=== PATIENT | male | born 1960 | race Caucasian/White ===

== ENCOUNTER 2024-09-05 10:19 | Inpatient (IN) ==
--- NOTE | 2024-09-05 11:24 | Emergency Department Note ---
Impression & Plan Cirrhosis, Fluid overload, Hyponatremia, Abdominal pain, Single subsegmental thrombotic pulmonary embolism without acute cor pulmonale, Deep vein thrombosis (DVT) of tibial vein of right lower extremity ED Provider Note Provider: Keyur Lee MD CHIEF COMPLAINT: Swelling, shortness of breath, pain HISTORY OF PRESENT ILLNESS: Patient is a 64-year-old gentleman reported history of diverticulitis presenting here today reporting over the past month he had increasing swelling of his bilateral lower legs. States noted some swelling of the belly in the last week at least has been having abdominal discomfort. [facility] but was unable to make it there for an appointment. Came here today for evaluation. Reports some nausea. Reports shortness of breath even at rest but also worse with exertion. Little bit of pain in the upper chest. Does drink alcohol sometimes. Did fall yesterday and get stuck between the door and the bathroom was able to get out. Denies significant injury to his right knee but states he was trapped there on the right side. Denies striking his head. Reports some nausea but denies diarrhea. Denies fevers. PAST MEDICAL HISTORY: As noted above MEDICATIONS: None reported SOCIAL HISTORY: Regular alcohol states 4 beers an evening. PHYSICAL EXAM: GENERAL: alert and oriented in no acute distress on stretcher Head: normocephalic and atraumatic EYES: No injection, discharge or icterus. PERRL, EOMI. NECK: Trachea midline. Supple without significant tenderness ENT: Mucous membranes pink and moist. LUNGS: Airway patent. No retractions. Breath sounds diminished in the bases with some fine crackles, mildly tachypneic HEART: Regular rate and rhythm. No chest wall tenderness ABDOMEN: Soft decently distended however with some mild diffuse tenderness. No guarding or peritonitis appreciable. SKIN: Acyanotic, warm, dry, without rashes EXTREMITIES: Without deformity 2+ edema the bilateral lower extremities to the mid thighs. No significant tender with ROM of the right knee. Soft compartments of the arms and legs. NEUROLOGICAL: No focal deficits. No aphasia. No facial droop or slurred speech. Normal strength and tone in the extremities. Sensation to gross touch normal. Ambulatory. EK bpm sinus rhythm. No PVC or PAC. No acute ST segment elevation or depression with QTc of 444. CONTINUOUS CARDIAC MONITORING: was ordered and showed a heart rate of 60s bpm in normal sinus rhythm GCS 15. Patient's laboratory studies and imaging reviewed. Differential includes traumatic injury infection, dehydration, metabolic abnormality, hypo/hyperglycemia, electrolyte disturbance, anemia, hypoxia, cardiac sources, intracerebral event, toxicologic, neurologic, as well as other pathologies. IMPRESSION/MEDICAL DECISION MAKING: Given reported history of alcohol use and the fall concerned that there could be some occult trauma and as such completed trauma scans as well as CT of the chest to exclude PE. Does have findings of swelling of lower extremities was the belly. Reports distant history of DVT. Will obtain ultrasound to exclude this in the bilateral lower legs but am concerned for possible heart failure or CHF. Blood work is sent. Denies alcohol use today. Does not appear loosening or DTs at this time. No fevers reported lower suspicion for infection. No clinical evidence of compartment syndrome on exam of the extremities. Doubt fracture of the right knee or dislocation. Point care blood work concerning for hyponatremia sodium 123. Mild hypokalemia 1.5. Normal potassium. Normal renal function. Troponin elevated. BNP elevated to 78. Albumin low at 3. Alcohol level not elevated. Bilirubin patient 2.6. Ammonia not elevated. Chest x-ray question small pleural effusions. CT report reads no acute intracranial bleeding or cervical spine fracture. CTA of the chest questions subsegmental left lower lobe PE. Cardiomegaly with mild pulm edema and trace effusions noted with cirrhosis and portal hypertension noted's finding and some abdominal pelvic ascites. CT report questions possibility of SBP lower likelihood carcinomatosis as there is some nodularity. Lower extremity ultrasounds completed as well and Discussed with patient the findings. He denies fever and no leukocytosis. Patient not immediately appearing septic. Discussed with him possibly attempting diagnostic paracentesis to exclude SBP at bedside using ultrasound. Radiology not available today for such procedure. Will hold off on full anticoagulation as there is only a very small possible subsegmental PE questionable DVT until paracentesis was performed as below. Abdominal paracentesis fluid sent for further testing will hold off on empiric antibiotics at this time as he is not febrile or with leukocytosis. Some IV magnesium supplementation as well as IV albumin was given. Discussed with the patient strong recommendation for further care here at the hospital of admission. He is agreeable although not particularly thrilled with the prospect and would stay at least 1 night he said. Discussed with the hospitalist team for further care here. DIAGNOSIS: Hyponatremia, cirrhosis, ascites, abdominal pain, subsegmental PE DISPOSITION: Hospitalist will evaluate Patient was agreeable with this plan. ED procedure: Abdominal diagnostic paracentesis Performed by myself with patient's verbal informed consent of risks and benefits including infection and bleeding Patient was positioned laying on his right abdomen. Ultrasound was utilized bedside to visualized a fluid pocket in the mid abdomen clear of any bowel. Area was anesthetized with approximately 5 cc of 1% lidocaine with epinephrine in the subcu tissue after being cleaned with chlorhexidine. The area was draped with sterile towels and cleaned again with chlorhexidine. Using sterile gloves and technique a 22-gauge needle was inserted approximately centimeter just below the umbilicus and the area of the visualized clear fluid pocket and straw- colored clear fluid was aspirated. Approximately 20 cc was aspirated and the paracentesis was ended. Needle withdrawn intact. No significant bleeding from the site. Area again cleaned chlorhexidine and Band-Aid applied. No significant leakage or bleeding noted. Patient without significant pain complaint. No obvious complications. Past Med/Surg History Problem List (Updated 09/05/24 @ 14:30 by Keyur Lee M.D.) Deep vein thrombosis (DVT) of tibial vein of right lower extremity (Acute) Single subsegmental thrombotic pulmonary embolism without acute cor pulmonale (Acute) Abdominal pain (Acute) Hyponatremia (Acute) Fluid overload (Acute) Cirrhosis (Acute) No significant past surgical history No significant past medical history Medical History No significant past medical history Surgical History No significant past surgical history Social History (Updated 03/14/23 @ 19:10 by Merritt Ramey) Smoking Status: Current every day smoker marital status: Single current occupational status: employed Feels Safe at Home: Yes Allergies Allergies Allergy/AdvReac Type Severity Reaction Status Date / Time Sulfa (Sulfonamide Allergy Mild Rash Verified 03/14/23 19:10 Antibiotics) Home Meds Previous Rx's Medication Instructions Recorded oxycodone 5 mg tablet 5 mg PO Q4H PRN pain #15 tabs 03/14/23 Results & Data (ED) Vital Signs Vital Signs - 24 hr 09/05/24 10:27 09/05/24 10:40 09/05/24 11:22 Temperature 36.8 C Temperature Source Temporal Artery Scan Pulse Rate 69 63 Pulse Rate [Right Finger] Respiratory Rate 16 Respiratory Effort / Characteristics Non-Labored Spontaneous Respiratory Depth Normal Respiratory Pattern Blood Pressure 131/85 Blood Pressure [Right Arm] Blood Pressure Mean 100 Blood Pressure Mean [Right Arm] Blood Pressure Position Sitting Pulse Oximetry 100 Oxygen Delivery Method Room Air Room Air Sepsis Recent Fever Within 48 Hours No Sepsis New/Unexplained Change in Mental Status N/A Sepsis Action Taken by Nursing No Action Required 09/05/24 11:26 09/05/24 11:28 09/05/24 12:13 Temperature Temperature Source Pulse Rate Pulse Rate [Right Finger] 62 68 Respiratory Rate 16 16 Respiratory Effort / Characteristics Non-Labored Spontaneous Non-Labored Spontaneous Non-Labored Spontaneous Respiratory Depth Normal Normal Normal Respiratory Pattern Regular Regular Regular Blood Pressure Blood Pressure [Right Arm] 111/72 111/76 Blood Pressure Mean Blood Pressure Mean [Right Arm] 85 87 Blood Pressure Position Pulse Oximetry 100 100 Oxygen Delivery Method Room Air Room Air Sepsis Recent Fever Within 48 Hours Sepsis New/Unexplained Change in Mental Status Sepsis Action Taken by Nursing 09/05/24 13:59 Temperature Temperature Source Pulse Rate Pulse Rate [Right Finger] 62 Respiratory Rate 20 Respiratory Effort / Characteristics Non-Labored Spontaneous Respiratory Depth Normal Respiratory Pattern Regular Blood Pressure Blood Pressure [Right Arm] 102/69 Blood Pressure Mean Blood Pressure Mean [Right Arm] 80 Blood Pressure Position Pulse Oximetry 100 Oxygen Delivery Method Room Air Sepsis Recent Fever Within 48 Hours Sepsis New/Unexplained Change in Mental Status Sepsis Action Taken by Nursing Laboratory Data 09/05/24 10:59 09/05/24 10:59 Lab Results 09/05/24 09/05/24 09/05/24 Range/Units 10:59 11:12 11:33 WBC 8.75 (4.8-10.8) K/ul RBC 3.54 L (4.70-6.10) M/uL Hgb 13.2 L (14.0-18.0) g/dl POC Hgb 12.9 L (14.0-18.0) g/dl Hct 36.1 L (42.0-52.0) % POC Hct 38 L (42-52) % MCV 102.0 H (80.0-100.0) fL MCH 37.3 H (25.0-34.0) pg MCHC 36.6 H (32.0-36.0) g/dL RDW Std Deviation 46.3 (36.4-46.3) fL RDW Coeff of Mimi 12.3 (11.5-14.5) % Plt Count 138 (130-400) K/uL MPV 10.2 (9.4-12.4) fL Immature Gran % (Auto) 0.2 % Neut % (Auto) 69.2 % Lymph % (Auto) 18.3 % [place] % (Auto) 10.7 % Eos % (Auto) 1.3 % Baso % (Auto) 0.3 % Neut # (Auto) 6.05 (1.40-6.50) K/uL Lymph # (Auto) 1.60 (1.20-3.40) K/uL [place] # (Auto) 0.94 H (0.11-0.59) K/uL Eos # (Auto) 0.11 (0.00-0.50) K/uL Baso # (Auto) 0.03 (0.00-0.20) K/uL Immature Gran # (Auto) 0.02 (0.01-0.20) K/uL PT 11.5 (9.0-12.0) Seconds INR 1.1 (0.9-1.1) APTT 26 (21-31) Seconds PTT Ratio 1.0 POC Sodium 124 L (135-144) mmol/L Sodium 123 L (136-145) mmol/L POC Potassium 4.1 (3.3-5.0) mmol/L Potassium 4.1 (3.5-5.1) mmol/L POC Chloride 89 L (101-112) mmol/L Chloride 91 L (98-107) mmol/L Carbon Dioxide 26 (21-32) mmol/L POC Total CO2 23 L (24-31) mmol/L Anion Gap 6 (3-11) POC Anion Gap 17.0 (16-25) mmol/L POC BUN 6 L (7-18) mg/dl BUN 7 (6-23) mg/dl Creatinine 0.69 (0.6-1.4) mg/dl POC Creatinine 0.7 (0.6-1.3) mg/dl Est Cr Clr Drug Dosing 96.6 ml/min eGFR 104.63 BUN/Creatinine Ratio 10.1 (10-20) Glucose 82 (70-99(Fasting)) mg/dl POC Glucose (other) 81 (70-99) mg/dl Osmolality 257 L (280-300) mOsm/kg Calcium 9.0 (8.6-10.3) mg/dl POC Ioniz Calcium [place] 1.14 (1.12-1.32) mmol/l Magnesium 1.5 L (1.7-2.4) mg/dl Total Bilirubin 2.6 H (0.2-1.0) mg/dl AST 60 H (13-39) U/L ALT 27 (7-52) U/L Alkaline Phosphatase 140 H (34-104) U/L Ammonia 17.0 L (18-72) umol/L Troponin I High Sens 19.2 (0-20) pg/ml B-Natriuretic Peptide 278 H (0-100) pg/ml Total Protein 5.7 L (6.0-8.3) gm/dl Albumin 3.0 L (3.4-5.0) gm/dl Globulin 2.7 (2.5-4.0) gm/dl Albumin/Globulin Ratio 1.1 (0.9-2) Lipase 19 (11-82) U/L TSH 13.814 H (0.300-4.500) uIu/ml Free T4 1.31 (0.61-1.60) ng/dl Fluid Comment Ethyl Alcohol mg/dL < 10.0 (<10.0) mg/dl Adenovirus (PCR) Not Detected (NotDetected) B. pertussis DNA (PCR) Not Detected (NotDetected) B.parapertussis DNA PCR Not Detected (NotDetected) C. pneumoniae DNA (PCR) Not Detected (NotDetected) Coronavirus OC43 (PCR) Not Detected (NotDetected) Coronavirus HKU1 (PCR) Not Detected (NotDetected) Coronavirus 229E (PCR) Not Detected (NotDetected) SARS-CoV-2 (PCR) Not Detected (NotDetected) Coronavirus NL63 (PCR) Not Detected (NotDetected) Human Metapneumovir PCR Not Detected (NotDetected) Influenza Type A (PCR) Not Detected (NotDetected) Influenza Type B (PCR) Not Detected (NotDetected) M. pneumoniae (PCR) Not Detected (NotDetected) Parainfluenza 1 (PCR) Not Detected (NotDetected) Parainfluenza 2 (PCR) Not Detected (NotDetected) Parainfluenza 3 (PCR) Not Detected (NotDetected) Parainfluenza 4 (PCR) Not Detected (NotDetected) RSV (PCR) Not Detected (NotDetected) Entero/Rhino (PCR) Not Detected (NotDetected) 09/05/24 Range/Units 14:20 WBC (4.8-10.8) K/ul RBC (4.70-6.10) M/uL Hgb (14.0-18.0) g/dl POC Hgb (14.0-18.0) g/dl Hct (42.0-52.0) % POC Hct (42-52) % MCV (80.0-100.0) fL MCH (25.0-34.0) pg MCHC (32.0-36.0) g/dL RDW Std Deviation (36.4-46.3) fL RDW Coeff of Mimi (11.5-14.5) % Plt Count (130-400) K/uL MPV (9.4-12.4) fL Immature Gran % (Auto) % Neut % (Auto) % Lymph % (Auto) % [place] % (Auto) % Eos % (Auto) % Baso % (Auto) % Neut # (Auto) (1.40-6.50) K/uL Lymph # (Auto) (1.20-3.40) K/uL [place] # (Auto) (0.11-0.59) K/uL Eos # (Auto) (0.00-0.50) K/uL Baso # (Auto) (0.00-0.20) K/uL Immature Gran # (Auto) (0.01-0.20) K/uL PT (9.0-12.0) Seconds INR (0.9-1.1) APTT (21-31) Seconds PTT Ratio POC Sodium (135-144) mmol/L Sodium (136-145) mmol/L POC Potassium (3.3-5.0) mmol/L Potassium (3.5-5.1) mmol/L POC Chloride (101-112) mmol/L Chloride (98-107) mmol/L Carbon Dioxide (21-32) mmol/L POC Total CO2 (24-31) mmol/L Anion Gap (3-11) POC Anion Gap (16-25) mmol/L POC BUN (7-18) mg/dl BUN (6-23) mg/dl Creatinine (0.6-1.4) mg/dl POC Creatinine (0.6-1.3) mg/dl Est Cr Clr Drug Dosing ml/min eGFR BUN/Creatinine Ratio (10-20) Glucose (70-99(Fasting)) mg/dl POC Glucose (other) (70-99) mg/dl Osmolality (280-300) mOsm/kg Calcium (8.6-10.3) mg/dl POC Ioniz Calcium [place] (1.12-1.32) mmol/l Magnesium (1.7-2.4) mg/dl Total Bilirubin (0.2-1.0) mg/dl AST (13-39) U/L ALT (7-52) U/L Alkaline Phosphatase (34-104) U/L Ammonia (18-72) umol/L Troponin I High Sens (0-20) pg/ml B-Natriuretic Peptide (0-100) pg/ml Total Protein (6.0-8.3) gm/dl Albumin (3.4-5.0) gm/dl Globulin (2.5-4.0) gm/dl Albumin/Globulin Ratio (0.9-2) Lipase (11-82) U/L TSH (0.300-4.500) uIu/ml Free T4 (0.61-1.60) ng/dl Fluid Comment Ethyl Alcohol mg/dL (<10.0) mg/dl Adenovirus (PCR) (NotDetected) B. pertussis DNA (PCR) (NotDetected) B.parapertussis DNA PCR (NotDetected) C. pneumoniae DNA (PCR) (NotDetected) Coronavirus OC43 (PCR) (NotDetected) Coronavirus HKU1 (PCR) (NotDetected) Coronavirus 229E (PCR) (NotDetected) SARS-CoV-2 (PCR) (NotDetected) Coronavirus NL63 (PCR) (NotDetected) Human Metapneumovir PCR (NotDetected) Influenza Type A (PCR) (NotDetected) Influenza Type B (PCR) (NotDetected) M. pneumoniae (PCR) (NotDetected) Parainfluenza 1 (PCR) (NotDetected) Parainfluenza 2 (PCR) (NotDetected) Parainfluenza 3 (PCR) (NotDetected) Parainfluenza 4 (PCR) (NotDetected) RSV (PCR) (NotDetected) Entero/Rhino (PCR) (NotDetected) Administered Medications Discontinued Medications Fentanyl Citrate (Fentanyl Citrate Pf 100 Mcg/2 Ml Vial) 25 mcg IV NOW STA Stop: 09/05/24 11:01 Last Admin: 09/05/24 12:14 Dose: 25 mcg Documented By: JULIET Fentanyl Citrate (Fentanyl Citrate Pf 100 Mcg/2 Ml Vial) 25 mcg IV NOW STA Stop: 09/05/24 13:45 Last Admin: 09/05/24 13:57 Dose: 25 mcg Documented By: JULIET Ioversol (Optiray 320 125ml) 112 ml IV ONCE ONE Stop: 09/05/24 11:53 Last Admin: 09/05/24 11:53 Dose: 112 ml Documented By: DAYAN Ondansetron HCl (Ondansetron Inj 2 Mg/Ml 2 Ml Vial) 4 mg IV NOW STA Stop: 09/05/24 11:01 Last Admin: 09/05/24 12:14 Dose: 4 mg Documented By: JULIET Imaging Data Radiologist's Impression: Chest X-Ray 09/05/24 10:41 XR chest 1V portable HISTORY: 64 years-old Male Dyspnea acute shortness of breath COMPARISON: None TECHNIQUE: AP view of the chest FINDINGS: Cardiomediastinal and hilar silhouettes are within normal limits. No overt pulmonary edema. No pneumothorax. Probable small pleural effusions with bibasilar atelectasis. Bones appear grossly intact. IMPRESSION: Findings suggestive of small pleural effusions with mild atelectasis of the lung bases. ACT 112: Negative or not required by law. The above report was generated using voice recognition software. It may contain grammatical, syntax or spelling errors. Electronically signed by: Tyrone Ruiz M.D. 09/05/2024 11:37 AM Abdomen/Pelvis CT 09/05/24 11:00 CT angio chest PE protocol, CT abd pelvis IV con only HISTORY: 64 years-old Male with PE, SOB, falls, CP. Acute chest and abdominal pain and shortness of breath. Alcoholism with chronic liver disease. TECHNIQUE: Multiple CTA images of the chest were obtained after the intravenous administration of 112 ml Optiray. Coronal and sagittal MIPS were obtained from the axial data set and were submitted for review. All measurements were obtained according to NASCET criteria. CT abdomen and pelvis with IV contrast only also obtained. A dose lowering technique was utilized adhering to the principles of ALARA. COMPARISON: None. FINDINGS: CTA: Moderate cardiomegaly. Moderate coronary artery calcifications without pericardial effusion. No thoracic aortic aneurysm. No central pulmonary emboli identified. Respiratory motion artifact limits the study. There is a tiny filling defects noted within a subsegmental pulmonary arterial branches in the left lower lobe on image [address] CHEST: No dominant thyroid nodule or lymphadenopathy. Trace pleural effusions. Mild intralobular septal thickening with mild pulmonary edema and bronchial wall thickening. Subsegmental left lower lobe consolidation. Low suspicion 3 mm solid nodule within the superior segment left lower lobe. Unremarkable soft tissues. Age-indeterminate thoracic compression deformities, most pronounced at T5, T9, T10 and T11 without retropulsion. Chronic appearing nondisplaced bilateral rib fractures. CT ABDOMEN/PELVIS: There is no pneumoperitoneum. Unremarkable spleen, pancreas and adrenal glands. Cholecystectomy. Cirrhotic liver. No hepatic mass identified. Esophageal and abdominal varicosities. Patent portal vein. Small hiatal hernia. Unremarkable kidneys without hydronephrosis. Urinary bladder wall thickening with partial distention. Prostatomegaly. Small fat filled inguinal hernias. Moderate abdominopelvic ascites. Fluid-filled loops of large and small bowel with diffuse large and small bowel wall thickening. Colonic diverticulosis. There is diffuse peritoneal thickening and enhancement. Periportal lymph nodes measure up to 10 mm. Generalized body wall edema. Chronic rib fractures. Age- indeterminate L1, L3 and L4 compression deformities. IMPRESSION: 1. Probable subsegmental left lower lobe pulmonary embolus. 2. Cardiomegaly with mild pulmonary edema, trace pleural effusions and mild left basilar atelectasis. 3. Cirrhosis with stigmata of portal venous hypertension including abdominal varicosities with moderate abdominopelvic ascites. 4. Enhancement and nodularity of the peritoneum raises the possibility of spontaneous bacterial peritonitis with carcinomatosis considered less likely. 5. Wall thickening throughout the large and small bowel may be secondary to portal enteropathy/colopathy versus a nonspecific enterocolitis. 6. Colonic diverticulosis. 7. Age-indeterminate thoracolumbar compression deformities as above which are favored to be subacute or chronic. Correlate with point tenderness. ACT 112: Negative or not required by law. The above report was generated using voice recognition software. It may contain grammatical, syntax or spelling errors. Electronically signed by: Tyrone Ruiz M.D. 09/05/2024 1:[address] 09/05/24 11:00 CT cervical spine wo con CT DOSE: 2603.06 mGy.cm CLINICAL HISTORY: 64 years-old Male with falls. Acute neck pain status post fall COMPARISON: Head CT of same day TECHNIQUE: Multiple axial CT images of the cervical spine were obtained without contrast. A dose lowering technique was utilized adhering to the principles of ALARA. FINDINGS: Mildly demineralized appearance of the bones. Mild to moderate multilevel intervertebral disc space narrowing with moderate facet arthrosis and spondylotic spurring. Subcentimeter sclerotic foci noted involving the C7 and T2 vertebral bodies. The cervical soft tissues appear unremarkable. No pneumothorax. Intralobular septal thickening of the apices with subpleural bleb formation. IMPRESSION: No acute cervical spine fracture or subluxation. ACT 112: Negative or not required by law. The above report was generated using voice recognition software. It may contain grammatical, syntax or spelling errors. Electronically signed by: Tyrone Ruiz M.D. 09/05/2024 12:36 PM Chest CTA 09/05/24 11:00 CT angio chest PE protocol, CT abd pelvis IV con only HISTORY: 64 years-old Male with PE, SOB, falls, CP. Acute chest and abdominal pain and shortness of breath. Alcoholism with chronic liver disease. TECHNIQUE: Multiple CTA images of the chest were obtained after the intravenous administration of 112 ml Optiray. Coronal and sagittal MIPS were obtained from the axial data set and were submitted for review. All measurements were obtained according to NASCET criteria. CT abdomen and pelvis with IV contrast only also obtained. A dose lowering technique was utilized adhering to the principles of ALARA. COMPARISON: None. FINDINGS: CTA: Moderate cardiomegaly. Moderate coronary artery calcifications without pericardial effusion. No thoracic aortic aneurysm. No central pulmonary emboli identified. Respiratory motion artifact limits the study. There is a tiny filling defects noted within a subsegmental pulmonary arterial branches in the left lower lobe on image [address] CHEST: No dominant thyroid nodule or lymphadenopathy. Trace pleural effusions. Mild intralobular septal thickening with mild pulmonary edema and bronchial wall thickening. Subsegmental left lower lobe consolidation. Low suspicion 3 mm solid nodule within the superior segment left lower lobe. Unremarkable soft tissues. Age-indeterminate thoracic compression deformities, most pronounced at T5, T9, T10 and T11 without retropulsion. Chronic appearing nondisplaced bilateral rib fractures. CT ABDOMEN/PELVIS: There is no pneumoperitoneum. Unremarkable spleen, pancreas and adrenal glands. Cholecystectomy. Cirrhotic liver. No hepatic mass identified. Esophageal and abdominal varicosities. Patent portal vein. Small hiatal hernia. Unremarkable kidneys without hydronephrosis. Urinary bladder wall thickening with partial distention. Prostatomegaly. Small fat filled inguinal hernias. Moderate abdominopelvic ascites. Fluid-filled loops of large and small bowel with diffuse large and small bowel wall thickening. Colonic diverticulosis. There is diffuse peritoneal thickening and enhancement. Periportal lymph nodes measure up to 10 mm. Generalized body wall edema. Chronic rib fractures. Age- indeterminate L1, L3 and L4 compression deformities. IMPRESSION: 1. Probable subsegmental left lower lobe pulmonary embolus. 2. Cardiomegaly with mild pulmonary edema, trace pleural effusions and mild left basilar atelectasis. 3. Cirrhosis with stigmata of portal venous hypertension including abdominal varicosities with moderate abdominopelvic ascites. 4. Enhancement and nodularity of the peritoneum raises the possibility of spontaneous bacterial peritonitis with carcinomatosis considered less likely. 5. Wall thickening throughout the large and small bowel may be secondary to portal enteropathy/colopathy versus a nonspecific enterocolitis. 6. Colonic diverticulosis. 7. Age-indeterminate thoracolumbar compression deformities as above which are favored to be subacute or chronic. Correlate with point tenderness. ACT 112: Negative or not required by law. The above report was generated using voice recognition software. It may contain grammatical, syntax or spelling errors. Electronically signed by: Tyrone Ruiz M.D. 09/05/2024 1:[address] 11/17/24 11:00 CT head/brain wo con CLINICAL HISTORY: 64 years-old Male with falls. Acute head trauma status post fall TECHNIQUE: Multiple axial CT images of the head were obtained without contrast. A dose lowering technique was utilized adhering to the principles of ALARA. COMPARISON: CT cervical spine of same day FINDINGS: No acute intracranial hemorrhage, midline shift, intracranial mass, hydrocephalus, territorial ischemia or abnormal extra-axial collection. Mild involutional changes. The calvarium is intact. The paranasal sinuses, mastoid air cells, and middle ear cavities are clear. IMPRESSION: No acute intracranial abnormality or calvarial fracture. ACT 112: Negative or not required by law. The above report was generated using voice recognition software. It may contain grammatical, syntax or spelling errors. Electronically signed by: Tyrone Ruiz M.D. 09/05/2024 12:33 PM Venous Doppler Study 09/05/24 11:01 BILATERAL LOWER EXTREMITY VENOUS DOPPLER HISTORY: swelling COMPARISON STUDY: None. FINDINGS: There is normal compressibility, flow, and augmentation within the left lower extremity deep venous structures. Subcutaneous edema noted. RIGHT-No flow identified within one of the duplicated posterior tibial veins involving the proximal to mid portions of the vessel. Additional incomplete compressibility with wall thickening noted throughout the majority of the right lower extremity deep venous structures, likely chronic changes. IMPRESSION: 1. Age-indeterminate DVT within the right posterior tibial vein. 2. No left-sided DVT. ACT 112: Negative or not required by law. Electronically signed by: Tyrone Ruiz M.D. 09/05/2024 1:42 PM Discharge Plan Visit Data Chief Complaint: Shortness of Breath/Dyspnea Stated Complaint: CHEST PAIN, SOB ED Provider: Keyur Lee Discharge Problem: Cirrhosis, Fluid overload, Hyponatremia, Abdominal pain, Single subsegmental thrombotic pulmonary embolism without acute cor pulmonale, Deep vein thrombosis (DVT) of tibial vein of right lower extremity Patient Disposition: Being Evaluated by Hospitalist Forms Stand Alone Forms: [place] Prescriptions Prescriptions: No Action oxycodone 5 mg tablet 5 mg PO Q4H PRN (Reason: pain) Qty: 15 0RF Referrals Referrals: [facility] [Primary Care Provider] - Discharge Problem: Cirrhosis Qualifiers: Hepatic cirrhosis type: alcoholic cirrhosis Ascites presence: with ascites Q ualified Code(s): K70.31 - Alcoholic cirrhosis of liver with ascites Fluid overload Qualifiers: Hypervolemia type: unspecified Qualified Code(s): E87.70 - Fluid overload, unspecified Abdominal pain Qualifiers: Abdominal location: generalized Qualified Code(s): R10.84 - Generalized abdominal pain
[2024-09-05 11:25] LABS: iSTAT Creatinine 0.7 mg/dl (0.6-1.3); iSTAT Hemoglobin 12.9 g/dl (14.0-18.0); iSTAT Ionized Calcium 1.14 mmol/l (1.12-1.32); iSTAT Potassium 4.1 mmol/L (3.3-5.0)
[2024-09-05 11:31] LABS: Basophils # (auto) 0.03 K/uL (0.00-0.20); Basophils % (auto) 0.3 %; Eosinophils # (auto) 0.11 K/uL (0.00-0.50); Eosinophils % (auto) 1.3 %; Hematocrit (blood only) 36.1 % (42.0-52.0); Hemoglobin 13.2 g/dl (14.0-18.0); Immature Granulocytes # (auto) 0.02 K/uL (0.01-0.20); Immature Granulocytes % (auto) 0.2 %; Lymphocytes % (auto) 18.3 %; Mean Corpuscular Hemoglobin 37.3 pg (25.0-34.0); Mean Corpuscular Hgb Conc 36.6 g/dL (32.0-36.0); Mean Platelet Volume 10.2 fL (9.4-12.4); Monocytes # (auto) 0.94 K/uL (0.11-0.59); Monocytes % (auto) 10.7 %; Neutrophils # (auto) 6.05 K/uL (1.40-6.50); Neutrophils % (auto) 69.2 %; Platelet Count 138 K/uL (130-400); RDW Coefficient of Variation 12.3 % (11.5-14.5); RDW Standard Deviation 46.3 fL (36.4-46.3); Red Blood Count 3.54 M/uL (4.70-6.10); White Blood Count 8.75 K/ul (4.8-10.8)
--- NOTE | 2024-09-05 11:38 | XRay Report ---
XR chest 1V portable HISTORY: 64 years-old Male Dyspnea acute shortness of breath COMPARISON: None TECHNIQUE: AP view of the chest FINDINGS: Cardiomediastinal and hilar silhouettes are within normal limits. No overt pulmonary edema. No pneumo thorax. Probable small pleural effusions with bibasilar atelectasis. Bones appear grossly intact. IMPRESSION: Findings suggestive of small pleural effusions with mild atelectasis of the lung bases. ACT 112: Negative or not required by law. The above report was generated using voice recognition software. It may contain grammatical, syntax o r spelling errors. Electronically signed by: Tyrone Ruiz M.D. 09/05/2024 11:37 AM
[2024-09-05 11:41] LABS: Albumin Globulin Ratio 1.1 (0.9-2); BUN Creatinine Ratio 10.1 (10-20); Bilirubin,Total 2.6 mg/dl (0.2-1.0); Creatinine Clr Calc Pharmacy 96.6 ml/min; Globulin 2.7 gm/dl (2.5-4.0); Magnesium 1.5 mg/dl (1.7-2.4); Potassium 4.1 mmol/L (3.5-5.1); Total Protein 5.7 gm/dl (6.0-8.3)
[2024-09-05 11:47] LABS: Troponin I High Sensitivity 19.2 pg/ml (0-20)
[2024-09-05 11:50] LABS: INR 1.1 (0.9-1.1); Partial Thromboplastin Time 26 Seconds (21-31); Prothrombin Time 11.5 Seconds (9.0-12.0)
[2024-09-05] MEDS: OPTIRAY 320 125ml IV ONE (11:53)
[2024-09-05 12:05] LABS: Thyroid Stimulating Hormone 13.814 uIu/ml (0.300-4.500)
[2024-09-05] MEDS: fentaNYL citrate PF 100 MCG/2 ML VIAL IV STA ×3 (12:14→15:24)
[2024-09-05] MEDS: ONDANSETRON INJ 2 MG/ML 2 ML VIAL IV STA (12:14)
--- NOTE | 2024-09-05 12:35 | CT Scan Report ---
CT head/brain wo con CLINICAL HISTORY: 64 years-old Male with falls. Acute head trauma status post fall TECHNIQUE: Multiple axial CT images of the head were obtained without contrast. A dose lowering tech nique was utilized adhering to the principles of ALARA. COMPARISON: CT cervical spine of same day FINDINGS: No acute intracranial hemorrhage, midline shift, intracranial mass, hydrocephalus, territorial ischem ia or abnormal extra-axial collection. Mild involutional changes. The calvarium is intact. The paranasal sinuses, mastoid air cells, and middle ear cavities are clear . IMPRESSION: No acute intracranial abnormality or calvarial fracture. ACT 112: Negative or not required by law. The above report was generated using voice recognition software. It may contain grammatical, syntax o r spelling errors. Electronically signed by: Tyrone Ruiz M.D. 09/05/2024 12:33 PM
--- NOTE | 2024-09-05 12:39 | CT Scan Report ---
CT cervical spine wo con CT DOSE: 2603.06 mGy.cm CLINICAL HISTORY: 64 years-old Male with falls. Acute neck pain status post fall COMPARISON: Head CT of same day TECHNIQUE: Multiple axial CT images of the cervical spine were obtained without contrast. A dose low ering technique was utilized adhering to the principles of ALARA. FINDINGS: Mildly demineralized appearance of the bones. Mild to moderate multilevel intervertebral di sc space narrowing with moderate facet arthrosis and spondylotic spurring. Subcentimeter sclerotic fo ci noted involving the C7 and T2 vertebral bodies. The cervical soft tissues appear unremarkable. No pneumothorax. Intralobular septal thickening of th e apices with subpleural bleb formation. IMPRESSION: No acute cervical spine fracture or subluxation. ACT 112: Negative or not required by law. The above report was generated using voice recognition software. It may contain grammatical, syntax o r spelling errors. Electronically signed by: Tyrone Ruiz M.D. 09/05/2024 12:36 PM
[2024-09-05 12:40] LABS: T4 Free Thyroxine 1.31 ng/dl (0.61-1.60)
--- NOTE | 2024-09-05 13:04 | CT Scan Report ---
CT angio chest PE protocol, CT abd pelvis IV con only HISTORY: 64 years-old Male with PE, SOB, falls, CP. Acute chest and abdominal pain and shortness of breath. Alcoholism with chronic liver disease. TECHNIQUE: Multiple CTA images of the chest were obtained after the intravenous administration of 112 ml Optiray. Coronal and sagittal MIPS were obtained from the axial data set and were submitted for review. All measurements were obtained according to NASCET criteria. CT abdomen and pelvis with IV c ontrast only also obtained. A dose lowering technique was utilized adhering to the principles of MERA Craven. COMPARISON: None. FINDINGS: CTA: Moderate cardiomegaly. Moderate coronary artery calcifications without pericardial effusion. No thora cic aortic aneurysm. No central pulmonary emboli identified. Respiratory motion artifact limits the s tudy. There is a tiny filling defects noted within a subsegmental pulmonary arterial branches in the left lower lobe on image [address] CHEST: No dominant thyroid nodule or lymphadenopathy. Trace pleural effusions. Mild intralobular septal thic kening with mild pulmonary edema and bronchial wall thickening. Subsegmental left lower lobe consolid ation. Low suspicion 3 mm solid nodule within the superior segment left lower lobe. Unremarkable soft tissues. Age-indeterminate thoracic compression deformities, most pronounced at T5, T9, T10 and T11 without retropulsion. Chronic appearing nondisplaced bilateral rib fractures. CT ABDOMEN/PELVIS: There is no pneumoperitoneum. Unremarkable spleen, pancreas and adrenal glands. Cholecystectomy. Cirr hotic liver. No hepatic mass identified. Esophageal and abdominal varicosities. Patent portal vein. S mall hiatal hernia. Unremarkable kidneys without hydronephrosis. Urinary bladder wall thickening with partial distention. Prostatomegaly. Small fat filled inguinal hernias. Moderate abdominopelvic ascites. Fluid-filled loops of large and small bowel with diffuse large and s mall bowel wall thickening. Colonic diverticulosis. There is diffuse peritoneal thickening and enhanc ement. Periportal lymph nodes measure up to 10 mm. Generalized body wall edema. Chronic rib fractures . Age-indeterminate L1, L3 and L4 compression deformities. IMPRESSION: 1. Probable subsegmental left lower lobe pulmonary embolus. 2. Cardiomegaly with mild pulmonary edema, trace pleural effusions and mild left basilar atelectasis. 3. Cirrhosis with stigmata of portal venous hypertension including abdominal varicosities with modera te abdominopelvic ascites. 4. Enhancement and nodularity of the peritoneum raises the possibility of spontaneous bacterial perit onitis with carcinomatosis considered less likely. 5. Wall thickening throughout the large and small bowel may be secondary to portal enteropathy/colopa thy versus a nonspecific enterocolitis. 6. Colonic diverticulosis. 7. Age-indeterminate thoracolumbar compression deformities as above which are favored to be subacute or chronic. Correlate with point tenderness. ACT 112: Negative or not required by law. The above report was generated using voice recognition software. It may contain grammatical, syntax o r spelling errors. Electronically signed by: Tyrone Ruiz M.D. 09/05/2024 1:02 PM
[2024-09-05 13:29] LABS: Adenovirus PCR Not Detected (NotDetected); Bordetella parapertussis PCR Not Detected (NotDetected); Bordetella pertussis PCR Not Detected (NotDetected); Chlamydia pneumoniae PCR Not Detected (NotDetected); Coronavirus 229E PCR Not Detected (NotDetected); Coronavirus CoV-2 (COVID19)PCR Not Detected (NotDetected); Coronavirus HKU1 PCR Not Detected (NotDetected); Coronavirus NL63 PCR Not Detected (NotDetected); Coronavirus OC43PCR Not Detected (NotDetected); Human Metapneumovirus PCR Not Detected (NotDetected); Influenza A PCR Not Detected (NotDetected); Influenza B PCR Not Detected (NotDetected); Mycoplasma pneumoniae PCR Not Detected (NotDetected); Parainfluenza Virus 1 PCR Not Detected (NotDetected); Parainfluenza Virus 2 PCR Not Detected (NotDetected); Parainfluenza Virus 3 PCR Not Detected (NotDetected); Parainfluenza Virus 4 PCR Not Detected (NotDetected); Respiratory Syncytial VirusPCR Not Detected (NotDetected); Rhinovirus/Enterovirus PCR Not Detected (NotDetected)
--- NOTE | 2024-09-05 13:43 | Ultrasound Report ---
BILATERAL LOWER EXTREMITY VENOUS DOPPLER HISTORY: swelling COMPARISON STUDY: None. FINDINGS: There is normal compressibility, flow, and augmentation within the left lower extremity hector p venous structures. Subcutaneous edema noted. RIGHT-No flow identified within one of the duplicated posterior tibial veins involving the proximal t o mid portions of the vessel. Additional incomplete compressibility with wall thickening noted throug hout the majority of the right lower extremity deep venous structures, likely chronic changes. IMPRESSION: 1. Age-indeterminate DVT within the right posterior tibial vein. 2. No left-sided DVT. ACT 112: Negative or not required by law. Electronically signed by: Tyrone Ruiz M.D. 09/05/2024 1:42 PM
--- NOTE | 2024-09-05 14:03 | History & Physical Report ---
Date of Service September 05, 2024 Assessment & Plan (1) Single subsegmental thrombotic pulmonary embolism without acute cor pulmonale: Plan: Discussed treatment options with the patient. Will start apixaban but not the high loading dose because of potential varices and risk for bleeding Will discuss with GI the risk and benefits. He may need endoscopy (2) Deep vein thrombosis (DVT) of tibial vein of right lower extremity: Plan: Apixaban 5 mg p.o. twice daily for now. (3) Abdominal pain: Plan: Point of service ultrasound paracentesis done in the ER. Await studies. (4) Hyponatremia: Plan: Patient with severe hyponatremia. We do not know his baseline. Lasix and spironolactone started Consult nephrology for help with management Trend labs (5) Fluid overload: Plan: Will start Lasix as above. Will coordinate with nephrology and GI (6) Cirrhosis: (7) Esophageal varices: Plan: Not clear if he has varices and or how severe (8) Ascites: Plan: Paracentesis attempted in the ED. Plan Patient has possible infiltrate on CT scan and also concern for bacterial peritonitis. Will empirically start ceftriaxone and add doxycycline for atypicals if he has a community-acquired pneumonia. Patient has multiple comorbid conditions and his condition is guarded. VTE prophylaxis: Apixaban started Patient is a full code Total of 80 minutes spent in care coordination, review of data and care of this patient. History of Present Illness Chief Complaint: SOB, swelling Primary Care Provider: [facility] Adrian Rey is a 64-year-old male with a PMHX significant for ETOH abuse, diverticulitis who presents to the ED today reporting over the past month he had increasing swelling of his bilateral lower legs. States noted some swelling of the belly in the last week at least has been having abdominal discomfort. Talked with the [place] who he follows with but was unable to make it there for an appointment. Came here today for evaluation. Reports some nausea. Reports shortness of breath even at rest but also worse with exertion. Little bit of pain in the upper chest. Does drink alcohol sometimes. Did fall yesterday and get stuck between the door and the bathroom was able to get out. Denies significant injury to his right knee but states he was trapped there on the right side. Denies striking his head. Reports some nausea but denies diarrhea. Denies fevers. In the ED. The ED provider did a paracentesis, point of service ultrasound. CT PE study shows a small probable left subsegmental PE and Subsegmental left lower lobe consolidation. CT of the abdomen raised possibility of SBP. He has a chronic DVT. He tells me [facility] a [facility] but he did see [facility] in the past. It is unclear whether he had an EGD but was being set up for one. There is a history of cirrhosis and possible varices. Allergies Allergy/AdvReac Type Severity Reaction Status Date / Time Sulfa (Sulfonamide Allergy Mild Rash Verified 09/05/24 15:13 Antibiotics) aspirin Allergy Unknown Unverified 09/05/24 16:30 Home Medications Medication Instructions Recorded Confirmed Type albuterol sulfate 90 mcg/actuation 2 puff inhalation QID PRN 09/05/24 09/05/24 History aerosol inhaler (Ventolin HFA) Shortness Of Breath benzonatate 100 mg capsule 100 mg PO TID PRN Cough 09/05/24 09/05/24 History cholecalciferol (vitamin D3) 25 25 mcg PO DAILY 09/05/24 09/05/24 History mcg (1,000 unit) tablet folic acid 1 mg tablet 1 mg PO WK 09/05/24 09/05/24 History gabapentin 300 mg capsule 300 mg PO BID 09/05/24 09/05/24 History levothyroxine 88 mcg tablet 88 mcg PO QAM 09/05/24 09/05/24 History mometasone-formoterol HFA 100 2 puff inhalation BID 09/05/24 09/05/24 History mcg-5 mcg/actuation aerosol inhaler primidone 50 mg tablet 75 mg PO HS 09/05/24 09/05/24 History propranolol 120 mg capsule,24 120 mg PO BID 09/05/24 09/05/24 History hr,extended release tiotropium bromide 2.5 2 puff inhalation DAILY 09/05/24 09/05/24 History mcg/actuation mist for inhalation (Spiriva Respimat) Past Med/Surg History Problem List (Updated 09/05/24 @ 19:35 by Camilo Del Valle DO) Ascites Esophageal varices Deep vein thrombosis (DVT) of tibial vein of right lower extremity (Acute) Single subsegmental thrombotic pulmonary embolism without acute cor pulmonale (Acute) Abdominal pain (Acute) Hyponatremia (Acute) Fluid overload (Acute) Cirrhosis (Acute) No significant past surgical history No significant past medical history Medical History No significant past medical history Surgical History No significant past surgical history Social History (Updated 03/14/23 @ 19:10 by Merritt Ramey) Smoking Status: Current every day smoker Hx Alcohol Use: Yes Alcohol type: beer Hx Substance Use: No Preferred Language: Persian Communication Ability: Effective Photo Optics Technician Required: No Beliefs That Will Affect Care: None marital status: Single Current Living Situation: Alone current occupational status: employed Feels Safe at Home: Yes Safety Concerns: Feels Safe At This Time Review of Systems Review of Systems: Per the HPI. Remaining review of systems are negative or noncontributory. Physical Exam Physical Exam: General- adult male seen at bedside in the ED. Chronic ill appearance. Head- atraumatic Eyes- PERRL, EOMI, anicteric ENT- oropharynx clear Neck- supple, no JVD, no adenopathy, no thyromegaly; carotids +2/2, no bruits appreciated Lungs- clear to auscultation and percussion Heart- regular rhythm; no murmur, no gallop, no rub appreciated Abdomen- normal bowel sounds, soft, distended, ascites present no masses. He has hepatosplenomegaly Extremities-2+ pretibial edema, Neuro- alert, oriented x 3; PERRL, EOMI; no facial palsy; no dysarthria; motor 5/5 bilaterally; no cogwheel rigidity; patellar DTRs +2/2; toes downgoing bilaterally; no asterixis Skin- warm & dry Results & Data Results & Data Vital Signs (Past 12 Hours) Vital Signs Temp Pulse Pulse Resp BP BP Pulse Ox 09/05/24 13:59 62 20 102/69 100 09/05/24 12:13 68 16 111/76 100 09/05/24 11:26 62 16 111/72 100 09/05/24 11:22 09/05/24 10:40 63 09/05/24 10:27 36.8 C 69 16 131/85 100 O2 Del Method 09/05/24 13:59 Room Air 09/05/24 12:13 Room Air 09/05/24 11:26 Room Air 09/05/24 11:22 Room Air 09/05/24 10:40 09/05/24 10:27 Room Air Diagnostic Findings Laboratory Results WBC 8.75 K/ul (4.8-10.8) 09/05/24 10:59 RBC 3.54 M/uL (4.70-6.10) L 09/05/24 10:59 Hgb 13.2 g/dl (14.0-18.0) L 09/05/24 10:59 POC Hgb 12.9 g/dl (14.0-18.0) L 09/05/24 11:12 Hct 36.1 % (42.0-52.0) L 09/05/24 10:59 POC Hct 38 % (42-52) L 09/05/24 11:12 MCV 102.0 fL (80.0-100.0) H 09/05/24 10:59 MCH 37.3 pg (25.0-34.0) H 09/05/24 10:59 MCHC 36.6 g/dL (32.0-36.0) H 09/05/24 10:59 RDW Std Deviation 46.3 fL (36.4-46.3) 09/05/24 10:59 RDW Coeff of Mimi 12.3 % (11.5-14.5) 09/05/24 10:59 Plt Count 138 K/uL (130-400) 09/05/24 10:59 MPV 10.2 fL (9.4-12.4) 09/05/24 10:59 Immature Gran % (Auto) 0.2 % 09/05/24 10:59 Neut % (Auto) 69.2 % 09/05/24 10:59 Lymph % (Auto) 18.3 % 09/05/24 10:59 [place] % (Auto) 10.7 % 09/05/24 10:59 Eos % (Auto) 1.3 % 09/05/24 10:59 Baso % (Auto) 0.3 % 09/05/24 10:59 Neut # (Auto) 6.05 K/uL (1.40-6.50) 09/05/24 10:59 Lymph # (Auto) 1.60 K/uL (1.20-3.40) 09/05/24 10:59 [place] # (Auto) 0.94 K/uL (0.11-0.59) H 09/05/24 10:59 Eos # (Auto) 0.11 K/uL (0.00-0.50) 09/05/24 10:59 Baso # (Auto) 0.03 K/uL (0.00-0.20) 09/05/24 10:59 Immature Gran # (Auto) 0.02 K/uL (0.01-0.20) 09/05/24 10:59 PT 11.5 Seconds (9.0-12.0) 09/05/24 10:59 INR 1.1 (0.9-1.1) 09/05/24 10:59 APTT 26 Seconds (21-31) 09/05/24 10:59 PTT Ratio 1.0 09/05/24 10:59 POC Sodium 124 mmol/L (135-144) L 09/05/24 11:12 Sodium 123 mmol/L (136-145) L 09/05/24 10:59 POC Potassium 4.1 mmol/L (3.3-5.0) 09/05/24 11:12 Potassium 4.1 mmol/L (3.5-5.1) 09/05/24 10:59 POC Chloride 89 mmol/L (101-112) L 09/05/24 11:12 Chloride 91 mmol/L (98-107) L 09/05/24 10:59 Carbon Dioxide 26 mmol/L (21-32) 09/05/24 10:59 POC Total CO2 23 mmol/L (24-31) L 09/05/24 11:12 Anion Gap 6 (3-11) 09/05/24 10:59 POC Anion Gap 17.0 mmol/L (16-25) 09/05/24 11:12 POC BUN 6 mg/dl (7-18) L 09/05/24 11:12 BUN 7 mg/dl (6-23) 09/05/24 10:59 Creatinine 0.69 mg/dl (0.6-1.4) 09/05/24 10:59 POC Creatinine 0.7 mg/dl (0.6-1.3) 09/05/24 11:12 Est Cr Clr Drug Dosing 96.6 ml/min 09/05/24 10:59 eGFR 104.63 09/05/24 10:59 BUN/Creatinine Ratio 10.1 (10-20) 09/05/24 10:59 Glucose 82 mg/dl (70-99(Fasting)) 09/05/24 10:59 POC Glucose (other) 81 mg/dl (70-99) 09/05/24 11:12 Osmolality 257 mOsm/kg (280-300) L 09/05/24 10:59 Calcium 9.0 mg/dl (8.6-10.3) 09/05/24 10:59 POC Ioniz Calcium [place] 1.14 mmol/l (1.12-1.32) 09/05/24 11:12 Magnesium 1.5 mg/dl (1.7-2.4) L 09/05/24 10:59 Total Bilirubin 2.6 mg/dl (0.2-1.0) H 09/05/24 10:59 AST 60 U/L (13-39) H 09/05/24 10:59 ALT 27 U/L (7-52) 09/05/24 10:59 Alkaline Phosphatase 140 U/L (34-104) H 09/05/24 10:59 Ammonia 17.0 umol/L (18-72) L 09/05/24 10:59 Troponin I High Sens 19.2 pg/ml (0-20) 09/05/24 10:59 B-Natriuretic Peptide 278 pg/ml (0-100) H 09/05/24 10:59 Total Protein 5.7 gm/dl (6.0-8.3) L 09/05/24 10:59 Albumin 3.0 gm/dl (3.4-5.0) L 09/05/24 10:59 Globulin 2.7 gm/dl (2.5-4.0) 09/05/24 10:59 Albumin/Globulin Ratio 1.1 (0.9-2) 09/05/24 10:59 Lipase 19 U/L (11-82) 09/05/24 10:59 TSH 13.814 uIu/ml (0.300-4.500) H 09/05/24 10:59 Free T4 1.31 ng/dl (0.61-1.60) 09/05/24 10:59 Ethyl Alcohol mg/dL < 10.0 mg/dl (<10.0) 09/05/24 10:59 Adenovirus (PCR) Not Detected (NotDetected) 09/05/24 11:33 B. pertussis DNA (PCR) Not Detected (NotDetected) 09/05/24 11:33 B.parapertussis DNA PCR Not Detected (NotDetected) 09/05/24 11:33 C. pneumoniae DNA (PCR) Not Detected (NotDetected) 09/05/24 11:33 Coronavirus OC43 (PCR) Not Detected (NotDetected) 09/05/24 11:33 Coronavirus HKU1 (PCR) Not Detected (NotDetected) 09/05/24 11:33 Coronavirus 229E (PCR) Not Detected (NotDetected) 09/05/24 11:33 SARS-CoV-2 (PCR) Not Detected (NotDetected) 09/05/24 11:33 Coronavirus NL63 (PCR) Not Detected (NotDetected) 09/05/24 11:33 Human Metapneumovir PCR Not Detected (NotDetected) 09/05/24 11:33 Influenza Type A (PCR) Not Detected (NotDetected) 09/05/24 11:33 Influenza Type B (PCR) Not Detected (NotDetected) 09/05/24 11:33 M. pneumoniae (PCR) Not Detected (NotDetected) 09/05/24 11:33 Parainfluenza 1 (PCR) Not Detected (NotDetected) 09/05/24 11:33 Parainfluenza 2 (PCR) Not Detected (NotDetected) 09/05/24 11:33 Parainfluenza 3 (PCR) Not Detected (NotDetected) 09/05/24 11:33 Parainfluenza 4 (PCR) Not Detected (NotDetected) 09/05/24 11:33 RSV (PCR) Not Detected (NotDetected) 09/05/24 11:33 Entero/Rhino (PCR) Not Detected (NotDetected) 09/05/24 11:33 Impressions Chest X-Ray 09/05/24 10:41 XR chest 1V portable HISTORY: 64 years-old Male Dyspnea acute shortness of breath COMPARISON: None TECHNIQUE: AP view of the chest FINDINGS: Cardiomediastinal and hilar silhouettes are within normal limits. No overt pulmonary edema. No pneumothorax. Probable small pleural effusions with bibasilar atelectasis. Bones appear grossly intact. IMPRESSION: Findings suggestive of small pleural effusions with mild atelectasis of the lung bases. ACT 112: Negative or not required by law. The above report was generated using voice recognition software. It may contain grammatical, syntax or spelling errors. Electronically signed by: Tyrone Ruiz M.D. 09/05/2024 11:37 AM Abdomen/Pelvis CT 09/05/24 11:00 CT angio chest PE protocol, CT abd pelvis IV con only HISTORY: 64 years-old Male with PE, SOB, falls, CP. Acute chest and abdominal pain and shortness of breath. Alcoholism with chronic liver disease. TECHNIQUE: Multiple CTA images of the chest were obtained after the intravenous administration of 112 ml Optiray. Coronal and sagittal MIPS were obtained from the axial data set and were submitted for review. All measurements were obtained according to NASCET criteria. CT abdomen and pelvis with IV contrast only also obtained. A dose lowering technique was utilized adhering to the principles of ALARA. COMPARISON: None. FINDINGS: CTA: Moderate cardiomegaly. Moderate coronary artery calcifications without pericardial effusion. No thoracic aortic aneurysm. No central pulmonary emboli identified. Respiratory motion artifact limits the study. There is a tiny filling defects noted within a subsegmental pulmonary arterial branches in the left lower lobe on image [address] CHEST: No dominant thyroid nodule or lymphadenopathy. Trace pleural effusions. Mild intralobular septal thickening with mild pulmonary edema and bronchial wall thickening. Subsegmental left lower lobe consolidation. Low suspicion 3 mm solid nodule within the superior segment left lower lobe. Unremarkable soft tissues. Age-indeterminate thoracic compression deformities, most pronounced at T5, T9, T10 and T11 without retropulsion. Chronic appearing nondisplaced bilateral rib fractures. CT ABDOMEN/PELVIS: There is no pneumoperitoneum. Unremarkable spleen, pancreas and adrenal glands. Cholecystectomy. Cirrhotic liver. No hepatic mass identified. Esophageal and abdominal varicosities. Patent portal vein. Small hiatal hernia. Unremarkable kidneys without hydronephrosis. Urinary bladder wall thickening with partial distention. Prostatomegaly. Small fat filled inguinal hernias. Moderate abdominopelvic ascites. Fluid-filled loops of large and small bowel with diffuse large and small bowel wall thickening. Colonic diverticulosis. There is diffuse peritoneal thickening and enhancement. Periportal lymph nodes measure up to 10 mm. Generalized body wall edema. Chronic rib fractures. Age- indeterminate L1, L3 and L4 compression deformities. IMPRESSION: 1. Probable subsegmental left lower lobe pulmonary embolus. 2. Cardiomegaly with mild pulmonary edema, trace pleural effusions and mild left basilar atelectasis. 3. Cirrhosis with stigmata of portal venous hypertension including abdominal varicosities with moderate abdominopelvic ascites. 4. Enhancement and nodularity of the peritoneum raises the possibility of spontaneous bacterial peritonitis with carcinomatosis considered less likely. 5. Wall thickening throughout the large and small bowel may be secondary to portal enteropathy/colopathy versus a nonspecific enterocolitis. 6. Colonic diverticulosis. 7. Age-indeterminate thoracolumbar compression deformities as above which are favored to be subacute or chronic. Correlate with point tenderness. ACT 112: Negative or not required by law. The above report was generated using voice recognition software. It may contain grammatical, syntax or spelling errors. Electronically signed by: Tyrone Ruiz M.D. 09/05/2024 1:[address] 09/05/24 11:00 CT cervical spine wo con CT DOSE: 2603.06 mGy.cm CLINICAL HISTORY: 64 years-old Male with falls. Acute neck pain status post fall COMPARISON: Head CT of same day TECHNIQUE: Multiple axial CT images of the cervical spine were obtained without contrast. A dose lowering technique was utilized adhering to the principles of ALARA. FINDINGS: Mildly demineralized appearance of the bones. Mild to moderate multilevel intervertebral disc space narrowing with moderate facet arthrosis and spondylotic spurring. Subcentimeter sclerotic foci noted involving the C7 and T2 vertebral bodies. The cervical soft tissues appear unremarkable. No pneumothorax. Intralobular septal thickening of the apices with subpleural bleb formation. IMPRESSION: No acute cervical spine fracture or subluxation. ACT 112: Negative or not required by law. The above report was generated using voice recognition software. It may contain grammatical, syntax or spelling errors. Electronically signed by: Tyrone Ruiz M.D. 09/05/2024 12:36 PM Chest CTA 09/05/24 11:00 CT angio chest PE protocol, CT abd pelvis IV con only HISTORY: 64 years-old Male with PE, SOB, falls, CP. Acute chest and abdominal pain and shortness of breath. Alcoholism with chronic liver disease. TECHNIQUE: Multiple CTA images of the chest were obtained after the intravenous administration of 112 ml Optiray. Coronal and sagittal MIPS were obtained from the axial data set and were submitted for review. All measurements were obtained according to NASCET criteria. CT abdomen and pelvis with IV contrast only also obtained. A dose lowering technique was utilized adhering to the principles of ALARA. COMPARISON: None. FINDINGS: CTA: Moderate cardiomegaly. Moderate coronary artery calcifications without pericardial effusion. No thoracic aortic aneurysm. No central pulmonary emboli identified. Respiratory motion artifact limits the study. There is a tiny filling defects noted within a subsegmental pulmonary arterial branches in the left lower lobe on image [address] CHEST: No dominant thyroid nodule or lymphadenopathy. Trace pleural effusions. Mild intralobular septal thickening with mild pulmonary edema and bronchial wall thickening. Subsegmental left lower lobe consolidation. Low suspicion 3 mm solid nodule within the superior segment left lower lobe. Unremarkable soft tissues. Age-indeterminate thoracic compression deformities, most pronounced at T5, T9, T10 and T11 without retropulsion. Chronic appearing nondisplaced bilateral rib fractures. CT ABDOMEN/PELVIS: There is no pneumoperitoneum. Unremarkable spleen, pancreas and adrenal glands. Cholecystectomy. Cirrhotic liver. No hepatic mass identified. Esophageal and abdominal varicosities. Patent portal vein. Small hiatal hernia. Unremarkable kidneys without hydronephrosis. Urinary bladder wall thickening with partial distention. Prostatomegaly. Small fat filled inguinal hernias. Moderate abdominopelvic ascites. Fluid-filled loops of large and small bowel with diffuse large and small bowel wall thickening. Colonic diverticulosis. There is diffuse peritoneal thickening and enhancement. Periportal lymph nodes measure up to 10 mm. Generalized body wall edema. Chronic rib fractures. Age- indeterminate L1, L3 and L4 compression deformities. IMPRESSION: 1. Probable subsegmental left lower lobe pulmonary embolus. 2. Cardiomegaly with mild pulmonary edema, trace pleural effusions and mild left basilar atelectasis. 3. Cirrhosis with stigmata of portal venous hypertension including abdominal varicosities with moderate abdominopelvic ascites. 4. Enhancement and nodularity of the peritoneum raises the possibility of spontaneous bacterial peritonitis with carcinomatosis considered less likely. 5. Wall thickening throughout the large and small bowel may be secondary to portal enteropathy/colopathy versus a nonspecific enterocolitis. 6. Colonic diverticulosis. 7. Age-indeterminate thoracolumbar compression deformities as above which are favored to be subacute or chronic. Correlate with point tenderness. ACT 112: Negative or not required by law. The above report was generated using voice recognition software. It may contain grammatical, syntax or spelling errors. Electronically signed by: Tyrone Ruiz M.D. 09/05/2024 1:[address] 09/05/24 11:00 CT head/brain wo con CLINICAL HISTORY: 64 years-old Male with falls. Acute head trauma status post fall TECHNIQUE: Multiple axial CT images of the head were obtained without contrast. A dose lowering technique was utilized adhering to the principles of ALARA. COMPARISON: CT cervical spine of same day FINDINGS: No acute intracranial hemorrhage, midline shift, intracranial mass, hydrocephalus, territorial ischemia or abnormal extra-axial collection. Mild involutional changes. The calvarium is intact. The paranasal sinuses, mastoid air cells, and middle ear cavities are clear. IMPRESSION: No acute intracranial abnormality or calvarial fracture. ACT 112: Negative or not required by law. The above report was generated using voice recognition software. It may contain grammatical, syntax or spelling errors. Electronically signed by: Tyrone Ruiz M.D. 09/05/2024 12:33 PM Venous Doppler Study 09/05/24 11:01 BILATERAL LOWER EXTREMITY VENOUS DOPPLER HISTORY: swelling COMPARISON STUDY: None. FINDINGS: There is normal compressibility, flow, and augmentation within the left lower extremity deep venous structures. Subcutaneous edema noted. RIGHT-No flow identified within one of the duplicated posterior tibial veins involving the proximal to mid portions of the vessel. Additional incomplete compressibility with wall thickening noted throughout the majority of the right lower extremity deep venous structures, likely chronic changes. IMPRESSION: 1. Age-indeterminate DVT within the right posterior tibial vein. 2. No left-sided DVT. ACT 112: Negative or not required by law. Electronically signed by: Tyrone Ruiz M.D. 09/05/2024 1:42 PM (3) Abdominal pain Abdominal location: generalized Qualified Code(s): R10.84 - Generalized abdominal pain (5) Fluid overload Hypervolemia type: unspecified Qualified Code(s): E87.70 - Fluid overload, unspecified (6) Cirrhosis Ascites presence: with ascites Hepatic cirrhosis type: alcoholic cirrhosis Qualified Code(s): K70.31 - Alcoholic cirrhosis of liver with ascites
[2024-09-05] MEDS: ALBUMIN 25% 25 GM/100 ML VIAL IV ONE (15:04)
[2024-09-05 15:19] LABS: Albumin Peritoneal Fluid < 1.5 gm/dl; Total Protein Peritoneal Fluid < 3.0 gm/dl
[2024-09-05 15:23] LABS: Appearance Peritoneal Fluid Slightly Hazy; Color Peritoneal Fluid Yellow; Lymphocytes, Fluid 10 %; Mono,Macrophage,Mesothelial 45 %; Neutrophils, Fluid 45 %; RBC Peritoneal Fluid Auto < 2000 /uL; WBC Peritoneal Fluid Auto 288 /ul (0-300)
[2024-09-05] MEDS: MAGNESIUM SULFATE / D5W 1 GM/100 ML BAG IV STA (15:32)
[2024-09-05] MEDS ORDERED: ALBUTEROL HFA 8 GM INHALER INH PRN (16:07)
[2024-09-05 17:12] LABS: Appearance Urine Clear (Clear); Bilirubin Urine Negative (Negative); Blood Urine Negative (Negative); Color Urine Orange; Glucose Urine UA Negative (Negative); Ketones Urine 1+ (Negative); Leukocyte Esterase Urine Negative (Negative); Nitrite Urine Negative (Negative); Protein Urine Negative (Negative); Specific Gravity Urine > 1.045 (1.000-1.030); Urobilinogen Urine Negative (Negative)
[2024-09-05] MEDS ORDERED: POLYETHYLENE (MIRALAX) 17 GM PACK PO PRN (17:24)
[2024-09-05 19:35] LABS: Hematocrit (blood only) 30.5 % (42.0-52.0); Hemoglobin 11.3 g/dl (14.0-18.0); Mean Corpuscular Hemoglobin 37.3 pg (25.0-34.0); Mean Corpuscular Volume 100.7 fL (80.0-100.0); Mean Platelet Volume 10.1 fL (9.4-12.4); Platelet Count 126 K/uL (130-400); RDW Coefficient of Variation 12.4 % (11.5-14.5); RDW Standard Deviation 46.7 fL (36.4-46.3); Red Blood Count 3.03 M/uL (4.70-6.10); White Blood Count 7.13 K/ul (4.8-10.8)
[2024-09-05 19:46] LABS: BUN Creatinine Ratio 14.5 (10-20); Calcium 8.4 mg/dl (8.6-10.3); Creatinine Clr Calc Pharmacy 125.5 ml/min; Potassium 4.1 mmol/L (3.5-5.1)
[2024-09-05] MEDS: GABAPENTIN 300 MG CAP PO SCH (20:38)
[2024-09-05] MEDS: APIXABAN 5 MG TABLET PO SCH (20:39)
[2024-09-05] MEDS: cefTRIAXone SODIUM 1,000 MG/50 ML BAG IV SCH (20:41)
[2024-09-05] MEDS: DOXYCYCLINE HYCLATE 100 MG CAP PO SCH (20:43)
[2024-09-05] MEDS: ACETAMINOPHEN 325 MG TAB PO PRN (22:00)
[2024-09-05] MEDS: FAMOTIDINE 20MG IV PUSH 20 MG/5 ML SYR IV ONE (22:00)
[2024-09-06] MEDS: LEVOTHYROXINE SODIUM 88 MCG TABLET PO SCH (05:50)
[2024-09-06 08:23] LABS: Hematocrit (blood only) 32.6 % (42.0-52.0); Hemoglobin 11.7 g/dl (14.0-18.0); Mean Corpuscular Hemoglobin 36.4 pg (25.0-34.0); Mean Corpuscular Hgb Conc 35.9 g/dL (32.0-36.0); Mean Corpuscular Volume 101.6 fL (80.0-100.0); Mean Platelet Volume 9.9 fL (9.4-12.4); Platelet Count 137 K/uL (130-400); RDW Coefficient of Variation 12.4 % (11.5-14.5); RDW Standard Deviation 46.5 fL (36.4-46.3); Red Blood Count 3.21 M/uL (4.70-6.10); White Blood Count 6.59 K/ul (4.8-10.8)
[2024-09-06 08:36] LABS: BUN Creatinine Ratio 13.8 (10-20); Calcium 8.7 mg/dl (8.6-10.3); Creatinine Clr Calc Pharmacy 106.2 ml/min; Potassium 4.2 mmol/L (3.5-5.1)
[2024-09-06 08:52] LABS: Magnesium 1.7 mg/dl (1.7-2.4)
[2024-09-06] MEDS: FOLIC ACID 1 MG TAB PO SCH (09:04)
[2024-09-06] MEDS: FUROSEMIDE 40 MG TAB PO SCH (09:04)
[2024-09-06] MEDS: FAMOTIDINE 20 MG TAB PO PRN (09:04)
[2024-09-06] MEDS: CHOLECALCIFEROL 25 MCG (1000 UNITS) TAB PO SCH (09:04)
[2024-09-06] MEDS: SPIRONOLACTONE 25 MG TAB PO SCH (09:04)
[2024-09-06] MEDS: MoRPHine SULFATE 2 MG/ML CARP IV PRN ×2 (09:10→15:37)
[2024-09-06] MEDS: ONDANSETRON INJ 2 MG/ML 2 ML VIAL IV PRN (09:16)
[2024-09-06 10:43] LABS: Basophils # (auto) 0.06 K/uL (0.00-0.20); Basophils % (auto) 0.9 %; Eosinophils # (auto) 0.09 K/uL (0.00-0.50); Eosinophils % (auto) 1.4 %; Immature Granulocytes # (auto) 0.02 K/uL (0.01-0.20); Immature Granulocytes % (auto) 0.3 %; Lymphocytes # (auto) 1.34 K/uL (1.20-3.40); Lymphocytes % (auto) 20.6 %; Monocytes # (auto) 0.66 K/uL (0.11-0.59); Monocytes % (auto) 10.2 %; Neutrophils # (auto) 4.33 K/uL (1.40-6.50); Neutrophils % (auto) 66.6 %
--- NOTE | 2024-09-06 10:58 | Nephrology Consultation ---
Date of Consultation September 06, 2024 Assessment & Plan (1) Hyponatremia: hypervolemic hypotonic hyponatremia in the setting of liver disease with presenting sodium 09/05 123, up to 126 this am. correcting at appropriate rate; target sodium for tomorrow AM is NO MORE than 131. -changed po lasix to qid 10 mg IV w/ hold parameters for sbp <80 -will start midodrine 2.5 mg tid to have enough bp so we can give lasix -hold aldactone > orders in -daily STANDING weight ordered/reiterated w/ floor team -ordered 1.5L fluid limit; cont low na diet -serial bmp to continue as already ordered -maintain K of at least 4 >agree w/ plan for large volume paracentesis Recommendations for moving sodium in terms of diet, weights, lab and lasix/midodrine were reviewed by Dr Braun on TText. We are in agreement. History of Present Illness Reason for Consultation: hyponatremia Requesting Physician: Dr Del Valle Attending Physician: Jesus Braun MD History of Present Illness 64 y/o M whom I'm asked to see for hyponatremia was admitted yesterday for PE after presenting w/ increasing BLE edema. PMH includes ETOH use, liver cirrhosis, diverticulitis, chronic DV on OP lovenox, active tobacco use, hypothyroid. He endorsed a fall on the day prior to presentation and took some time to extricate himself; did not per his report hit his head. he underwent diagnostic paracentesis this am Presenting sodium 123 at 11AM on Sep 05, up to 126 on 09/06 at 0800. serum osms 256; urine osm 423; no urine electrolytes. on presentation had N, abd discomfort; also w/ increasing abdominal girth and exertional dyspnea. he tells me the abd girth came on in the past few weeks along w/ leg swelling and that the abdominal pain has been quite severe, not responding to dilaudid, fentanyl. Allergies Allergy/AdvReac Type Severity Reaction Status Date / Time Sulfa (Sulfonamide Allergy Mild Rash Verified 09/05/24 15:13 Antibiotics) aspirin Allergy Unknown Unverified 09/05/24 16:30 Home Medications Medication Instructions Recorded Confirmed Type albuterol sulfate 90 mcg/actuation 2 puff inhalation QID PRN 09/05/24 09/05/24 History aerosol inhaler (Ventolin HFA) Shortness Of Breath benzonatate 100 mg capsule 100 mg PO TID PRN Cough 09/05/24 09/05/24 History cholecalciferol (vitamin D3) 25 25 mcg PO DAILY 09/05/24 09/05/24 History mcg (1,000 unit) tablet folic acid 1 mg tablet 1 mg PO WK 09/05/24 09/05/24 History gabapentin 300 mg capsule 300 mg PO BID 09/05/24 09/05/24 History levothyroxine 88 mcg tablet 88 mcg PO QAM 09/05/24 09/05/24 History mometasone-formoterol HFA 100 2 puff inhalation BID 09/05/24 09/05/24 History mcg-5 mcg/actuation aerosol inhaler primidone 50 mg tablet 75 mg PO HS 09/05/24 09/05/24 History propranolol 120 mg capsule,24 120 mg PO BID 09/05/24 09/05/24 History hr,extended release tiotropium bromide 2.5 2 puff inhalation DAILY 09/05/24 09/05/24 History mcg/actuation mist for inhalation (Spiriva Respimat) Patient History Medical History (Updated 09/06/24 @ 17:01 by Jaycee Mei MD, PhD) Hypothyroid Deep vein thrombosis (DVT) of tibial vein of right lower extremity Cirrhosis Social History (Updated 03/14/23 @ 19:10 by Merritt Ramey) Smoking Status: Current every day smoker Hx Alcohol Use: Yes Alcohol type: beer Hx Substance Use: No Preferred Language: Croatian Communication Ability: Effective Coding Clerks Supervisor Required: No Beliefs That Will Affect Care: None marital status: Single Current Living Situation: Alone current occupational status: employed Feels Safe at Home: Yes Safety Concerns: Feels Safe At This Time Assistive Devices: None Review of Systems 2 Review of Systems: All systems reviewed & are unremarkable except as noted in HPI & below Physical Exam 2 Constitutional: well developed, + ill appearing, + cachectic and cooperative; no acute distress Eyes: EOM intact bilaterally ENMT: Mouth: + dry oral mucous membranes Neck: no nuchal rigidity Respiratory: normal respiratory effort and + cough (thick, occasional) A uscultation: + diminished lung sounds and + crackles (caudal to diminished BS) Cardiovascular: Rate/Rhythm: regular rate and regular rhythm Gastrointestinal (Abdomen): Inspection/Auscultation: + abdomen distended, normal bowel sounds and + abdominal edema Percussion/Palpation: + abdomen tender, + ascites, + fluid wave and + abdomen firm; no guarding caput medusae Musculoskeletal: Extremities: strength 5/5 throughout Skin: no rashes, warm and dry Neurologic: christian, fluent speech, no tremor Psychiatric: Orientation: alert and oriented x 3 Results & Data Vital Signs (Past 12 Hours) Vital Signs Temp Pulse Resp BP Pulse Ox O2 Del Method 09/06/24 07:58 36.6 C 63 18 100/72 96 Room Air 09/06/24 03:27 36.6 C 64 17 96/60 L 94 Room Air Laboratory Results 09/06/24 08:02 09/06/24 08:02 peritoneal fluid 288 WBC; 45% PMN Diagnostic Findings CTA chest; CT a/p IV con (images personally reviewed) 1. Probable subsegmental left lower lobe pulmonary embolus. 2. Cardiomegaly with mild pulmonary edema, trace pleural effusions and mild left basilar atelectasis. 3. Cirrhosis with stigmata of portal venous hypertension including abdominal varicosities with moderate abdominopelvic ascites. 4. Enhancement and nodularity of the peritoneum raises the possibility of spontaneous bacterial peritonitis with carcinomatosis considered less likely. 5. Wall thickening throughout the large and small bowel may be secondary to portal enteropathy/colopathy versus a nonspecific enterocolitis. 6. Colonic diverticulosis. 7. Age-indeterminate thoracolumbar compression deformities as above which are favored to be subacute or chronic. Correlate with point tenderness.
[2024-09-06] MEDS: HEPARIN SODIUM/DEXTROSE 25,000 UNITS/500 ML BAG IV SCH (11:11)
[2024-09-06] MEDS: THIAMINE HCL 100 MG TAB PO SCH (11:14)
[2024-09-06] MEDS: Heparin IV Adult Wt-Based Low-Dose *NO* INITIAL Bolus Protocol IV STA (11:14)
[2024-09-06 11:17] LABS: INR 1.1 (0.9-1.1); Partial Thromboplastin Ratio 1.1; Partial Thromboplastin Time 29 Seconds (21-31); Prothrombin Time 11.9 Seconds (9.0-12.0)
--- NOTE | 2024-09-06 13:18 | Gastrointestinal Consultation ---
Date of Consultation September 06, 2024 Assessment & Plan (1) Alcoholic cirrhosis of liver: Continue correction of hyponatremia & diuretic management per nephrology. He is currently managed on Aldactone 25 mg daily & Furosemide 40 mg daily. Patient is s/p paracentesis without evidence of SBP but does continue Ceftriaxone.US for 09/07. Limit sodium to <2000 mg daily. Alcohol abstinence recommended. Avoid NSAIDs. Limit Tylenol to <2000 mg daily in divided doses. Patient had EGD for variceal surveillance in 2021 with [facility] and this was unremarkable. Continue to monitor LFTs & MELD score. Supervising Physician Co-Signing Physician Notes I examined the patient and reviewed patient's chart , laboratory data and imaging studies. I agree with with assessment and plan of care as suggested by advanced practice provider. Patient very uncomfortable because of ascites. I would recommend large-volume paracentesis by IR. Continue Lasix 40 mg a day and spironolactone 25 mg a day. Increase spironolactone to 50 or 100 mg p.o. as needed. Monitor weight. History of Present Illness Reason for Consultation: Hepatic cirrhosis, ascites Attending Physician: Jesus Braun MD History of Present Illness Mr. Rey is a 64 yo male with PMH of alcohol abuse and diverticulitis. He presented to the ED due to lower extremity swelling bilaterally. His symptoms also including abdominal discomfort. He has a history of cirrhosis and [facility] in the past, though he thinks he only saw GI once. He does note that he had He was admitted to the hospital and underwent a paracentesis with fluid studies negative for SBP, though prior CT abdomen/pelvis questioned SBP. He has a DVT and PE and has been on Lovenox for 6 months [facility] the [facility]. He was noted to be hyponatremic and nephrology is involved. US ordered and pending for tomorrow. He notes ongoing alcohol consumption. He tells me he had an EGD in the past 2 years, but I do not have any records through [facility] about this. Per [facility] hospitalist there was an EGD in 2021 with [facility] that was normal. Last colon in 2019 with a polyp. He is a poor historian. He is on Eliquis. Current MELD 11. Allergies Allergy/AdvReac Type Severity Reaction Status Date / Time Sulfa (Sulfonamide Allergy Mild Rash Verified 09/05/24 15:13 Antibiotics) aspirin Allergy Unknown Unverified 09/05/24 16:30 Home Medications Medication Instructions Recorded Confirmed Type albuterol sulfate 90 mcg/actuation 2 puff inhalation QID PRN 09/05/24 09/05/24 History aerosol inhaler (Ventolin HFA) Shortness Of Breath benzonatate 100 mg capsule 100 mg PO TID PRN Cough 09/05/24 09/05/24 History cholecalciferol (vitamin D3) 25 25 mcg PO DAILY 09/05/24 09/05/24 History mcg (1,000 unit) tablet folic acid 1 mg tablet 1 mg PO WK 09/05/24 09/05/24 History gabapentin 300 mg capsule 300 mg PO BID 09/05/24 09/05/24 History levothyroxine 88 mcg tablet 88 mcg PO QAM 09/05/24 09/05/24 History mometasone-formoterol HFA 100 2 puff inhalation BID 09/05/24 09/05/24 History mcg-5 mcg/actuation aerosol inhaler primidone 50 mg tablet 75 mg PO HS 09/05/24 09/05/24 History propranolol 120 mg capsule,24 120 mg PO BID 09/05/24 09/05/24 History hr,extended release tiotropium bromide 2.5 2 puff inhalation DAILY 09/05/24 09/05/24 History mcg/actuation mist for inhalation (Spiriva Respimat) Patient History Medical History (Updated 09/06/24 @ 17:01 by Jaycee Mei MD, PhD) Hypothyroid Deep vein thrombosis (DVT) of tibial vein of right lower extremity Cirrhosis Social History (Updated 03/14/23 @ 19:10 by Merritt Ramey) Smoking Status: Current every day smoker Hx Alcohol Use: Yes Alcohol type: beer Hx Substance Use: No Preferred Language: Ivorian Communication Ability: Effective Compliance Manager Required: No Beliefs That Will Affect Care: None marital status: Single Current Living Situation: Alone current occupational status: employed Feels Safe at Home: Yes Safety Concerns: Feels Safe At This Time Assistive Devices: None Review of Systems Constitutional: no fever and no chills Respiratory: no cough and no dyspnea Cardiovascular: no chest pain Gastrointestinal: + nausea; no abdominal pain, no blood in stools and no melena Psychiatric: no problem reported Physical Exam 2 Constitutional: well developed Respiratory: normal respiratory effort Gastrointestinal (Abdomen): Inspection/Auscultation: + abdomen distended Psychiatric: Orientation: alert and oriented x 3 Results & Data Vital Signs (Past 12 Hours) Vital Signs Temp Pulse Pulse Resp BP Pulse Ox O2 Del Method 09/06/24 12:04 59 L 09/06/24 10:51 36.7 C 60 15 92/62 L 95 Room Air 09/06/24 07:58 36.6 C 63 18 100/72 96 Room Air 09/06/24 03:27 36.6 C 64 17 96/60 L 94 Room Air PG Care Time/CCT Total # of Minutes Spent Total Time Spent with Patient: Total time spent is greater than 50% in coordination of care (as documented) at patient's floor/unit and/or counseling patient: Coding Level of Care Code 47829 IN/OBS CONSULT LVL 4,60M Diagnoses Alcoholic cirrhosis of liver K70.30
[2024-09-06 13:21] LABS: BUN Creatinine Ratio 15.2 (10-20); Calcium 8.5 mg/dl (8.6-10.3); Creatinine Clr Calc Pharmacy 104.6 ml/min; Potassium 3.7 mmol/L (3.5-5.1)
--- NOTE | 2024-09-06 13:45 | Hospitalist Progress Note ---
Date of Service September 06, 2024 Assessment & Plan (1) Single subsegmental thrombotic pulmonary embolism without acute cor pulmonale: Plan: Acute PE Acute right lower extremity DVT H/O DVT on Coumadin previously --Chest CTA: Suggestive of subsegmental left lower lobe pulmonary embolus. --Venous Doppler:Age-indeterminate DVT within the right posterior tibial vein. No left-sided DVT. Started on IV heparin for now Monitor for any bleeding issues [facility] Satur[facility] well on room air Monitor CBC (2) Deep vein thrombosis (DVT) of tibial vein of right lower extremity: Plan: Management as above (3) Abdominal pain: Plan: Alcoholic cirrhosis Significant ascites Suspected SBP Follow-up peritoneal fluid cultures Continue Rocephin for now GI on board Continue diuretics to help with volume overload (4) Hyponatremia: Plan: Hypotonic hyponatremia In setting of hypervolemia, alcohol use disorder Presented with sodium 123 Continue fluid restriction Continue diuretics Appreciate nephrology input Monitor sodium levels closely Alcohol use disorder Currently no signs of alcohol withdrawal Continue home gabapentin Continue thiamine, folic acid Monitor for alcohol withdrawal Counseled to quit alcohol use. (5) Fluid overload: Plan: Management as above (6) Cirrhosis: (7) Esophageal varices: Plan: Monitor for any bleeding issues GI on board (8) Ascites: Plan: Paracentesis attempted in the ED. Will need paracentesis by IR as able GI on board Plan Abnormal thyroid function index H/O hypothyroidism ? Medication compliance Continue levothyroxine Needs repeat thyroid function test as outpatient Hypomagnesemia Replete electrolytes as needed Monitor Suspected pneumonia Empirically on Doxy, Rocephin Check procalcitonin Saturating well on room air DVT Px: IV heparin for now CODE STATUS DNI DNR Admission and Anticipated Discharge Date Admission Date: September 05, 2024 Subjective Patient is seen and examined at bedside States having abdominal pain, distention associated with leg edema Also reports dyspnea Denies any chest pain, nausea, vomiting, dizziness Saturating well on room air No other complaints Review of Systems Review of Systems: All systems reviewed & are unremarkable except as noted in Subjective Physical Exam Physical Exam: Physical Exam: Vitals signs as noted above General Appearance: Thin, frail, chronic ill appearing, no apparent distress Head: normocephalic, Atraumatic Eyes: normal inspection, EOMI Neck: supple, Trachea midline Respiratory/Chest: Decrease breath sounds, No accessory muscle use Cardiovascular: S1, S2, No murmur Abdomen/GI:Soft, distended, mild tender, Bowel sounds present Extremities/Musculoskeletal:normal inspection, 1-2+ edema Neurologic/Psych:AAOX3, grossly no focal neurological deficits Skin: normal color, warm Results & Data Results & Data Vital Signs (Past 12 Hours) Vital Signs Temp Pulse Pulse Resp BP Pulse Ox O2 Del Method 09/06/24 12:04 59 L 09/06/24 10:51 36.7 C 60 15 92/62 L 95 Room Air 09/06/24 07:58 36.6 C 63 18 100/72 96 Room Air 09/06/24 03:27 36.6 C 64 17 96/60 L 94 Room Air Laboratory Results Short CBC 09/05/24 09/06/24 Range/Units 19:09 08:02 WBC 7.13 6.59 (4.8-10.8) K/ul Hgb 11.3 L 11.7 L (14.0-18.0) g/dl Hct 30.5 L 32.6 L (42.0-52.0) % Plt Count 126 L 137 (130-400) K/uL BMP 09/05/24 09/06/24 09/06/24 19:09 08:02 12:50 Sodium 123 L 126 L 125 L Potassium 4.1 4.2 3.7 Chloride 94 L 96 L 96 L Carbon Dioxide 23 25 24 BUN 8 9 10 Creatinine 0.55 L 0.65 0.66 Glucose 77 95 127 H Calcium 8.4 L 8.7 8.5 L Urine 09/05/24 Range/Units Unknown Urine Color [place] Urine Appearance Clear (Clear) Urine pH 6.0 (4.5-7.5) Ur Specific [place] > 1.045 H (1.000-1.030) Urine Protein Negative (Negative) Urine Glucose (UA) Negative (Negative) (3) Abdominal pain Abdominal location: generalized Qualified Code(s): R10.84 - Generalized abdominal pain (5) Fluid overload Hypervolemia type: unspecified Qualified Code(s): E87.70 - Fluid overload, unspecified (6) Cirrhosis Ascites presence: with ascites Hepatic cirrhosis type: alcoholic cirrhosis Qualified Code(s): K70.31 - Alcoholic cirrhosis of liver with ascites
--- NOTE | 2024-09-06 17:10 | Electrocardiogram Report ---
Test Reason : Blood Pressure : */* mmHG Vent. Rate : 61 BPM Atrial Rate : 61 BPM P-R Int : 144 ms QRS Dur : 78 ms QT Int : 442 ms P-R-T Axes : 40 -24 30 degrees QTcB Int : 444 ms Normal sinus rhythm Low voltage QRS Septal infarct , age undetermined Abnormal ECG No previous ECGs available Confirmed by Barrie Pearce ([id number]) on 09/06/2024 5:10:22 PM Referred By: REFERRED SELF Confirmed By: Barrie Pearce
[2024-09-06 18:07] LABS: Partial Thromboplastin Ratio 1.9; Partial Thromboplastin Time 50 Seconds (21-31)
[2024-09-06] MEDS: MIDODRINE HCL 2.5 MG TAB PO SCH (18:09)
[2024-09-06] MEDS: FUROSEMIDE INJ 20 MG/2 ML VIAL IV SCH (18:09)
[2024-09-06 18:40] LABS: ANTI-Xa, UFH(UnfractionatedHep 0.67 IU/ml (0.3-0.7)
[2024-09-06] MEDS: MAGNESIUM HYDROXIDE SUSP 30 ML UDC PO PRN (20:54)
[2024-09-06] MEDS: MIDODRINE HCL 2.5 MG TAB PO ONE (21:00)
[2024-09-06 21:31] LABS: BUN Creatinine Ratio 11.5 (10-20); Calcium 8.6 mg/dl (8.6-10.3); Creatinine Clr Calc Pharmacy 88.5 ml/min; Potassium 3.4 mmol/L (3.5-5.1)
[2024-09-07] MEDS: POTASSIUM CHLORIDE CRTAB 20 MEQ TABCR PO STA (00:20)
[2024-09-07 06:59] LABS: Basophils # (auto) 0.05 K/uL (0.00-0.20); Basophils % (auto) 0.8 %; Eosinophils # (auto) 0.12 K/uL (0.00-0.50); Hemoglobin 11.8 g/dl (14.0-18.0); Immature Granulocytes # (auto) 0.02 K/uL (0.01-0.20); Immature Granulocytes % (auto) 0.3 %; Lymphocytes # (auto) 1.57 K/uL (1.20-3.40); Lymphocytes % (auto) 26.5 %; Mean Corpuscular Hemoglobin 37.5 pg (25.0-34.0); Mean Corpuscular Hgb Conc 36.9 g/dL (32.0-36.0); Mean Corpuscular Volume 101.6 fL (80.0-100.0); Mean Platelet Volume 9.9 fL (9.4-12.4); Monocytes % (auto) 10.1 %; Neutrophils # (auto) 3.56 K/uL (1.40-6.50); Neutrophils % (auto) 60.3 %; Platelet Count 135 K/uL (130-400); RDW Coefficient of Variation 12.4 % (11.5-14.5); RDW Standard Deviation 46.4 fL (36.4-46.3); Red Blood Count 3.15 M/uL (4.70-6.10); White Blood Count 5.92 K/ul (4.8-10.8)
[2024-09-07 07:16] LABS: Albumin Level 2.7 gm/dl (3.4-5.0); BUN Creatinine Ratio 13.3 (10-20); Bilirubin Direct 0.3 mg/dl (0-0.2); Bilirubin,Total 1.1 mg/dl (0.2-1.0); Calcium 8.6 mg/dl (8.6-10.3); Magnesium 1.6 mg/dl (1.7-2.4); Potassium 3.5 mmol/L (3.5-5.1); Total Protein 5.1 gm/dl (6.0-8.3)
[2024-09-07 07:21] LABS: ANTI-Xa, UFH(UnfractionatedHep 0.24 IU/ml (0.3-0.7)
[2024-09-07] MEDS: ALBUMIN 25% 25 GM/100 ML VIAL IV SCH (08:10)
--- NOTE | 2024-09-07 08:54 | Ultrasound Report ---
ABDOMINAL ULTRASOUND, RIGHT UPPER QUADRANT HISTORY: Follow-up study in a patient with history of ascites Ascites. COMPARISON: CT 09/05/2024 FINDINGS: Pancreas: The pancreas is obscured by bowel gas. Liver: Cirrhotic liver redemonstrated. No discrete hepatic mass identified. Persistent abdominal pelv ic ascites which appears moderate. Gallbladder: Cholecystectomy. CBD: 3 mm. Right kidney: No hydronephrosis. IMPRESSION: 1. Cirrhosis with ascites redemonstrated. 2. Cholecystectomy. 3. No hepatic mass lesions identified. 4. No biliary ductal dilation. ACT 112: Negative or not required by law. Electronically signed by: Tyrone Ruiz M.D. 09/07/2024 8:52 AM
[2024-09-07] MEDS: MAGNESIUM SULFATE / D5W 1 GM/100 ML BAG IV ONE (09:51)
[2024-09-07] MEDS: POTASSIUM CHLORIDE CRTAB 20 MEQ TABCR PO SCH ×2 (09:58→14:02)
[2024-09-07 10:45] LABS: Appearance Peritoneal Fluid Clear; Color Peritoneal Fluid Yellow; RBC Peritoneal Fluid Auto < 2000 /uL; WBC Peritoneal Fluid Auto 235 /ul (0-300)
[2024-09-07 11:01] LABS: Albumin Peritoneal Fluid < 1.5 gm/dl; Amylase Peritoneal Fluid < 10 U/L; Glucose Peritoneal Fluid 99 mg/dl; LDH Peritoneal Fluid 31 U/L; Lipase Peritoneal Fluid 4 U/L; Total Protein Peritoneal Fluid < 3.0 gm/dl
[2024-09-07 11:13] LABS: Basophils, Fluid 1 %; Lymphocytes, Fluid 26 %; Mono,Macrophage,Mesothelial 30 %; Neutrophils, Fluid 43 %
[2024-09-07] MEDS: ALBUT/IPRATROP 3MG/0.5MG NEB 3 ML VIAL NEB SCH (11:15)
--- NOTE | 2024-09-07 13:03 | Nephrology Progress Note ---
Date of Service September 07, 2024 Assessment & Plan (1) Hyponatremia: Plan: hypervolemic hypotonic hyponatremia in the setting of liver disease with presenting sodium 09/05 123, up to 127 this am. correcting at appropriate rate; target sodium for tomorrow AM is NO MORE than 133. -increased qid 10 mg IV lasix to 20 mg same frequency w/ hold parameters for sbp <80 -cont midodrine 2.5 mg tid to have enough bp so we can give lasix -hold aldactone > orders in -daily STANDING weight ordered: 63.7 on 09/07 -ordered 1.5L fluid limit; cont low na diet ->>pls do bmp q 12-24 hr now -maintain K of at least 4 >> increased 20 mEq bid dose to tid same mEq appreciate hospitalist getting pt some nebs/reeval of resp care Recommendations for moving sodium in terms of lab and lasix/midodrine/K dosing were reviewed by Dr Braun on TText and in person. We are in agreement. Admission and Anticipated Discharge Date Admission Date: September 05, 2024 Subjective s/p 4.5L paracentesis today; seen on mid AM rounds; sob and dizzy when taking deep inspirations sitting up for me; improved w/ rest. sitting up to relieve abdominal cramping. feels his edema improving; breathing better he states post tap Review of Systems 2 Review of Systems: All systems reviewed & are unremarkable except as noted in Subjective Physical Exam 2 Constitutional: well developed, + ill appearing, + cachectic and cooperative; no acute distress Eyes: EOM intact bilaterally ENMT: Mouth: + dry oral mucous membranes Neck: no nuchal rigidity Respiratory: normal respiratory effort and + cough (thick, occasional) A uscultation: + diminished lung sounds, + wheezes (diffuse) and + abnormal I/E ratio Cardiovascular: Rate/Rhythm: regular rate and regular rhythm Extremities: + edema (2+ but improved) Gastrointestinal (Abdomen): Inspection/Auscultation: + abdomen distended, normal bowel sounds and + abdominal edema Percussion/Palpation: + abdomen tender; no guarding Musculoskeletal: Extremities: strength 5/5 throughout Skin: no rashes, warm and dry Psychiatric: Orientation: alert and oriented x 3 Results & Data Vital Signs (Past 12 Hours) Vital Signs Temp Pulse Pulse Resp BP BP Pulse Ox 09/07/24 11:54 70 18 96/59 L 95 09/07/24 11:17 68 18 96 09/07/24 10:54 68 18 94/58 L 94 09/07/24 10:24 64 18 94/59 L 94 09/07/24 09:54 36.6 C 66 18 90/56 L 95 09/07/24 08:00 09/07/24 07:56 59 L 09/07/24 07:25 36.7 C 66 17 101/64 93 09/07/24 05:05 36.9 C 59 L 18 101/60 96 09/07/24 02:32 36.7 C 62 18 95/63 L 95 O2 Del Method 09/07/24 11:54 Room Air 09/07/24 11:17 Room Air 09/07/24 10:54 Room Air 09/07/24 10:24 Room Air 09/07/24 09:54 Room Air 09/07/24 08:00 Room Air 09/07/24 07:56 09/07/24 07:25 Room Air 09/07/24 05:05 Room Air 09/07/24 02:32 Room Air Laboratory Results 09/07/24 06:35 09/07/24 06:35
--- NOTE | 2024-09-07 13:34 | Ultrasound Report ---
ULTRASOUND-GUIDED PARACENTESIS CLINICAL HISTORY: Ascites PROCEDURE: Procedure and risks were explained. Informed consent was obtained. A final timeout was com pleted. The abdomen was prepped and draped in sterile fashion. 1% lidocaine was utilized for skin ane sthesia. Utilizing ultrasound guidance, a 5 English safety centesis catheter was advanced into the left lower q uadrant pocket of ascites. Ultrasound images were obtained. A total of 4.6 L of ascites fluid was rem hakw with 1 L sent to the lab for analysis. The catheter was removed and Band-Aid applied. The patien t tolerated the procedure well. Vital signs will be monitored postprocedure. IMPRESSION: Ultrasound-guided paracentesis as above. Performed, dictated, and signed by Artie Lambert PA-C; to be co-signed by Dr. Reece Sood. Electronically signed by: Reece Sood M.D. 09/07/2024 2:21 PM
[2024-09-07] MEDS ORDERED: ALUMINUM/MAGNESIUM/SIMETH (MAALOX MAX) 30 ML UDC PO PRN (13:45)
[2024-09-07] MEDS: FUROSEMIDE INJ 20 MG/2 ML VIAL IV SCH (14:02)
[2024-09-07] MEDS: ACETAMINOPHEN 1,000 MG/100 ML VIAL IV ONE (14:03)
[2024-09-07] MEDS: ALUMINUM/MAGNESIUM/SIMETH (MAALOX MAX) 30 ML UDC PO PRN (14:03)
--- NOTE | 2024-09-07 14:06 | XRay Report ---
XR chest 1V portable HISTORY: 64 years-old Male chest pain COMPARISON: 09/05/2024 TECHNIQUE: AP view of the chest FINDINGS: Heart size is normal. Trace pleural effusions with mild bibasilar atelectasis again noted. No overt p ulmonary edema. Bones appear grossly intact. IMPRESSION: 1. No overt pulmonary edema. 2. Small pleural effusions with mild bibasilar atelectasis redemonstrated. ACT 112: Negative or not required by law. The above report was generated using voice recognition software. It may contain grammatical, syntax o r spelling errors. Electronically signed by: Tyrone Ruiz M.D. 09/07/2024 2:04 PM
--- NOTE | 2024-09-07 15:08 | XRay Report ---
KUB CLINICAL HISTORY: Abd Pain S/P Paracentesis COMPARISON STUDY: CT of the abdomen and pelvis September 05, 2024. FINDINGS: There are cholecystectomy clips. The bowel gas pattern is normal. Although sensitivity is d iminished on supine exam, there is no evidence for free air. The amount of stool is within normal vasquez its. IMPRESSION: No evidence for a bowel obstruction. If persistent abdominal pain, CT of the abdomen and pelvis is recommended. ACT 112: Negative or not required by law. Electronically signed by: Reece Sood M.D. 09/07/2024 3:07 PM
--- NOTE | 2024-09-07 15:23 | Hospitalist Progress Note ---
Date of Service September 07, 2024 Assessment & Plan (1) Single subsegmental thrombotic pulmonary embolism without acute cor pulmonale: Plan: Acute PE Acute right lower extremity DVT H/O DVT on Coumadin previously --Chest CTA: Suggestive of subsegmental left lower lobe pulmonary embolus. --Venous Doppler:Age-indeterminate DVT within the right posterior tibial vein. No left-sided DVT. Monitor for any bleeding issues Continue IV heparin for now Patient prefers to be transition to Eliquis as able Saturating well on room air Monitor CBC (2) Deep vein thrombosis (DVT) of tibial vein of right lower extremity: Plan: Management as above (3) Abdominal pain: Plan: Alcoholic cirrhosis Significant ascites Suspected SBP --S/P abdominal paracentesis: 4.6 L of acetic fluid removed Follow-up peritoneal fluid cultures/path Continue Rocephin for now GI on board Continue diuretics to help with volume overload Appreciate nephrology input (4) Hyponatremia: Plan: Hypotonic hyponatremia In setting of hypervolemia, alcohol use disorder Presented with sodium 123 Continue fluid restriction On IV Lasix Appreciate nephrology input Monitor sodium levels closely Sodium 127 today Continue diuresis per nephrology Alcohol use disorder Currently no signs of alcohol withdrawal Continue home gabapentin Continue thiamine, folic acid Monitor for alcohol withdrawal Counseled to quit alcohol use. (5) Fluid overload: Plan: Management as above Hypotension Likely multifactorial Received IV albumin Started on midodrine Monitor BP closely (6) Cirrhosis: (7) Esophageal varices: Plan: Monitor for any bleeding issues GI on board (8) Ascites: Plan: Management as above Plan Abnormal thyroid function H/O hypothyroidism ? Medication compliance Continue levothyroxine Needs repeat thyroid function test as outpatient Hypomagnesemia Replete electrolytes as needed Monitor Suspected pneumonia Empirically on Doxy, Rocephin Normal procalcitonin Saturating well on room air DVT Px: IV heparin for now CODE STATUS DNI DNR Admission and Anticipated Discharge Date Admission Date: September 05, 2024 Subjective Patient is seen and examined at bedside Reports crampy abdominal pain associated with dizziness post abdominal paracentesis today Also describes abdominal pain radiating towards left chest IV heparin restarted, no bleeding issues Discussed with nephrology today Review of Systems Review of Systems: All systems reviewed & are unremarkable except as noted in Subjective Physical Exam Physical Exam: Physical Exam: Vitals signs as noted above General Appearance: Thin, frail, chronic ill appearing, no apparent distress Head: normocephalic, Atraumatic Eyes: normal inspection, EOMI Neck: supple, Trachea midline Respiratory/Chest: Decrease breath sounds, No accessory muscle use Cardiovascular: S1, S2, No murmur Abdomen/GI:Soft, mildly distended, mild generalized tender, Bowel sounds present, no guarding or rigidity Extremities/Musculoskeletal:normal inspection, 1-2+ edema Neurologic/Psych:AAOX3, grossly no focal neurological deficits Skin: normal color, warm Results & Data Results & Data Vital Signs (Past 12 Hours) Vital Signs Temp Pulse Pulse Resp BP BP Pulse Ox 09/07/24 14:51 36.6 C 64 18 90/50 L 96 09/07/24 14:23 74 09/07/24 13:27 36.9 C 68 17 90/54 L 09/07/24 11:54 70 18 96/59 L 95 09/07/24 11:17 68 18 96 09/07/24 10:54 68 18 94/58 L 94 09/07/24 10:24 64 18 94/59 L 94 09/07/24 09:54 36.6 C 66 18 90/56 L 95 09/07/24 08:00 09/07/24 07:56 59 L 09/07/24 07:25 36.7 C 66 17 101/64 93 09/07/24 05:05 36.9 C 59 L 18 101/60 96 O2 Del Method 09/07/24 14:51 Room Air 09/07/24 14:23 09/07/24 13:27 Room Air 09/07/24 11:54 Room Air 09/07/24 11:17 Room Air 09/07/24 10:54 Room Air 09/07/24 10:24 Room Air 09/07/24 09:54 Room Air 09/07/24 08:00 Room Air 09/07/24 07:56 09/07/24 07:25 Room Air 09/07/24 05:05 Room Air Laboratory Results Short CBC 09/07/24 Range/Units 06:35 WBC 5.92 (4.8-10.8) K/ul Hgb 11.8 L (14.0-18.0) g/dl Hct 32.0 L (42.0-52.0) % Plt Count 135 (130-400) K/uL BMP 09/06/24 09/07/24 21:04 06:35 Sodium 126 L 127 L Potassium 3.4 L 3.5 Chloride 94 L 94 L Carbon Dioxide 27 28 BUN 9 10 Creatinine 0.78 0.75 Glucose 94 98 Calcium 8.6 8.6 Liver Function 09/07/24 Range/Units 06:35 Total Bilirubin 1.1 H D (0.2-1.0) mg/dl Direct Bilirubin 0.3 H (0-0.2) mg/dl AST 44 H (13-39) U/L ALT 18 (7-52) U/L Alkaline Phosphatase 106 H (34-104) U/L Albumin 2.7 L (3.4-5.0) gm/dl (3) Abdominal pain Abdominal location: generalized Qualified Code(s): R10.84 - Generalized abdominal pain (5) Fluid overload Hypervolemia type: unspecified Qualified Code(s): E87.70 - Fluid overload, unspecified (6) Cirrhosis Ascites presence: with ascites Hepatic cirrhosis type: alcoholic cirrhosis Qualified Code(s): K70.31 - Alcoholic cirrhosis of liver with ascites
--- NOTE | 2024-09-07 15:33 | Gastroenterology Progress Note ---
Date of Service September 07, 2024 Assessment & Plan (1) Alcoholic cirrhosis of liver: Plan: Aldactone on hold by nephrology. Lasix reduced to 20 mg daily by nephrology. If abdominal pain worsens, consider repeat imaging. Alcohol abstinence recommended. Avoid NSAIDs. Limit Tylenol to <2000 mg daily in divided doses. Patient had EGD for variceal surveillance in 2021 with [facility] and this was unremarkable. Continue to monitor LFTs & MELD score. Monitor ascites and send for paracentesis if worsening. No further GI recommendations at present. Will need outpatient hepatology follow-up with [facility]. Admission and Anticipated Discharge Date Admission Date: September 05, 2024 Supervising Physician Co-Signing Physician Notes I examined the patient and reviewed patient's chart , laboratory data and imaging studies. I agree with with assessment and plan of care as suggested by advanced practice provider. Status post large-volume paracentesis. Continues with abdominal pain. Abdomen is much softer and less distended on examination. Spironolactone discontinued as per nephrology. The patient is on midodrine, Lasix is being continued. In order to prevent reaccumulation of ascites would recommend to restart spironolactone when more stable from nephrology standpoint. Subjective Patient is a 64 yo male with cirrhosis. He underwent a paracentesis today with removal of 4.5 L ascites. His abdomen has improved significantly. He notes some discomfort. He is on diuretics. He is eating minimally due to denture issues. Nephrology following. Review of Systems Gastrointestinal: + abdominal pain Physical Exam Gastrointestinal (Abdomen): Soft abdomen, no acute tenderness, ascites notably improved Results & Data Results & Data Vital Signs (Past 12 Hours) Vital Signs Temp Pulse Pulse Resp BP BP Pulse Ox 09/07/24 15:21 66 16 96 09/07/24 14:51 36.6 C 64 18 90/50 L 96 09/07/24 14:23 74 09/07/24 13:27 36.9 C 68 17 90/54 L 09/07/24 11:54 70 18 96/59 L 95 09/07/24 11:17 68 18 96 09/07/24 10:54 68 18 94/58 L 94 09/07/24 10:24 64 18 94/59 L 94 09/07/24 09:54 36.6 C 66 18 90/56 L 95 09/07/24 08:00 11/19/24 07:56 59 L 09/07/24 07:25 36.7 C 66 17 101/64 93 09/07/24 05:05 36.9 C 59 L 18 101/60 96 O2 Del Method 09/07/24 15:21 Room Air 09/07/24 14:51 Room Air 09/07/24 14:23 09/07/24 13:27 Room Air 09/07/24 11:54 Room Air 09/07/24 11:17 Room Air 09/07/24 10:54 Room Air 09/07/24 10:24 Room Air 09/07/24 09:54 Room Air 09/07/24 08:00 Room Air 09/07/24 07:56 09/07/24 07:25 Room Air 09/07/24 05:05 Room Air PG Care Time/CCT Total # of Minutes Spent Total Time Spent with Patient: Total time spent is greater than 50% in coordination of care (as documented) at patient's floor/unit and/or counseling patient: Coding Level of Care Code 51478 SUB INP/OBS CARE 3/50MIN Diagnoses Alcoholic cirrhosis of liver K70.30
[2024-09-07] MEDS: MIDODRINE HCL 2.5 MG TAB PO SCH (16:20)
[2024-09-07] MEDS: oxyCODONE HCL IR 5 MG TAB (IMMEDIATE RELEASE) PO PRN (16:34)
[2024-09-07] MEDS: ALBUMIN 25% 25 GM/100 ML VIAL IV ONE (16:34)
[2024-09-08 08:10] LABS: Hematocrit (blood only) 29.8 % (42.0-52.0); Hemoglobin 10.5 g/dl (14.0-18.0); Mean Corpuscular Hgb Conc 35.2 g/dL (32.0-36.0); Mean Corpuscular Volume 104.9 fL (80.0-100.0); Mean Platelet Volume 9.8 fL (9.4-12.4); Platelet Count 129 K/uL (130-400); RDW Coefficient of Variation 12.7 % (11.5-14.5); RDW Standard Deviation 49.1 fL (36.4-46.3); Red Blood Count 2.84 M/uL (4.70-6.10); White Blood Count 6.01 K/ul (4.8-10.8)
[2024-09-08 08:17] LABS: Albumin Level 3.2 gm/dl (3.4-5.0); BUN Creatinine Ratio 12.3 (10-20); Bilirubin Direct 0.5 mg/dl (0-0.2); Bilirubin,Total 1.2 mg/dl (0.2-1.0); Calcium 9.1 mg/dl (8.6-10.3); Creatinine Clr Calc Pharmacy 87.1 ml/min; Magnesium 1.8 mg/dl (1.7-2.4); Potassium 3.5 mmol/L (3.5-5.1); Total Protein 5.2 gm/dl (6.0-8.3)
[2024-09-08 08:25] LABS: ANTI-Xa, UFH(UnfractionatedHep 0.31 IU/ml (0.3-0.7)
--- NOTE | 2024-09-08 10:50 | Nephrology Progress Note ---
Date of Service September 08, 2024 Assessment & Plan (1) Hyponatremia: Plan: hypervolemic hypotonic hyponatremia in the setting of liver disease with presenting sodium 09/05 123, up to 131 this am. correcting at appropriate rate; target sodium for tomorrow AM is NO MORE than 137. -change qid IV lasix 20 mg to lasix 40 mg bid17 -cont midodrine 2.5 mg tid to have enough bp so we can give lasix -hold aldactone for now; will make a plan for resumption but focus on sodium management first -daily STANDING weight to continue: 63.7 on 09/07; 58.7 09/08 (s/p 4.5L paracentesis) -continue 1.5L fluid limit; cont low na diet ->>pls do bmp q 24 hr now -maintain K of at least 4 >>continue 20 mEq tid Recommendations for moving sodium in terms of lab and lasix/midodrine/aldactone dosing were reviewed by Dr Vargas in person. We are in agreement. Admission and Anticipated Discharge Date Admission Date: September 05, 2024 Subjective no interval events except BSS planned as some dysphagia. wonders if fluid reaccumulating ; abd pain improving Review of Systems 2 Review of Systems: All systems reviewed & are unremarkable except as noted in Subjective Physical Exam 2 Constitutional: well developed, + ill appearing, + cachectic and cooperative; no acute distress Eyes: EOM intact bilaterally ENMT: Mouth: + dry oral mucous membranes Neck: no nuchal rigidity Respiratory: normal respiratory effort and + cough (thick, occasional) A uscultation: + diminished lung sounds and + crackles (caudal to diminished BS) Cardiovascular: Rate/Rhythm: regular rate and regular rhythm Extremities: + edema (1+) Gastrointestinal (Abdomen): Inspection/Auscultation: + abdomen distended, normal bowel sounds and + abdominal edema Percussion/Palpation: + abdomen tender, + ascites, + fluid wave and + abdomen firm; no guarding Musculoskeletal: Extremities: strength 5/5 throughout Skin: no rashes, warm and dry Psychiatric: Orientation: alert and oriented x 3 Results & Data Vital Signs (Past 12 Hours) Vital Signs Temp Pulse Pulse Resp BP Pulse Ox O2 Del Method 09/08/24 09:59 Room Air 09/08/24 07:00 37.0 C 70 16 91/63 L 95 Room Air 09/08/24 06:59 71 16 96 Room Air 09/08/24 06:55 65 09/08/24 02:46 37.0 C 69 18 96/60 L 93 Room Air 09/07/24 22:51 36.9 C 70 16 92/52 L 94 Room Air Laboratory Results 09/08/24 07:49 09/08/24 07:49
--- NOTE | 2024-09-08 11:16 | Hospitalist Progress Note ---
Date of Service September 08, 2024 Assessment & Plan (1) Single subsegmental thrombotic pulmonary embolism without acute cor pulmonale: (2) Deep vein thrombosis (DVT) of tibial vein of right lower extremity: Plan: Acute PE Acute right lower extremity DVT H/O DVT on Coumadin previously --Chest CTA: Suggestive of subsegmental left lower lobe pulmonary embolus. --Venous Doppler:Age-indeterminate DVT within the right posterior tibial vein. No left-sided DVT. Continue IV heparin for now Patient prefers to be transition to Eliquis as able Plan to transition to Eliquis on DC Saturating well on room air Based on history and findings, unlikely has pneumonia Antibiotics stopped. Will monitor (3) Cirrhosis: (4) Fluid overload: (5) Ascites: (6) Abdominal pain: Plan: Decompensated Alcoholic cirrhosis with ascites --S/P abdominal paracentesis: 4.6 L of acetic fluid removed Peritoneal fluid analysis not suggestive of SBP SBP ruled out. Antibiotics discontinued Continue diuretics per nephro GI recs noted Counseled patient extensively regarding alcohol cessation Continue home gabapentin Continue thiamine, folic acid Monitor for alcohol withdrawal GI ordered Barium swallow to assess dysphagia (7) Esophageal varices: Plan: Monitor for any bleeding issues GI on board (8) Hyponatremia: Plan: Hypotonic hyponatremia In setting of hypervolemia, alcohol use disorder Presented with sodium 123 Na improved to 131 today Discussed with [facility]. IV lasix changed to po lasix. Continue to hold aldactone for now per Nephro Monitor Na Plan Abnormal thyroid function H/O hypothyroidism ? Medication compliance Continue levothyroxine Needs repeat thyroid function test as outpatient CODE STATUS DNI DNR I spent a total of 55 minutes coordinating, documenting and providing care for this patient excluding time spent in performance of separately billed services Admission and Anticipated Discharge Date Admission Date: September 05, 2024 Subjective Patient seen and examined Denied abd pain today Reports dysphagia which has been going on for a while Reports minimal cough Denied any other complaints on ROS today Physical Exam Constitutional: + well hydrated; no acute distress Eyes: PERRL, conjunctivae normal, anicteric sclerae ENMT: external ear and nose normal, oropharynx normal Respiratory: normal respiratory effort; no respiratory distress Diminished breath sounds Cardiovascular: Rate/Rhythm: regular rate and regular rhythm Gastrointestinal (Abdomen): Distended but soft, nontender, normal bowel sounds Musculoskeletal: +pedal edema Neurologic: PERRL, EOMI, accommodation nl, no face palsy, no dysarthria Psychiatric: A+Ox3, euthymic affect Results & Data Results & Data Vital Signs (Past 12 Hours) Vital Signs Temp Pulse Pulse Resp BP Pulse Ox O2 Del Method 09/08/24 11:08 69 16 96 Room Air 09/08/24 09:59 Room Air 09/08/24 07:00 37.0 C 70 16 91/63 L 95 Room Air 09/08/24 06:59 71 16 96 Room Air 09/08/24 06:55 65 09/08/24 02:46 37.0 C 69 18 96/60 L 93 Room Air Laboratory Results Abnormal lab results 09/08/24 Range/Units 07:49 RBC 2.84 L (4.70-6.10) M/uL Hgb 10.5 L (14.0-18.0) g/dl Hct 29.8 L (42.0-52.0) % MCV 104.9 H (80.0-100.0) fL MCH 37.0 H (25.0-34.0) pg RDW Std Deviation 49.1 H (36.4-46.3) fL Plt Count 129 L (130-400) K/uL Sodium 131 L (136-145) mmol/L Chloride 95 L (98-107) mmol/L Carbon Dioxide 34 H (21-32) mmol/L Anion Gap 2 L (3-11) Glucose 107 H (70-99(Fasting)) mg/dl Total Bilirubin 1.2 H (0.2-1.0) mg/dl Direct Bilirubin 0.5 H (0-0.2) mg/dl Total Protein 5.2 L (6.0-8.3) gm/dl Albumin 3.2 L (3.4-5.0) gm/dl (3) Cirrhosis Ascites presence: with ascites Hepatic cirrhosis type: alcoholic cirrhosis Qualified Code(s): K70.31 - Alcoholic cirrhosis of liver with ascites (4) Fluid overload Hypervolemia type: unspecified Qualified Code(s): E87.70 - Fluid overload, unspecified (6) Abdominal pain Abdominal location: generalized Qualified Code(s): R10.84 - Generalized abdominal pain
--- NOTE | 2024-09-08 11:26 | Gastroenterology Progress Note ---
Date of Service September 08, 2024 Assessment & Plan (1) Alcoholic cirrhosis of liver: Plan: -Resume all diuretics when able per nephrology approval; patient currently with hyponatremia & hypotension. Currently on Midodrine. -Monitor for reaccumulation of ascitic fluid. -2 gm Na restricted diet -Avoid NSAIDs -Limit Tylenol to 2000 mg per day in q 6 hour divided doses if needed -Avoid constipation -Will need ongoing q 6 month HCC surveillance as outpatient -Will need outpatient hepatology follow-up (2) Dysphagia: Plan: -Barium swallow -No findings to explain dysphagia on previous EGD with [facility] -Patient notes that a family member will be bringing his Fixodent to properly fit dentures. He may benefit from a softer food texture in the interim. Admission and Anticipated Discharge Date Admission Date: September 05, 2024 Supervising Physician Co-Signing Physician Notes I reviewed patient's chart , laboratory data and imaging studies. I agree with with assessment and plan of care as suggested by advanced practice provider. Diuretics as per nephrology, suggest to restart spironolactone 50 mg/day and changed to Lasix 40 mg/day to prevent reaccumulation of ascites. Continue midodrine. Subjective Patient is a 64 yo male with cirrhosis hospitalized with hyponatremia. He notes improvement of abdominal discomfort though he is constipated. He notes he has taken laxatives for this and is waiting for them to work. He notes a chronic issue of dysphagia. He notes that this has been going on for quite some time. He does not have his Fixodent and has been complaining to me a bout not having his dentures to chew over the past 2 days, but he doesn't know that his teeth are the issue now. No evidence of SBP on fluid studies. Discussed with hospitalist--Ceftriaxone was discontinued. Review of Systems Constitutional: no fever and no chills Respiratory: no cough and no dyspnea Gastrointestinal: + dysphagia and + constipation Physical Exam Constitutional: well developed Respiratory: normal respiratory effort Gastrointestinal (Abdomen): Inspection/Auscultation: + abdomen distended Percussion/Palpation: abdomen soft; abdomen nontender Results & Data Results & Data Vital Signs (Past 12 Hours) Vital Signs Temp Pulse Pulse Resp BP Pulse Ox O2 Del Method 09/08/24 11:08 69 16 96 Room Air 09/08/24 11:00 36.5 C 68 16 82/47 L 100 Room Air 09/08/24 09:59 Room Air 09/08/24 07:00 37.0 C 70 16 91/63 L 95 Room Air 09/08/24 06:59 71 16 96 Room Air 09/08/24 06:55 65 09/08/24 02:46 37.0 C 69 18 96/60 L 93 Room Air PG Care Time/CCT Total # of Minutes Spent Total Time Spent with Patient: Total time spent is greater than 50% in coordination of care (as documented) at patient's floor/unit and/or counseling patient: Coding Level of Care Code 90922 SUB INP/OBS CARE 3/50MIN Diagnoses Alcoholic cirrhosis of liver K70.30 Dysphagia R13.10
--- NOTE | 2024-09-08 15:33 | Fluoroscopy Report ---
FL barium swallow CLINICAL HISTORY: Dysphagia COMPARISON STUDY: None. FLUOROSCOPY TIME: 19 seconds FLUOROSCOPY IMAGES: 8 Ka,r: 7.29 mGy FINDINGS: Due to nausea, the patient was unable to complete this exam. Therefore, evaluation is mildl y compromised. No esophageal mass or stricture was identified. No hiatal hernia was identified. No re flux was elicited. Esophageal motility was within normal limits. IMPRESSION: Incomplete exam, as described above. However, no significant abnormality of the esophagus identified. ACT 112: Negative or not required by law. Electronically signed by: Reece Sood M.D. 09/08/2024 3:31 PM
[2024-09-08] MEDS: FUROSEMIDE 40 MG TAB PO SCH (18:14)
--- NOTE | 2024-09-08 21:29 | Electrocardiogram Report ---
Test Reason : Blood Pressure : */* mmHG Vent. Rate : 65 BPM Atrial Rate : 65 BPM P-R Int : 152 ms QRS Dur : 78 ms QT Int : 440 ms P-R-T Axes : 22 -31 44 degrees QTcB Int : 457 ms Normal sinus rhythm Left axis deviation Septal infarct (cited on or before 05-Sep-2024) Abnormal ECG When compared with ECG of 05-Sep-2024 11:22, Nonspecific T wave abnormality now evident in Anterior leads Confirmed by Barrie Pearce ([id number]) on 09/08/2024 9:28:55 PM Referred By: REFERRED SELF Confirmed By: Barrie Pearce
[2024-09-08] MEDS: MELATONIN 3 MG TAB PO PRN (21:48)
[2024-09-09 08:05] LABS: Hematocrit (blood only) 29.5 % (42.0-52.0); Hemoglobin 10.4 g/dl (14.0-18.0); Mean Corpuscular Hemoglobin 36.5 pg (25.0-34.0); Mean Corpuscular Hgb Conc 35.3 g/dL (32.0-36.0); Mean Corpuscular Volume 103.5 fL (80.0-100.0); Mean Platelet Volume 9.9 fL (9.4-12.4); Platelet Count 127 K/uL (130-400); RDW Coefficient of Variation 12.8 % (11.5-14.5); Red Blood Count 2.85 M/uL (4.70-6.10); White Blood Count 6.86 K/ul (4.8-10.8)
[2024-09-09 08:17] LABS: BUN Creatinine Ratio 13.3 (10-20); Calcium 8.6 mg/dl (8.6-10.3); Creatinine Clr Calc Pharmacy 108.5 ml/min; Magnesium 1.5 mg/dl (1.7-2.4); Phosphorus 3.3 mg/dl (2.5-4.9); Potassium 3.8 mmol/L (3.5-5.1)
[2024-09-09 08:22] LABS: ANTI-Xa, UFH(UnfractionatedHep 0.19 IU/ml (0.3-0.7)
[2024-09-09 09:23] LABS: INR 1.2 (0.9-1.1); Prothrombin Time 12.9 Seconds (9.0-12.0)
[2024-09-09 09:29] LABS: Albumin Level 2.9 gm/dl (3.4-5.0); Bilirubin Direct 0.3 mg/dl (0-0.2); Total Protein 4.9 gm/dl (6.0-8.3)
[2024-09-09] MEDS: MAGNESIUM OXIDE 400 MG TAB PO ONE (09:33)
[2024-09-09] MEDS: HEPARIN SOD (PORCINE) 1000 UNIT/ML IV ONE (09:34)
--- NOTE | 2024-09-09 11:00 | Gastroenterology Progress Note ---
Date of Service September 09, 2024 Assessment & Plan (1) Alcoholic cirrhosis of liver: Plan: -Nephrology monitoring due to hyponatremia & guiding diuretic adjustments. Ideally would like for patient to resume Aldactone when able, but in the interim he should be monitored over the next few days as he may require another paracentesis. -See previous recommendations regarding day to day cirrhosis management -Patient will need hepatology evaluation upon discharge. He has previously established with [facility]. (2) Dysphagia: Plan: -Barium swallow didn't note any strictures -Encourage chewing food thoroughly & use of dentures -Previous EGD didn't note a reason for dysphagia, but patient will need likely need another EGD as an outpatient in the coming months. Admission and Anticipated Discharge Date Admission Date: September 05, 2024 Supervising Physician Co-Signing Physician Notes I examined the patient and reviewed patient's chart , laboratory data and imaging studies. I agree with with assessment and plan of care as suggested by advanced practice provider. Complains of reaccumulation of ascites. Much less abdominal pain. I recommend to continue furosemide 40 mg once or twice a day. Recommend to increase spironolactone to at least 50 mg a day to prevent reaccumulation of ascites. Continue midodrine 5 mg 3 times a day. [facility] To arrange for a follow-up in our GI office as well. Subjective Patient is a 64 yo male with cirrhosis. He notes that he has some further abdominal distention today. Barium swallow yesterday did not identify esophageal mass or stricture and motility was within normal limits. He did not complete the exam due to nausea. Na 133 today. He continues Lasix 40 mg BID. Review of Systems Gastrointestinal: distention; denies pain Physical Exam Gastrointestinal (Abdomen): Inspection/Auscultation: + abdomen distended and normal bowel sounds Percussion/Palpation: + ascites; abdomen nontender Results & Data Results & Data Vital Signs (Past 12 Hours) Vital Signs Temp Pulse Pulse Resp BP Pulse Ox O2 Del Method 09/09/24 09:00 72 09/09/24 07:36 37.2 C 73 20 101/61 97 Room Air 09/09/24 07:35 Room Air 09/09/24 02:31 36.9 C 73 18 91/55 L 92 Room Air PG Care Time/CCT Total # of Minutes Spent Total Time Spent with Patient: Total time spent is greater than 50% in coordination of care (as documented) at patient's floor/unit and/or counseling patient: Coding Level of Care Code 66821 SUB INP/OBS CARE MIN Diagnoses Alcoholic cirrhosis of liver K70.30 Dysphagia R13.10
--- NOTE | 2024-09-09 12:33 | Nephrology Progress Note ---
Date of Service September 09, 2024 Assessment & Plan (1) Hyponatremia: Plan: hypervolemic hypotonic hyponatremia in the setting of liver disease with presenting sodium 09/05 123, up to 133 this am. correcting at appropriate rate; target sodium for tomorrow AM is NO MORE than 139. -cont lasix 40 mg bid17 po -cont midodrine 2.5 mg tid to have enough bp so we can give lasix -resume spironolactone 12.5 mg daily -daily STANDING weight to continue: 63.7 on 09/07; 58.7 09/08 (s/p 4.5L paracentesis); 60.1 today -continue 1.5L fluid limit; cont low na diet ->>pls do bmp q 24 hr now -maintain K of at least 4 >>lowered from 20 mEq tid to bid will sign off nephro d/c recs -nsaid avoidance -spironoalctone, midodrine, lasix, potassium doses as above -fluid/sodium intake limits as above -pls educate on daily STANDING wts > encourage him to bring this to pcp, neph, GI f/u appts; he tells me he has no scale so may need to facilitate getting one -neph hospital d/c visit with me in 3 wks w/ bmp, urine and serum osms, urine electrolytes, random urine sodium, mag to be done nomore than 72 hrs before appt and ordered by neph nurse; pls have him bring wt log along to that appt Recommendations for moving sodium in terms of lab and lasix/midodrine/aldactone/potassium dosing, diet/fluid/weight recs, f/u labs/appts were reviewed by Dr Vargas via TText and in person. We are in agreement. Admission and Anticipated Discharge Date Admission Date: September 05, 2024 Subjective unable to complete BSS b/c contrast gagged him. c/o increasing abd girth; mild sob; no n/v Review of Systems 2 Review of Systems: All systems reviewed & are unremarkable except as noted in Subjective Physical Exam 2 Constitutional: well developed, + ill appearing, + cachectic and cooperative; no acute distress Eyes: EOM intact bilaterally ENMT: Mouth: + dry oral mucous membranes Respiratory: normal respiratory effort Auscultation: + diminished lung sounds and + rhonchi Cardiovascular: Rate/Rhythm: regular rate and regular rhythm Extremities: + edema (trace BLE) Gastrointestinal (Abdomen): Inspection/Auscultation: + abdomen distended, normal bowel sounds and + abdominal edema Percussion/Palpation: + abdomen tender, + ascites, + fluid wave and + abdomen firm; no guarding Musculoskeletal: Extremities: strength 5/5 throughout Skin: no rashes, warm and dry Psychiatric: Orientation: alert and oriented x 3 Results & Data Vital Signs (Past 12 Hours) Vital Signs Temp Pulse Pulse Resp BP Pulse Ox O2 Del Method 09/09/24 11:37 36.6 C 78 18 95/63 L 94 Room Air 09/09/24 11:08 72 18 94 Room Air 09/09/24 09:00 72 09/09/24 07:36 37.2 C 73 20 101/61 97 Room Air 09/09/24 07:35 Room Air 09/09/24 02:31 36.9 C 73 18 91/55 L 92 Room Air Laboratory Results 09/09/24 07:14 09/09/24 07:14
--- NOTE | 2024-09-09 12:40 | Hospitalist Progress Note ---
Date of Service September 09, 2024 Assessment & Plan (1) Single subsegmental thrombotic pulmonary embolism without acute cor pulmonale: (2) Deep vein thrombosis (DVT) of tibial vein of right lower extremity: Plan: Acute PE Acute right lower extremity DVT H/O DVT on Coumadin previously --Chest CTA: Suggestive of subsegmental left lower lobe pulmonary embolus. --Venous Doppler:Age-indeterminate DVT within the right posterior tibial vein. No left-sided DVT. Currently on IV heparin Patient stated he wants to be on eliquis. I discussed with patient that with him currently at Child Class B, eliquis is not typically recommended He insisted he does not want to do warfarin and he will only do eliquis. We discussed the risks associated with this which he understood and insisted he will only take eliquis Discussed optimal dosing with pharm with respect to his hepatic impairment Plan to switch to eliquis today (3) Cirrhosis: (4) Fluid overload: (5) Ascites: (6) Abdominal pain: Plan: Decompensated Alcoholic cirrhosis with ascites --S/P abdominal paracentesis: 4.6 L of acetic fluid removed on 09/07/24 Peritoneal fluid analysis not suggestive of SBP SBP ruled out. Antibiotics discontinued Currently on Lasix 40mg BID, aldactone 25mg, KCl 20mEq BID per Nephro. Discussed with Nephro who recommends can dc on current meds GI recs noted Provided more counseling regarding alcohol cessation Continue home gabapentin Continue thiamine, folic acid Started on lactulose. Educated patient about this GI ordered Barium swallow to assess dysphagia did not show any strictures (7) Esophageal varices: Plan: Monitor for any bleeding issues GI on board (8) Hyponatremia: Plan: Hypotonic hyponatremia In setting of hypervolemia, alcohol use disorder Presented with sodium 123 Na improved to 133 today Plan Abnormal thyroid function H/O hypothyroidism ? Medication compliance Continue levothyroxine Needs repeat thyroid function test as outpatient Awaiting PT eval CODE STATUS DNI DNR I spent a total of 50 minutes coordinating, documenting and providing care for this patient excluding time spent in performance of separately billed services Admission and Anticipated Discharge Date Admission Date: September 05, 2024 Subjective Patient seen and examined Reports lower abd pain. Stated he has not had a good BM since yesterday Denied chest pain Reports some nausea and weakness Denied any SOB, dizziness, cough, headache Denied other complaints on ROS Physical Exam Constitutional: + well hydrated; no acute distress Eyes: PERRL, conjunctivae normal, anicteric sclerae ENMT: external ear and nose normal, oropharynx normal Respiratory: normal respiratory effort; no respiratory distress Cardiovascular: Rate/Rhythm: regular rate and regular rhythm Gastrointestinal (Abdomen): Soft, distended, nontender, normal bowel sounds Musculoskeletal: +pedal edema Neurologic: PERRL, EOMI, accommodation nl, no face palsy, no dysarthria Psychiatric: A+Ox3, euthymic affect Results & Data Results & Data Vital Signs (Past 12 Hours) Vital Signs Temp Pulse Pulse Resp BP Pulse Ox O2 Del Method 09/09/24 11:37 36.6 C 78 18 95/63 L 94 Room Air 09/09/24 11:08 72 18 94 Room Air 09/09/24 09:00 72 09/09/24 07:36 37.2 C 73 20 101/61 97 Room Air 09/09/24 07:35 Room Air 09/09/24 02:31 36.9 C 73 18 91/55 L 92 Room Air Laboratory Results Abnormal lab results 09/09/24 Range/Units 07:14 RBC 2.85 L (4.70-6.10) M/uL Hgb 10.4 L (14.0-18.0) g/dl Hct 29.5 L (42.0-52.0) % MCV 103.5 H (80.0-100.0) fL MCH 36.5 H (25.0-34.0) pg RDW Std Deviation 48.0 H (36.4-46.3) fL Plt Count 127 L (130-400) K/uL PT 12.9 H (9.0-12.0) Seconds INR 1.2 H (0.9-1.1) Heparin Anti-Xa, Unfract 0.19 L (0.3-0.7) IU/ml Sodium 133 L (136-145) mmol/L Glucose 113 H (70-99(Fasting)) mg/dl Magnesium 1.5 L (1.7-2.4) mg/dl Direct Bilirubin 0.3 H (0-0.2) mg/dl Total Protein 4.9 L (6.0-8.3) gm/dl Albumin 2.9 L (3.4-5.0) gm/dl (3) Cirrhosis Ascites presence: with ascites Hepatic cirrhosis type: alcoholic cirrhosis Qualified Code(s): K70.31 - Alcoholic cirrhosis of liver with ascites (4) Fluid overload Hypervolemia type: unspecified Qualified Code(s): E87.70 - Fluid overload, unspecified (6) Abdominal pain Abdominal location: generalized Qualified Code(s): R10.84 - Generalized abdominal pain
[2024-09-09] MEDS: LACTULOSE SYRUP 20 GM/30 ML UDC PO SCH (12:59)
[2024-09-09] MEDS: SPIRONOLACTONE 12.5 MG TAB PO SCH (13:31)
[2024-09-09] MEDS: APIXABAN 5 MG TABLET PO SCH (13:47)
[2024-09-09 17:03] LABS: ANTI-Xa, UFH(UnfractionatedHep 0.13 IU/ml (0.3-0.7)
[2024-09-09] MEDS: POTASSIUM CHLORIDE CRTAB 20 MEQ TABCR PO SCH (20:24)
[2024-09-10 07:26] VITALS: RESP 18
[2024-09-10 07:47] LABS: Hemoglobin 11.3 g/dl (14.0-18.0); Mean Corpuscular Hemoglobin 36.7 pg (25.0-34.0); Mean Corpuscular Hgb Conc 35.3 g/dL (32.0-36.0); Mean Corpuscular Volume 103.9 fL (80.0-100.0); Mean Platelet Volume 9.2 fL (9.4-12.4); Platelet Count 127 K/uL (130-400); RDW Coefficient of Variation 13.2 % (11.5-14.5); RDW Standard Deviation 49.5 fL (36.4-46.3); Red Blood Count 3.08 M/uL (4.70-6.10); White Blood Count 6.35 K/ul (4.8-10.8)
[2024-09-10 08:06] LABS: Albumin Globulin Ratio 1.3 (0.9-2); Albumin Level 3.1 gm/dl (3.4-5.0); BUN Creatinine Ratio 9.3 (10-20); Bilirubin,Total 1.3 mg/dl (0.2-1.0); Calcium 9.1 mg/dl (8.6-10.3); Creatinine Clr Calc Pharmacy 86.8 ml/min; Globulin 2.4 gm/dl (2.5-4.0); Magnesium 1.4 mg/dl (1.7-2.4); Phosphorus 3.2 mg/dl (2.5-4.9); Potassium 3.7 mmol/L (3.5-5.1); Total Protein 5.5 gm/dl (6.0-8.3)
[2024-09-10 08:17] LABS: INR 1.3 (0.9-1.1); Prothrombin Time 13.6 Seconds (9.0-12.0)
[2024-09-10 09:10] VITALS: TEMP 99.1
--- NOTE | 2024-09-10 09:34 | Gastroenterology Progress Note ---
Date of Service September 10, 2024 Assessment & Plan (1) Alcoholic cirrhosis of liver: Plan: 64 year old male w/ history of ETOH use, cirrhosis, diverticulitis, chronic DVT on lovenox, active tobacco use, hypothyroid and others admitted through the ED w/ single subsegmental thrombotic pulmonary embolism without acute cor pulmonale, volume overload and hyponatremia s/p diagnostic paracentesis 09/07 w/o evidence of SBP - [facility] - Management of hyponatremia per nephrology - Continue diuretics at current dose - No current plan for paracentesis - ETOH cessation - Low NA diet, less than 2 g sodium - Soft slippery diet as tolerated - OP EGD - MELD labs every 6 months - ABD imaging w/ AFP every 6 months - EGD every 1-2 years - No ETOH - No NSAIDs - Avoid hepatotoxin - Low NA diet, less than 2G daily - Less than 2G acetaminophen containing products daily I spent a total of 40 minutes on the date of service in review of patient's record, and previously obtained information in person and appropriate medical visit, discussion and education of plan, with patient and/or caregiver, placing orders for tests/referral/procedures as medically necessary and documentation of pertinent clinical information in patient's medical records for their visit today. Admission and Anticipated Discharge Date Admission Date: September 05, 2024 Supervising Physician Co-Signing Physician Notes I examined the patient and reviewed patient's chart , laboratory data and imaging studies. I agree with with assessment and plan of care as suggested by advanced practice provider. Discharged is planned later today. Needs to be on Lasix 40 mg a day and spironolactone, preferably 50 mg a day. [facility] next [facility]. Subjective Pt was seen and evaluated, chart reviewed. Feeling well from a GI standpoint. Denies abd pain. Abd distention unchanged. No nausea, vomiting. Just finished breakfast. HGB 11.3 INR 1.3 NA 138 [employer]OR OF [employer] 0.75 Tbili 1.3 Current therapy: Lasix 40 mg BID, Aldactone 12.5 daily, lactulose 20 g TID, midodrine 5 TID Review of Systems Review of Systems: All other findings negative except as noted in HPI. Physical Exam Constitutional: WD/WN, vitals as above Respiratory: normal respiratory effort, lungs clear to auscultation Cardiovascular: RRR, no murmur, no edema Gastrointestinal (Abdomen): Inspection/Auscultation: normal bowel sounds Percussion/Palpation: abdomen soft and + ascites; abdomen nontender, no guarding and abdomen not rigid + moderate ascites Skin: no rashes, warm and dry Results & Data Results & Data Vital Signs (Past 12 Hours) Vital Signs Temp Pulse Pulse Resp BP Pulse Ox O2 Del Method 09/10/24 09:21 Room Air 09/10/24 09:09 37.3 C 87 18 108/76 94 Room Air 09/10/24 07:25 91 H 18 95 Room Air 09/10/24 02:00 36.6 C 82 16 100/64 95 Room Air 09/09/24 22:37 83 09/09/24 22:36 37.0 C 82 16 117/80 93 Room Air Laboratory Results 09/10/24 09/09/24 Range/Units 07:36 15:16 WBC 6.35 (4.8-10.8) K/ul RBC 3.08 L (4.70-6.10) M/uL Hgb 11.3 L (14.0-18.0) g/dl Hct 32.0 L (42.0-52.0) % MCV 103.9 H (80.0-100.0) fL MCH 36.7 H (25.0-34.0) pg MCHC 35.3 (32.0-36.0) g/dL RDW Std Deviation 49.5 H (36.4-46.3) fL RDW Coeff of Mimi 13.2 (11.5-14.5) % Plt Count 127 L (130-400) K/uL MPV 9.2 L (9.4-12.4) fL PT 13.6 H (9.0-12.0) Seconds INR 1.3 H (0.9-1.1) Heparin Anti-Xa, Unfract 0.13 L (0.3-0.7) IU/ml Sodium 138 (136-145) mmol/L Potassium 3.7 (3.5-5.1) mmol/L Chloride 98 (98-107) mmol/L Carbon Dioxide 34 H (21-32) mmol/L Anion Gap 6 (3-11) BUN 7 (6-23) mg/dl Creatinine 0.75 (0.6-1.4) mg/dl Est Cr Clr Drug Dosing 86.8 ml/min eGFR 102.03 BUN/Creatinine Ratio 9.3 L (10-20) Glucose 110 H (70-99(Fasting)) mg/dl Calcium 9.1 (8.6-10.3) mg/dl Phosphorus 3.2 (2.5-4.9) mg/dl Magnesium 1.4 L (1.7-2.4) mg/dl Total Bilirubin 1.3 H (0.2-1.0) mg/dl AST 46 H (13-39) U/L ALT 18 (7-52) U/L Alkaline Phosphatase 94 (34-104) U/L Total Protein 5.5 L (6.0-8.3) gm/dl Albumin 3.1 L (3.4-5.0) gm/dl Globulin 2.4 L (2.5-4.0) gm/dl Albumin/Globulin Ratio 1.3 (0.9-2) PG Care Time/CCT Total # of Minutes Spent Total Time Spent with Patient: Total time spent is greater than 50% in coordination of care (as documented) at patient's floor/unit and/or counseling patient: Coding Level of Care Code 90016 SUB INP/OBS CARE 2/35MIN Diagnoses Alcoholic cirrhosis of liver K70.30
[2024-09-10] MEDS: MAGNESIUM OXIDE 400 MG TAB PO ONE (11:10)
--- NOTE | 2024-09-10 11:49 | Discharge Summary ---
Date of Service September 10, 2024 Admission HPI Per Admitting Provider Ardian Rey is a 64-year-old male with a PMHX significant for ETOH abuse, diverticulitis who presents to the ED today reporting over the past month he had increasing swelling of his bilateral lower legs. States noted some swelling of the belly in the last week at least has been having abdominal discomfort. [facility] but was unable to make it there for an appointment. Came here today for evaluation. Reports some nausea. Reports shortness of breath even at rest but also worse with exertion. Little bit of pain in the upper chest. Does drink alcohol sometimes. Did fall yesterday and get stuck between the door and the bathroom was able to get out. Denies significant injury to his right knee but states he was trapped there on the right side. Denies striking his head. Reports some nausea but denies diarrhea. Denies fevers. In the ED. The ED provider did a paracentesis, point of service ultrasound. CT PE study shows a small probable left subsegmental PE and Subsegmental left lower lobe consolidation. CT of the abdomen raised possibility of SBP. He has a chronic DVT. He tells me he has a been on L[facility] 6 months through the [facility]. Most of [facility] but he did see [facility] in the past. It is unclear whether he had an EGD but was being set up for one. There is a history of cirrhosis and possible varices. Admission Exam Per Admitting Provider General- adult male seen at bedside in the ED. Chronic ill appearance. Head- atraumatic Eyes- PERRL, EOMI, anicteric ENT- oropharynx clear Neck- supple, no JVD, no adenopathy, no thyromegaly; carotids +2/2, no bruits appreciated Lungs- clear to auscultation and percussion Heart- regular rhythm; no murmur, no gallop, no rub appreciated Abdomen- normal bowel sounds, soft, distended, ascites present no masses. He has hepatosplenomegaly Extremities-2+ pretibial edema, Neuro- alert, oriented x 3; PERRL, EOMI; no facial palsy; no dysarthria; motor 5/5 bilaterally; no cogwheel rigidity; patellar DTRs +2/2; toes downgoing bilaterally; no asterixis Skin- warm & dry Principal Diagnosis Pulmonary embolism Deep venous thrombosis Decompensated cirrhosis with ascites Hypotension Discharge Exam Constitutional + well hydrated; no acute distress Eyes PERRL, conjunctivae normal, anicteric sclerae ENMT external ear and nose normal, oropharynx normal Respiratory normal respiratory effort; no respiratory distress Cardiovascular Rate/Rhythm: regular rate and regular rhythm Gastrointestinal (Abdomen) Soft, distended, nontender, normal bowel sounds Musculoskeletal +pedal edema Neurologic PERRL, EOMI, accommodation nl, no face palsy, no dysarthria Psychiatric A+Ox3, euthymic affect Discharge Data Allergies Allergy/AdvReac Type Severity Reaction Status Date / Time Sulfa (Sulfonamide Allergy Mild Rash Verified 09/05/24 15:13 Antibiotics) aspirin Allergy Unknown Unverified 09/05/24 16:30 Consultations 09/05/24 13:55 ED Decision to Admit Stat 09/05/24 17:24 Consult Gastroenterology Routine 09/06/24 11:58 Consult Nephrology Routine Ordered Studies 09/05/24 11:00 CT abd pelvis IV con only Stat CT angio chest PE protocol Stat CT cervical spine wo con Stat CT head/brain wo con Stat 09/05/24 11:01 US venous doppler LE BI Stat 09/07/24 IR paracentesis abd w/img US Routine 09/07/24 15:26 US abdomen [US liver] Routine 09/08/24 11:24 FL barium swallow Routine Hospital Course (1) Single subsegmental thrombotic pulmonary embolism without acute cor pulmonale: (2) Deep vein thrombosis (DVT) of tibial vein of right lower extremity: Acute PE Acute right lower extremity DVT H/O DVT on Coumadin previously --Chest CTA: Suggestive of subsegmental left lower lobe pulmonary embolus. --Venous Doppler:Age-indeterminate DVT within the right posterior tibial vein. No left-sided DVT. Was initially on heparin drip, transitioned to eliquis per patient's preference Discharged on po eliquis 10mg bid till 09/15/24 then 5mg bid afterwards (3) Cirrhosis: (4) Fluid overload: (5) Ascites: (6) Abdominal pain: Decompensated Alcoholic cirrhosis with ascites --S/P abdominal paracentesis: 4.6 L of acetic fluid removed on 09/07/24 Peritoneal fluid analysis not suggestive of SBP SBP ruled out and antibiotics discontinued Diuretics managed by Civilian Technician inpatient Discharged on Lasix 40mg BID, aldactone 25mg, KCl 20mEq BID per Nephro. Discharged on po magnesium for hypomagnesemia He needs to follow up with Nephro outpatient Patient's home propranolol stopped and started on midodrine for hypotension Continue home gabapentin Continue thiamine, folic acid Started on lactulose. Educated patient about this. To ensure 2-3 BM/day He complained of dysphagia. Barium swallow did not show any strictures He needs to follow up with Gastroenterology/Hepatology Patient counseled regarding alcohol cessation (7) Esophageal varices: (8) Hyponatremia: Hypotonic hyponatremia In setting of hypervolemia, alcohol use disorder Managed and hyponatremia resolved. Na was 123 on admission, improved to 138 today Total Time Total Time Spent Total Time Spent (In Minutes): 35 Total Time Includes: Examination of the Patient, Discharge Planning, Medication Reconciliation and Communication With Other Providers Discharge Plan Discharge Items Patient Disposition: Home - Self-Care Reason For Visit: SOB,ASCITES,SMALL PE Discharge Diagnosis: Pulmonary embolism (Blood clot in blood vessel of the lung) Deep venous thrombosis (Blood clot in blood vessel of the leg) Decompensated cirrhosis with ascites Hypotension Activity: Resume your previous activity Non-emergency contact: Primary Care Provider and Instructional Facilitator Call non-emergency contact if: you have any medication questions and your symptoms worsen Follow-up/Referrals: Jaycee Mei MD, PhD [Physician] - (The nephrology office will contact you to schedule a follow-up appointment. ) [facility] [Primary Care Provider] - (Please contact the [place] clinic to schedule a discharge follow up appointment within one week of discharge. The Gastroenterology Department will contact you to schedule a discharge follow up appointment. ) Diet: Heart Healthy and Low Sodium (2gm) Addtl Attending Provider Instructions: Mr Candido Otero presented to the hospital with shortness of breath. You were managed for the above listed diagnoses. It is extremely important that you follow up with your Primary Doctor and a Instructional Facilitator as we discussed. The following medications changes were made to your medications: - You were started on eliquis for the blood clots. Take 2 tabs (10mg) twice a day until 09/15/24, then 1 tab or 5mg twice a day afterwards - You were started on diuretics/water pills (furosemide and spironolactone) - You were started on potassium and magnesium tab - You were started on midodrine for low blood pressure. - Please stop taking propranolol. - You were started on lactulose Please quit alcohol use completely It was a pleasure taking care of you Pending Studies at Discharge: No Stand-Alone Forms: [facility], Smoking Cessation Medications and DC Order Prescriptions: New Eliquis 5 mg Tablet See Rx Instructions .ROUTE .COMPLEX Qty: 60 0RF Rx Instructions: Take 10mg twice a day until 09/15/24 and then 5mg twice a day from 09/16/24 furosemide 40 mg Tablet 40 mg PO BID17 Qty: 60 0RF spironolactone 25 mg Tablet 12.5 mg PO DAILY Qty: 30 0RF midodrine 2.5 mg Tablet 5 mg PO TID@0800,1200,1700 Qty: 45 0RF lactulose 20 gram/30 mL Solution 20 g PO BID Qty: 1500 0RF Rx Instructions: Hold for further doses for more than 3 bowel movements per day potassium chloride 20 mEq Tablet,Er Particles/Crystals 20 meq PO BID Qty: 60 0RF magnesium chloride 64 mg tablet,delayed release (DR/EC) 64 mg PO DAILY Qty: 30 0RF Continued levothyroxine 88 mcg Tablet 88 mcg PO QAM gabapentin 300 mg Capsule 300 mg PO BID primidone 50 mg Tablet 75 mg PO HS benzonatate 100 mg Capsule 100 mg PO TID PRN (Reason: Cough) folic acid 1 mg Tablet 1 mg PO WK albuterol sulfate [Ventolin HFA] 90 mcg/actuation Hfa Aerosol Inhaler 2 puff INHALATION QID PRN (Reason: Shortness Of Breath) cholecalciferol (vitamin D3) 25 mcg (1,000 unit) Tablet 25 mcg PO DAILY mometasone-formoterol 100-5 mcg/actuation Hfa Aerosol Inhaler 2 puff INHALATION BID Spiriva Respimat 2.5 mcg/actuation Mist 2 puff INHALATION DAILY Discontinued propranolol 120 mg Capsule,Extended Release 24hr 120 mg PO BID Discharge Orders: Discharge Order (Routine); Ordered 09/10/24 Ordered By: Rose Vargas Admission Data Admit Date/Time: 09/05/24 16:03 Attending Provider: Rose Vargas I. Admit Provider: Camilo Del Valle Primary Care Provider: [facility] Other Providers: Luly Hahn; Lee Galarza; Nohemy Rey; Nyla Monahan; Alejandra Case; Ruth Ann Velasquez; Argelia Elmore; Jamie Jensen; Nadege James; Debra Bruno; Fede Thompson; Ml Baker; Monika Angel; Julia Woods; Nay Mcdonough; Barbara Flor; Lavon Loyola; Cha Carreon; Beryl Damon Jr; Benji Kraft.; Darius Azar; Ammon Keys; Ad Orourke; Yoselin Armendariz; Christopher Rockwell I; Lolis Minor; Camilo Del Valle; [facility]; Jesus Braun Other Interventions: Discharge Summary Assessment (RN) Last Done: 09/10/24 16:21
[2024-09-10] MEDS: MAGNESIUM SULFATE / D5W 1 GM/100 ML BAG IV SCH (12:09)
[2024-09-10 14:46] VITALS: PULSE 90; O2SAT 91
[2024-09-10 16:22] VITALS: BP 101/60
== END 2024-09-10 17:59 | disposition home or self-care (01) | DRG 175 ==
LOC: ED 10:19 → 2S 16:03 → SUATTDRO 16:03 → 2S 19:03

== ENCOUNTER 2024-11-30 14:35 | Inpatient (IN) ==
[2024-11-30] MEDS: MoRPHine SULFATE 2 MG/ML CARP IV STA ×2 (15:53→23:21)
--- NOTE | 2024-11-30 15:54 | XRay Report ---
XR chest 1V portable CLINICAL HISTORY: Trauma COMPARISON STUDY: Chest radiograph September 07, 2024. FINDINGS: There is no pneumothorax or pleural effusion. There are acute displaced fractures of the po sterior left seventh and eighth ribs. There is also an acute minimally displaced fracture the posteri or right sixth rib. Additional old rib fractures are present. Bibasilar opacities are greater on the left. Cardiomediastinal silhouette is stable. IMPRESSION: 1. No pneumothorax. 2. Several acute bilateral rib fractures, as described above. 3. Bibasilar opacities, greater on the left. The findings may reflect atelectasis although pulmonary contusions could appear similar. ACT 112: Negative or not required by law. Electronically signed by: Reece Sood M.D. 11/30/2024 3:52 PM
[2024-11-30] MEDS: SODIUM CHLORIDE 0.9% 1,000 ML IV SCH (15:55)
--- NOTE | 2024-11-30 15:55 | XRay Report ---
XR wrist LT 2V CLINICAL HISTORY: Trauma COMPARISON: None FINDINGS: Alignment of the left wrist is anatomic. There is no acute fracture. Distal left radius an d ulna are intact. IMPRESSION: No fracture or dislocation within the left wrist. ACT 112: Negative or not required by law. Electronically signed by: Reece Sood M.D. 11/30/2024 3:53 PM
[2024-11-30 16:01] LABS: iSTAT Creatinine 0.7 mg/dl (0.6-1.3); iSTAT Hemoglobin 12.9 g/dl (14.0-18.0); iSTAT Ionized Calcium 1.14 mmol/l (1.12-1.32); iSTAT Potassium 3.5 mmol/L (3.3-5.0)
[2024-11-30 16:06] LABS: Basophils # (auto) 0.04 K/uL (0.00-0.20); Basophils % (auto) 0.6 %; Eosinophils # (auto) 0.16 K/uL (0.00-0.50); Eosinophils % (auto) 2.2 %; Hematocrit (blood only) 36.2 % (42.0-52.0); Hemoglobin 12.3 g/dl (14.0-18.0); Immature Granulocytes # (auto) 0.03 K/uL (0.01-0.20); Immature Granulocytes % (auto) 0.4 %; Lymphocytes # (auto) 1.67 K/uL (1.20-3.40); Lymphocytes % (auto) 23.3 %; Mean Corpuscular Hemoglobin 32.7 pg (25.0-34.0); Mean Corpuscular Volume 96.3 fL (80.0-100.0); Mean Platelet Volume 9.3 fL (9.4-12.4); Monocytes # (auto) 0.76 K/uL (0.11-0.59); Monocytes % (auto) 10.6 %; Neutrophils % (auto) 62.9 %; Platelet Count 185 K/uL (130-400); RDW Coefficient of Variation 14.9 % (11.5-14.5); RDW Standard Deviation 52.7 fL (36.4-46.3); Red Blood Count 3.76 M/uL (4.70-6.10); White Blood Count 7.16 K/ul (4.8-10.8)
[2024-11-30] MEDS: OPTIRAY 320 100ml IV ONE (16:07)
[2024-11-30 16:19] LABS: Albumin Globulin Ratio 1.1 (0.9-2); Albumin Level 3.4 gm/dl (3.4-5.0); BUN Creatinine Ratio 14.7 (10-20); Bilirubin,Total 0.5 mg/dl (0.2-1.0); Calcium 9.2 mg/dl (8.6-10.3); Creatinine Clr Calc Pharmacy 67.7 ml/min; Globulin 3.2 gm/dl (2.5-4.0); Potassium 3.7 mmol/L (3.5-5.1); Total Protein 6.6 gm/dl (6.0-8.3)
[2024-11-30 16:25] LABS: Troponin I High Sensitivity 6.8 pg/ml (0-20)
[2024-11-30 16:34] LABS: Partial Thromboplastin Ratio 1.1; Partial Thromboplastin Time 30 Seconds (21-31); Prothrombin Time 11.1 Seconds (9.0-12.0)
--- NOTE | 2024-11-30 16:38 | CT Scan Report ---
Exam: CT thorax with contrast Reason for exam: Patient fell. Complaining of left upper chest pain. Previous studies: None FINDINGS: Both lungs remain expanded. No significant pneumothorax or pleural effusion is identified. Thyroid is enlarged with calcifications and multiple nodules. No mediastinal mass or adenopathy is seen. Coronary artery stents are present. No evidence of aortic trauma, aneurysm or dissection is seen at the examined levels. Mild compression fracture of T3, T5 and moderate compression fracture of T9, T10, T11 and T12. Age of these is uncertain and could be acute distress associated with the recent trauma. Multiple bilateral rib fractures are seen with the talus indicating a chronic or subacute nature although the remaining completely. There is an acute fracture of the left posterior lateral eighth, ninth and 10th ribs. Again no pneumothorax is seen. IMPRESSION: 1. Multiple thoracic compression fractures of uncertain age with those at T9, T10, T11 and T12 being most severe. No definite retropulsed fragment seen at this time. These would be better evaluated with MRI study to evaluate the chronicity of these fractures. 2. Acute fractures left posterior lateral left eighth, ninth and 10th ribs. No pneumothorax or significant pleural effusion seen at this time. 3. Multiple subacute or chronic old bilateral rib fractures which remain incompletely united at this time. 4. Enlarged multinodular thyroid gland with calcifications. This would be better evaluated with thyroid ultrasound. Electronically signed by Antonio Dhillon 11-30-2024 4:37 PM
--- NOTE | 2024-11-30 16:41 | CT Scan Report ---
Exam: CT scan cervical spine: Reason for exam: Patient fell on ice 45 minutes ago. Pain in the left ribs and wrist. Previous studies: None FINDINGS: No acute fracture, dislocation or destructive bony process is seen at the examined levels. Mild degenerative spondylosis of the mid and lower cervical facet joints are present. Moderate carotid artery calcifications are present. IMPRESSION: 1. Negative for acute bony trauma. 2. Degenerative spondylosis at the mid and lower cervical levels. Electronically signed by Antonio Dhillon 11-30-2024 4:41 PM
--- NOTE | 2024-11-30 16:46 | CT Scan Report ---
Exam: CT scan thorax with contrast: Reason for exam: Patient fell 45 minutes ago. Previous studies: None FINDINGS: Both lungs remain well expanded. No pneumothorax or pleural effusion is seen. No active lung infiltrate is seen. There are multiple compression fractures in the thoracic spine. Mild compression fracture T5 with moderate compression fractures of T9, T10 and T11 are present. Age of these is uncertain and could be better evaluated with MRI study. Acute fractures of the left seventh eighth and ninth posterior lateral ribs are seen. Multiple old bilateral rib fractures are seen with callus but incomplete bony union at this time. Again no pneumothorax or pleural effusion is seen. The thyroid gland is enlarged and multinodular with calcifications. No evidence of aortic aneurysm or dissection is seen. Coronary artery stents are present. IMPRESSION: 1. Multiple thoracic compression fractures with the most severe being at the T9, T10 and T11 levels. Age of these is uncertain and they could be acute related to the recent trauma. Further evaluation with MRI study of the thoracic spine would be useful. 2. Acute rib fractures of the left seventh eighth and ninth posterior lateral ribs without pneumothorax or pleural effusion. 3. Multiple old bilateral rib fractures with incomplete healing. 4. Enlarged multinodular thyroid which could be better evaluated with thyroid ultrasound. Electronically signed by Antonio Dhillon 11-30-2024 4:46 PM
--- NOTE | 2024-11-30 16:59 | CT Scan Report ---
EXAM: CT Abdomen + Pelvis w/o Contrast HISTORY: Patient fell. Complaining of pain in the left ribs. No prior complaints COMPARISON: None TECHNIQUE: Helical CT imaging of the abdomen and pelvis was performed following uneventful administration of Omnipaque 300 IV. FINDINGS: Lung bases/inferior mediastinum:Unremarkable. Liver:Abnormally nodular and mildly enlarged suggesting hepatic cirrhosis. No definite focal liver lesion is seen. Gallbladder: Absent with surgical clips present Spleen: Unremarkable. Adrenal glands: Unremarkable. Pancreas: Unremarkable. Kidneys: Nephrograms appear symmetric. No focal cortical lesions. No hydronephrosis or hydroureter. Bowel:The stomach and duodenum appear unremarkable. Small bowel loops are normal in caliber. Normal caliber appendix identified. The colon is normal in caliber. Large amount of abdominal and pelvic ascites is present. Vasculature: Scattered vascular calcifications but no significant aneurysm seen. The inferior vena cava is unremarkable. Lymph nodes:No enlarged retroperitoneal, mesenteric, pelvic, or inguinal lymph nodes. Pelvis: Urinary bladder is unremarkable. . Large amount of pelvic ascites. Prostate mildly enlarged and inhomogeneous with calcifications. Soft tissues:Soft tissues of the abdominal wall are unremarkable. Bones:Compression fractures of L1, L3 and L4 of uncertain age. These could be more definitively characterized with MRI study. IMPRESSION: 1. Large amount of abdominal and pelvic ascites. 2. Liver has the appearance of chronic hepatic cirrhosis with a nodular contour and mild hepatomegaly. 3. Compression fractures of L1, L3 and L4 of uncertain age. These would be better characterized with MRI study if indicated. Electronically signed by Antonio Dhillon 11-30-2024 4:59 PM
--- NOTE | 2024-11-30 18:49 | Emergency Department Note ---
Impression & Plan Rib pain on left side, Multiple fractures of ribs, Fall, Acute pain of left wrist ED Provider Note ED Provider Note NAME: EDDIE RUGGIERO III AGE:64 SEX: Male : 1960 ARRIVES VIA: Private vehicle INFORMANT: Patient ED PROVIDER(s): Tonya Morrell DO CHIEF COMPLAINT: Fall, left rib pain, left wrist pain HPI: This is a 64-year-old male presents emergency department due to concern for injury sustained from an accidental fall today on the ice outside. He states he landed on his left side. He denies striking his head or loss of consciousness.. He states he has pain in the left chest wall/ribs as well as pain at the left wrist from where he tried to put his arm out to break his fall. He denies any neck or back pain, hip or lower extremity pain. Patient does use anticoagulation due to history of recurrent DVT/PE. Patient also has a history of cirrhosis and does have ascites. He takes Eliquis daily. X-rays initially ordered per nursing protocol and discussed at bedside. Patient denies nausea or vomiting, headache, dizziness, vision changes, paresthesias, or abdominal pain. Patient states he does have pain with taking a deep breath. He states he does have underlying COPD, but does not routinely require oxygen. PAST MEDICAL HISTORY:See Below PAST SURGICAL HISTORY:See Below FAMILY HISTORY:See Below SOCIAL HISTORY:See Below HOME MEDICATIONS:See Below ALLERGIES:See Below VITALS:See Below PHYSICAL EXAMINATION: GENERAL: alert, well appearing, thin body habitus, no distress, non-toxic HEAD: nc/at EYE EXAM: normal conjunctiva, PERRL and EOM's grossly intact OROPHARYNX: no exudate, no erythema, lips, buccal mucosa, and tongue normal and mucous membranes are moist NECK: supple, no nuchal rigidity, no adenopathy, non-tender LUNGS: Clear to auscultation. Normal chest wall mechanics, no w/r/r HEART: no murmurs, S1 normal and S2 normal CHEST WALL: Pain with palpation along the left chest wall, no crepitus, no step- off ABDOMEN: abdomen soft, non-tender, normo-active bowel sounds, no masses, no rebound or guarding. BACK: Back is symmetrical on inspection and there is no deformity, no midline tenderness, no CVA tenderness. SKIN: no rashes, petechiae, orbruising UPPER EXTREMITIES: upper extremities are grossly normal. FROM, nml pulses b/l. Pain with palpation at the distal left forearm, no obvious trauma or dislocation, no joint effusions, patient with full range of motion at the left elbow and left wrist, tendon function intact on testing at the left hand LOWER EXTREMITIES: No pitting edema. FROM, nml pulses b/l. NEURO EXAM: Normal sensorium, cranial nerves II-XII grossly intact, normal speech, no facial droop,nogross weakness of arms, no gross weakness of legs. Gross sensation intact. No ataxia. Vital Signs: reviewed and remarkable Differential Diagnosis: Rib fracture, pulmonary contusion, splenic injury, renal laceration, musculoskeletal pain, contusion, other occult fracture, ligamentous injury, spinal cord injury, hemoperitoneum, as well as others were considered MEDICAL DECISION MAKING: This is a 62-year-old male presents emergency department following accidental fall on ice. He was afebrile vital signs stable. Patient initially only desired x-rays. After additional conversation including risks given his use of anticoagulation he was in agreement with IV blood draw and CT imaging. Labs drawn and sent, IV established, EKG and x-rays performed at bedside interpreted me and patient monitored on telemetry. He was then sent for additional CT imaging. Patient noted to have multiple old rib fractures as well as compression fractures of the spine which she was aware of. Patient with acute rib fractures on the left, no flail segment, no pulmonary contusion. Patient not require additional oxygen and had no increased work of breathing. He did have pain with any movement. He had initially been given morphine however intended to return home so was only given Tylenol additionally monitored for several hours to assure the morphine is out of his system. Unfortunately when patient tried to get up to ambulate in order to leave he had such significant pain he did not feel he could safely make it home. Discussed with patient further inpatient evaluation for pain control at this time. Vital signs remained stable throughout. I below suspicion for any additional occult traumatic injury. Case discussed with the hospitalist team for additional evaluation and management. Logistics Associate: [id number]: Discussed with Dr. Bourgeois, [facility] hospitalist team, for additional evaluation and management. ER Treatment Provided: See below Diagnostics Interpreted By Me: -ECG: Normal sinus at 71, normal axis, normal intervals, no acute ST/T wave changes -Cardiac Monitoring: An order was placed for continuous cardiac monitoring. The monitor shows a rate of 70 with normal axis rhythm. -Laboratory studies: As stated above and show below. -Imaging studies: X-ray Chest: A single view study of the chest was reviewed and was negative for cardiomegaly, focal infiltrate, effusion, pulmonary edema, or wide mediastinum. No obvious rib fracture, no pneumothorax. X-ray left wrist: No obvious fracture or dislocation Triage Nursing Note Reviewed Prior/Outside Records Reviewed Past Med/Surg History Problem List (Updated 11/30/24 @ 18:49 by Tonya Morrell DO) Acute pain of left wrist (Acute) Fall (Acute) Multiple fractures of ribs (Acute) Rib pain on left side (Acute) Dysphagia Alcoholic cirrhosis of liver Ascites Esophageal varices Single subsegmental thrombotic pulmonary embolism without acute cor pulmonale (Acute) Abdominal pain (Acute) Hyponatremia (Acute) Fluid overload (Acute) No significant past surgical history No significant past medical history Medical History (Updated 11/30/24 @ 18:49 by Tonya Morrell DO) Hypothyroid Deep vein thrombosis (DVT) of tibial vein of right lower extremity Cirrhosis Social History (Updated 03/14/23 @ 19:10 by Merritt Ramey) Smoking Status: Light tobacco smoker Tobacco Type: Cigarettes Do You Dip or Chew Tobacco: No; Hx Alcohol Use: No Hx Substance Use: No Preferred Language: Lithuanian Communication Ability: Effective Automatic Glove Turner And Former Required: No Beliefs That Will Affect Care: Uatsdin marital status: Single Current Living Situation: Alone current occupational status: employed Feels Safe at Home: Yes Assistive Devices: None Allergies Allergies Allergy/AdvReac Type Severity Reaction Status Date / Time aspirin Allergy Severe Anaphylaxis Unverified 12/01/24 09:45 Sulfa (Sulfonamide Allergy Mild Rash Verified 09/05/24 15:13 Antibiotics) Home Meds Home Medications Medication Instructions Recorded Confirmed albuterol 2 puff inhalation Q4H PRN sob 12/01/24 12/01/24 apixaban 5 mg tablet (Eliquis) 5 mg PO BID 12/01/24 12/01/24 furosemide 40 mg tablet 60 mg PO BID 12/01/24 12/01/24 gabapentin 300 mg capsule 300 mg PO BID 12/01/24 12/01/24 lactulose 10 gram/15 mL oral 30 ml PO DAILY 12/01/24 12/01/24 solution levothyroxine 100 mcg tablet 100 mcg PO DAILY 12/01/24 12/01/24 magnesium chloride 64 mg 64 mg PO DAILY 12/01/24 12/01/24 (magnesium chloride) tablet,delayed release (Mag 64) midodrine 5 mg tablet 5 mg PO TID 12/01/24 12/01/24 mometasone 100 mcg/actuation HFA 1 puff inhalation BID 12/01/24 12/01/24 aerosol inhaler (Asmanex HFA) potassium chloride 20 mEq 40 meq PO BID 12/01/24 12/01/24 tablet,extended release(part/cryst) (Klor-Con M) spironolactone 25 mg tablet 12.5 mg PO DAILY 12/01/24 12/01/24 tiotropium 2.5 mcg-olodaterol 2.5 2 puff inhalation DAILY 12/01/24 12/01/24 mcg/actuation mist for inhalation (Stiolto Respimat) Previous Rx's Medication Instructions Recorded oxycodone 5 mg tablet 5 mg PO Q6H PRN pain #20 tabs 12/01/24 Results & Data (ED) Vital Signs Vital Signs - 24 hr 11/30/24 14:55 11/30/24 15:00 11/30/24 15:34 Temperature 36.3 C L Pulse Rate 68 58 L 66 Pulse Rate [Left Apical] Pulse Rate [Left Finger] Pulse Rate from SpO2 Sensor Pulse Strength [Right Carotid] Normal Respiratory Rate 20 16 Respiratory Effort / Characteristics Non-Labored Spontaneous Respiratory Depth Normal Respiratory Pattern Regular Blood Pressure 136/84 142/87 H Blood Pressure [Left Arm] Blood Pressure [Right Arm] Blood Pressure Mean 101 Blood Pressure Mean [Left Arm] Blood Pressure Mean [Right Arm] Pulse Oximetry 97 100 Oxygen Delivery Method Room Air Room Air Oxygen Flow Rate 0 Sepsis Recent Fever Within 48 Hours No Sepsis New/Unexplained Change in Mental Status N/A Sepsis Action Taken by Nursing No Action Required 11/30/24 15:44 11/30/24 17:00 11/30/24 17:05 Temperature Pulse Rate 65 71 Pulse Rate [Left Apical] Pulse Rate [Left Finger] Pulse Rate from SpO2 Sensor Pulse Strength [Right Carotid] Respiratory Rate 15 14 Respiratory Effort / Characteristics Respiratory Depth Respiratory Pattern Blood Pressure 120/82 109/72 Blood Pressure [Left Arm] Blood Pressure [Right Arm] Blood Pressure Mean 94 84 Blood Pressure Mean [Left Arm] Blood Pressure Mean [Right Arm] Pulse Oximetry 97 95 Oxygen Delivery Method Room Air Room Air Oxygen Flow Rate Sepsis Recent Fever Within 48 Hours Sepsis New/Unexplained Change in Mental Status Sepsis Action Taken by Nursing 11/30/24 17:30 11/30/24 17:33 11/30/24 18:00 Temperature Pulse Rate 73 75 Pulse Rate [Left Apical] Pulse Rate [Left Finger] Pulse Rate from SpO2 Sensor Pulse Strength [Right Carotid] Respiratory Rate 15 12 Respiratory Effort / Characteristics Respiratory Depth Respiratory Pattern Blood Pressure 110/72 150/95 H Blood Pressure [Left Arm] Blood Pressure [Right Arm] Blood Pressure Mean 81 113 Blood Pressure Mean [Left Arm] Blood Pressure Mean [Right Arm] Pulse Oximetry 97 Oxygen Delivery Method Room Air Oxygen Flow Rate Sepsis Recent Fever Within 48 Hours Sepsis New/Unexplained Change in Mental Status Sepsis Action Taken by Nursing 11/30/24 18:00 11/30/24 18:18 11/30/24 18:30 Temperature Pulse Rate 76 72 Pulse Rate [Left Apical] Pulse Rate [Left Finger] Pulse Rate from SpO2 Sensor Pulse Strength [Right Carotid] Respiratory Rate 13 14 Respiratory Effort / Characteristics Respiratory Depth Respiratory Pattern Blood Pressure 150/95 H 130/85 Blood Pressure [Left Arm] Blood Pressure [Right Arm] Blood Pressure Mean 104 100 Blood Pressure Mean [Left Arm] Blood Pressure Mean [Right Arm] Pulse Oximetry 96 Oxygen Delivery Method Room Air Oxygen Flow Rate Sepsis Recent Fever Within 48 Hours Sepsis New/Unexplained Change in Mental Status Sepsis Action Taken by Nursing 11/30/24 19:32 11/30/24 19:33 11/30/24 20:06 Temperature Pulse Rate 73 71 Pulse Rate [Left Apical] 72 Pulse Rate [Left Finger] Pulse Rate from SpO2 Sensor Pulse Strength [Right Carotid] Respiratory Rate 16 16 Respiratory Effort / Characteristics Non-Labored Spontaneous Respiratory Depth Normal Respiratory Pattern Regular Blood Pressure Blood Pressure [Left Arm] 126/80 Blood Pressure [Right Arm] Blood Pressure Mean Blood Pressure Mean [Left Arm] 95 Blood Pressure Mean [Right Arm] Pulse Oximetry 96 Oxygen Delivery Method Room Air Oxygen Flow Rate Sepsis Recent Fever Within 48 Hours Sepsis New/Unexplained Change in Mental Status Sepsis Action Taken by Nursing 11/30/24 20:15 11/30/24 20:21 11/30/24 20:39 Temperature Pulse Rate 71 72 75 Pulse Rate [Left Apical] Pulse Rate [Left Finger] Pulse Rate from SpO2 Sensor Pulse Strength [Right Carotid] Respiratory Rate 13 15 18 Respiratory Effort / Characteristics Respiratory Depth Respiratory Pattern Blood Pressure Blood Pressure [Left Arm] Blood Pressure [Right Arm] Blood Pressure Mean Blood Pressure Mean [Left Arm] Blood Pressure Mean [Right Arm] Pulse Oximetry Oxygen Delivery Method Oxygen Flow Rate Sepsis Recent Fever Within 48 Hours Sepsis New/Unexplained Change in Mental Status Sepsis Action Taken by Nursing 11/30/24 21:00 11/30/24 21:18 11/30/24 21:21 Temperature Pulse Rate 70 73 74 Pulse Rate [Left Apical] Pulse Rate [Left Finger] Pulse Rate from SpO2 Sensor Pulse Strength [Right Carotid] Respiratory Rate 22 18 16 Respiratory Effort / Characteristics Respiratory Depth Respiratory Pattern Blood Pressure Blood Pressure [Left Arm] Blood Pressure [Right Arm] Blood Pressure Mean Blood Pressure Mean [Left Arm] Blood Pressure Mean [Right Arm] Pulse Oximetry Oxygen Delivery Method Oxygen Flow Rate Sepsis Recent Fever Within 48 Hours Sepsis New/Unexplained Change in Mental Status Sepsis Action Taken by Nursing 11/30/24 21:36 11/30/24 21:42 11/30/24 21:54 Temperature Pulse Rate 75 72 70 Pulse Rate [Left Apical] Pulse Rate [Left Finger] Pulse Rate from SpO2 Sensor Pulse Strength [Right Carotid] Respiratory Rate 17 22 17 Respiratory Effort / Characteristics Respiratory Depth Respiratory Pattern Blood Pressure Blood Pressure [Left Arm] Blood Pressure [Right Arm] Blood Pressure Mean Blood Pressure Mean [Left Arm] Blood Pressure Mean [Right Arm] Pulse Oximetry Oxygen Delivery Method Oxygen Flow Rate Sepsis Recent Fever Within 48 Hours Sepsis New/Unexplained Change in Mental Status Sepsis Action Taken by Nursing 11/30/24 22:09 11/30/24 22:44 11/30/24 22:44 Temperature Pulse Rate 70 79 Pulse Rate [Left Apical] Pulse Rate [Left Finger] 68 Pulse Rate from SpO2 Sensor Pulse Strength [Right Carotid] Respiratory Rate 17 22 19 Respiratory Effort / Characteristics Spontaneous Labored Respiratory Depth Shallow Respiratory Pattern Regular Blood Pressure 118/75 Blood Pressure [Left Arm] Blood Pressure [Right Arm] 118/75 Blood Pressure Mean 90 Blood Pressure Mean [Left Arm] Blood Pressure Mean [Right Arm] 89 Pulse Oximetry 95 Oxygen Delivery Method Room Air Oxygen Flow Rate Sepsis Recent Fever Within 48 Hours Sepsis New/Unexplained Change in Mental Status Sepsis Action Taken by Nursing 12/01/24 00:16 12/01/24 00:30 Temperature Pulse Rate 62 66 Pulse Rate [Left Apical] Pulse Rate [Left Finger] Pulse Rate from SpO2 Sensor 62 66 Pulse Strength [Right Carotid] Respiratory Rate 14 14 Respiratory Effort / Characteristics Respiratory Depth Respiratory Pattern Blood Pressure 117/76 126/78 Blood Pressure [Left Arm] Blood Pressure [Right Arm] Blood Pressure Mean 99 94 Blood Pressure Mean [Left Arm] Blood Pressure Mean [Right Arm] Pulse Oximetry 99 92 Oxygen Delivery Method Oxygen Flow Rate Sepsis Recent Fever Within 48 Hours Sepsis New/Unexplained Change in Mental Status Sepsis Action Taken by Nursing Laboratory Data 12/01/24 07:37 12/01/24 07:37 Lab Results 11/30/24 11/30/24 12/01/24 Range/Units 15:45 15:49 00:15 WBC 7.16 (4.8-10.8) K/ul RBC 3.76 L (4.70-6.10) M/uL Hgb 12.3 L (14.0-18.0) g/dl POC Hgb 12.9 L (14.0-18.0) g/dl Hct 36.2 L (42.0-52.0) % POC Hct 38 L (42-52) % MCV 96.3 (80.0-100.0) fL MCH 32.7 (25.0-34.0) pg MCHC 34.0 (32.0-36.0) g/dL RDW Std Deviation 52.7 H (36.4-46.3) fL RDW Coeff of Mimi 14.9 H (11.5-14.5) % Plt Count 185 (130-400) K/uL MPV 9.3 L (9.4-12.4) fL Immature Gran % (Auto) 0.4 % Neut % (Auto) 62.9 % Lymph % (Auto) 23.3 % [place] % (Auto) 10.6 % Eos % (Auto) 2.2 % Baso % (Auto) 0.6 % Neut # (Auto) 4.50 (1.40-6.50) K/uL Lymph # (Auto) 1.67 (1.20-3.40) K/uL [place] # (Auto) 0.76 H (0.11-0.59) K/uL Eos # (Auto) 0.16 (0.00-0.50) K/uL Baso # (Auto) 0.04 (0.00-0.20) K/uL Immature Gran # (Auto) 0.03 (0.01-0.20) K/uL PT 11.1 (9.0-12.0) Seconds INR 1.0 (0.9-1.1) APTT 30 (21-31) Seconds PTT Ratio 1.1 POC Sodium 139 (135-144) mmol/L Sodium 138 (136-145) mmol/L POC Potassium 3.5 (3.3-5.0) mmol/L Potassium 3.7 (3.5-5.1) mmol/L POC Chloride 102 (101-112) mmol/L Chloride 102 (98-107) mmol/L Carbon Dioxide 31 (21-32) mmol/L POC Total CO2 27 (24-31) mmol/L Anion Gap 5 (3-11) POC Anion Gap 14.0 L (16-25) mmol/L POC BUN 10 (7-18) mg/dl BUN 11 (6-23) mg/dl Creatinine 0.75 (0.6-1.4) mg/dl POC Creatinine 0.7 (0.6-1.3) mg/dl Est Cr Clr Drug Dosing 67.7 ml/min eGFR 102.03 BUN/Creatinine Ratio 14.7 (10-20) Glucose 91 (70-99(Fasting)) mg/dl POC Glucose (other) 89 (70-99) mg/dl Calcium 9.2 (8.6-10.3) mg/dl POC Ioniz Calcium [place] 1.14 (1.12-1.32) mmol/l Total Bilirubin 0.5 (0.2-1.0) mg/dl AST 30 (13-39) U/L ALT 10 (7-52) U/L Alkaline Phosphatase 173 H (34-104) U/L Troponin I High Sens 6.8 (0-20) pg/ml Total Protein 6.6 (6.0-8.3) gm/dl Albumin 3.4 (3.4-5.0) gm/dl Globulin 3.2 (2.5-4.0) gm/dl Albumin/Globulin Ratio 1.1 (0.9-2) Lipase 43 (11-82) U/L Urine Color Yellow Urine Appearance Clear (Clear) Urine pH 6.5 (4.5-7.5) Ur Specific Bimble > 1.045 H (1.000-1.030) Urine Protein Negative (Negative) Urine Glucose (UA) Negative (Negative) Urine Ketones Negative (Negative) Urine Blood Negative (Negative) Urine Nitrite Negative (Negative) Urine Bilirubin Negative (Negative) Urine Urobilinogen Negative (Negative) Ur Leukocyte Esterase Negative (Negative) Blood Type A Positive Antibody Screen NEGATIVE Administered Medications Discontinued Medications Hydrocodone Bitart/Acetaminophen (Wilson 5/325mg Homepack) 1 each PO UD ONE Stop: 11/30/24 21:49 Last Admin: 11/30/24 22:42 Dose: Not Given Documented By: [facility] Apixaban (Apixaban 5 Mg Tablet) 5 mg PO BID AMIRA Stop: 12/31/24 08:59 Last Admin: 12/01/24 08:29 Dose: 5 mg Documented By: MARV Fluticasone Furoate (Fluticasone Furoate 100mcg 14 Puffs/Inhaler) 1 puffs INH DAILY AMIRA Stop: 12/31/24 08:59 Last Admin: 12/01/24 08:30 Dose: 1 puffs Documented By: MARV Furosemide (Furosemide 20 Mg Tab) 60 mg PO BID AMIRA Stop: 12/31/24 08:59 Last Admin: 12/01/24 08:28 Dose: 60 mg Documented By: MARV Gabapentin (Gabapentin 300 Mg Cap) 300 mg PO BID AMIRA Stop: 12/31/24 08:59 Last Admin: 12/01/24 08:29 Dose: 300 mg Documented By: MARV Sodium Chloride (Nss) 1,000 mls @ 125 mls/hr IV .Q8H AMIRA Stop: 12/01/24 15:44 Last Infusion: 12/01/24 07:05 Dose: Infused Documented By: Infusion: 12/01/24 03:54 Dose: 125 mls/hr Documented By: Admin: 12/01/24 00:43 Dose: 125 mls/hr Documented By: Infusion: 11/30/24 23:59 Dose: Infused Documented By: Admin: 11/30/24 15:55 Dose: 125 mls/hr Documented By: ARIN Magnesium Sulfate/Dextrose (Magnesium Sulfate / D5w) 1 gm in 100 mls @ 50 mls/hr IV Q2H AMIRA Stop: 12/01/24 13:44 Last Infusion: 12/01/24 14:57 Dose: Infused Documented By: Admin: 12/01/24 12:30 Dose: 50 mls/hr Documented By: Infusion: 12/01/24 12:16 Dose: Infused Documented By: Admin: 12/01/24 10:16 Dose: 50 mls/hr Documented By: MARV Ioversol (Optiray 320 100ml) 90 ml IV ONCE ONE Stop: 11/30/24 16:08 Last Admin: 11/30/24 16:07 Dose: 90 ml Documented By: CHRISTINE Lactulose (Lactulose Syrup 10 Gm/15 Ml Btl 960 Ml) 20 gm PO DAILY AMIRA Stop: 12/01/24 10:00 Last Admin: 12/01/24 08:30 Dose: Not Given Documented By: MARV Levothyroxine Sodium (Levothyroxine Sodium 100 Mcg Tablet) 100 mcg PO DAILYBB AMIRA Stop: 12/31/24 06:29 Last Admin: 12/01/24 06:34 Dose: 100 mcg Documented By: ZAHRAA Lidocaine (Lidocaine 5% 1 Patch) 1 patch TD QAM AMIRA Stop: 12/31/24 08:59 Last Admin: 12/01/24 08:32 Dose: 1 patch Documented By: MARV Magnesium Chloride (Magnesium Chloride W/Calcium 64mg Delayed Rel Tab) 64 mg PO DAILY AMIRA Stop: 12/31/24 08:59 Last Admin: 12/01/24 08:29 Dose: 64 mg Documented By: MARV Midodrine (Midodrine Hcl 2.5 Mg Tab) 5 mg PO TID AMIRA Stop: 12/31/24 08:59 Last Admin: 12/01/24 08:28 Dose: 5 mg Documented By: MARV Morphine Sulfate (Morphine Sulfate 2 Mg/Ml Carp) 2 mg IV NOW STA Stop: 11/30/24 15:39 Last Admin: 11/30/24 15:53 Dose: 2 mg Documented By: ARIN Morphine Sulfate (Morphine Sulfate 2 Mg/Ml Carp) 2 mg IV NOW STA Stop: 11/30/24 22:54 Last Admin: 11/30/24 23:21 Dose: 2 mg Documented By: ZAHRAA Morphine Sulfate (Morphine Sulfate 4 Mg/Ml 1 Ml Carp\Vial) 3 mg IV NOW STA Stop: 12/01/24 00:01 Last Admin: 12/01/24 00:13 Dose: 3 mg Documented By: ZAHRAA Ondansetron HCl (Ondansetron Inj 2 Mg/Ml 2 Ml Vial) 4 mg IV NOW STA Stop: 11/30/24 23:57 Last Admin: 12/01/24 00:02 Dose: 4 mg Documented By: ZAHRAA Oxycodone HCl (Oxycodone Ir Home Pack) 1 each PO UD ONE Stop: 12/01/24 14:47 Last Admin: 12/01/24 14:57 Dose: 1 each Documented By: MARV Potassium Chloride (Potassium Chloride Crtab 20 Meq Tabcr) 40 meq PO BID AMIRA Stop: 12/31/24 08:59 Last Admin: 12/01/24 08:30 Dose: Not Given Documented By: MARV Spironolactone (Spironolactone 12.5 Mg Tab) 12.5 mg PO DAILY AMIRA Stop: 12/31/24 08:59 Last Admin: 12/01/24 08:29 Dose: 12.5 mg Documented By: MARV Umeclidinium/Vilanterol (Umeclidinium/Vilanterol 62.5/25mcg 7 Puffs/Inhaler) 1 puffs INH DAILY AMIRA Stop: 12/31/24 08:59 Last Admin: 12/01/24 08:28 Dose: 1 puffs Documented By: MARV Imaging Data Radiologist's Impression: Chest X-Ray 11/30/24 15:09 XR chest 1V portable CLINICAL HISTORY: Trauma COMPARISON STUDY: Chest radiograph September 07, 2024. FINDINGS: There is no pneumothorax or pleural effusion. There are acute displaced fractures of the posterior left seventh and eighth ribs. There is also an acute minimally displaced fracture the posterior right sixth rib. Additional old rib fractures are present. Bibasilar opacities are greater on the left. Cardiomediastinal silhouette is stable. IMPRESSION: 1. No pneumothorax. 2. Several acute bilateral rib fractures, as described above. 3. Bibasilar opacities, greater on the left. The findings may reflect atelectasis although pulmonary contusions could appear similar. ACT 112: Negative or not required by law. Electronically signed by: Reece Sood M.D. 11/30/2024 3:52 PM Wrist X-Ray 11/30/24 15:09 XR wrist LT 2V CLINICAL HISTORY: Trauma COMPARISON: None FINDINGS: Alignment of the left wrist is anatomic. There is no acute fracture. Distal left radius and ulna are intact. IMPRESSION: No fracture or dislocation within the left wrist. ACT 112: Negative or not required by law. Electronically signed by: Reece Sood M.D. 11/30/2024 3:53 PM Abdomen/Pelvis CT 11/30/24 15:39 EXAM: CT Abdomen + Pelvis w/o Contrast HISTORY: Patient fell. Complaining of pain in the left ribs. No prior complaints COMPARISON: None TECHNIQUE: Helical CT imaging of the abdomen and pelvis was performed following uneventful administration of Omnipaque 300 IV. FINDINGS: Lung bases/inferior mediastinum:Unremarkable. Liver:Abnormally nodular and mildly enlarged suggesting hepatic cirrhosis. No definite focal liver lesion is seen. Gallbladder: Absent with surgical clips present Spleen: Unremarkable. Adrenal glands: Unremarkable. Pancreas: Unremarkable. Kidneys: Nephrograms appear symmetric. No focal cortical lesions. No hydronephrosis or hydroureter. Bowel:The stomach and duodenum appear unremarkable. Small bowel loops are normal in caliber. Normal caliber appendix identified. The colon is normal in caliber. Large amount of abdominal and pelvic ascites is present. Vasculature: Scattered vascular calcifications but no significant aneurysm seen. The inferior vena cava is unremarkable. Lymph nodes:No enlarged retroperitoneal, mesenteric, pelvic, or inguinal lymph nodes. Pelvis: Urinary bladder is unremarkable. . Large amount of pelvic ascites. Prostate mildly enlarged and inhomogeneous with calcifications. Soft tissues:Soft tissues of the abdominal wall are unremarkable. Bones:Compression fractures of L1, L3 and L4 of uncertain age. These could be more definitively characterized with MRI study. IMPRESSION: 1. Large amount of abdominal and pelvic ascites. 2. Liver has the appearance of chronic hepatic cirrhosis with a nodular contour and mild hepatomegaly. 3. Compression fractures of L1, L3 and L4 of uncertain age. These would be better characterized with MRI study if indicated. Electronically signed by Antonio Dhillon 11-30-2024 4:[address] 11/30/24 15:39 Exam: CT scan cervical spine: Reason for exam: Patient fell on ice 45 minutes ago. Pain in the left ribs and wrist. Previous studies: None FINDINGS: No acute fracture, dislocation or destructive bony process is seen at the examined levels. Mild degenerative spondylosis of the mid and lower cervical facet joints are present. Moderate carotid artery calcifications are present. IMPRESSION: 1. Negative for acute bony trauma. 2. Degenerative spondylosis at the mid and lower cervical levels. Electronically signed by Antonio Dhillon 11-30-2024 4:[address] 11/30/24 15:39 Exam: CT scan thorax with contrast: Reason for exam: Patient fell 45 minutes ago. Previous studies: None FINDINGS: Both lungs remain well expanded. No pneumothorax or pleural effusion is seen. No active lung infiltrate is seen. There are multiple compression fractures in the thoracic spine. Mild compression fracture T5 with moderate compression fractures of T9, T10 and T11 are present. Age of these is uncertain and could be better evaluated with MRI study. Acute fractures of the left seventh eighth and ninth posterior lateral ribs are seen. Multiple old bilateral rib fractures are seen with callus but incomplete bony union at this time. Again no pneumothorax or pleural effusion is seen. The thyroid gland is enlarged and multinodular with calcifications. No evidence of aortic aneurysm or dissection is seen. Coronary artery stents are present. IMPRESSION: 1. Multiple thoracic compression fractures with the most severe being at the T9, T10 and T11 levels. Age of these is uncertain and they could be acute related to the recent trauma. Further evaluation with MRI study of the thoracic spine would be useful. 2. Acute rib fractures of the left seventh eighth and ninth posterior lateral ribs without pneumothorax or pleural effusion. 3. Multiple old bilateral rib fractures with incomplete healing. 4. Enlarged multinodular thyroid which could be better evaluated with thyroid ultrasound. Electronically signed by Antonio Dhillon 11-30-2024 4:[address] 11/30/24 15:39 Exam: CT thorax with contrast Reason for exam: Patient fell. Complaining of left upper chest pain. Previous studies: None FINDINGS: Both lungs remain expanded. No significant pneumothorax or pleural effusion is identified. Thyroid is enlarged with calcifications and multiple nodules. No mediastinal mass or adenopathy is seen. Coronary artery stents are present. No evidence of aortic trauma, aneurysm or dissection is seen at the examined levels. Mild compression fracture of T3, T5 and moderate compression fracture of T9, T10, T11 and T12. Age of these is uncertain and could be acute distress associated with the recent trauma. Multiple bilateral rib fractures are seen with the talus indicating a chronic or subacute nature although the remaining completely. There is an acute fracture of the left posterior lateral eighth, ninth and 10th ribs. Again no pneumothorax is seen. IMPRESSION: 1. Multiple thoracic compression fractures of uncertain age with those at T9, T10, T11 and T12 being most severe. No definite retropulsed fragment seen at this time. These would be better evaluated with MRI study to evaluate the chronicity of these fractures. 2. Acute fractures left posterior lateral left eighth, ninth and 10th ribs. No pneumothorax or significant pleural effusion seen at this time. 3. Multiple subacute or chronic old bilateral rib fractures which remain incompletely united at this time. 4. Enlarged multinodular thyroid gland with calcifications. This would be better evaluated with thyroid ultrasound. Electronically signed by Antonio Dhillon 11-30-2024 4:37 PM Discharge Plan Visit Data Chief Complaint: Trauma Stated Complaint: FELL, BLOOD THINNER, LT WRIST PAIN, LT RIB PAIN ED Provider: Tonya Morrell Discharge Problem: Rib pain on left side, Multiple fractures of ribs, Fall, Acute pain of left wrist Patient Disposition: Admitted As Inpatient Condition: Good Discharge Instructions Interventions: ED Discharge Assessment Last Done: 12/01/24 03:07
[2024-11-30] MEDS: NORCO 5/325MG HOMEPACK PO ONE (22:42)
[2024-12-01] MEDS: ONDANSETRON INJ 2 MG/ML 2 ML VIAL IV STA (00:02)
[2024-12-01] MEDS: MoRPHine SULFATE 4 MG/ML 1 ML CARP\\VIAL IV STA (00:13)
[2024-12-01 00:56] LABS: Appearance Urine Clear (Clear); Bilirubin Urine Negative (Negative); Blood Urine Negative (Negative); Color Urine Yellow; Glucose Urine UA Negative (Negative); Ketones Urine Negative (Negative); Leukocyte Esterase Urine Negative (Negative); Nitrite Urine Negative (Negative); Protein Urine Negative (Negative); Specific Gravity Urine > 1.045 (1.000-1.030); Urobilinogen Urine Negative (Negative); pH Urine 6.5 (4.5-7.5)
--- NOTE | 2024-12-01 01:24 | History & Physical Report ---
Date of Service December 01, 2024 Assessment & Plan (1) Multiple fractures of ribs: Plan: 64-year-old male with past medical history significant for alcoholism, liver cirrhosis, hypothyroidism, COPD, presents with fall on the ice on the left side and found to have rib fractures. Patient was at work when he slipped on ice and fell on the left left side. Did not hit his head. No loss of consciousness. His coworker helped him to get up. Having lot of pain in the rib cage radiating to the back. Denies any shortness of breath. Earlier had some nausea. Denies any fevers. No headache. No neck pain. Vision is okay. No runny nose or sore throat. Has a chronic cough from his COPD. No abdominal pain. Normal bowel and bladder movements. Hemodynamics are okay. Fall Multiple fractures of the ribs left seventh eighth and ninth without pneumothorax or pleural effusion Multiple thoracic compression fractures with most severe at T9/T10 T11 levels Multiple old bilateral rib fractures with incomplete healing. Pain control PT OT when stable [facility]ospine consult in a.m. Repeat chest x-ray Can consider pulmonary consult Enlarged multinodular thyroid Will follow thyroid ultrasound Follow thyroid profile Hypothyroidism On Synthyroid History of DVT and PE On Eliquis History of liver cirrhosis History of alcoholism As per nephrology supposed to be on Lasix 80 mg twice daily but patient taking 60 mg twice daily On Aldactone 12.5 mL twice daily On high-dose potassium supplements On midodrine And lactulose Patient says he gets paracentesis monthly Monitor for volume overload Will follow the labs History of COPD Continue home inhalers Tobacco abuse Counseling Anemia Hemoglobin 12.3 Around baseline We will follow labs. DVT prophylaxis On Eliquis Disposition Med/telemetry Full code. History of Present Illness Chief Complaint: Fall and rib fractures Primary Care Provider: [facility] 64-year-old male with past medical history significant for alcoholism, liver cirrhosis, hypothyroidism, COPD, presents with fall on the ice on the left side and found to have rib fractures. Patient was at work when he slipped on ice and fell on the left left side. Did not hit his head. No loss of consciousness. His coworker helped him to get up. Having lot of pain in the rib cage radiating to the back. Denies any shortness of breath. Earlier had some nausea. Denies any fevers. No headache. No neck pain. Vision is okay. No runny nose or sore throat. Has a chronic cough from his COPD. No abdominal pain. Normal bowel and bladder movements. Hemodynamics are okay. Past medical history. As mentioned above. Past surgical history. Colonoscopy and EGD. Family history. No family history on file. Social history. States currently smoking 6 cigarettes daily. History of drinking alcohol heavily in the past but lately not drinking as per patient. History of medical marijuana in the past. Allergies Allergy/AdvReac Type Severity Reaction Status Date / Time Sulfa (Sulfonamide Allergy Mild Rash Verified 09/05/24 15:13 Antibiotics) aspirin Allergy Unknown Unverified 09/05/24 16:30 Home Medications Medication Instructions Recorded Confirmed Type albuterol 2 puff inhalation Q4H PRN sob 12/01/24 12/01/24 History apixaban 5 mg tablet (Eliquis) 5 mg PO BID 12/01/24 12/01/24 History furosemide 40 mg tablet 60 mg PO BID 12/01/24 12/01/24 History gabapentin 300 mg capsule 300 mg PO BID 12/01/24 12/01/24 History lactulose 10 gram/15 mL oral 30 ml PO DAILY 12/01/24 12/01/24 History solution levothyroxine 100 mcg tablet 100 mcg PO DAILY 12/01/24 12/01/24 History magnesium chloride 64 mg 64 mg PO DAILY 12/01/24 12/01/24 History (magnesium chloride) tablet,delayed release (Mag 64) midodrine 5 mg tablet 5 mg PO TID 12/01/24 12/01/24 History mometasone 100 mcg/actuation HFA 1 puff inhalation BID 12/01/24 12/01/24 History aerosol inhaler (Asmanex HFA) potassium chloride 20 mEq 40 meq PO BID 12/01/24 12/01/24 History tablet,extended release(part/cryst) (Klor-Con M) spironolactone 25 mg tablet 12.5 mg PO DAILY 12/01/24 12/01/24 History tiotropium 2.5 mcg-olodaterol 2.5 2 puff inhalation DAILY 12/01/24 12/01/24 History mcg/actuation mist for inhalation (Stiolto Respimat) Past Med/Surg History Problem List (Updated 11/30/24 @ 18:49 by Tonya Morrell DO) Acute pain of left wrist (Acute) Fall (Acute) Multiple fractures of ribs (Acute) Rib pain on left side (Acute) Dysphagia Alcoholic cirrhosis of liver Ascites Esophageal varices Single subsegmental thrombotic pulmonary embolism without acute cor pulmonale (Acute) Abdominal pain (Acute) Hyponatremia (Acute) Fluid overload (Acute) No significant past surgical history No significant past medical history Medical History (Updated 11/30/24 @ 18:49 by Tonya Morrell DO) Hypothyroid Deep vein thrombosis (DVT) of tibial vein of right lower extremity Cirrhosis Social History (Updated 03/14/23 @ 19:10 by Merritt Ramey) Smoking Status: Light tobacco smoker Tobacco Type: Cigarettes Do You Dip or Chew Tobacco: No; Hx Alcohol Use: No Hx Substance Use: No Preferred Language: Yakut Communication Ability: Effective Pecan Grower Required: No Beliefs That Will Affect Care: Rastafari marital status: Single Current Living Situation: Alone current occupational status: employed Other Information That Helps Us Care for You: No Feels Safe at Home: Yes Safety Concerns: Feels Safe At This Time Assistive Devices: None Review of Systems Review of Systems: All systems reviewed & are unremarkable except as noted in HPI & below Physical Exam Physical Exam: General- Not in acute distress Head- atraumatic Eyes- EOMI. Neck- supple, no JVD. Lungs- clear to auscultation no wheezing or crackles Heart- regular rate and rhythm; no murmur, no gallop. Abdomen- normal bowel sounds, soft, nontender, mild distension Extremities- no pretibial edema,moves extremities Neuro- alert, oriented EOMI; no facial palsy; no dysarthria; moves extremities Results & Data Results & Data Vital Signs (Past 12 Hours) Vital Signs Temp Pulse Pulse Pulse Resp BP BP 12/01/24 00:30 66 14 126/78 12/01/24 00:16 62 14 117/76 11/30/24 22:44 79 19 118/75 11/30/24 22:44 68 22 11/30/24 22:09 70 17 11/30/24 21:54 70 17 11/30/24 21:42 72 22 11/30/24 21:36 75 17 11/30/24 21:21 74 16 11/30/24 21:18 73 18 11/30/24 21:00 70 22 11/30/24 20:39 75 18 11/30/24 20:21 72 15 11/30/24 20:15 71 13 11/30/24 20:06 71 16 11/30/24 19:33 73 11/30/24 19:32 72 16 126/80 11/30/24 18:30 72 14 130/85 11/30/24 18:18 76 13 11/30/24 18:00 150/95 H 11/30/24 18:00 75 12 150/95 H 11/30/24 17:33 73 15 11/30/24 17:30 110/72 11/30/24 17:05 71 14 11/30/24 17:00 109/72 11/30/24 15:44 65 15 120/82 11/30/24 15:34 66 11/30/24 15:00 36.3 C L 58 L 16 142/87 H 11/30/24 14:55 68 20 136/84 BP Pulse Ox O2 Del Method O2 Flow Rate 12/01/24 00:30 92 12/01/24 00:16 99 11/30/24 22:44 11/30/24 22:44 118/75 95 Room Air 11/30/24 22:09 11/30/24 21:54 11/30/24 21:42 11/30/24 21:36 11/30/24 21:21 11/30/24 21:18 11/30/24 21:00 11/30/24 20:39 11/30/24 20:21 11/30/24 20:15 11/30/24 20:06 11/30/24 19:33 11/30/24 19:32 96 Room Air 11/30/24 18:30 96 Room Air 11/30/24 18:18 11/30/24 18:00 11/30/24 18:00 97 Room Air 11/30/24 17:33 11/30/24 17:30 11/30/24 17:05 95 Room Air 11/30/24 17:00 11/30/24 15:44 97 Room Air 11/30/24 15:34 11/30/24 15:00 100 Room Air 0 11/30/24 14:55 97 Room Air Diagnostic Findings Laboratory Results WBC 7.16 K/ul (4.8-10.8) 11/30/24 15:45 RBC 3.76 M/uL (4.70-6.10) L 11/30/24 15:45 Hgb 12.3 g/dl (14.0-18.0) L 11/30/24 15:45 POC Hgb 12.9 g/dl (14.0-18.0) L 11/30/24 15:49 Hct 36.2 % (42.0-52.0) L 11/30/24 15:45 POC Hct 38 % (42-52) L 11/30/24 15:49 MCV 96.3 fL (80.0-100.0) 11/30/24 15:45 MCH 32.7 pg (25.0-34.0) 11/30/24 15:45 MCHC 34.0 g/dL (32.0-36.0) 11/30/24 15:45 RDW Std Deviation 52.7 fL (36.4-46.3) H 11/30/24 15:45 RDW Coeff of Mimi 14.9 % (11.5-14.5) H 11/30/24 15:45 Plt Count 185 K/uL (130-400) 11/30/24 15:45 MPV 9.3 fL (9.4-12.4) L 11/30/24 15:45 Immature Gran % (Auto) 0.4 % 11/30/24 15:45 Neut % (Auto) 62.9 % 11/30/24 15:45 Lymph % (Auto) 23.3 % 11/30/24 15:45 [place] % (Auto) 10.6 % 11/30/24 15:45 Eos % (Auto) 2.2 % 11/30/24 15:45 Baso % (Auto) 0.6 % 11/30/24 15:45 Neut # (Auto) 4.50 K/uL (1.40-6.50) 11/30/24 15:45 Lymph # (Auto) 1.67 K/uL (1.20-3.40) 11/30/24 15:45 [place] # (Auto) 0.76 K/uL (0.11-0.59) H 11/30/24 15:45 Eos # (Auto) 0.16 K/uL (0.00-0.50) 11/30/24 15:45 Baso # (Auto) 0.04 K/uL (0.00-0.20) 11/30/24 15:45 Immature Gran # (Auto) 0.03 K/uL (0.01-0.20) 11/30/24 15:45 PT 11.1 Seconds (9.0-12.0) 11/30/24 15:45 INR 1.0 (0.9-1.1) 11/30/24 15:45 APTT 30 Seconds (21-31) 11/30/24 15:45 PTT Ratio 1.1 11/30/24 15:45 POC Sodium 139 mmol/L (135-144) 11/30/24 15:49 Sodium 138 mmol/L (136-145) 11/30/24 15:45 POC Potassium 3.5 mmol/L (3.3-5.0) 11/30/24 15:49 Potassium 3.7 mmol/L (3.5-5.1) 11/30/24 15:45 POC Chloride 102 mmol/L (101-112) 11/30/24 15:49 Chloride 102 mmol/L (98-107) 11/30/24 15:45 Carbon Dioxide 31 mmol/L (21-32) 11/30/24 15:45 POC Total CO2 27 mmol/L (24-31) 11/30/24 15:49 Anion Gap 5 (3-11) 11/30/24 15:45 POC Anion Gap 14.0 mmol/L (16-25) L 11/30/24 15:49 POC BUN 10 mg/dl (7-18) 11/30/24 15:49 BUN 11 mg/dl (6-23) 11/30/24 15:45 Creatinine 0.75 mg/dl (0.6-1.4) 11/30/24 15:45 POC Creatinine 0.7 mg/dl (0.6-1.3) 11/30/24 15:49 Est Cr Clr Drug Dosing 67.7 ml/min 11/30/24 15:45 eGFR 102.03 11/30/24 15:45 BUN/Creatinine Ratio 14.7 (10-20) 11/30/24 15:45 Glucose 91 mg/dl (70-99(Fasting)) 11/30/24 15:45 POC Glucose (other) 89 mg/dl (70-99) 11/30/24 15:49 Calcium 9.2 mg/dl (8.6-10.3) 11/30/24 15:45 POC Ioniz Calcium [place] 1.14 mmol/l (1.12-1.32) 11/30/24 15:49 Total Bilirubin 0.5 mg/dl (0.2-1.0) 11/30/24 15:45 AST 30 U/L (13-39) 11/30/24 15:45 ALT 10 U/L (7-52) 11/30/24 15:45 Alkaline Phosphatase 173 U/L (34-104) H 11/30/24 15:45 Troponin I High Sens 6.8 pg/ml (0-20) 11/30/24 15:45 Total Protein 6.6 gm/dl (6.0-8.3) 11/30/24 15:45 Albumin 3.4 gm/dl (3.4-5.0) 11/30/24 15:45 Globulin 3.2 gm/dl (2.5-4.0) 11/30/24 15:45 Albumin/Globulin Ratio 1.1 (0.9-2) 11/30/24 15:45 Lipase 43 U/L (11-82) 11/30/24 15:45 Urine Color Yellow 12/01/24 00:15 Urine Appearance Clear (Clear) 12/01/24 00:15 Urine pH 6.5 (4.5-7.5) 12/01/24 00:15 Ur Specific Topping > 1.045 (1.000-1.030) H 12/01/24 00:15 Urine Protein Negative (Negative) 12/01/24 00:15 Urine Glucose (UA) Negative (Negative) 12/01/24 00:15 Urine Ketones Negative (Negative) 12/01/24 00:15 Urine Blood Negative (Negative) 12/01/24 00:15 Urine Nitrite Negative (Negative) 12/01/24 00:15 Urine Bilirubin Negative (Negative) 12/01/24 00:15 Urine Urobilinogen Negative (Negative) 12/01/24 00:15 Ur Leukocyte Esterase Negative (Negative) 12/01/24 00:15 Blood Type A Positive 11/30/24 15:45 Antibody Screen NEGATIVE 11/30/24 15:45 Impressions Chest X-Ray 11/30/24 15:09 XR chest 1V portable CLINICAL HISTORY: Trauma COMPARISON STUDY: Chest radiograph September 07, 2024. FINDINGS: There is no pneumothorax or pleural effusion. There are acute displaced fractures of the posterior left seventh and eighth ribs. There is also an acute minimally displaced fracture the posterior right sixth rib. Additional old rib fractures are present. Bibasilar opacities are greater on the left. Cardiomediastinal silhouette is stable. IMPRESSION: 1. No pneumothorax. 2. Several acute bilateral rib fractures, as described above. 3. Bibasilar opacities, greater on the left. The findings may reflect atelectasis although pulmonary contusions could appear similar. ACT 112: Negative or not required by law. Electronically signed by: Reece Sood M.D. 11/30/2024 3:52 PM Wrist X-Ray 11/30/24 15:09 XR wrist LT 2V CLINICAL HISTORY: Trauma COMPARISON: None FINDINGS: Alignment of the left wrist is anatomic. There is no acute fracture. Distal left radius and ulna are intact. IMPRESSION: No fracture or dislocation within the left wrist. ACT 112: Negative or not required by law. Electronically signed by: Reece Sood M.D. 11/30/2024 3:53 PM Abdomen/Pelvis CT 11/30/24 15:39 EXAM: CT Abdomen + Pelvis w/o Contrast HISTORY: Patient fell. Complaining of pain in the left ribs. No prior complaints COMPARISON: None TECHNIQUE: Helical CT imaging of the abdomen and pelvis was performed following uneventful administration of Omnipaque 300 IV. FINDINGS: Lung bases/inferior mediastinum:Unremarkable. Liver:Abnormally nodular and mildly enlarged suggesting hepatic cirrhosis. No definite focal liver lesion is seen. Gallbladder: Absent with surgical clips present Spleen: Unremarkable. Adrenal glands: Unremarkable. Pancreas: Unremarkable. Kidneys: Nephrograms appear symmetric. No focal cortical lesions. No hydronephrosis or hydroureter. Bowel:The stomach and duodenum appear unremarkable. Small bowel loops are normal in caliber. Normal caliber appendix identified. The colon is normal in caliber. Large amount of abdominal and pelvic ascites is present. Vasculature: Scattered vascular calcifications but no significant aneurysm seen. The inferior vena cava is unremarkable. Lymph nodes:No enlarged retroperitoneal, mesenteric, pelvic, or inguinal lymph nodes. Pelvis: Urinary bladder is unremarkable. . Large amount of pelvic ascites. Prostate mildly enlarged and inhomogeneous with calcifications. Soft tissues:Soft tissues of the abdominal wall are unremarkable. Bones:Compression fractures of L1, L3 and L4 of uncertain age. These could be more definitively characterized with MRI study. IMPRESSION: 1. Large amount of abdominal and pelvic ascites. 2. Liver has the appearance of chronic hepatic cirrhosis with a nodular contour and mild hepatomegaly. 3. Compression fractures of L1, L3 and L4 of uncertain age. These would be better characterized with MRI study if indicated. Electronically signed by Antonio Dhillon 11-30-2024 4:[address] 11/30/24 15:39 Exam: CT scan cervical spine: Reason for exam: Patient fell on ice 45 minutes ago. Pain in the left ribs and wrist. Previous studies: None FINDINGS: No acute fracture, dislocation or destructive bony process is seen at the examined levels. Mild degenerative spondylosis of the mid and lower cervical facet joints are present. Moderate carotid artery calcifications are present. IMPRESSION: 1. Negative for acute bony trauma. 2. Degenerative spondylosis at the mid and lower cervical levels. Electronically signed by Antonio Dhillon 11-30-2024 4:[address] 11/30/24 15:39 Exam: CT scan thorax with contrast: Reason for exam: Patient fell 45 minutes ago. Previous studies: None FINDINGS: Both lungs remain well expanded. No pneumothorax or pleural effusion is seen. No active lung infiltrate is seen. There are multiple compression fractures in the thoracic spine. Mild compression fracture T5 with moderate compression fractures of T9, T10 and T11 are present. Age of these is uncertain and could be better evaluated with MRI study. Acute fractures of the left seventh eighth and ninth posterior lateral ribs are seen. Multiple old bilateral rib fractures are seen with callus but incomplete bony union at this time. Again no pneumothorax or pleural effusion is seen. The thyroid gland is enlarged and multinodular with calcifications. No evidence of aortic aneurysm or dissection is seen. Coronary artery stents are present. IMPRESSION: 1. Multiple thoracic compression fractures with the most severe being at the T9, T10 and T11 levels. Age of these is uncertain and they could be acute related to the recent trauma. Further evaluation with MRI study of the thoracic spine would be useful. 2. Acute rib fractures of the left seventh eighth and ninth posterior lateral ribs without pneumothorax or pleural effusion. 3. Multiple old bilateral rib fractures with incomplete healing. 4. Enlarged multinodular thyroid which could be better evaluated with thyroid ultrasound. Electronically signed by Antonio Dhillon 11-30-2024 4:[address] 11/30/24 15:39 Exam: CT thorax with contrast Reason for exam: Patient fell. Complaining of left upper chest pain. Previous studies: None FINDINGS: Both lungs remain expanded. No significant pneumothorax or pleural effusion is identified. Thyroid is enlarged with calcifications and multiple nodules. No mediastinal mass or adenopathy is seen. Coronary artery stents are present. No evidence of aortic trauma, aneurysm or dissection is seen at the examined levels. Mild compression fracture of T3, T5 and moderate compression fracture of T9, T10, T11 and T12. Age of these is uncertain and could be acute distress associated with the recent trauma. Multiple bilateral rib fractures are seen with the talus indicating a chronic or subacute nature although the remaining completely. There is an acute fracture of the left posterior lateral eighth, ninth and 10th ribs. Again no pneumothorax is seen. IMPRESSION: 1. Multiple thoracic compression fractures of uncertain age with those at T9, T10, T11 and T12 being most severe. No definite retropulsed fragment seen at this time. These would be better evaluated with MRI study to evaluate the chronicity of these fractures. 2. Acute fractures left posterior lateral left eighth, ninth and 10th ribs. No pneumothorax or significant pleural effusion seen at this time. 3. Multiple subacute or chronic old bilateral rib fractures which remain incompletely united at this time. 4. Enlarged multinodular thyroid gland with calcifications. This would be better evaluated with thyroid ultrasound. Electronically signed by Antonio Dhillon 11-30-2024 4:37 PM ECG Additional Comments: ECG. Normal sinus rhythm rate 71. No significant change was found. Code Status & VTE Plan VTE Prophylaxis Plan VTE Prophylaxis will be ordered: Yes
--- OUTSIDE RECORDS SUMMARY | 2024-12-01 02:00 | External Medical Summary | Summary of Care ---
Author Name Unknown Organization [facility] Address [address] [place] [address] Phone [phone] Care Team Providers Care Bar Finish Operator Name Role Phone Nyla Niño PA-C Primary Care Provider +1 [phone] Reason for Referral * Precert (Within 10 days (routine)) - Pending Review Specialty Diagnoses / Procedures Referred By Mi dawn Referred To Contact Radiology Diagnoses Cirrhosis of liver (HCC) Procedures IR PARACENTESIS Cha Osuna CRNP [address] [place] [address] Phone: tel: fax: Referral ID Status Reason Start Date Expiration Date V isits Requested Visits Authorized [id number] Pending Review 11/09/2024 4 4 Reason for Visit * Reason Onset Date Comments Paracentesis 11/09/2024 Encounter Details Date Type Department Care Team (Late st Contact Info) Description 11/09/2024 Telephone Gastroenterology, [facility] [address] [place] [address] Cha Osuna CRNP [address] [place] [address] Paracentesis Allergies Active Allergy Reactions Criticality Noted Date Comments Aspirin Anaphylaxis High 05/02/2020 Sulfa Antibiotics Anaphylaxis High 05/02/2020 documented as of this encounter (statuses as of 11/09/2024) Medications primidone (MYSOLINE) 50 MG Tablet Take 50 mg by mouth 2 times a day. Take 1/2 tab twice daily Active Propranolol HCl ER 120 MG CP24 Take 120 mg by mouth 2 times a day. Active levothyroxine (LEVOXYL) 75 MCG Tablet Take 1 Tablet by mouth daily first thing in the morning. (at least 30 min prior to breakfast or other meds) Active Albuterol Sulfate (PROAIR HFA) 108 (90 Base) MCG/ACT AERS Inhale 2 Puffs by mouth every 4 hours. Active budesonide-form oterol (SYMBICORT) 160-4.5 MCG/ACT inhaler Inhale 2 Puffs by mouth 2 times a day. Active Cholecalciferol (VITAMIN D-3) 25 MCG (1000 UT) Capsule Take 1 Capsule by mouth in the morning. Active Folic Acid 1 MG Oral Tablet Take 1 Tablet by mouth in the morning. Active Naltrexone HCl 50 MG Oral Tablet (Revia) Take by mouth 50 mg in the morning. Active Lactulose 10 GM/15ML Oral Solution (Constulose) Take 30 mL by mouth in the morning and 30 mL before bedtime. 4 Active Mag64 64 MG Oral Tablet Delayed Release Take 1 Tablet by mouth in the morning. 4 Active Midodrine HCl 2.5 MG Oral Tablet (Proamatine) Take 2 Tablets by mouth in the morning and 2 Tablets at noon and 2 Tablets before bedtime. 4 Active Mometasone Furoate 100 MCG/ACT Inhalation Aerosol (Asmanex HFA) Take 1 Puff by mouth in the morning and 1 Puff before bedtime. 4 Active Midodrine HCl 5 MG Oral Tablet (Proamatine) Take 1 Tablet by mouth. 4 Active Tiotropium [place]-Olodate rol 2.5-2.5 MCG/ACT Inhalation Aerosol Solution (Stiolto Respimat) Inhale 2 Puffs by mouth in the morning. 4 Active Gabapentin 300 MG Oral Capsule (Neurontin) Take 1 Capsule by mouth in the morning and 1 Capsule before bedtime. 4 Active Warfarin Sodium 5 MG Oral Tablet (Coumadin) Take 1 Tablet by mouth in the morning and 1 Tablet before bedtime. Take as directed by anti-coagulati on clinic.. 4 Active Spironolactone 25 MG Oral Tablet (Aldactone) Take 0.5 Tablets by mouth in the morning. 4 Active Furosemide 80 MG Oral Tablet (Lasix)Indicati ons:Electrolyte and fluid disorder Take 1 Tablet by mouth 2 times a day in the morning and at noon. 180 Tablet 3 5 Active Potassium Chloride Jyothi ER 20 MEQ Oral Tablet Extended ReleaseIndicati ons:Electrolyte and fluid disorder Take 2 Tablets by mouth in the morning and 2 Tablets before bedtime. 120 Tablet 5 5 Active documented as of this encounter (statuses as of 11/09/2024) Active Problems No known active problems documented as of this encounter (statuses as of 11/09/2024) Social History Tobacco Use Types Packs/Day Years Used Date Smoking Tobacco: Every Day Cigarettes Smokeless Tobacco: Former Comments:over 20 years Alcohol Use Standard Drinks/Week Comments Yes 42 (1 standard drink = 0.6 oz pu re alcohol) 6 pack a night Sex and Gender Information Value Date Recorded Sex Assigned at Not on file Legal Sex Male 5:27 AM EST Gender Identity Not on file Sexual Orientation Not on file documented as of this encounter Miscellaneous Notes * Telephone Encounter - Cristal Sarah CMA - 11/09/2024 2:23 PM EST Orders for paracentesis and anticoag labs faxed to Vandana at [facility] IR scheduling. * Telephone Encounter - Yuni Gonzales RN - 11/09/2024 2:08 PM EST Discussed appointment scheduled for today being a duplicate appointment since they were able to move his hepatology appointment up by a month. Pt was left voicemail this morning relaying the appointment cancellation put states he did not receive it. Pt upset that he took off of work for appointment. Informed pt that provider was more than willing to see him for appointment but that there is nothing additional she would add for right now other than lab work. Pt states this is "just another doctor who wont do anything" Pt thought his appointment in the office today was for a paracentesis. Informed pt again that this appointment was just an office visit. Spoke to provider and informed her of situation. She placed orders for IR paracentesis and lab work to be completed. Pt refusing to have lab work completed. Tiffanie Wilson called to find out scheduling timeline for paracentesis, due to anticoag that patient would need to hold for 3 days, paracentesis cannot be done until Friday. Pt upset with this answer. Attempted to apologize for the confusion. Pt walked away in the middle of conversation. * Telephone Encounter - Cha Osuna CRNP - 11/09/2024 12:08 PM EST All orders are signed. Please assist with scheduling. STACEY Molina * Telephone Encounter - Cha Osuna CRNP - 11/09/2024 11:41 AM EST Medically complex 64-year-old male. Patient carries a history liver cirrhosis, presumed alcoholic. Formally followed in 2021. EGD at that time was unremarkable, specifically no evidence of varices. Had a liver ultrasound performed 12/29/2023 with ongoing cirrhosis. Patient has declined Hepatologyfollow-up multiple times. Hospitalized 09/08/2024 after developing ascites and undergoing a diagnostic paracentesis in the hospital. Liver ultrasound (prior to paracentesis) 10/12/2024--cirrhotic liver. No focal liver lesions. Patent main, right, and left portal veins with a appropriately directed flow. Large ascites. Status post cholecystectomy. 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 It was discovered that he was only taking half of his spironolactone and this dose was increased to 25 mg daily. Appears the patient has a history of heavy alcohol use since the age of 16. Chart review states that he has been abstinent from alcohol since hospitalization. Patient was to be seen today in office however is also scheduled with Hepatology on 11/24/2024. Patient was under the assumption that he was to get a paracentesis today. Chart reviewed with Dr. Cha Carreon-- recommended the patient keep his appointment on 11/24. Will place orders for serology workup. Will also place orders for standing paracentesis at [facility]. No need for Abd US- recently performed at outpatient facility 09/2024-- results under media STACEY Molina documented in this encounter Plan of Treatment Upcoming Encounters Date Type Department Care Team (Late st Contact Info) Description 11/24/2024 1:20 PM EST Office Visit Hepatology, [facility] [address] [place] [address] Cha Carreon DO [address] [place] [address] 06/09/2025 2:40 PM EDT Office Visit Nephrology [address] [place] [address] Jaycee Mei MD 200 [facility] [place] [address] Scheduled Orders Name Type Priority Associated Diagnoses Order Schedule CBC WITH WBC DIFFERENTIAL Lab Routine Abnormal LFTs Expected: 11/09/2024, Expires: 11/09/2025 COMPREHENSIVE METABOLIC PANEL Lab Routine Abnormal LFTs Expected: 11/09/2024, Expires: 11/09/2025 MAGNESIUM Lab Routine Abnormal LFTs Expected: 11/09/2024, Expires: 11/09/2025 ACTIN (SMOOTH MUSCLE) ANTIBODY (IGG) Lab Routine Abnormal LFTs Expected: 11/09/2024, Expires: 11/09/2025 ACUTE HEPATITIS PANEL Lab Routine Abnormal LFTs Expected: 11/09/2024, Expires: 11/09/2025 [id number], QN Lab Routine Abnormal LFTs Expected: 11/09/2024, Expires: 11/09/2025 ANTINUCLEAR ANTIBODY (RUFUS) EIA SCREEN WITH REFLEX AB QUANT Lab Routine Abnormal LFTs Expected: 11/09/2024, Expires: 11/09/2025 CERULOPLASMIN Lab Routine Abnormal LFTs Expected: 11/09/2024, Expires: 11/09/2025 FERRITIN Lab Routine Abnormal LFTs Expected: 11/09/2024, Expires: 11/09/2025 HEPATITIS A ANTIBODIES IGG AND IGM Lab Routine Abnormal LFTs Expected: 11/09/2024, Expires: 11/09/2025 HEPATITIS A ANTIBODY IGM Lab Routine Abnormal LFTs Expected: 11/09/2024, Expires: 11/09/2025 HEPATITIS B CORE ANTIBODIES IGG AND IGM Lab Routine Abnormal LFTs Expected: 11/09/2024, Expires: 11/09/2025 HEPATITIS B SURFACE ANTIBODY Lab Routine Abnormal LFTs Expected: 11/09/2024, Expires: 11/09/2025 HEPATITIS B SURFACE ANTIGEN Lab Routine Abnormal LFTs Expected: 11/09/2024, Expires: 11/09/2025 HEPATITIS C RNA QUANTITATIVE Lab Routine Abnormal LFTs Expected: 11/09/2024, Expires: 11/09/2025 IGA Lab Routine Abnormal LFTs Expected: 11/09/2024, Expires: 11/09/2025 IRON SCREEN, INCLUDING TIBC Lab Routine Abnormal LFTs Expected: 11/09/2024, Expires: 11/09/2025 MITOCHONDRIAL ANTIBODY Lab Routine Abnormal LFTs Expected: 11/09/2024, Expires: 11/09/2025 TISSUE TRANSGLUTAMINASE IGA ANTIBODY Lab Routine Abnormal LFTs Expected: 11/09/2024, Expires: 11/09/2025 PT INR Lab Routine Abnormal LFTs Expected: 11/09/2024, Expires: 11/09/2025 IR PARACENTESIS Medical Imaging Routine Cirrhosis of liver (HCC) Every Week for 4 Occurrences starting 11/09/2024 until 12/10/2025 ALBUMIN, BODY FLUID Lab Routine Cirrhosis of liver (HCC) Expected: 11/09/2024, Expires: 11/09/2025 APTT Lab Routine Cirrhosis of liver (HCC) Expected: 11/09/2024, Expires: 11/09/2025 CELL COUNT WITH DIFFERENTIAL, BODY FLUID Lab Routine Cirrhosis of liver (HCC) Expected: 11/09/2024, Expires: 11/09/2025 CULTURE, BODY FLUID, AEROBIC AND ANAEROBIC Lab Routine Cirrhosis of liver (HCC) Expected: 11/09/2024, Expires: 11/09/2025 PLT Lab Routine Cirrhosis of liver (HCC) Expected: 11/09/2024, Expires: 11/09/2025 PROTEIN, BODY FLUID Lab Routine Cirrhosis of liver (HCC) Expected: 11/09/2024, Expires: 11/09/2025 PT INR Lab Routine Cirrhosis of liver (HCC) Expected: 11/09/2024, Expires: 11/09/2025 ALPHA-FETOPROTEIN TUMOR MARKER Lab Routine Abnormal LFTs Cirrhosis of liver (HCC) Expected: 11/09/2024, Expires: 11/09/2025 Scheduled Procedures Name Priority Associated Diagnoses Date/Ti me COLONOSCOPY FLEXIBLE PROXIMA L DIAGNOSTIC Recall History of colonic polyps Health Maintenance Due Date Last Done Comments Lipid Panel 1962 Depression Screening 1974 HIV Screening 1977 TSH 1980 DTap/Tdap Vaccines (1 - Tdap) 1981 Cologuard 2007 Fecal Occult Blood Test 2007 Sigmoidoscopy 2007 Colonoscopy 05/10/2021 05/10/2020, 05/10/2020 Colorectal Cancer Screening 05/10/2021 RETIRED - COLONOSCOPY-ANNUAL AGES 18-100 Discontinued 05/10/2020, 05/10/2020 Zoster Vaccines Completed 01/05/2021, 01/06/2020 Pneumococcal Vaccine: 50+ Years Completed 02/12/2023, 12/25/2018 COVID-19 Vaccine Completed 07/02/2024, , 11/27/2020, Additional history exists Influenza Vaccine (FLU shot) Completed 07/02/2024, 01/06/2020, 12/25/2018, Additional history exists HPV (Gardasil) Vaccine Aged Out No lo nger eligible based on patient's age to complete this topic Hepatitis B Vaccine Aged Out No longe r eligible based on patient's age to complete this topic MENINGOCOCCAL (MENACTRA/MENVEO) Aged Out No longer eligible based on patient's age to complete this topic documented as of this encounter Medical Devices Not on filedocumented as of this encounter Visit Diagnoses Diagnosis Cirrhosis of liver (HCC)- Primary Cirrhosis of liver without mention of alcohol Abnormal LFTs Other abnormal blood chemistry documented in this encounter Care Teams Bar Finish Operator Relationship Specialty Start Date End Date Nyla Niño PA-C [address] [facility] [place] [address] PCP - General Physician Skimmer 10/26/24 documented as of this encounter
--- OUTSIDE RECORDS SUMMARY | 2024-12-01 02:00 | External Medical Summary | Summary of Care ---
Author Name Unknown Organization [facility] Address [address] [place] [address] Phone [phone] Care Team Providers Care Field Installation Technician Name Role Phone Nyla Niño PA-C Primary Care Provider +1 [phone] Reason for Visit * Reason Onset Date Comments Appointment 11/18/2024 Encounter Details Date Type Department Care Team (Late st Contact Info) Description 11/18/2024 Telephone Gastroenterology, [facility] [address] [place] [address] Cha Osuna CRNP [address] [place] [address] Appointment Allergies Active Allergy Reactions Criticality Noted Date Comments Aspirin Anaphylaxis High 05/02/2020 Sulfa Antibiotics Anaphylaxis High 05/02/2020 documented as of this encounter (statuses as of 11/18/2024) Medications primidone (MYSOLINE) 50 MG Tablet Take [...] 1 Tablet by mouth. 4 Active Tiotropium [place]-Olodate rol 2.5-2.5 MCG/ACT Inhalation Aerosol Solution (Stiolto [...] as of this encounter (statuses as of 11/18/2024) Active Problems No known active problems documented as of this encounter (statuses as of 11/18/2024) Social History Tobacco Use Types Packs/Day Years [...] Telephone Encounter - Cristal Sarah CMA - 11/18/2024 11:41 AM EST [facility] * Telephone Encounter - Cristal Sarah CMA - 11/18/2024 11:32 AM EST Pt did not have OV. Pt set up for paracentesis and has an upcoming appt with Dr Carreon 11/24/24. * Telephone Encounter - Michael Gan OSA - 11/18/2024 10:57 AM EST [facility] 11/09/2024. Request to fax to [phone]. documented in this encounter Plan of Treatment Upcoming Encounters Date Type Department Care Team (Late st Contact Info) Description 11/24/2024 1:20 PM EST Office Visit Hepatology, [facility] [address] [place] [address] Cha Carreon DO [address] [place] [address] 06/09/2025 2:40 PM EDT Office [facility] [place] [address] Jaycee Mei MD [address] [place] [address] [place] [address] Scheduled Procedures Name Priority Associated Diagnoses Date/Ti [...] Not on filedocumented as of this encounter Care Teams Field Installation Technician Relationship Specialty Start Date End Date Nyla Niño PA-C [address] [facility] [place] [address] PCP - General Physician Farmworker Diversified Crops 10/26/24 documented as of this encounter
--- OUTSIDE RECORDS SUMMARY | 2024-12-01 02:00 | External Medical Summary | Summary of Care ---
Author Name Unknown Organization [facility] Address [address] [place] [address] Phone [phone] Care Team Providers Care Air Carrier Maintenance Inspector Name Role Phone Nyla Niño PA-C Primary Care Provider +1 [phone] Reason for Visit * Reason Onset Date Comments Appointment 11/18/2024 Encounter Details Date Type Department Care Team (Late st Contact Info) Description 11/18/2024 Telephone Gastroenterology, [facility] [address] [place] [address] Cha Osuna CRNP [address] [place] [address] Appointment Allergies Active Allergy Reactions Criticality Noted [...] 1 Tablet by mouth. 4 Active Tiotropium [place]-Olodate rol 2.5-2.5 MCG/ACT Inhalation Aerosol Solution (Stiolto [...] last visit 11/09/2024. Request to fax to [phone]. documented in this encounter Plan of Treatment Upcoming Encounters Date Type Department Care Team (Late st Contact Info) Description 11/24/2024 1:20 PM EST Office Visit Hepatology, [facility] [address] [place] [address] Cha Carreon DO [address] [place] [address] 06/09/2025 2:40 PM EDT Office Visit Nephrology [facility] [address] [place] [address] Jaycee Mei MD [address] [place] [address] [place] [address] Scheduled Procedures Name Priority Associated Diagnoses Date/Ti [...] filedocumented as of this encounter Care Teams Air Carrier Maintenance Inspector Relationship Specialty Start Date End Date Nyla Niño PA-C [address] [facility] [place] [address] PCP - General Physician Ship Design Teacher 10/26/24 documented as of this encounter
--- OUTSIDE RECORDS SUMMARY | 2024-12-01 02:00 | External Medical Summary | Summary of Care ---
Author Name Unknown Organization [facility] Address [address] [place] [address] Phone [phone] Care Team Providers Care Field Evidence Technician Name Role Phone Nyla Niño PA-C Primary Care Provider +1 [phone] Encounter Details Date Type Department Care Team (Late st Contact Info) Description 11/18/2024 Orders Only Gastroenter[facility], [facility] [address] [place] [address] Cha Osuna CRNP [address] [place] [address] Alcoholic cirrhosis of liver with ascites (HCC)* Allergies Active Allergy Reactions Criticality Noted Date [...] 1 Tablet by mouth. 4 Active Tiotropium [place]-Olodate rol 2.5-2.5 MCG/ACT Inhalation Aerosol Solution (Stiolto [...] on file documented as of this encounter Progress Notes * Cristal Sarah CMA - 11/18/2024 2:29 PM EST Orders faxed to [facility] [phone]. * Cha Osuna CRNP - 11/18/2024 1:42 PM EST Please fax lab orders to [facility] documented in this encounter Plan of Treatment Upcoming Encounters Date Type Department Care Team (Late st Contact Info) Description 11/24/2024 1:20 PM EST Office Visit Hepatology, [facility] 132 [facility] [place] [address] Cha Carreon DO 132 [facility] [place] [address] 06/09/2025 2:40 PM EDT Office Visit Nephrology [address] [place] [address] Jaycee Mei MD 200 [facility] [place] [address] Scheduled Orders Name Type Priority Associated Diagnoses Orde r Schedule PROTEIN, TOTAL AND ALBUMIN Lab Routine Alcoholic cirrhosis of liver with ascites (HCC) Expected: 11/18/2024, Expires: 11/18/2025 Scheduled Procedures Name Priority Associated Diagnoses Date/Ti [...] as of this encounter Visit Diagnoses Diagnosis Alcoholic cirrhosis of liver with ascites (HCC)- Primary Alcoholic cirrhosis of liver documented in this encounter Care Teams Field Evidence Technician Relationship Specialty Start Date End Date Nyla Niño PA-C [address] [facility] [place] [address] PCP - General Physician City Letter Carrier 10/26/24 documented as of this encounter
--- OUTSIDE RECORDS SUMMARY | 2024-12-01 02:00 | External Medical Summary | Summary of Care ---
Author Name Unknown Organization [facility] Address [address] [place] [address] Phone [phone] Care Team Providers Care Bad Work Gatherer Name Role Phone Nyla Niño PA-C Primary Care Provider [phone] [phone] Encounter Details Date Type Department Care Team (Late st Contact Info) Description 11/18/2024 Orders Only Gastroenterology, [facility] [address] [place] [address] Cha Osuna CRNP [address] [place] [address] Alcoholic cirrhosis of liver with ascites (HCC)* [...] 1 Tablet by mouth. 4 Active Tiotropium [place]-Olodate rol 2.5-2.5 MCG/ACT Inhalation Aerosol Solution (Stiolto [...] 11/18/2024 2:29 PM EST Orders faxed to [facility] [phone]. * Cha Osuna CRNP - 11/18/2024 1:42 PM EST Please fax lab orders to [facility] documented in this encounter Plan of Treatment Upcoming Encounters Date Type Department Care Team (Late st Contact Info) Description 11/24/2024 1:20 PM EST Office Visit Hepatology, [facility] 132 [facility] [place] [address] Cha Carreon DO 132 [facility] [place] [address] 06/09/2025 2:40 PM EDT Office Visit Nephrology [address] [place] [address] Jaycee Mei MD 200 [facility] [place] [address] Scheduled Orders Name Type Priority Associated Diagnoses [...] liver documented in this encounter Care Teams Bad Work Gatherer Relationship Specialty Start Date End Date Nyla Niño PA-C [address] [facility] [place] [address] PCP - General Physician Sexual Assault Counselor 10/26/24 documented as of this encounter
--- OUTSIDE RECORDS SUMMARY | 2024-12-01 02:00 | External Medical Summary | Summary of Care ---
Author Name Unknown Organization [facility] Address [address] [place] [address] Phone [phone] Care Team Providers Care Chief Lending Officer Name Role Phone Nyla Niño PA-C Primary Care Provider +1 [phone] Reason for Referral * Precert (Within 10 days (routine)) - Pending Review Specialty Diagnoses / Procedures Referred By Mi dawn Referred To Contact Radiology Diagnoses Cirrhosis of liver (HCC) Procedures IR PARACENTESIS Cha Osuna CRNP [address] [facility] [place] [address] Phone: tel: fax: Referral ID Status Reason Start Date Expiration Date V isits Requested Visits Authorized [id number] Pending Review 11/09/2024 4 4 Reason for Visit * Reason Onset Date Comments Paracentesis 11/09/2024 Encounter Details Date Type Department Care Team (Late st Contact Info) Description 11/09/2024 Telephone Gastroenterology, [facility] [address] [place] [address] Cha Osuna CRNP [address] [place] [address] Paracentesis Allergies Active Allergy Reactions Criticality Noted [...] 1 Tablet by mouth. 4 Active Tiotropium [place]-Olodate rol 2.5-2.5 MCG/ACT Inhalation Aerosol Solution (Stiolto [...] Encounter - Cristal Sarah CMA - 11/18/2024 10:57 AM EST Received fluid results from para done at [facility]. Given to provider to review and sent to scan. * Telephone Encounter - Cristal Sarah CMA - 11/17/2024 11:50 AM EST [facility] * Telephone Encounter - Cristal Sarah CMA - 11/09/2024 2:23 PM EST Orders for paracentesis and anticoag labs faxed to Vandana at [facility] IR scheduling. * Telephone Encounter - [...] Status post cholecystectomy. 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 It was [...] also place orders for standing paracentesis at [facility]. No need for Abd US- recently performed at outpatient facility 09/2024-- results under media STACEY Molina documented in this encounter Plan of Treatment Upcoming Encounters Date Type Department Care Team (Late st Contact Info) Description 11/24/2024 1:20 PM EST Office Visit Hepatology, [facility] [address] [place] [address] Cha Carreon DO [address] [place] [address] 06/09/2025 2:40 PM EDT Office Visit Nephrology [address] [place] [address] Jaycee Mei MD [address] [place] [address] Scheduled Orders Name Type Priority Associated Diagnoses [...] Routine Abnormal LFTs Expected: 11/09/2024, Expires: 11/09/2025 [id number], QN Lab Routine Abnormal LFTs Expected: 11/09/2024, [...] chemistry documented in this encounter Care Teams Chief Lending Officer Relationship Specialty Start Date End Date Nyla Niño PA-C [address] [facility] [place] [address] PCP - General Physician Childcare Center Administrator 10/26/24 documented as of this encounter
--- OUTSIDE RECORDS SUMMARY | 2024-12-01 02:00 | External Medical Summary | Summary of Care ---
Author Name Unknown Organization [facility] Address [address] [place] [address] Phone [phone] Care Team Providers Care Purchasing Contracting Clerk Name Role Phone Nyla Niño PA-C Primary Care Provider [phone] Encounter Details Date Type Department Care Team (Late st Contact Info) Description 11/18/2024 Telephone Gastroenterology, [facility] [address] [place] [address] Cha Osuna CRNP [address] [place] [address] Allergies Active Allergy Reactions Criticality Noted Date [...] 1 Tablet by mouth. 4 Active Tiotropium Monetta-Olodate rol 2.5-2.5 MCG/ACT Inhalation Aerosol Solution (Stiolto [...] encounter Miscellaneous Notes * Telephone Encounter - Cha Osuna CRNP - 11/18/2024 11:09 AM EST Patient underwent ultrasound-guided paracentesis 11/17/2024 at [facility] 7.5 L of ascites fluid was removed. 1 L sent to lab for analysis-- no evidence of SBE Patient tolerated the procedure well. Procedure note and analysis report scanned into chart. documented in this encounter Plan of Treatment Upcoming Encounters Date Type Department Care Team (Late st Contact Info) Description 11/24/2024 1:20 PM EST Office Visit Hepatology, [facility] [address] [facility] [place] [address] Cha Carreon DO [address] [facility] [place] [address] 06/09/2025 2:40 PM EDT Office Visit Nephrology [address] [place] [address] Jaycee Mei MD [address] [place] [address] Scheduled Procedures Name Priority Associated Diagnoses Date/Ti [...] filedocumented as of this encounter Care Teams Purchasing Contracting Clerk Relationship Specialty Start Date End Date Nyla Niño PA-C [address] [facility] [place] [address] PCP - General Physician Embedded Processor 10/26/24 documented as of this encounter
--- OUTSIDE RECORDS SUMMARY | 2024-12-01 02:01 | External Medical Summary ---
Author Name Unknown Address Unknown Organization [id number]:[facility] [place] [address] [place] [address] Laboratory Report Ordering Provider Test Date Status KIROBISON 10/18/2024 13:53:57 Final Observation Date Value Abnormality Reference (Units ) Status BUN 10/18/2024 13:53:57 10 6-20 (mg/dL) Final Creatinine 10/18/2024 13:53:57 0.9 0.6-1.2 (mg/dL) Final Glomerular filtration rate/1.73 sq M.predicted [Volume Rate/Area] in Serum, Plasma or Blood by Creatinine-based formula (CKD-EPI) 10/18/2024 13:53:57 >90 >=60 (mL/min) Final eGFR is calculated based on the CKD-EPI 2020 equation. Sodium 10/18/2024 13:53:57 137 135-146 (m mol/L) Final Potassium 10/18/2024 13:53:57 3.7 3.5-5.1 (m mol/L) Final Cl 10/18/2024 13:53:57 101 98-107 (mm ol/L) Final CO2 10/18/2024 13:53:57 25 22-32 (mmo l/L) Final Anion gap 10/18/2024 13:53:57 11 7-15 (mmol /L) Final Glucose 10/18/2024 13:53:57 106 70-120 (mg /dL) Final Albumin 10/18/2024 13:53:57 3.1 Below low normal 3.8 -5.0 (g/dL) Final AST (Aspartate aminotransferase) 10/18/2024 13:53:57 99 Above high normal 10-50 (U/L) Final Alk Phos 10/18/2024 13:53:57 171 Above high normal 35 -130 (U/L) Final Bilirubin, Total 10/18/2024 13:53:57 0.6 <=1 .2 (mg/dL) Final Calcium 10/18/2024 13:53:57 8.6 8.4-10.2 ( mg/dL) Final Protein 10/18/2024 13:53:57 5.9 Below low normal 6.0 -8.3 (g/dL) Final ALT (Alanine aminotransferase) 10/18/2024 13:53:57 24 10-50 (U/L) Eliazar chow Performing Location [facility] [place] [facility] [address] [facility] [address]
--- OUTSIDE RECORDS SUMMARY | 2024-12-01 02:01 | External Medical Summary | Summary of Care ---
Author Name Unknown Organization [facility] Address [address] [place] [address] Phone [phone] Care Team Providers Care Community Health Nurse Name Role Phone Unavailable Primary Care Provider Unavailabl e Reason for Visit * Reason Onset Date Comments Hospital Follow-Up 09/28/2024 Med Request 09/28/2024 Encounter Details Date Type Department Care Team (Late st Contact Info) Description 09/28/2024 Telephone Nephrology, [address] [phone] Services, Scheduling [address] [place] [address] Hospital Follow-Up; Med Request Allergies Active Allergy Reactions Criticality Noted Date Comments Aspirin Anaphylaxis High 05/02/2020 Sulfa Antibiotics Anaphylaxis High 05/02/2020 documented as of this encounter (statuses as of 10/11/2024) Medications primidone (MYSOLINE) 50 MG Tablet Take 50 mg by mouth 2 times a day. Take 1/2 tab twice daily Active Propranolol HCl ER 120 MG CP24 Take 120 mg by mouth 2 times a day. Active levothyroxine (LEVOXYL) 75 MCG Tablet Take 75 mcg by mouth daily first thing in the morning. (at least 30 min prior to breakfast or other meds) Active Albuterol Sulfate (PROAIR HFA) 108 (90 Base) MCG/ACT AERS Inhale 2 Puffs by mouth every 4 hours. Active budesonide-form oterol (SYMBICORT) 160-4.5 MCG/ACT inhaler Inhale 2 Puffs by mouth 2 times a day. Active Cholecalciferol (VITAMIN D-3) 25 MCG (1000 UT) Capsule Take 1,000 Units by mouth daily. Active Folic Acid 1 MG Oral Tablet Take by mouth 1 mg in the morning. Active Naltrexone HCl 50 MG Oral Tablet (Revia) Take by mouth 50 mg in the morning. Active documented as of this encounter (statuses as of 10/11/2024) Active Problems No known active problems documented as of this encounter (statuses as of 10/11/2024) Social History Tobacco Use Types Packs/Day Years [...] encounter Miscellaneous Notes * Telephone Encounter - Jaycee Mei MD - 10/11/2024 4:04 PM EST Noted; agree w/ urgent physician evaluation w/ liquefier or other today. Suggest contacting Noemi Niño, PCP on [place] [employer] [facility] 28 <<this person is listed ashis [place] PCP on scanned 09/20 paperwork >> if cannot reach her would call pt back in AM; if no answer, suggest wellness check if he really can't get off of couch * Telephone Encounter - Charo Guadarrama LPN - 10/11/2024 10:53 AM EST Spoke with Patient regarding Pt states he has had no falls Weight is now around 152 which is 7 pounds up from previous discussion Pt notes "swelling to bilateral lower extremities and to abd [facility] but no other med changes Attempted to review medications with Pt He refused to get medication bottles for review States I can't get off the couch due to difficulty ambulating states he is currently taking Lasix 40 mg Aldactone 25 mg daily Midodrine 5 mg tid and is taking Magnesium but unsure of dosing Could not verify other Rx Pt had labs done at [facility] last week In light of weight gain and edema with history of DVT and ascites Pt is recommended to PCP today or immediate eval Pt declines States I can't get off the couch Pt is advised to call 911 pt declines this also States "I have to work" Pt states I have an apt today with the blood doctor I will discuss it with him Pt is again advised strongly per Dr Mei to seek eval either with PCP or to call 911 Pt continues to decline He states will "I discuss with Blood doctor at my apt t ana" nurse attempted to get recent labs from [place] They request fax request be sent to [phone] Request sent along with request for hemoc/oncology notes will await results MD S[place] * Telephone Encounter - Charo Guadarrama LPN - 10/07/2024 3:34 PM EST LMM to return call to our office * Telephone Encounter - Rosalba Pascal OSA - 10/06/2024 4:32 PM EST Pt called back in , he is very hard to hear , but he would like a call back * Telephone Encounter - Jaycee Mei MD - 10/06/2024 3:59 PM EST Pt was seen by nephro at [facility] last month > decompensated cirrhosis w/ ascites needing paracentesis; had acute RLE DVT and PE >> discharged on eliquis (not lovenox) Was to be d/c on this: Discharged on Lasix 40mg BID, aldactone 25mg, KCl 20mEq BID. Discharged on po magnesium for hypomagnesemia Midodrine 5 mg tid >Is he still taking those? >Any falls? >weighing self daily? Is fluid building up anywhere besides RLE? >has he been some other hospital since [facility] d/c where they might have changed meds? Strongly suggest acute visit w/ PCP to check overall status, verify meds and VS are OK (that he's on proper blood thinners and not too hypotensive) and to f/u on RLE unilateral swelling (not likely to be liver disease /volume overload if it's unilateral) >>If truly no [facility], needs one; see my last hospital note for labs for OV labs recommended >have reached out to contracting manager to see about getting eval sooner than spring in case anotherparacentesis needed * Telephone Encounter - Ayde Hutton RN - 10/06/2024 2:52 PM EST TE with pt who states that he has been waiting for someone to call regarding continued swelling in right leg. He states that he has a blood clot in his leg and one in his chest. HE reports that he called "someone" at the [place] and they told him to increase Lasix by 20mg daily. States he is taking Enoxiparin 60mg Subq twice daily. Latest labs are under pt scans from [place] from 09/21/24. NO renal labs noted. Will fax [place] for any recent labs or records. Please advise. * Telephone Encounter - Charo Guadarrama LPN - 10/05/2024 11:41 AM EST LMM to return call will need labs also to eval * Telephone Encounter - Charo Guadarrama LPN - 10/01/2024 10:33 AM EST Spoke with patient He is rescheduled from 09/30/24 to 10/18/24 per his request Pt is complaining ofincreased lower leg edema States is having difficulty ambulating Pt denies any weight changes States weight is stable at 145 # No increase in SOB denies chest pain Pt states I want to up my diureticsPt has been recently discharged from the hospital so nurse reviewed medications with pt He is currently taking Lasix 40 mg daily and Spironolactone 12.5 mg 1 tablet daily Pt is made aware no changes should be made to medications without Dr Mei's review Pt states I had labs done in [email or web address]@ [email or web address] When questioned if [facility] pt said yes I did try to contact to get labs [facility] they state they have no pt there under his name [facility] also no labs LMM for pt to return call to find out exactly where pt got labs done * Telephone Encounter - Hannah Sethi OSA - 09/29/2024 2:09 PM EST Adrian was transferred to dc from another scheduling pod on 09/29/24. He said he could not make the 09/30/24 appointment because he has to work. I rescheduled him to 10/18/24. Adrian mentioned that he has terrible swelling in his legs and wants to know if he can increase the diuretic that he is taking. Please assist. * Telephone Encounter - Guillermo Dave OSA - 09/28/2024 3:08 PM EST Patient called in asking to speak with a nurse before the end of the day. I told him he was scheduled for this , he then stated I had no idea what I was talking and was rude throughout the call. He cancelled that appointment on 09/30 and was rescheduled for that same appointment without asking. Please call him back zaira. * Telephone Encounter - Charo Guadarrama LPN - 09/28/2024 12:51 PM EST Can we arrange an earlier hospital discharge * Telephone Encounter - Lisbeth Steele OSA - 09/28/2024 11:25 AM EST Pt is calling and saying he needs an zaira appt with Dr. Mei for a hospital discharge. He said he was supposed to see her last week. He is willing to go to either of her clinics. I offered him her first available and he told me that was unacceptable. Please call the pt as soon as possible. Thank you Midge Schedule Services documented in this encounter Plan of Treatment Upcoming Encounters Date Type Department Care Team (Late st Contact Info) Description 10/18/2024 1:00 PM EST Office Visit Nephrology [address] [place] [address] Jaycee Mei MD [address] [place] [address] 01/04/2025 12:40 PM EDT Office Visit Hepatology, [facility] [address] [place] [address] Cha Carreon DO [address] [place] [address] Scheduled Procedures Name Priority Associated Diagnoses Date/Ti me COLONOSCOPY FLEXIBLE PROXIMA L DIAGNOSTIC Recall History of colonic polyps Health Maintenance Due Date Last Done Comments Lipid Panel 1962 Depression Screening 1974 HIV Screening 1977 TSH 1980 DTap/Tdap Vaccines (1 - Tdap) 1981 Pneumococcal Vaccine: Pediatrics (0 to 5 Years) and At-Risk Patients (6 to 64 Years) (1 of 2 - PCV) 1981 Cologuard 2007 Fecal Occult Blood Test 2007 Sigmoidoscopy 2007 Zoster Vaccines (1 of 2) 2012 Colonoscopy 05/10/2021 05/10/2020, 05/10/2020 Colorectal Cancer Screening 05/10/2021 COVID-19 Vaccine (3 - 2023-2 5 season) 2024 11/27/2020, 11/01/2020 Influenza Vaccine (FLU shot) (#1) 2024 RETIRED - COLONOSCOPY-ANNUAL AGES 18-100 Discontinued 05/10/2020, 05/10/2020 HPV (Gardasil) Vaccine Aged Out No lo [...]
--- OUTSIDE RECORDS SUMMARY | 2024-12-01 02:01 | External Medical Summary ---
Author Name Unknown Address Unknown Organization K01:[facility] - [address] [place] [address] Laboratory Report Ordering Provider Test Date Status RICKI EMERSON 10/18/2024 13:53:57 Final Observation Date Value Abnormality Reference (Units ) Status Osmolality 10/18/2024 13:53:57 287 278-305 ( mOsm/kg) Final Performing Location [facility] - [address] [place] [address]
--- OUTSIDE RECORDS SUMMARY | 2024-12-01 02:01 | External Medical Summary | Summary of Care ---
Author Name Unknown Organization [facility] Address [address] [place] [address] Phone [phone] Care Team Providers Care Supervisor Electrolytic Tinning Name Role Phone Unavailable Primary Care Provider Unavailabl e Reason for Visit * Reason Onset Date Comments Hospital Follow-Up 09/28/2024 Med Request 09/28/2024 Encounter Details Date Type Department Care Team (Late st Contact Info) Description 09/28/2024 Telephone Nephrology, [address] [phone] Services, Scheduling [address] [place] [address] Hospital Follow-Up; Med Request Allergies Active Allergy [...] encounter Miscellaneous Notes * Telephone Encounter - Charo GuadarramaDEL - 10/11/2024 10:53 AM EST Spoke with Patient regarding Pt states he has had no falls Weight is now around 152 which is 7 pounds up from previous discussion Pt notes "swelling to bilateral lower extremities and to abd Pt [place] discontinued Eliquis but no other med [...] other Rx Pt had labs done at [facility] last week In light of weight gain [...] nurse attempted to get recent labs from [place] They request fax request be sent to [phone] Request sent along with request for hemoc/oncology notes will await results MD FYI * Telephone Encounter - Charo Guadarrama LPN [...] EST Pt was seen by nephro at [facility] last month > decompensated cirrhosis w/ [...] >has he been some other hospital since [facility] d/c where they might have changed [...] OV labs recommended >have reached out to GI insurance office manager to see about getting eval sooner [...] reports that [facility] and they told him to increase Lasix by 20mg daily. States he is taking Enoxiparin 60mg Subq twice daily. Latest labs are [facility] [place] [facility]. NO renal labs noted. Will fax [place] for any recent labs or records. Please [...] Pt states I had labs done in [email or web address] When questioned if [facility] pt said yes I did try to contact to get labs [facility] they state they have no pt there under his name [facility] also no labs LMM for pt to return call to find out exactly where pt got labs done * Telephone Encounter - Hannah Sethi OSA - 09/29/2024 2:09 PM EST Adiran was transferred to tn from another scheduling pod on 09/29/24. He [...] 10/18/2024 1:00 PM EST Office Visit Nephrology [address] [place] [address] Jaycee Mei MD [address] [place] [address] 01/04/2025 12:40 PM EDT Office Visit Hepatology, [facility] [address] [place] [address] Cha Carreon DO [address] [place] [address] Scheduled Procedures Name Priority Associated Diagnoses Date/Ti [...]
--- OUTSIDE RECORDS SUMMARY | 2024-12-01 02:01 | External Medical Summary ---
Author Name Unknown Address Unknown Organization K01:[facility] - [address] [place] [address] Laboratory Report Ordering Provider Test Date Status RICKI EMERSON 10/18/2024 13:53:57 Final Observation Date Value Abnormality Reference (Units ) Status SYNC LEUKOCYTES IN BLOOD BY AUTOMATED COUNT 10/18/2024 13:53:57 3.22 Below low normal 4.00-10.80 (K/uL) Final Segs 10/18/2024 13:53:57 45.4 40.0-75.0 (%) Final Lymphs % 10/18/2024 13:53:57 40.7 18.0-42.0 (%) Final Monos 10/18/2024 13:53:57 11.5 Above high normal 1.0-11.0 (%) Final Eosinophils 10/18/2024 13:53:57 1.2 0.0-6.0 (%) Final Basos 10/18/2024 13:53:57 0.9 0.0-2.0 (%) Final Immature Granulocyte, Percent 10/18/2024 13:53:57 0.3 0.0-2.0 (%) Final Absolute Segs 10/18/2024 13:53:57 1.46 Below low normal 1.80-7.70 (K/uL) Final Lymphs, absolute 10/18/2024 13:53:57 1.31 1.00-4.80 (K/ul) Final Monos, Abs 10/18/2024 13:53:57 0.37 0.00-1.10 (K/uL) Final Eos, Abs 10/18/2024 13:53:57 0.04 0.00-0.70 (K/uL) Final Basos, Abs 10/18/2024 13:53:57 0.03 0.00-0.20 (K/uL) Final Immature Granulocytes, Number 10/18/2024 13:53:57 0.01 0.00-0.20 (K/uL) Final Performing Location [facility]ORY [facility] [place] - [address] [facility] [address]
--- OUTSIDE RECORDS SUMMARY | 2024-12-01 02:01 | External Medical Summary | Summary of Care ---
Author Name Unknown Organization [facility] Address [address] [place] [address] Phone [phone] Care Team Providers Care Oil Field Equipment Mechanic Supervisor Name Role Phone Unavailable Primary Care Provider Unavailabl e Reason for Visit * Reason Onset Date Comments Test Results 10/19/2024 Encounter Details Date Type Department Care Team (Late st Contact Info) Description 10/19/2024 Telephone NephrologyKaren [address] [place] [address] Jaycee Mei MD [address] [place] [address] Test Results Allergies Active Allergy Reactions Criticality Noted Date Comments Aspirin Anaphylaxis High 05/02/2020 Sulfa Antibiotics Anaphylaxis High 05/02/2020 documented as of this encounter (statuses as of 10/19/2024) Medications primidone (MYSOLINE) 50 MG Tablet Take [...] mouth 50 mg in the morning. Active Furosemide 40 MG Oral Tablet (Lasix) Take 1.5 Tablets by mouth in the morning. 4 Active Lactulose 10 GM/15ML Oral Solution (Constulose) [...] 1 Tablet by mouth. 4 Active Tiotropium [place]comb-Olodate rol 2.5-2.5 MCG/ACT Inhalation Aerosol Solution (Stiolto [...] by mouth in the morning. 4 Active documented as of this encounter (statuses as of 10/19/2024) Active Problems No known active problems documented as of this encounter (statuses as of 10/19/2024) Social History Tobacco Use Types Packs/Day Years [...] encounter Miscellaneous Notes * Telephone Encounter - Ayde Hutton RN - 10/19/2024 9:31 AM EST LMAM with positive name identification regarding CXR results. Call back number provided. * Telephone Encounter - Ayde Hutton RN - 10/19/2024 9:30 AM EST ----- Message from Jaycee Mei MD sent at 10/18/2024 5:01 PM EST ----- Please let him know that the chest x-ray did not show any evidence of pneumonia which was my concern with his recent hospital stay his lung exam and his rib fractures. Understandable that he has a lot of pain with these fractures and would discuss management of that with PCP documented in this encounter Plan of Treatment Upcoming Encounters Date Type Department Care Team (Late st Contact Info) Description 01/04/2025 12:40 PM EDT Office Visit Hepatology, [facility] [address] [place] [address] Cha Carreon DO [address] [place] [address] Scheduled Procedures Name Priority Associated Diagnoses Date/Ti [...]
--- OUTSIDE RECORDS SUMMARY | 2024-12-01 02:01 | External Medical Summary | Summary of Care ---
Author Name Unknown Organization [facility] Address [address] [place] [address] Phone [phone] Care Team Providers Care Knot Cutter Name Role Phone Unavailable Primary Care Provider Unavailabl e Reason for Visit * Reason Comments Outpatient Testing Encounter Details Date Type Department Care Team (Late st Contact Info) Description 10/18/2024 1:50 PM EST Laboratory Laboratory [address] [place] [phone] [place] [address] Arrived Allergies Active Allergy Reactions Criticality Noted Date Comments Aspirin Anaphylaxis High 05/02/2020 Sulfa Antibiotics Anaphylaxis High 05/02/2020 documented as of this encounter (statuses as of 10/18/2024) Medications primidone (MYSOLINE) 50 MG Tablet Take [...] 1 Tablet by mouth. 4 Active Tiotropium [place]-Olodate rol 2.5-2.5 MCG/ACT Inhalation Aerosol Solution (Stiolto [...] as of this encounter (statuses as of 10/18/2024) Active Problems No known active problems documented as of this encounter (statuses as of 10/18/2024) Social History Tobacco Use Types Packs/Day Years [...] on file documented as of this encounter Plan of Treatment Upcoming Encounters Date Type Department Care Team (Late st Contact Info) Description 01/04/2025 12:40 PM EDT Office Visit Hepatology, [facility] [address] [place] [address] Cha Carreon DO [address] [place] [address] Scheduled Procedures Name Priority Associated Diagnoses Date/Ti [...]
--- OUTSIDE RECORDS SUMMARY | 2024-12-01 02:01 | External Medical Summary | Summary of Care ---
Author Name Unknown Organization [facility] Address [address] [place] [address] Phone [phone] Care Team Providers Care Marketing Editor Name Role Phone Unavailable Primary Care Provider Unavailabl e Reason for Visit * Reason Onset Date Comments Test Results 10/21/2024 Encounter Details Date Type Department Care Team (Late st Contact Info) Description 10/21/2024 Telephone NephrologyKaren [address] [place] [address] Jaycee Mei MD [address] [place] [address] Test Results Allergies Active Allergy Reactions Criticality Noted Date Comments Aspirin Anaphylaxis High 05/02/2020 Sulfa Antibiotics Anaphylaxis High 05/02/2020 documented as of this encounter (statuses as of 10/22/2024) Medications primidone (MYSOLINE) 50 MG Tablet Take [...] Puffs by mouth every 4 hours. Active budesonide-for moterol (SYMBICORT) 160-4.5 MCG/ACT inhaler Inhale 2 Puffs by mouth 2 times a day. Active Cholecalcifero l (VITAMIN D-3) 25 MCG (1000 UT) Capsule [...] the morning and 30 mL before bedtime. 09/10/20 Active Mag64 64 MG Oral Tablet Delayed Release Take 1 Tablet by mouth in the morning. 09/10/20 Active Midodrine HCl 2.5 MG Oral Tablet (Proamatine) Take 2 Tablets by mouth in the morning and 2 Tablets at noon and 2 Tablets before bedtime. 09/10/20 Active Mometasone Furoate 100 MCG/ACT Inhalation Aerosol (Asmanex HFA) Take 1 Puff by mouth in the morning and 1 Puff before bedtime. 08/02/20 Active Midodrine HCl 5 MG Oral Tablet (Proamatine) Take 1 Tablet by mouth. 09/14/20 Active Tiotropium [place]-Olodat debra 2.5-2.5 MCG/ACT Inhalation Aerosol Solution (Stiolto Respimat) Inhale 2 Puffs by mouth in the morning. 08/02/20 Active Gabapentin 300 MG Oral Capsule (Neurontin) Take 1 Capsule by mouth in the morning and 1 Capsule before bedtime. 06/26/20 24 Active Warfarin Sodium 5 MG Oral Tablet (Coumadin) Take 1 Tablet by mouth in the morning and 1 Tablet before bedtime. Take as directed by anti-coagulat ion clinic.. 09/15/20 Active Spironolactone 25 MG Oral Tablet (Aldactone) Take 0.5 Tablets by mouth in the morning. 10/18/20 24 Active Furosemide 80 MG Oral Tablet (Lasix)Indicat ions:Electroly te and fluid disorder Take 1 Tablet by mouth 2 times a day in the morning and at noon. 180 Tablet 3 10/22/19 25 Active Potassium Chloride Jyothi ER 20 MEQ Oral Tablet Extended ReleaseIndicat ions:Electroly te and fluid disorder Take 2 Tablets by mouth in the morning and 2 Tablets before bedtime. 120 Tablet 5 10/22/19 25 Active Furosemide 40 MG Oral Tablet (Lasix) Take 1.5 Tablets by mouth in the morning. 11/26 025 Discontinued documented as of this encounter (statuses as of 10/22/2024) Active Problems No known active problems documented as of this encounter (statuses as of 10/22/2024) Social History Tobacco Use Types Packs/Day Years [...] Telephone Encounter - Ayde Hutton RN - 10/21/2024 1:22 PM EST TE with pt regarding test results.He was seen by PCP today for worsening back pain and cough and was re xrayed for possible pneumonia. He is aware to increase Lasix to 80mg twice daily and Potassium 40 meq twice daily. [facility] Aware to repeat lab tests in 10 days. Orders placed. * Telephone Encounter - Ayde Hutton RN - 10/21/2024 1:15 PM EST ----- Message from Jaycee Mei MD sent at 10/19/2024 11:02 AM EST ----- Great news > sodium and kidney function perfect; potassium pretty good. No elevated WBC to suggest infection; relatively mild anemia for liver pt. >looking at his recent paracenteses/current volume status, continue to recommend SCHEDULED paracenteses and SUGGEST GI ARRANGE THESE as outside of my purview and he has non [facility] PCP >> else he is likely to land in hospital again (already there x 2 past 6 wks for these) >stay on fluid /sodium limits per OV >increase lasix to 80 mg TWO daily doses spaced at least 4 hrs apart >> can move doses to accommodate work/sleep/appts but important he do 2 daily doses -start K supplements 40 mEq bid >> IMPORTANT he not miss these anibal on higher dose lasix -repeat BMP after 10 days on more lasix, K -elevate legs when able >pls reach out to his [facility] business representative and/or PCP to find out if he can wear compression hose w/ DVT hx >>pls ensure his [facility] PCP gets copy of note and call / leave message for her Neph nurse pls place orders; GI NIKOLASI documented in this encounter Plan of Treatment Upcoming Encounters Date Type Department Care Team (Late st Contact Info) Description 01/04/2025 12:40 PM EDT Office Visit Hepatology, [facility] [address] [place] [address] Cha Carreon DO [address] [place] [address] Scheduled Orders Name Type Priority Associated Diagnoses Orde r Schedule BASIC METABOLIC PANEL Lab Routine Electrolyte and fluid disorder Expected: 11/01/2024 (Approximate), Expires: 10/21/2025 Scheduled Procedures Name Priority Associated Diagnoses Date/Ti [...] as of this encounter Visit Diagnoses Diagnosis Electrolyte and fluid disorder- Primary Electrolyte and fluid disorders not elsewhere classified documented in this encounter
--- OUTSIDE RECORDS SUMMARY | 2024-12-01 02:01 | External Medical Summary ---
Author Name Unknown Address Unknown Organization K01:[facility] [place] [facility] [address] Laboratory Report Ordering Provider Test Date Status RICKI EMERSON 10/18/2024 13:53:57 Final Observation Date Value Abnormality Reference (Units ) Status WBC, Total 10/18/2024 13:53:57 3.22 Below low normal 4.00-10.80 (K/uL) Final RBC 10/18/2024 13:53:57 3.60 4.50-5.25 (M/uL) Final Hemoglobin 10/18/2024 13:53:57 12.6 Below low normal 14.0-16.8 (g/dL) Final HCT 10/18/2024 13:53:57 37.7 Below low normal 40.0-48.4 (%) Final MCV 10/18/2024 13:53:57 104.7 82.0-99.5 (fL) Final MCH 10/18/2024 13:53:57 35.0 27.0-34.0 (pg) Final MCHC 10/18/2024 13:53:57 33.4 32.0-36.0 (g/dL) Final RDW 10/18/2024 13:53:57 14.1 11.5-15.5 (%) Final Platelets 10/18/2024 13:53:57 195 140-400 (K/uL) Final MPV 10/18/2024 13:53:57 9.3 6.6-11.1 (fL) Final Nucleated erythrocytes/100 leukocytes [Ratio] in Blood by Automated count 10/18/2024 13:53:57 0 <=0 (/100 WBCs) Final Performing Location [facility] [place] [address] [place] [address]
--- OUTSIDE RECORDS SUMMARY | 2024-12-01 02:01 | External Medical Summary | Summary of Care ---
Author Name Unknown Organization [facility] Address [address] [place] [address] Phone [phone] Care Team Providers Care Tooler Name Role Phone Unavailable Primary Care Provider Unavailabl e Reason for Visit * Reason Onset Date Comments Hospital Follow-Up 09/28/2024 Med Request 09/28/2024 Encounter Details Date Type Department Care Team (Late st Contact Info) Description 09/28/2024 Telephone Nephrology, [address] [phone] Services, Scheduling [address] [place] [address] Hospital Follow-Up; Med Request Allergies Active Allergy Reactions Criticality Noted Date Comments Aspirin Anaphylaxis High 05/02/2020 Sulfa Antibiotics Anaphylaxis High 05/02/2020 documented as of this encounter (statuses as of 10/15/2024) Medications primidone (MYSOLINE) 50 MG Tablet Take [...] as of this encounter (statuses as of 10/15/2024) Active Problems No known active problems documented as of this encounter (statuses as of 10/15/2024) Social History Tobacco Use Types Packs/Day Years [...] Miscellaneous Notes * Telephone Encounter - Charo Guadarrama LPN - 10/15/2024 9:00 AM EST Extensive TE with patient States was [facility] who sent him to Urgent [facility] who transferred to [facility] in [place] Pt states was inpatient there and dx with DVT/PE and ascites Pt was restarted on Lovenox and will start on Eliquis as soon as he receives it Pt states is doingmuch better at this time Note decrease in swelling Current Aldactone dose is 12.5 mg 1 tab daily Ptis advised to continue taking as directed by [facility] till he see Dr Mei Pt is advised to bring all pill bottles including supplements to 10/08/[address] Mei for review Will try to retreive med records but still have not received labs ordered by Dr Mei from 10/11/24 request Request sent via fax per [facility] protocol MD SANTAMARIA * Telephone Encounter - Jaycee Mei MD - 10/11/2024 4:04 PM EST Noted; agree w/ urgent physician evaluation w/ bag bailer or other today. Suggest contacting Noemi Niño, PCP on white [address] <<this person is listed ashis [facility] P[facility] on scanned 12/2 paperwork >> if cannot reach her would [...] Pt states the blood MD @ the [facility] has discontinued Eliquis but no other med [...] other Rx Pt had labs done at [facility] last week In light of weight gain [...] nurse attempted to get recent labs from [facility] They request fax request be sent to [phone] Request sent along with request for hemoc/oncology [...] EST Pt was seen by nephro at [facility] last month > decompensated cirrhosis w/ [...] >has he been some other hospital since [facility] d/c where they might have changed [...] labs recommended >have reached out to GI donor recruitment manager to see about getting eval sooner [...] reports that he called "someone" at the [facility] and they told him to increase Lasix by 20mg daily. States he is taking Enoxiparin 60mg Subq twice daily. Latest labs are under pt scans from [facility] in [place] from 09/21/24. NO renal labs noted. Will fax [facility] for any recent labs or records. Please [...] Pt states I had labs done in [place]@ [facility] When questioned if [facility] pt said yes I did try to contact to get labs [facility] they state they have no pt there under his name [facility] also no labs LMM for pt to return call to find out exactly where pt got labs done * Telephone Encounter - Hannah Sethi OSA - 09/29/2024 2:09 PM EST Adrian was transferred to [place] from another scheduling pod on 09/29/24. He [...] 10/18/2024 1:00 PM EST Office Visit Nephrology [address] [place] [address] Jaycee Mei MD [address] [facility] [place] [address] 01/04/2025 12:40 PM EDT Office Visit Hepatology, [facility] [address] [place] [address] Cha Carreon DO [address] [place] [address] Scheduled Procedures Name Priority Associated Diagnoses Date/Ti me COLONOSCOPY FLEXIBLE PROXIMA L DIAGNOSTIC Recall History of colonic polyps Health Maintenance Due Date Last Done Comments Lipid Panel 1962 Depression Screening 1974 HIV Screening 1977 TSH 1980 DTap/Tdap Vaccines (1 - Tdap) 1981 Pneumococcal Vaccine: 50+ Years (1 of 2 - PCV) 1981 Cologuard [...]
--- OUTSIDE RECORDS SUMMARY | 2024-12-01 02:01 | External Medical Summary | Summary of Care ---
Author Name Unknown Organization [facility] Address [address] [place] [address] Phone [phone] Care Team Providers Care Quality Lab Technician Name Role Phone Unavailable Primary Care Provider Unavailabl e Encounter Details Date Type Department Care Team (Late st Contact Info) Description 10/20/2024 Orders Only PATIENT PORTAL DO NOT DELETE THIS DEPT USED BY [place] [id number] Allergies Active Allergy Reactions Criticality Noted Date Comments Aspirin Anaphylaxis High 05/02/2020 Sulfa Antibiotics Anaphylaxis High 05/02/2020 documented as of this encounter (statuses as of 10/20/2024) Medications primidone (MYSOLINE) 50 MG Tablet Take [...] 1 Tablet by mouth. 4 Active Tiotropium [place]-Olodate rol 2.5-2.5 MCG/ACT Inhalation Aerosol Solution (Stiolto [...] as of this encounter (statuses as of 10/20/2024) Active Problems No known active problems documented as of this encounter (statuses as of 10/20/2024) Social History Tobacco Use Types Packs/Day Years [...] Upcoming Encounters Date Type Department Care Team (Isabel rust Contact Info) Description 01/04/2025 12:40 PM EDT Office Visit Hepatology, [facility] [address] [place] [address] Cha Carreon DO [address] [place] [address] Scheduled Procedures Name Priority Associated Diagnoses Date/Ti [...]
--- OUTSIDE RECORDS SUMMARY | 2024-12-01 02:01 | External Medical Summary | Summary of Care ---
Author Name Unknown Organization [facility] Address [address] [place] [address] Phone [phone] Care Team Providers Care Steel Tier Name Role Phone Nyla Niño PA-C Primary Care Provider [phone] Encounter Details Date Type Department Care Team (Late st Contact Info) Description 11/01/2024 Telephone Gastroenterology, [facility] [address] [place] [address] Cha Carreon DO [address] [place] [address] Allergies Active Allergy Reactions Criticality Noted Date Comments Aspirin Anaphylaxis High 05/02/2020 Sulfa Antibiotics Anaphylaxis High 05/02/2020 documented as of this encounter (statuses as of 11/08/2024) Medications primidone (MYSOLINE) 50 MG Tablet Take [...] 1 Tablet by mouth. 4 Active Tiotropium [place]-Olodate rol 2.5-2.5 MCG/ACT Inhalation Aerosol Solution (Stiolto [...] as of this encounter (statuses as of 11/08/2024) Active Problems No known active problems documented as of this encounter (statuses as of 11/08/2024) Social History Tobacco Use Types Packs/Day Years [...] encounter Miscellaneous Notes * Telephone Encounter - Sabine Garcia, STACEY - 11/08/2024 12:10 PM EST Pt's Hepatology appt has been moved to 11/24/24 STACEY Diaz 11/08/2024 12:10 PM * Telephone Encounter - Adurey Mora, STACEY - 11/01/2024 4:12 PM EST ----- Message from Julia Woods sent at 10/21/2024 2:32 PM EST ----- Pls see Dr. Carreon's message below to move up pt's appt with her in the next month Julia Segovia ----- Message ----- From: Cha Carreon DO Sent: 10/21/2024 12:24 PM EST To: STACEY Goetz Sometime in the next month. ----- Message ----- From: Julia Woods CRNP Sent: 10/21/2024 12:02 PM EST To: DO Indio Coy, I want to follow up on this pt - you had replied to Dr. Stuart's Tigertext that you can see him sooner in Hepatology clinic. When are you able to fit him in? Julia Segovia ----- Message ----- From: Jaycee Mei MD Sent: 10/19/2024 11:02 AM EST To: STACEY Goetz; # Great news > sodium and kidney function [...] able >pls reach out to his [facility] home agent and/or PCP to find out if he can wear compression hose w/ DVT hx >>pls ensure his [facility] PCP gets copy of note and call / leave message for her Neph nurse pls place orders; GI HINA documented in this encounter Plan of Treatment Upcoming Encounters Date Type Department Care Team (Late st Contact Info) Description 11/09/2024 11:30 AM EST Office Visit Gastroenterology, [facility] [address] [place] [address] Cha Osuna CRNP [address] [place] [id number] 11/24/2024 1:20 PM EST Office Visit Hepatology, [facility] [address] [place] [address] Cha Carreon DO [address] [place] [address] 06/09/2025 2:40 PM EDT Office Visit Nephrology [address] [place] [address] Jaycee Mei MD 200 [place] [address] Scheduled Procedures Name Priority Associated Diagnoses Date/Ti [...] filedocumented as of this encounter Care Teams Steel Tier Relationship Specialty Start Date End Date Nyla Niño PA-C [address] [facility] [place] [address] PCP - General Physician Community Services Coordinator 10/26/24 documented as of this encounter
--- OUTSIDE RECORDS SUMMARY | 2024-12-01 02:01 | External Medical Summary ---
Author Name Unknown Address Unknown Organization K01:[facility] [address] [place] [address] Laboratory Report Ordering Provider Test Date Status RICKI EMERSON 10/18/2024 13:53:57 Final Observation Date Value Abnormality Reference (Units ) Status Magnesium 10/18/2024 13:53:57 1.9 1.5-2.6 (m g/dL) Final Performing Location [facility] - [address] [place] [address]
--- OUTSIDE RECORDS SUMMARY | 2024-12-01 02:01 | External Medical Summary | Summary of Care ---
Author Name Unknown Organization [facility] Address [address] [place] [address] Phone [phone] Care Team Providers Care Assembler Plastic Boat Name Role Phone Unavailable Primary Care Provider Unavailabl e Reason for Visit * Reason Onset Date Comments Advice 09/27/2024 Encounter Details Date Type Department Care Team (Late st Contact Info) Description 09/27/2024 Telephone Gastroenterology, [facility] [address] [place] [address] Cha Carreon DO [address] [place] [address] Advice Allergies Active Allergy Reactions Criticality Noted Date Comments Aspirin Anaphylaxis High 05/02/2020 Sulfa Antibiotics Anaphylaxis High 05/02/2020 documented as of this encounter (statuses as of 10/21/2024) Medications primidone (MYSOLINE) 50 MG Tablet Take [...] as of this encounter (statuses as of 10/21/2024) Active Problems No known active problems documented as of this encounter (statuses as of 10/21/2024) Social History Tobacco Use Types Packs/Day Years [...] Miscellaneous Notes * Telephone Encounter - Sabine Garcia OSA - 10/21/2024 10:45 AM EST Received another fax from [employer] stating that the pt "continues to have really bad abdominal pain from his distention, which he says overall feels better than when he had his last LVP." Pt is on move up list, but please advise if you wish to see him sooner. Please see attached medical records. Thank you STACEY Diaz 10/21/2024 10:47 AM * Telephone Encounter - Demi Hui LPN - 10/11/2024 4:01 PM EST ----- Message from Cha Carreon DO sent at 09/15/2024 10:14 AM EST ----- Since it is just for cirrhosis and he was seen previously by janine I dont see any urgency march should be ok * Telephone Encounter - Cristal Sarah CMA - 09/27/2024 11:19 AM EST Spoke with Mary from [place]. Asking if we can get the pt a sooner appt with hepatology. Pt scheduled 01/04/25. Pt was recently inpt at [facility] 09/05/24. Dx with PE, hyponatremia and ascites. Hx alcoholic cirrhosis. Pt had paracentesis while inpt. Faxing records from [facility] to review for possible sooner appt. Pt seen by Gastro in the past. * Telephone Encounter - Amanda Sanchez OSA - 09/27/2024 11:14 AM EST Reason for patient's call: Mary gupta/[facility] in [place] requesting to speak with nurse. Caller was transferred to [place] at the clinic. documented in this encounter Plan of Treatment Upcoming Encounters Date Type Department Care Team (Late st Contact Info) Description 01/04/2025 12:40 PM EDT Office Visit Hepatology, [facility] [address] [place] [address] Cha Carreon DO [address] [place] [address] Scheduled Procedures Name Priority Associated Diagnoses Date/Ti [...]
--- OUTSIDE RECORDS SUMMARY | 2024-12-01 02:01 | External Medical Summary | Summary of Care ---
Author Name Unknown Organization [facility] Address [address] [place] [address] Phone [phone] Care Team Providers Care Tool Technician Name Role Phone Nyla Niño PA-C Primary Care Provider [phone] Encounter Details Date Type Department Care Team (Late st Contact Info) Description 11/01/2024 Telephone Gastroenterology, [facility] [address] [place] [address] Cha Carreon DO [address] [place] [address] Allergies Active Allergy Reactions Criticality Noted Date Comments Aspirin Anaphylaxis High 05/02/2020 Sulfa Antibiotics Anaphylaxis High 05/02/2020 documented as of this encounter (statuses as of 11/01/2024) Medications primidone (MYSOLINE) 50 MG Tablet Take [...] 1 Tablet by mouth. 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 to find out if he can wear compression hose w/ DVT hx >>pls ensure his [facility] PCP gets copy of note and call / leave message for her Neph nurse pls place orders; GI FYI documented in this encounter Plan of Treatment Upcoming Encounters Date Type Department Care Team (Late st Contact Info) Description 11/09/2024 11:30 AM EST Office Visit Gastroenterology, [facility] [address] [address] Cha Osuna CRNP [address] [place] [address] 01/04/2025 12:40 PM EDT Office Visit Hepatology, [facility] [address] [place] [address] Cha Carreon DO [address] [place] [address] 06/09/2025 2:40 PM EDT Office Visit Nephrology [address] [place] [address] Jaycee Mei MD [address] [place] [address] Scheduled Procedures Name Priority Associated Diagnoses Date/Ti [...] filedocumented as of this encounter Care Teams Tool Technician Relationship Specialty Start Date End Date Nyla Niño PA-C [address] [facility] [place] [address] PCP - General Physician Workplace Trainer And Assessor 10/26/24 documented as of this encounter
--- OUTSIDE RECORDS SUMMARY | 2024-12-01 02:01 | External Medical Summary ---
Author Name Unknown Address Unknown Organization K01:[facility] - [address] [place] [address] Laboratory Report Ordering Provider Test Date Status RICKI EMERSON 10/18/2024 13:53:57 Final Observation Date Value Abnormality Reference (Units ) Status Phosphate 10/18/2024 13:53:57 2.9 2.5-4.8 (m g/dL) Final Performing Location [facility] - [address] [place] [address]
--- OUTSIDE RECORDS SUMMARY | 2024-12-01 02:01 | External Medical Summary | Summary of Care ---
Author Name Unknown Organization [facility] Address [address] [place] [address] Phone [phone] Care Team Providers Care Tool Machine Shop Supervisor Name Role Phone Unavailable Primary Care Provider Unavailabl e Reason for Visit * Reason Onset Date Comments Advice 09/27/2024 Encounter Details Date Type Department Care Team (Late st Contact Info) Description 09/27/2024 Telephone Gastroenterology, [facility] [address] [place] [address] Cha Carreon DO [address] [place] [address] Advice Allergies Active Allergy Reactions Criticality Noted [...] encounter Miscellaneous Notes * Telephone Encounter - Demi Hui LPN - 10/11/2024 4:01 PM EST ----- Message from Cha Carreon DO sent at 09/15/2024 10:14 AM EST ----- Since it is just for cirrhosis and he was seen previously by janine I dont see any urgency march should be ok * Telephone Encounter - Cristal Sarah CMA - 09/27/2024 11:19 AM EST Spoke with Mary from [place]. Asking if we can get the pt a sooner appt with hepatology. Pt scheduled 01/04/25. Pt was recently inpt at [facility] 09/05/24. Dx with PE, hyponatremia and ascites. Hx alcoholic cirrhosis. Pt had paracentesis while inpt. Faxing records from [facility] to review for possible sooner appt. Pt seen by Gastro in the past. * Telephone Encounter - Amanda Sanchez OSA - 09/27/2024 11:14 AM EST Reason for patient's call: [facility] [place] [facility] speak with nurse. Caller was transferred to Sherlyn at the clinic. documented in this encounter Plan of Treatment Upcoming Encounters Date Type Department Care Team (Late st Contact Info) Description 10/18/2024 1:00 PM EST Office Visit Nephrology [address] [place] [address] Jaycee Mei MD [address] [place] [address] 01/04/2025 12:40 PM EDT Office Visit Hepatology, [facility] [address] [place] [address] Cha Carreon DO [address] [place] [address] Scheduled Procedures Name Priority Associated Diagnoses Date/Ti [...]
--- OUTSIDE RECORDS SUMMARY | 2024-12-01 02:01 | External Medical Summary | Summary of Care ---
Author Name Unknown Organization [facility] Address [address] [place] [address] Phone [phone] Care Team Providers Care Design Painter Name Role Phone Unavailable Primary Care Provider Unavailabl e Reason for Visit * Reason Comments Hospital Follow-Up * Evaluate & Treat - Unlimited Visits (Within 10 days (routine)) - Authorized Specialty Diagnoses / Procedures Referred By Contcheryl dawn Referred To Contact Nephrology Diagnoses Hypo-osmolality and hyponatremia Procedures EVAL AND TREAT Nyla Niño PA-C [address] [facility] [address] Phone: tel: Nephrology [address] [place] [address] Phone: tel: fax: Referral ID Status Reason Start Date Expiration Date Visits Requested Visits Authorized [id number] Authorized Specialty Services Required 03/29/2025 [id number] Encounter Details Date Type Department Care Team (Late st Contact Info) Description 10/18/2024 1:00 PM EST Office Visit Nephrology [address] [place] [address] Ki Robison MD [address] [place] [address] Electrolyte and fluid disorder*; Respiratory crackles at right lung base; Fatigue, unspecified type; Cirrhosis of liver with ascites, unspecified hepatic cirrhosis type (HCC) Allergies Active Allergy Reactions Criticality Noted Date [...] 1.5 Tablets by mouth in the morning. 09/14/20 Active Lactulose 10 GM/15ML Oral Solution (Constulose) [...] 1 Tablet by mouth. 09/14/20 Active Tiotropium Bartlett-Olodat debra 2.5-2.5 MCG/ACT Inhalation Aerosol Solution (Stiolto Respimat) Inhale 2 Puffs by mouth in the morning. 10/14/20 24 Active Gabapentin 300 MG Oral Capsule (Neurontin) Take 1 Capsule by mouth in the morning and 1 Capsule before bedtime. 06/26/20 24 Active Warfarin Sodium 5 MG Oral Tablet (Coumadin) Take 1 Tablet by mouth in the morning and 1 Tablet before bedtime. Take as directed by anti-coagulat ion clinic.. 09/15/20 24 Active Spironolactone 25 MG Oral Tablet (Aldactone) Take 0.5 Tablets by mouth in the morning. 10/18/20 24 Active Apixaban 5 MG Oral Tablet (Eliquis) Take 1 Tablet by mouth in the morning and 1 Tablet before bedtime. 10/14/20 24 024 Discontinued documented as of this encounter (statuses [...] on file documented as of this encounter Last Filed Vital Signs Vital Sign Reading Time Taken Comments Blood Pressure 131/77 10/18/2024 1:09 PM EST Pulse 80 10/18/2024 1:09 PM EST Temperature 36.1 C (96.9 F) 10/18/2024 1:06 PM ES T Respiratory Rate 18 10/18/2024 1:06 PM EST Oxygen Saturation 98% 10/18/2024 1:06 PM EST Inhaled Oxygen Concentration - - Weight 63.5 kg (140 lb) 10/18/2024 1:06 PM EST Height - - Body Mass Index 20.67 03/27/2022 9:21 AM EDT documented in this encounter Patient Instructions * Patient Instructions* Ki Robison MD - 10/18/2024 1:23 PM EST -recommend primary care provider consider setting up scheduled paracentesis monthly -no medication changes until we see labs and Xray today -avoid medicines like aleve, advil, ibuprofen, aspirin more than 81 mg daily and other NSAIDS whichare not good for kidney patients. Take only tylenol (acetaminophen) up to 2000 mg daily as needed for pain or as directed by your primary care provider. -stay on low sodium diet (less than 2000 mg daily) -stay on fluid limit one liter/ 32 oz daily -will try to text you for follow up -contact your PCP about uncontrolled leg pain and if she can set up scheduled paracentesis documented in this encounter Progress Notes * Ki Robison MD - 10/18/2024 1:04 PM EST NEPHROLOGY CLINIC NOTE Nephrology [address] [place] [address] 10/18/2024, 1:05 PM Patient Name: Adrian Rey BACKGROUND: 64 year old male presenting for hospital discharge appointment to follow-up hyponatremia after [facility] September 05 to 2023 admission for pulmonary embolusand DVT in the setting of decompensated liver cirrhosis. Past medical history includes alcohol abuse, liver cirrhosis, diverticulitis, active tobacco use, chronic DVT on outpatient Lovenox, hypothyroid. His presenting sodium on September 05 was 123, up to 133 by September 09. He did undergo a 4.5 L paracentesis on August. He had broken several ribs His discharge weight was 60.1 kilos, or 132 lb. He was discharged on spironolactone 12.5 mg daily, Lasix 40 mg twice daily, midodrine 2.5mg three times daily, potassium 20 mEq twice daily. TODAY 10/18/2024: Extensive records received from [place] and reviewed at today's visit along / [facility] d/c summary, neph c/s and last PN. Since hospital discharge, Lasix dose was lowered to 40 mg once daily and midodrine increased to 5 mg three times daily he appears to be on both Coumadin and Lovenox. Seen in primary care clinic September 14 at the [place] and no med changes. Had 09/29 labs but no BMP. Saw Hematology at the [place] October 11 (note not complete) Also admitted [facility] and had 10/12 paracentesis > had 8L off that time and d/c 10/13. States he's been abstinent from EtOH since August hospital stay; Following low sodium diet Working to keep less than 1L daily fluid intake Stressed out about his job and needing too much time off for appts States "I'm so confused; I've never felt so confused; feel ilke I'm drunk" Balance has not been good > but denies falls. RLE anibal prox knee to hip is "a killer" for pain at times REVIEW OF SYSTEMS: No F/C, unintended wt loss or gain, energy level and appetite both low No palpitations, orthopnea; ongoing LE edema including scrotal swelling + cough, wheeze, a bit worse since hospital d/c; minimal dyspnea No N/V/D/C/abd pain; + "gas pains" No dysuria, hematuria, nocturia >2X; no new/worrisome voiding sx No rash No focal joint/muscle aches except leg pain as above No inappropriate bleeding or bruising +tremor, no seizures, focal or global weakness No presyncopal or orthostatic symptoms; no falls Current Outpatient Medications Medication Sig Dispense Refill levothyroxine (LEVOXYL) 75 MCG Tablet Take 1 Tablet by mouth daily first thing in the morning. (at least 30 min prior to breakfast or other meds) Cholecalciferol (VITAMIN D-3) 25 MCG (1000 UT) Capsule Take 1 Capsule by mouth in the morning. Folic Acid 1 MG Oral Tablet Take 1 Tablet by mouth in the morning. Furosemide 40 MG Oral Tablet (Lasix) Take 1.5 Tablets by mouth in the morning. Lactulose 10 GM/15ML Oral Solution (Constulose) Take 30 mL by mouth in the morning and 30 mL beforebedtime. Mag64 64 MG Oral Tablet Delayed Release Take 1 Tablet by mouth in the morning. Midodrine HCl 2.5 MG Oral Tablet (Proamatine) Take 2 Tablets by mouth in the morning and 2 Tablets at noon and 2 Tablets before bedtime. Mometasone Furoate 100 MCG/ACT Inhalation Aerosol (Asmanex HFA) Take 1 Puff by mouth in the morningand 1 Puff before bedtime. Midodrine HCl 5 MG Oral Tablet (Proamatine) Take 1 Tablet by mouth. Tiotropium Bartlett-Olodaterol 2.5-2.5 MCG/ACT Inhalation Aerosol Solution (Stiolto Respimat) Inhale2 Puffs by mouth in the morning. Gabapentin 300 MG Oral Capsule (Neurontin) Take 1 Capsule by mouth in the morning and 1 Capsule before bedtime. Warfarin Sodium 5 MG Oral Tablet (Coumadin) Take 1 Tablet by mouth in the morning and 1 Tablet before bedtime. Take as directed by anti-coagulation clinic.. Spironolactone 25 MG Oral Tablet (Aldactone) Take 0.5 Tablets by mouth in the morning. primidone (MYSOLINE) 50 MG Tablet Take 50 mg by mouth 2 times a day. Take 1/2 tab twice daily (Patient not taking: Reported on 10/18/2024) Propranolol HCl ER 120 MG CP24 Take 120 mg by mouth 2 times a day. (Patient not taking: Reported on10/18/2024) Albuterol Sulfate (PROAIR HFA) 108 (90 Base) MCG/ACT AERS Inhale 2 Puffs by mouth every 4 hours. budesonide-formoterol (SYMBICORT) 160-4.5 MCG/ACT inhaler Inhale 2 Puffs by mouth 2 times a day. (Patient not taking: Reported on 10/18/2024) Naltrexone HCl 50 MG Oral Tablet (Revia) Take by mouth 50 mg in the morning. No current facility-administered medications for this visit. Review of patient's allergies indicates: Allergen Reactions Asa [Aspirin] Anaphylaxis Sulfa Antibiotics Anaphylaxis PHYSICAL EXAMINATION: BP Readings from Last 6 Encounters: 10/18/24 131/77 03/27/22 102/70 03/20/22 130/72 05/10/20 118/86 Wt Readings from Last 6 Encounters: 10/18/24 63.5 kg (140 lb) 03/27/22 59 kg (130 lb) 03/20/22 59.4 kg (130 lb 14.4 oz) 05/10/20 63.5 kg (140 lb) Pulse Readings from Last 6 Encounters: 10/18/24 80 03/27/22 53 03/20/22 60 05/10/20 69 NAD, oriented x 3, ambulatory w/o asst, chronically ill Normocephalic, atraumatic, eomi nonicteric sclerae RRR w/o m/g/r; 3+ BLE pretibial edema, none proximal R basilar crackles; scattered exp wheezes, cough w/ deep insp NT abd, +BS, soft; + ascites/fluid wave No cyanosis+ clubbing No rash +tremors BLE, focal or global weakness; fluent speech, good historian LABS: No [facility] [place] labs January 16, 2024 sodium 135, potassium 3.9, creatinine 0.8 Hemoglobin 15.9 August 06, 2024 Albumin 3.4 September 29, 2024 WBC 5, hemoglobin 10.4, platelets 190 Urinalysis specific gravity 10 19 with a pH of 5.5 trace protein clear yellow urine all other indices negative No basic metabolic panel done ASSESSMENT AND PLAN: Electrolyte and fluid disorder (Primary) - NEPHROLOGY FOLLOW UP APPT (DEPARTMENT USE ONLY); Future; Expected date: 01/16/2025 - COMPREHENSIVE METABOLIC PANEL - HGB - MAGNESIUM - PHOSPHORUS - URINALYSIS WITH MICROSCOPIC EXAM - OSMOLALITY, SERUM - OSMOLALITY, URINE - ELECTROLYTES, RANDOM URINE Respiratory crackles at right lung base - XR CHEST 2 VIEWS - CBC WITH WBC DIFFERENTIAL Fatigue, unspecified type Cirrhosis of liver with ascites, unspecified hepatic cirrhosis type (HCC) - AMMONIA; Future; Expected date: 10/18/2024 [age] year old male with alcoholic liver disease which has in the past few months becomes symptomatic. He needed a 4.5 L paracentesis in August and an 8 L paracentesis per his report in September. He comes in today with uncontrolled right lower extremity pain, intermittent wheezing since recent hospital discharge, ongoing edema and endorses some mild confusion and balance problems today. -Continue Lasix and spironolactone current doses -continue salt and fluid restrictions as below -labs today With focal right basilar crackles, more shallow inspiration with rib fractures, immunocompromise with liver disease, recent hospital stay, concern that he may have picked up a pneumonia. Advised him to continue using his inhalers and will check x-ray today With fatigue will rule out worsening anemia With his chronic cirrhosis and volume overload issues concern that he is or will soon be paracentesis dependent. Suggest that primary care provider or hepatology arrange serial paracenteses as OP which may avoid hospital admission for him. Patient Instructions -recommend primary care provider consider setting up scheduled paracentesis monthly -no medication changes until we see labs and Xray today -avoid medicines like aleve, advil, ibuprofen, aspirin more than 81 mg daily and other NSAIDS whichare not good for kidney patients. Take only tylenol (acetaminophen) up to 2000 mg daily as needed for pain or as directed by your primary care provider. -stay on low sodium diet (less than 2000 mg daily) -stay on fluid limit one liter/ 32 oz daily -will try to text you for follow up -contact your PCP about uncontrolled leg pain and if she can set up scheduled paracentesis I spent a total of Greater than 55 mins (exact time 55 mins) on the date of service in preparation,delivery, and documentation of the care provided to Adrian Rey excluding any time spent in the performance of separately billed services or time spent by another provider/QHP. Ki Robison MD Nephrology [address] [place] [address] CC: REF: KI ROBISON [address] [place] [address], [place] [address] (office) [phone] (fax) PCP: This chart was completed in part utilizing [employer] Direct Speech Voice Recognition Software. Randomword insertions, pronoun errors, and incomplete sentences are an occasional consequence of this system due to software limitations, and ambient noise. Any questions or concerns about the content, text, or information contained within the body of this dictation should be directly addressed to the provider for clarification. documented in this encounter Nursing Notes * Ayde Hutton RN - 10/18/2024 1:11 PM EST Hospital follow up visit today. [place]acent[place]12 at [place] in [place]. States he is having pain today. +3 pitting edema in lower legs. documented in this encounter Plan of Treatment Upcoming Encounters Date Type Department Care Team (Late st Contact Info) Description 01/04/2025 12:40 PM EDT Office Visit Hepatology, [facility] [address] [place] [address] Cha Carreon DO [address] [facility] [place] [address] Pending Results Name Type Priority Associated Diagnoses Date/Time COMPREHENSIVE METABOLIC PANEL Lab Routine Electrolyte and fluid disorder 10/18/2024 1:53 PM EST MAGNESIUM Lab Routine Electrolyte and fluid disorder 10/18/2024 1:53 PM EST PHOSPHORUS Lab Routine Electrolyte and fluid disorder 10/18/2024 1:53 PM EST OSMOLALITY, SERUM Lab Routine Electrolyte and fluid disorder 10/18/2024 1:53 PM EST XR CHEST 2 VIEWS Medical Imaging STAT Respiratory crackles at right lung base 10/18/2024 1:50 PM EST CBC WITH WBC DIFFERENTIAL Lab Routine Respiratory crackles at right lung base 10/18/2024 1:53 PM EST CBC Lab Routine Respiratory crackles at right lung base 10/18/2024 1:53 PM EST DIFFERENTIAL, AUTOMATED Lab Routine Respiratory crackles at right lung base 10/18/2024 1:53 PM EST Scheduled Orders Name Type Priority Associated Diagnoses Orde r Schedule URINALYSIS WITH MICROSCOPIC EXAM Lab Routine Electrolyte and fluid disorder Ordered: 10/18/2024 OSMOLALITY, URINE Lab Routine Electrolyte and fluid disorder Ordered: 10/18/2024 ELECTROLYTES, RANDOM URINE Lab Routine Electrolyte and fluid disorder Ordered: 10/18/2024 AMMONIA Lab Routine Cirrhosis of liver with ascites, unspecified hepatic cirrhosis type (HCC) Expected: 10/18/2024, Expires: 10/18/2025 Scheduled Procedures Name Priority Associated Diagnoses Date/Ti [...] Electrolyte and fluid disorders not elsewhere classified Respiratory crackles at right lung base Fatigue, unspecified type Cirrhosis of liver with ascites, unspecified hepatic cirrhosis type (HCC) documented in this encounter
--- OUTSIDE RECORDS SUMMARY | 2024-12-01 02:02 | External Medical Summary | Summary of Care ---
Author Name Unknown Organization [facility] Address [address] [place] [address] Phone [phone] Care Team Providers Care Scrubbing Machine Operator Name Role Phone Unavailable Primary Care Provider Unavailabl e Reason for Visit * Reason Onset Date Comments Appointment 09/15/2024 Encounter Details Date Type Department Care Team (Late st Contact Info) Description 09/15/2024 Telephone Gastroenterology, [facility] [address] [place] [address] Cha Carreon DO [address] [place] [address] Appointment Allergies Active Allergy Reactions Criticality Noted Date Comments Aspirin Anaphylaxis High 05/02/2020 Sulfa Antibiotics Anaphylaxis High 05/02/2020 documented as of this encounter (statuses as of 09/28/2024) Medications primidone (MYSOLINE) 50 MG Tablet Take [...] as of this encounter (statuses as of 09/28/2024) Active Problems No known active problems documented as of this encounter (statuses as of 09/28/2024) Social History Tobacco Use Types Packs/Day Years [...] Telephone Encounter - Sabine Garcia OSA - 09/15/2024 10:10 AM EST Received referral / records that pt needs to be seen. Pt is scheduled for December with you; however, just received new fax from the OR that they want the pt seen within 2 weeks. Please review and advise STACEY Diaz 09/15/2024 10:11 AM documented in this encounter Plan of Treatment Upcoming Encounters Date Type Department Care Team (Late st Contact Info) Description 11/22/2024 2:20 PM EST Office Visit Nephrology, [facility] [address] [place] [address] Jaycee Mei MD [address] [place] [address] 01/04/2025 12:40 PM EDT Office Visit [facility], [facility] [place] [address] Cha Carreon DO [address] [place] [address] Scheduled Procedures Name Priority Associated Diagnoses Date/Ti me COLONOSCOPY FLEXIBLE PROXIMA L DIAGNOSTIC Recall History of colonic polyps Health Maintenance Due Date Last Done Comments Lipid Panel 1962 Pneumococcal Vaccine: Pediatrics (0 to 5 Years) and At-Risk Patients (6 to 64 Years) (1 of 2 - PCV) 1968 Depression Screening 1974 HIV Screening 1977 TSH [...]
--- OUTSIDE RECORDS SUMMARY | 2024-12-01 02:02 | External Medical Summary | Summary of Care ---
Author Name Unknown Organization [facility] Address [address] [place] [address] Phone [phone] Care Team Providers Care Pantograph Machine Operator Name Role Phone Unavailable Primary Care Provider Unavailabl e Reason for Visit * Reason Onset Date Comments Hospital Follow-Up 09/28/2024 Encounter Details Date Type Department Care Team (Late st Contact Info) Description 09/28/2024 [facility] [address] [place] [address] Services, Scheduling [address] [place] [address] Hospital Follow-Up Allergies Active Allergy Reactions Criticality Noted Date [...] Visit Nephrology, Karen Flanagan [address] [place] [address] Jaycee Mei MD [address] [place] [address] 01/04/2025 12:40 PM EDT Office Visit Hepatology, [facility] [address] [place] [address] Cha Carreon DO [address] [place] [address] Scheduled Procedures Name Priority Associated Diagnoses Date/Ti [...]
--- OUTSIDE RECORDS SUMMARY | 2024-12-01 02:02 | External Medical Summary | Summary of Care ---
Author Name Unknown Organization [facility] Address [address] [place] [address] Phone [phone] Care Team Providers Care Cardio Tech Name Role Phone Unavailable Primary Care Provider Unavailabl e Reason for Visit * Reason Onset Date Comments Hospital Follow-Up 09/28/2024 Med Request 09/28/2024 Encounter Details Date Type Department Care Team (Late st Contact Info) Description 09/28/2024 Telephone Nephrology, [address] [id number] Services, Scheduling [address] [place] [address] Hospital Follow-Up; Med Request Allergies Active Allergy Reactions Criticality Noted Date Comments Aspirin Anaphylaxis High 05/02/2020 Sulfa Antibiotics Anaphylaxis High 05/02/2020 documented as of this encounter (statuses as of 10/06/2024) Medications primidone (MYSOLINE) 50 MG Tablet Take [...] as of this encounter (statuses as of 10/06/2024) Active Problems No known active problems documented as of this encounter (statuses as of 10/06/2024) Social History Tobacco Use Types Packs/Day Years [...] EST Pt was seen by nephro at [facility] last month > decompensated cirrhosis w/ ascites [...] >has he been some other hospital since [facility] d/c where they might have changed meds? [...] labs recommended >have reached out to GI revenue manager to see about getting eval sooner [...] Latest labs are under pt scans from [place] in [place] from 09/21/24. NO renal labs noted. Will fax [place] for any recent labs or records. Please advise. * Telephone Encounter - Charo Guadarrama LPN - 10/05/2024 11:41 AM EST LMM to return call will need labs also to eval * Telephone Encounter - Charo Guadarrama LPN - 10/01/2024 10:33 AM EST Spoke with patient He is rescheduled from 09/30/24 to 10/18/24 Pt is complaining of increased lowerleg edema States is having difficulty ambulating Pt denies any weight changes States weight is stable at 145 # No increase in SOB denies chest pain Pt states I want to up my diuretics Pt has been recently discharged from the hospital so nurse reviewed medications with pt He is currently taking Lasix 40 mg daily and Spironolactone 12.5 mg 1 tablet daily Pt is made aware no changes should be made to medications without Dr Mei's review Pt states I had labs done in [place] When questioned if [facility] pt said yes I did try to contact to get labs [facility] they state they have nopt there under his name [facility] also no labs LMM for pt to return call to find out exactly where pt got labs done * Telephone Encounter - Hannah Sethi OSA - 09/29/2024 2:09 PM EST Adrian was transferred to me from another scheduling pod on 09/29/24. He [...] 10/18/2024 1:00 PM EST Office Visit Nephrology [address] [place] [address] Jaycee Mei MD [address] [place] [address] 01/04/2025 12:40 PM EDT Office Visit Hepatology, [facility] [address] [place] [address] Cha Carreon DO [address] [place] [address] Scheduled Procedures Name Priority Associated Diagnoses Date/Ti [...]
--- OUTSIDE RECORDS SUMMARY | 2024-12-01 02:02 | External Medical Summary | Summary of Care ---
Author Name Unknown Organization [facility] Address [address] [place] [address] Phone [phone] Care Team Providers Care Research Programmer Name Role Phone Unavailable Primary Care Provider Unavailabl e Reason for Visit * Reason Onset Date Comments Hospital Follow-Up 09/28/2024 Encounter Details Date Type Department Care Team (Late st Contact Info) Description 09/28/2024 Telephone [facility], [facility] [place] [address] [place] [address] Services, Scheduling [address] [place] [address] Hospital Follow-Up Allergies Active Allergy Reactions Criticality [...] encounter Miscellaneous Notes * Telephone Encounter - Guillermo Dave OSA [...] Care Team (Late st Contact Info) Description 09/30/2024 1:00 PM EST Office Visit Nephrology [address] [place] [address] Jaycee Mei MD [address] [place] [address] 01/04/2025 12:40 PM EDT Office Visit Hepatology, [facility] [address] [place] [address] Cha Carreon DO [address] [place] [address] Scheduled Procedures Name Priority Associated Diagnoses Date/Ti [...]
--- OUTSIDE RECORDS SUMMARY | 2024-12-01 02:02 | External Medical Summary | Summary of Care ---
Author Name Unknown Organization [facility] Address [address] [place] [address] Phone [phone] Care Team Providers Care Product Distribution Specialist Name Role Phone Unavailable Primary Care Provider Unavailabl e Reason for Visit * Reason Onset Date Comments Appointment 09/28/2024 Encounter Details Date Type Department Care Team (Late st Contact Info) Description 09/28/2024 Telephone NephrologyKaren [address] [place] [address] Jaycee Mei MD [address] [place] [address] Appointment Allergies Active Allergy Reactions Criticality Noted [...] Telephone Encounter - Ayde Hutton RN - 09/28/2024 1:12 PM EST ----- Message from Charo Gutierrez sent at 09/28/2024 12:53 PM EST ----- Regarding: Hospital discharge Needs apt documented in this encounter Plan of Treatment Upcoming Encounters Date Type Department Care Team (Late st Contact Info) Description 09/30/2024 1:00 PM EST Office Visit Nephrology [address] [place] [address] Jaycee Mei MD [address] [place] [address] 11/22/2024 2:20 PM EST Office Visit NephrologyKaren [address] [place] [address] Jaycee Mei MD [address] [place] [address] 01/04/2025 12:40 PM EDT Office Visit Hepatology, [facility] 132 [facility] [place] [address] Cha Carreon, [address] [place] [address] Scheduled Procedures Name Priority Associated Diagnoses Date/Ti [...]
--- OUTSIDE RECORDS SUMMARY | 2024-12-01 02:02 | External Medical Summary | Summary of Care ---
Author Name Unknown Organization [facility] Address [address] [place] [address] Phone [phone] Care Team Providers Care Search Engine Optimization Specialist Name Role Phone Unavailable Primary Care Provider Unavailabl e Reason for Visit * Reason Onset Date Comments Hospital Follow-Up 09/28/2024 Med Request 09/28/2024 Encounter Details Date Type Department Care Team (Late st Contact Info) Description 09/28/2024 Telephone Nephrology, [address] [phone] Services, Scheduling [address] [place] [address] Hospital Follow-Up; Med Request Allergies Active Allergy Reactions Criticality Noted Date Comments Aspirin Anaphylaxis High 05/02/2020 Sulfa Antibiotics Anaphylaxis High 05/02/2020 documented as of this encounter (statuses as of 10/07/2024) Medications primidone (MYSOLINE) 50 MG Tablet Take [...] as of this encounter (statuses as of 10/07/2024) Active Problems No known active problems documented as of this encounter (statuses as of 10/07/2024) Social History Tobacco Use Types Packs/Day Years [...] EST Pt was seen by nephro at [facility] last month > decompensated cirrhosis w/ ascites [...] >has he been some other hospital since [facility] d/c where they might have changed meds? [...] labs recommended >have reached out to GI manager retirement to see about getting eval sooner than [...] reports that he called "someone" at the OR and they told him to increase Lasix by 20mg daily. States he is taking Enoxiparin 60mg Subq twice daily. Latest labs are under pt scans from OR in [place] from 09/21/24. NO renal labs noted. Will fax [place] for any recent labs or records. Please [...] Pt states I had labs done in [place] When questioned if [facility] pt said yes I did try to contact to get labs [facility] they state they have nopt there under his name [facility] also no labs LMM for pt to return call to find out exactly where pt got labs done * Telephone Encounter - Hannah Sethi OSA - 09/29/2024 2:09 PM EST Adiran was transferred to ne from another scheduling pod on 09/29/24. He [...] 10/18/2024 1:00 PM EST Office Visit Nephrology [address] [place] [address] Jaycee Mei MD [address] [place], [place] [address] 01/04/2025 12:40 PM EDT Office Visit Hepatology, [facility] [address] [place] [address] Cha Carreon DO [address] [place] [address] Scheduled Procedures Name Priority Associated Diagnoses Date/Ti [...]
--- OUTSIDE RECORDS SUMMARY | 2024-12-01 02:02 | External Medical Summary | Summary of Care ---
Author Name Unknown Organization [facility] Address [address] [place] [address] Phone [phone] Care Team Providers Care Business Excellence Leader Name Role Phone Unavailable Primary Care Provider Unavailabl e Reason for Visit * Reason Onset Date Comments Appointment 09/10/2024 Encounter Details Date Type Department Care Team (Late st Contact Info) Description 09/10/2024 Telephone [facility] Medicine [address] [place] [address] Jesus Braun MD [address] [place] [address] Appointment Allergies Active Allergy Reactions Criticality Noted Date Comments Aspirin Anaphylaxis High 05/02/2020 Sulfa Antibiotics Anaphylaxis High 05/02/2020 documented as of this encounter (statuses as of 09/10/2024) Medications primidone (MYSOLINE) 50 MG Tablet Take [...] as of this encounter (statuses as of 09/10/2024) Active Problems No known active problems documented as of this encounter (statuses as of 09/10/2024) Social History Tobacco Use Types Packs/Day Years [...] Telephone Encounter - Sabine Garcia OSA - 09/10/2024 3:38 PM EST Scheduled STACEY Diaz 09/10/2024 3:38 PM * Telephone Encounter - Sabrina Kwon LPN - 09/10/2024 12:31 PM EST [facility] inpatient at [facility]. Outpatient GI follow up is recommended for alcoholic liver cirrhosis. Please contact patient to schedule follow-up. documented in this encounter Plan of Treatment Upcoming Encounters Date Type Department Care Team (Late st Contact Info) Description 01/04/2025 12:40 PM EDT Office Visit Hepatology, [facility] 132 [facility] [place] [address] Cha Carreon DO [address] [place] [id number] Scheduled Procedures Name Priority Associated Diagnoses Date/Ti [...]
--- OUTSIDE RECORDS SUMMARY | 2024-12-01 02:02 | External Medical Summary | Summary of Care ---
Author Name Unknown Organization [facility] Address [address] [place] [address] Phone [phone] Care Team Providers Care Sandstone Inspector Repairer Name Role Phone Unavailable Primary Care Provider Unavailabl e Reason for Visit * Reason Onset Date Comments Hospital Follow-Up 09/28/2024 Med Request 09/28/2024 Encounter Details Date Type Department Care Team (Late st Contact Info) Description 09/28/2024 Telephone Nephrology, [address] [phone] Services, Scheduling [address] [place] [address] Hospital Follow-Up; Med Request Allergies Active Allergy [...] encounter Miscellaneous Notes * Telephone Encounter - Rosalba Pascal OSA - 10/06/2024 4:32 PM EST Pt called back in , he is very hard to hear , but he would like a call back * Telephone Encounter - Jaycee Mei MD - 10/06/2024 3:59 PM EST Pt was seen by nephro at [facility] last month > decompensated cirrhosis w/ ascites [...] >has he been some other hospital since [facility] d/c where they might have changed meds? Strongly suggest acute visit w/ PCP to check overall status, verify meds and VS are OK (that he's on proper blood thinners and not too hypotensive) and to f/u on RLE unilateral swelling (not likely to be liver disease /volume overload if it's unilateral) >>If truly no BMP in records from [place], needs one; see my last hospital note for labs for OV labs recommended >have reached out to GI automotive sales manager to see about getting eval sooner [...] reports that he called "someone" at the [place] and they told him to increase Lasix by 20mg daily. States he is taking Enoxiparin 60mg Subq twice daily. Latest labs are under pt scans from [place] from 09/21/24. NO renal labs noted. Will fax [place] for any recent labs or records. Please [...] Pt states I had labs done in [place] [place] When questioned if [facility] pt said yes I did try to contact to get labs [facility] they state they have nopt there under his name [facility] also no labs LMM for pt to return call to find out exactly where pt got labs done * Telephone Encounter - Hannah Sethi OSA - 09/29/2024 2:09 PM EST Adrian was transferred to [place] from another scheduling pod on 09/29/24. He [...] 10/18/2024 1:00 PM EST Office Visit Nephrology [address] [place] [address] Jaycee Mei MD 200 [facility] [place] [address] 01/04/2025 12:40 PM EDT Office Visit Hepatology, [facility] [address] [place] [address] Cha Carreon DO [address] [place] [address] Scheduled Procedures Name Priority Associated Diagnoses Date/Ti [...]
--- OUTSIDE RECORDS SUMMARY | 2024-12-01 02:02 | External Medical Summary | Summary of Care ---
Author Name Unknown Organization [facility] Address [address] [facility] [place] [address] Phone [phone] Care Team Providers Care Scouring Machine Tender Name Role Phone Unavailable Primary Care Provider Unavailabl e Reason for Visit * Reason Onset Date Comments Appointment 09/15/2024 Encounter Details Date Type Department Care Team (Late st Contact Info) Description 09/15/2024 Telephone Gastroenterology, [facility] [address] [place] [address] Cha Carreon DO [address] [place] [address] Appointment Allergies Active Allergy Reactions Criticality Noted Date Comments Aspirin Anaphylaxis High 05/02/2020 Sulfa Antibiotics Anaphylaxis High 05/02/2020 documented as of this encounter (statuses as of 09/15/2024) Medications primidone (MYSOLINE) 50 MG Tablet Take [...] as of this encounter (statuses as of 09/15/2024) Active Problems No known active problems documented as of this encounter (statuses as of 09/15/2024) Social History Tobacco Use Types Packs/Day Years [...] however, just received new fax from the DC that they want the pt seen within 2 weeks. Please review and advise STACEY Diaz 09/15/2024 10:11 AM documented in this encounter Plan of Treatment Upcoming Encounters Date Type Department Care Team (Late st Contact Info) Description 01/04/2025 12:40 PM EDT Office Visit Hepatology, [facility] [address] [place] [address] Cha Carreon DO [address] [place] [id number] Scheduled Procedures Name Priority Associated Diagnoses Date/Ti [...]
--- OUTSIDE RECORDS SUMMARY | 2024-12-01 02:02 | External Medical Summary | Summary of Care ---
Author Name Unknown Organization [facility] Address [address] [place] [address] Phone [phone] Care Team Providers Care Nurse Executive Name Role Phone Unavailable Primary Care Provider Unavailabl e Reason for Visit * Reason Onset Date Comments Hospital Follow-Up 09/28/2024 Med Request 09/28/2024 Encounter Details Date Type Department Care Team (Late st Contact Info) Description 09/28/2024 Telephone Nephrology, [address] [phone] Services, Scheduling [address] [place] [address] Hospital Follow-Up; Med Request Allergies Active Allergy Reactions Criticality Noted Date Comments Aspirin Anaphylaxis High 05/02/2020 Sulfa Antibiotics Anaphylaxis High 05/02/2020 documented as of this encounter (statuses as of 10/01/2024) Medications primidone (MYSOLINE) 50 MG Tablet Take [...] as of this encounter (statuses as of 10/01/2024) Active Problems No known active problems documented as of this encounter (statuses as of 10/01/2024) Social History Tobacco Use Types Packs/Day Years [...] Pt states I had labs done in [place]@ the [facility] When questioned if [facility] pt said yes I did try to contact to get labs [facility] they state they have nopt there under his name [facility] also no labs [facility] for pt to return call to find out exactly where pt got labs done * Telephone Encounter - Hannah Sethi OSA - 09/29/2024 2:09 PM EST Adrian was transferred to [place] from another scheduling pod on 09/29/24. He [...] 10/18/2024 1:00 PM EST Office Visit Nephrology [address] [place] [address] Jaycee Mei MD 200 [facility] [place] [address] 01/04/2025 12:40 PM EDT Office Visit Hepatology, [facility] [address] [place] [address] Cha Carreon DO [address] [place] [address] Scheduled Procedures Name Priority Associated Diagnoses Date/Ti [...]
--- OUTSIDE RECORDS SUMMARY | 2024-12-01 02:02 | External Medical Summary | Summary of Care ---
Author Name Unknown Organization [facility] Address [address] [place] [address] Phone [phone] Care Team Providers Care Lean Manufacturing Engineer Name Role Phone Unavailable Primary Care Provider Unavailabl e Reason for Visit * Reason Onset Date Comments Hospital Follow-Up 09/28/2024 Med Request 09/28/2024 Encounter Details Date Type Department Care Team (Late st Contact Info) Description 09/28/2024 Telephone Nephrology, [address] [phone] Services, Scheduling [address] [place] [address] Hospital Follow-Up; Med Request Allergies Active Allergy [...] Spironolactone 12.5 mg 1 tablet daily Pt states I have labs done in [place] [place] When questioned if [facility] pt said yes I did try to contact to get labs [facility] they state they have no pt there under his name [facility] also no labs LMM for pt to return call to find out exactly where pt got labs done * Telephone Encounter - Hannah Sethi OSA - 09/29/2024 2:09 PM EST Adrian was transferred to or from another scheduling pod on 09/29/24. He [...] 10/18/2024 1:00 PM EST Office Visit Nephrology [address] [place] [address] Jaycee Mei MD 200 [facility] [place] [address] 01/04/2025 12:40 PM EDT Office Visit Hepatology, [facility] [address] [place] [address] Cha Carreon DO [address] [place] [address] Scheduled Procedures Name Priority Associated Diagnoses Date/Ti [...]
--- OUTSIDE RECORDS SUMMARY | 2024-12-01 02:02 | External Medical Summary | Summary of Care ---
Author Name Unknown Organization [facility] Address [address] [place] [address] Phone [phone] Care Team Providers Care Bowling Ball Molder Name Role Phone Unavailable Primary Care Provider Unavailabl e Reason for Visit * Reason Onset Date Comments Hospital Follow-Up 09/28/2024 Encounter Details Date Type Department Care Team (Late st Contact Info) Description 09/28/2024 Telephone Nephrology, [facility] [address] [place] [address] Services, Scheduling [address] [place] [address] Hospital Follow-Up Allergies Active Allergy Reactions Criticality [...] encounter Miscellaneous Notes * Telephone Encounter - Lisbeth Steele OSA [...] Visit Nephrology, [facility] [address] [place] [address] Jaycee Mei MD [address] [place] [address] 01/04/2025 12:40 PM EDT Office Visit Hepatology, [facility] 132 [facility] [place] [address] Cha Carreon DO [address] [place] [id number] Scheduled Procedures Name Priority Associated Diagnoses Date/Ti [...]
--- OUTSIDE RECORDS SUMMARY | 2024-12-01 02:02 | External Medical Summary | Summary of Care ---
Author Name Unknown Organization [facility] Address [address] [place] [address] Phone [phone] Care Team Providers Care Home Service Demonstrator Name Role Phone Unavailable Primary Care Provider Unavailabl e Reason for Visit * Reason Onset Date Comments Hospital Follow-Up 09/28/2024 Med Request 09/28/2024 Encounter Details Date Type Department Care Team (Late st Contact Info) Description 09/28/2024 Telephone Nephrology, [address] [phone] Services, Scheduling [address] [place] [address] Hospital Follow-Up; Med Request Allergies Active Allergy Reactions Criticality Noted Date Comments Aspirin Anaphylaxis High 05/02/2020 Sulfa Antibiotics Anaphylaxis High 05/02/2020 documented as of this encounter (statuses as of 09/29/2024) Medications primidone (MYSOLINE) 50 MG Tablet Take [...] as of this encounter (statuses as of 09/29/2024) Active Problems No known active problems documented as of this encounter (statuses as of 09/29/2024) Social History Tobacco Use Types Packs/Day Years [...] encounter Miscellaneous Notes * Telephone Encounter - Hannah Sethi OSA - 09/29/2024 2:09 PM EST Adrian was transferred to [place] from another scheduling [...] 10/18/2024 1:00 PM EST Office Visit Nephrology [address] [place] [address] Jaycee Mei MD [address] [place] [address] 01/04/2025 12:40 PM EDT Office Visit Hepatology, [facility] [address] [place] [address] Cha Carreon DO [address] [place] [address] Scheduled Procedures Name Priority Associated Diagnoses Date/Ti [...]
--- OUTSIDE RECORDS SUMMARY | 2024-12-01 02:02 | External Medical Summary | Summary of Care ---
Author Name Unknown Organization [facility] Address [address] [place] [address] Phone [phone] Care Team Providers Care Sales Apprentice Name Role Phone Unavailable Primary Care Provider Unavailabl e Reason for Visit * Reason Onset Date Comments Advice 09/27/2024 Encounter Details Date Type Department Care Team (Late st Contact Info) Description 09/27/2024 Telephone Gastroenterology, [facility] [address] [place] [address] Cha Carreon DO [address] [place] [address] Advice Allergies Active Allergy Reactions Criticality Noted [...] 11:19 AM EST Spoke with Mary from DC. Asking if we can get the pt a sooner appt with hepatology. Pt scheduled 01/04/25. Pt was recently inpt at [facility] 09/05/24. Dx with PE, hyponatremia and ascites. Hx alcoholic cirrhosis. Pt had paracentesis while inpt. Faxing records from [facility] to review for possible sooner appt. Pt seen by Gastro in the past. * Telephone Encounter - Amanda Sanchez OSA - 09/27/2024 11:14 AM EST Reason for patient's call: [facility] in [place] requesting to speak with nurse. Caller was transferred to [place] at the clinic. documented in this encounter Plan of Treatment Upcoming Encounters Date Type Department Care Team (Late st Contact Info) Description 10/18/2024 1:00 PM EST Office Visit Nephrology [address] [place] [address] Jaycee Mei MD [address] [place] [address] 01/04/2025 12:40 PM EDT Office Visit Hepatology, [facility] [address] [place] [address] Cha Carreon DO [address] [place] [address] Scheduled Procedures Name Priority Associated Diagnoses Date/Ti [...]
--- OUTSIDE RECORDS SUMMARY | 2024-12-01 02:02 | External Medical Summary | Summary of Care ---
Author Name Unknown Organization [facility] Address [address] [place] [address] Phone [phone] Care Team Providers Care Business Support Coordinator Name Role Phone Unavailable Primary Care Provider Unavailabl e Reason for Visit * Reason Onset Date Comments Hospital Follow-Up 09/28/2024 Med Request 09/28/2024 Encounter Details Date Type Department Care Team (Late st Contact Info) Description 09/28/2024 Telephone Nephrology, [address] [phone] Services, Scheduling [address] [place] [address] Hospital Follow-Up; Med Request Allergies Active Allergy Reactions Criticality Noted Date Comments Aspirin Anaphylaxis High 05/02/2020 Sulfa Antibiotics Anaphylaxis High 05/02/2020 documented as of this encounter (statuses as of 10/05/2024) Medications primidone (MYSOLINE) 50 MG Tablet Take [...] as of this encounter (statuses as of 10/05/2024) Active Problems No known active problems documented as of this encounter (statuses as of 10/05/2024) Social History Tobacco Use Types Packs/Day Years [...] Pt states I had labs done in [place]@ the [facility] When questioned if [facility] pt said yes I did try to contact to get labs [facility] they state they have nopt there under his name [facility] also no labs LMM for pt to return call to find out exactly where pt got labs done * Telephone Encounter - Hannah Sethi OSA - 09/29/2024 2:09 PM EST Adrian was transferred to [place] from another scheduling pod on 09/29/24. He [...] 10/18/2024 1:00 PM EST Office Visit Nephrology [address] [place] [address] Jaycee Mei MD [address] [place] [address] 01/04/2025 12:40 PM EDT Office Visit Hepatology, [facility] [address] [place] [address] Cha Carreon DO [address] [place] [address] Scheduled Procedures Name Priority Associated Diagnoses Date/Ti [...]
--- OUTSIDE RECORDS SUMMARY | 2024-12-01 02:02 | External Medical Summary | Summary of Care ---
Author Name Unknown Organization [facility] Address [address] [facility] [place] [address] Phone [phone] Care Team Providers Care Mobile Manager Name Role Phone Unavailable Primary Care Provider Unavailabl e Reason for Visit * Reason Onset Date Comments Appointment 09/15/2024 Encounter Details Date Type Department Care Team (Late st Contact Info) Description 09/15/2024 Telephone Gastroenterology, [facility] [address] [place] [address] Cha Carreon DO [address] [place] [address] Appointment Allergies Active Allergy Reactions Criticality Noted [...] Encounter - Sabine Garcia OSA - 09/15/2024 12:27 PM EST ----- Message from Cha Carreon DO sent at 09/15/2024 10:14 AM EST ----- Since it is just for cirrhosis and he was seen previously by janine I dont see any urgency march should be ok ----- Message ----- From: Sabine Garcia OSA Sent: 09/15/2024 10:12 AM EST To: Cha Carreon DO documented in this encounter Plan of Treatment Upcoming Encounters Date Type Department Care Team (Late st Contact Info) Description 01/04/2025 12:40 PM EDT Office Visit Hepatology, [facility] [address] [place] [address] Cha Carreon DO [address] [place] [id number] Scheduled Procedures Name Priority Associated Diagnoses Date/Ti [...]
--- OUTSIDE RECORDS SUMMARY | 2024-12-01 02:02 | External Medical Summary | Summary of Care ---
Author Name Unknown Organization [facility] Address [address] [place] [address] Phone [phone] Care Team Providers Care Dean Of Student Services Name Role Phone Unavailable Primary Care Provider Unavailabl e Reason for Visit * Reason Onset Date Comments Hospital Follow-Up 09/28/2024 Med Request 09/28/2024 Encounter Details Date Type Department Care Team (Late st Contact Info) Description 09/28/2024 Telephone Nephrology, [address] [phone] Services, Scheduling [address] [place] [address] Hospital Follow-Up; Med Request Allergies Active Allergy [...] reports that he called "someone" at the [place] and they told him to increase Lasix by 20mg daily. States he is taking Enoxiparin 60mg Subq twice daily. [facility]est [facility] [place] [facility]. NO renal labs noted. Will fax CT for any recent labs or records. Please [...] Pt states I had labs done in [place]@ the [facility] When questioned if [facility] pt said yes I did try to contact to get labs [facility] they state they have nopt there under his name [facility] also no labs LMM for pt to return call to find out exactly where pt got labs done * Telephone Encounter - Hannah Sethi OSA - 09/29/2024 2:09 PM EST Adrian was transferred to [place] from another scheduling pod on 09/29/24. He [...] 10/18/2024 1:00 PM EST Office Visit Nephrology [address] [place] [address] Jaycee Mei MD 200 [facility], [place] [address] 01/04/2025 12:40 PM EDT Office Visit Hepatology, [facility] [address] [place] [address] Cha Carreon DO [address] [place] [address] Scheduled Procedures Name Priority Associated Diagnoses Date/Ti [...]
--- OUTSIDE RECORDS SUMMARY | 2024-12-01 02:03 | External Medical Summary | Summary of Care ---
Author Name Unknown Organization [facility] Address [address] [place] [address] Phone [phone] Care Team Providers Care Newspaper Copy Editor Name Role Phone Unavailable Primary Care Provider Unavailabl e Reason for Visit * Reason Onset Date Comments Appointment 09/10/2024 Encounter Details Date Type Department Care Team (Late st Contact Info) Description 09/10/2024 Telephone [facility] Medicine [address] [place] [address] Jesus Braun MD [address] [place] [address] Appointment Allergies Active Allergy Reactions Criticality Noted [...] encounter Miscellaneous Notes * Telephone Encounter - Sabrina Kwon LPN - 09/10/2024 12:31 PM EST [facility]. Outpatient GI follow up is recommended for alcoholic liver cirrhosis. Please contact patient to schedule follow-up. documented in this encounter Plan of Treatment Scheduled Procedures Name Priority Associated Diagnoses Date/Ti [...]
--- OUTSIDE RECORDS SUMMARY | 2024-12-01 02:03 | External Medical Summary | Summary of Care ---
Author Name Unknown Organization [facility] Address [address] [place] [address] Phone [phone] Care Team Providers Care Hot Mill Roller Name Role Phone Unavailable Primary Care Provider Unavailabl e Reason for Visit * Reason Onset Date Comments Hospital Follow-Up 09/10/2024 Encounter Details Date Type Department Care Team (Late st Contact Info) Description 09/10/2024 Telephone [facility] Medicine [address] [place] [address] Jaycee Mei MD [address] [place], [place] [id number] Hospital Follow-Up Allergies Active Allergy Reactions Criticality [...] Encounter - Sabrina Kwon LPN - 09/10/2024 12:38 PM EST Patient discharged home on 09/10/24, nephrology consulted for hyponatremia. Dr. Mei recommends: nephro d/c recs -nsaid avoidance -spironoalctone, midodrine, lasix, potassium doses as above -fluid/sodium intake limits as above -pls educate on daily STANDING wts > encourage him to bring this to pcp, neph, GI f/u appts; he tells me he has no scale so may need to facilitate getting one -nephro hospital d/c visit with me in 3 wks w/ bmp, urine and serum osms, urine electrolytes, random urine sodium, mag to be done nomore than 72 hrs before appt and ordered by neph nurse; pls have him bring wt log along to that appt Recommendations for moving sodium in terms of lab and lasix/midodrine/aldactone/potassium dosing, diet/fluid/weight recs, f/u labs/appts were reviewed by Dr Vargas via TText and in person. We are in agreement. documented in this encounter Plan of Treatment [...] Colorectal Cancer Screening 05/10/2021 COVID-19 Vaccine (3 2023-2 5 season) 2024 11/27/2020, 11/01/2020 Influenza [...]
--- OUTSIDE RECORDS SUMMARY | 2024-12-01 02:03 | External Medical Summary | Summary of Care ---
Author Name Unknown Organization [facility] Address [address] [place] [address] Phone [phone] Care Team Providers Care [id number] Tank Driver Name Role Phone Unavailable Primary Care Provider Unavailabl e Reason for Visit * Reason Onset Date Comments Hospital Follow-Up 09/10/2024 Encounter Details Date Type Department Care Team (Late st Contact Info) Description 09/10/2024 Telephone [facility] Medicine [address] [place] [address] Jaycee Mei MD [address] [place], [place] [phone] Hospital Follow-Up Allergies Active Allergy Reactions Criticality [...]
--- OUTSIDE RECORDS SUMMARY | 2024-12-01 02:03 | External Medical Summary | Summary of Care ---
Author Name Unknown Organization [facility] Address [address] [place] [address] Phone [phone] Care Team Providers Care Antique Clocks Repairer Name Role Phone Unavailable Primary Care Provider Unavailabl e Encounter Details Date Type Department Care Team (Late st Contact Info) Description 09/06/2024 Result Scan Unspecified Department Jesus Braun MD [address] [place] [address] <No scans attached> Allergies Active Allergy Reactions Criticality Noted Date Comments Aspirin Anaphylaxis High 05/02/2020 Sulfa Antibiotics Anaphylaxis High 05/02/2020 documented as of this encounter (statuses as of 09/09/2024) Medications primidone (MYSOLINE) 50 MG Tablet Take [...] as of this encounter (statuses as of 09/09/2024) Active Problems No known active problems documented as of this encounter (statuses as of 09/09/2024) Social History Tobacco Use Types Packs/Day Years [...] as of this encounter Plan of Treatment Scheduled Procedures [...] Not on filedocumented as of this encounter Procedures Procedure Name Priority Date/Time Associated Diagnosis Comments PATHOLOGY SCANNED RESULT 09/06/2024 documented in this encounter Results * PATHOLOGY SCANNED RESULT (09/06/2024) 09/06/2024 us Jesus Braun MD PATHOLOGY Final Re sult documented in this encounter
[2024-12-01] MEDS ORDERED: NITROGLYCERIN SL 0.4 MG/TAB TAB SL PRN (03:07)
[2024-12-01] MEDS ORDERED: oxyCODONE HCL IR 5 MG TAB (IMMEDIATE RELEASE) PO PRN (03:07)
[2024-12-01] MEDS ORDERED: POLYETHYLENE (MIRALAX) 17 GM PACK PO PRN (03:07)
[2024-12-01] MEDS ORDERED: ONDANSETRON INJ 2 MG/ML 2 ML VIAL IV PRN (03:07)
[2024-12-01] MEDS ORDERED: HYDROmorphone INJ 0.5 MG/0.5 ML SYR IV PRN (03:07)
[2024-12-01] MEDS ORDERED: ALBUTEROL HFA 8 GM INHALER INH PRN (03:09)
[2024-12-01 05:30] VITALS: TEMP 98.1
[2024-12-01] MEDS: LEVOTHYROXINE SODIUM 100 MCG TABLET PO SCH (06:34)
[2024-12-01 06:44] VITALS: O2SAT 92
[2024-12-01 08:03] LABS: Basophils # (auto) 0.05 K/uL (0.00-0.20); Basophils % (auto) 0.7 %; Eosinophils % (auto) 1.4 %; Hematocrit (blood only) 35.4 % (42.0-52.0); Immature Granulocytes # (auto) 0.04 K/uL (0.01-0.20); Immature Granulocytes % (auto) 0.6 %; Lymphocytes # (auto) 1.69 K/uL (1.20-3.40); Lymphocytes % (auto) 24.3 %; Mean Corpuscular Hemoglobin 32.6 pg (25.0-34.0); Mean Corpuscular Hgb Conc 33.9 g/dL (32.0-36.0); Mean Corpuscular Volume 96.2 fL (80.0-100.0); Mean Platelet Volume 9.1 fL (9.4-12.4); Monocytes # (auto) 0.81 K/uL (0.11-0.59); Monocytes % (auto) 11.6 %; Neutrophils # (auto) 4.27 K/uL (1.40-6.50); Neutrophils % (auto) 61.4 %; Platelet Count 175 K/uL (130-400); RDW Coefficient of Variation 14.8 % (11.5-14.5); RDW Standard Deviation 52.9 fL (36.4-46.3); Red Blood Count 3.68 M/uL (4.70-6.10); White Blood Count 6.96 K/ul (4.8-10.8)
[2024-12-01 08:16] LABS: Calcium 8.6 mg/dl (8.6-10.3); Magnesium 1.5 mg/dl (1.7-2.4); Potassium 3.5 mmol/L (3.5-5.1)
[2024-12-01 08:22] LABS: BUN Creatinine Ratio 18.2 (10-20); Creatinine Clr Calc Pharmacy 121.5 ml/min
[2024-12-01] MEDS: UMECLIDINIUM/VILANTEROL 62.5/25MCG 7 PUFFS/INHALER INH SCH (08:28)
[2024-12-01] MEDS: FUROSEMIDE 20 MG TAB PO SCH (08:28)
[2024-12-01] MEDS: MIDODRINE HCL 2.5 MG TAB PO SCH (08:28)
[2024-12-01] MEDS: SPIRONOLACTONE 12.5 MG TAB PO SCH (08:29)
[2024-12-01] MEDS: GABAPENTIN 300 MG CAP PO SCH (08:29)
[2024-12-01] MEDS: APIXABAN 5 MG TABLET PO SCH (08:29)
[2024-12-01] MEDS: MAGNESIUM CHLORIDE W/CALCIUM 64MG DELAYED REL TAB PO SCH (08:29)
[2024-12-01] MEDS: LACTULOSE SYRUP 10 GM/15 ML BTL 960 ML PO SCH (08:30)
[2024-12-01] MEDS: POTASSIUM CHLORIDE CRTAB 20 MEQ TABCR PO SCH (08:30)
[2024-12-01] MEDS: FLUTICASONE FUROATE 100MCG 14 PUFFS/INHALER INH SCH (08:30)
[2024-12-01] MEDS: LIDOCAINE 5% 1 PATCH TD SCH (08:32)
[2024-12-01 08:53] LABS: Thyroid Stimulating Hormone 17.732 uIu/ml (0.300-4.500)
[2024-12-01 09:27] LABS: T4 Free Thyroxine 0.77 ng/dl (0.61-1.60)
[2024-12-01 09:40] VITALS: BP 132/92; PULSE 72; RESP 20
[2024-12-01] MEDS ORDERED: MoRPHine SULFATE 4 MG/ML 1 ML CARP\\VIAL IV STA (09:47)
--- NOTE | 2024-12-01 10:10 | Ultrasound Report ---
THYROID ULTRASOUND CLINICAL HISTORY: enlarged thyroid COMPARISON STUDY: Chest CT November 30, 2024. TECHNIQUE: Sonography of the thyroid gland was performed. FINDINGS: The thyroid gland is markedly heterogeneous and moderately enlarged. Increased gland vascul arity is present. No discrete nodules are identified. The right lobe measures 5.5 x 2.4 x 3 cm and th e left lobe measures 4 x 2 x 2.4 cm. Isthmus measures 0.6 cm in AP dimension. The adjacent soft tissu es are unremarkable. IMPRESSION: 1. Heterogeneous, moderately enlarged thyroid gland with increased vascularity. The findings may repr esent chronic thyroiditis. 2. No well-defined thyroid nodules. ACT 112: Negative or not required by law. Electronically signed by: Reece Sood M.D. 12/01/2024 10:09 AM
[2024-12-01] MEDS: MAGNESIUM SULFATE / D5W 1 GM/100 ML BAG IV SCH (10:16)
--- NOTE | 2024-12-01 11:28 | Orthopedic Consultation ---
Date of Service December 01, 2024 History of Present Illness Reason for Consultation: Thoracic/lumbar compression fractures age-indeterminate, rib fractures. Requesting Physician: . Attending Physician: Ernie Brooks MD 64-year-old male with past medical history significant for alcoholism, liver cirrhosis, hypothyroidism, COPD, presents with fall on the ice on the left side and found to have rib fractures. Patient was at work when he slipped on ice and fell on the left left side. Did not hit his head. No loss of consciousness. His coworker helped him to get up. Having lot of pain in the rib cage radiating to the back. Patient notes that he has had previous falls and thoracic and lumbar compression fractures from several years ago, his main symptoms are all in the left flank corresponding to the rib fracture region, no neural compressive symptoms in the lower extremities. Exam reveals the patient indicate pain more along the left lateral ribs to palpation., He did not have any significant pain to palpation in the thoracic or lumbar region. No focal motor weakness in the lower extremities. Exam: CT scan thorax with contrast:11/30/24 Reason for exam: Patient fell 45 minutes ago. Previous studies: None FINDINGS: Both lungs remain well expanded. No pneumothorax or pleural effusion is seen. No active lung infiltrate is seen. There are multiple compression fractures in the thoracic spine. Mild compression fracture T5 with moderate compression fractures of T9, T10 and T11 are present. Age of these is uncertain and could be better evaluated with MRI study. Acute fractures of the left seventh eighth and ninth posterior lateral ribs are seen. Multiple old bilateral rib fractures are seen with callus but incomplete bony union at this time. Again no pneumothorax or pleural effusion is seen. The thyroid gland is enlarged and multinodular with calcifications. No evidence of aortic aneurysm or dissection is seen. Coronary artery stents are present. IMPRESSION: 1. Multiple thoracic compression fractures with the most severe being at the T9, T10 and T11 levels. Age of these is uncertain and they could be acute related to the recent trauma. Further evaluation with MRI study of the thoracic spine would be useful. 2. Acute rib fractures of the left seventh eighth and ninth posterior lateral ribs without pneumothorax or pleural effusion. 3. Multiple old bilateral rib fractures with incomplete healing. 4. Enlarged multinodular thyroid which could be better evaluated with thyroid ultrasound. Review of CT scan of the chest along with review of abdominal CT scan from November 30, 2024, is my separate interpretation, reveals the patient to have prior healed vertebral body superior endplate fractures of T9, T10, T11 and also L3. These fractures do not have the appearance of acute findings. Impression: Multiple rib fractures along with evidence of prior healed lower thoracic and lumbar compression fractures. Plan: In talking with the patient, he clearly notes that he has had prior compression fractures in the past. Recommend mobilization with therapy and appropriate pain medications, follow-up regarding his spine if he has any continued axial symptomatology consistent with areas of injury. Allergies Allergy/AdvReac Type Severity Reaction Status Date / Time aspirin Allergy Severe Anaphylaxis Unverified 12/01/24 09:45 Sulfa (Sulfonamide Allergy Mild Rash Verified 09/05/24 15:13 Antibiotics) Home Medications Medication Instructions Recorded Confirmed Type albuterol 2 puff inhalation Q4H PRN sob 12/01/24 12/01/24 History apixaban 5 mg tablet (Eliquis) 5 mg PO BID 12/01/24 12/01/24 History furosemide 40 mg tablet 60 mg PO BID 12/01/24 12/01/24 History gabapentin 300 mg capsule 300 mg PO BID 12/01/24 12/01/24 History lactulose 10 gram/15 mL oral 30 ml PO DAILY 12/01/24 12/01/24 History solution levothyroxine 100 mcg tablet 100 mcg PO DAILY 12/01/24 12/01/24 History magnesium chloride 64 mg 64 mg PO DAILY 12/01/24 12/01/24 History (magnesium chloride) tablet,delayed release (Mag 64) midodrine 5 mg tablet 5 mg PO TID 12/01/24 12/01/24 History mometasone 100 mcg/actuation HFA 1 puff inhalation BID 12/01/24 12/01/24 History aerosol inhaler (Asmanex HFA) potassium chloride 20 mEq 40 meq PO BID 12/01/24 12/01/24 History tablet,extended release(part/cryst) (Klor-Con M) spironolactone 25 mg tablet 12.5 mg PO DAILY 12/01/24 12/01/24 History tiotropium 2.5 mcg-olodaterol 2.5 2 puff inhalation DAILY 12/01/24 12/01/24 History mcg/actuation mist for inhalation (Stiolto Respimat) Past Med/Surg History Problem List (Updated 11/30/24 @ 18:49 by Tonya Morrell DO) Acute pain of left wrist (Acute) Fall (Acute) Multiple fractures of ribs (Acute) Rib pain on left side (Acute) Dysphagia Alcoholic cirrhosis of liver Ascites Esophageal varices Single subsegmental thrombotic pulmonary embolism without acute cor pulmonale (Acute) Abdominal pain (Acute) Hyponatremia (Acute) Fluid overload (Acute) No significant past surgical history No significant past medical history Medical History (Updated 11/30/24 @ 18:49 by Tonya Morrell DO) Hypothyroid Deep vein thrombosis (DVT) of tibial vein of right lower extremity Cirrhosis Social History (Updated 03/14/23 @ 19:10 by Merritt Ramey) Smoking Status: Light tobacco smoker Tobacco Type: Cigarettes Do You Dip or Chew Tobacco: No; Hx Alcohol Use: No Hx Substance Use: No Preferred Language: Bruneian Communication Ability: Effective Director Of Admissions Required: No Beliefs That Will Affect Care: Mormonism marital status: Single Current Living Situation: Alone current occupational status: employed Other Information That Helps Us Care for You: No Feels Safe at Home: Yes Safety Concerns: Feels Safe At This Time Assistive Devices: None Review of Systems All systems reviewed & are unremarkable except as noted in HPI & below. Physical Exam . Results & Data Results & Data Laboratory Results . Diagnostic Findings . PG Care Time/CCT Total # of Minutes Spent Total Time Spent with Patient: Total time spent is greater than 50% in coordination of care (as documented) at patient's floor/unit and/or counseling patient: Coding Level of Care Code 31099 IN/OBS CONSULT LVL 2,35M
--- NOTE | 2024-12-01 12:30 | XRay Report ---
XR chest 1V portable CLINICAL HISTORY: rib fractures COMPARISON STUDY: Chest radiograph and chest CT November 30, 2024. FINDINGS: There is no pneumothorax or pleural effusion. Linear bibasilar densities favor atelectasis. Cardiomediastinal silhouette is stable. Multiple age-indeterminate bilateral rib fractures are again noted. IMPRESSION: 1. Redemonstration of multiple age indeterminate bilateral rib fractures. No pneumothorax. No pleural effusion. 2. Linear bibasilar densities suggestive of atelectasis. ACT 112: Negative or not required by law. Electronically signed by: Reece Sood M.D. 12/01/2024 12:29 PM
--- NOTE | 2024-12-01 12:40 | Electrocardiogram Report ---
Test Reason : Blood Pressure : */* mmHG Vent. Rate : 71 BPM Atrial Rate : 71 BPM P-R Int : 134 ms QRS Dur : 86 ms QT Int : 394 ms P-R-T Axes : 50 -26 73 degrees QTcB Int : 428 ms Normal sinus rhythm Normal ECG When compared with ECG of 07-Sep-2024 13:26, No significant change was found Confirmed by Peewee Palomo ([id number]) on 12/01/2024 12:40:15 PM Referred By: Confirmed By: Peewee Palomo
--- NOTE | 2024-12-01 12:58 | Discharge Summary ---
Discharge Summary Date of Service December 01, 2024 Principal Dx & Hospital Course #1 = Principal Diagnosis (1) Multiple fractures of ribs: 64-year-old male with past medical history significant for alcoholism, liver cirrhosis, hypothyroidism, COPD, presents with fall on the ice on the left side and found to have rib fractures. Patient was at work when he slipped on ice and fell on the left left side. Did not hit his head. No loss of consciousness. His coworker helped him to get up. Having lot of pain in the rib cage radiating to the back. Denies any shortness of breath. Earlier had some nausea. Denies any fevers. No headache. No neck pain. Vision is okay. No runny nose or sore throat. Has a chronic cough from his COPD. No abdominal pain. Normal bowel and bladder movements. Hemodynamics are okay. Fall Multiple fractures of the ribs left seventh eighth and ninth without pneumothorax or pleural effusion Multiple thoracic compression fractures with most severe at T9/T10 T11 levels Multiple old bilateral rib fractures with incomplete healing. Pain control Repeat CXR shows stable fractures Pt is adamant about being discharged prior to seeing therapy services Ortho spine saw pt in the a.m. and felt conservative measures was appropriate given no axial spine sx, recommend follow up as outpt if sx develop Enlarged multinodular thyroid Hypothyroidism thyroid US:Heterogeneous, moderately enlarged thyroid gland with increased vascularity. The findings may represent chronic thyroiditis. TSH 17.7, Free T4 0.77 continue synthyroid, recommend referral to endocrinology as outpt History of DVT and PE On Eliquis History of liver cirrhosis History of alcoholism As per nephrology supposed to be on Lasix 80 mg twice daily but patient taking 60 mg twice daily On Aldactone 12.5 mL twice daily On high-dose potassium supplements On midodrine And lactulose Patient says he gets paracentesis monthly Monitor for volume overload Continue current meds at discharge History of COPD Continue home inhalers Tobacco abuse Counseling Anemia Hemoglobin 12.3 DVT prophylaxis On Eliquis Disposition Pt refusing to remain admitted for optimal pain control. encouraged pt to remain hospitalized for 24 hours to allow for proper pain control prior to discharge. Risks were explained to pt as he lives home alone and does not have any support to assist him through this pain. It could result in repeat falling, further injury or . He wishes to continue pain control at home with oral narcotics. He is unable to take NSAIDS due to eliquis therapy. I will discharge him on oxycodone 5mg every 6hrs as needed. He is encouraged to take tylenol 500mg TID and a topical lidocaine patch to assist with pain. He is also encouraged to do deep breathing exercises to prevent PNA. He is encouraged if sx are not managed/controlled at home or worsen to please call PCP or report back to ED immediately. Notes For Next Care Provider Admitted for L sided rib fx and thoracic compression fx 2/2 fall on ice. He did have enlarged thyroid with US concerning for chronic thyroiditis, recommend outpt endocrinology eval. Cervical Spine CT showed moderate carotid artery calcifications, Recommend cristel cohen carotid US as outpt. Medication Changes From Visit Oxycodone 5mg every 6 hours as needed for severe pain due to rib fractures. It is recommended you take Tylenol 500mg three times daily. It is recommended you pharmacy picking tech over the counter lidocaine patches, 4%, and apply them to the L sided of your ribs. Please keep on for 12 hours and take off for 12 hours. Use this until your pain resolves. Please take all other medications as prescribed. Admission HPI Per Admitting Provider 64-year-old male with past medical history significant for alcoholism, liver cirrhosis, hypothyroidism, COPD, presents with fall on the ice on the left side and found to have rib fractures. Patient was at work when he slipped on ice and fell on the left left side. Did not hit his head. No loss of consciousness. His coworker helped him to get up. Having lot of pain in the rib cage radiating to the back. Denies any shortness of breath. Earlier had some nausea. Denies any fevers. No headache. No neck pain. Vision is okay. No runny nose or sore throat. Has a chronic cough from his COPD. No abdominal pain. Normal bowel and bladder movements. Hemodynamics are okay. Past medical history. As mentioned above. Past surgical history. Colonoscopy and EGD. Family history. No family history on file. Social history. States currently smoking 6 cigarettes daily. History of drinking alcohol heavily in the past but lately not drinking as per patient. History of medical marijuana in the past. Admission Exam Per Admitting Provider General- Not in acute distress Head- atraumatic Eyes- EOMI. Neck- supple, no JVD. Lungs- clear to auscultation no wheezing or crackles Heart- regular rate and rhythm; no murmur, no gallop. Abdomen- normal bowel sounds, soft, nontender, mild distension Extremities- no pretibial edema,moves extremities Neuro- alert, oriented EOMI; no facial palsy; no dysarthria; moves extremities Discharge Exam Gen: WD/WN, NAD, A&O x3, appears in pain HEENT: Normocephalic, atraumatic, conjunctivae moist, sclerae anicteric, mucous membranes moist. Lung: Clear to Auscultation bilaterally, no wheezes/rales/rhonchi Heart: Regular rate, regular rhythm, no murmurs, rubs, or gallops Chest: L sided chest wall pain, no flail chest Abdomen: Soft, NT, ND +BS x 4 Extremities: No edema Skin: Warm, no rash, negative turgor. Updated Medication List Medication Instructions Recorded Confirmed Type albuterol 2 puff inhalation Q4H PRN sob 12/01/24 12/01/24 History apixaban 5 mg tablet (Eliquis) 5 mg PO BID 12/01/24 12/01/24 History furosemide 40 mg tablet 60 mg PO BID 12/01/24 12/01/24 History gabapentin 300 mg capsule 300 mg PO BID 12/01/24 12/01/24 History lactulose 10 gram/15 mL oral 30 ml PO DAILY 12/01/24 12/01/24 History solution levothyroxine 100 mcg tablet 100 mcg PO DAILY 12/01/24 12/01/24 History magnesium chloride 64 mg 64 mg PO DAILY 12/01/24 12/01/24 History (magnesium chloride) tablet,delayed release (Mag 64) midodrine 5 mg tablet 5 mg PO TID 12/01/24 12/01/24 History mometasone 100 mcg/actuation HFA 1 puff inhalation BID 12/01/24 12/01/24 History aerosol inhaler (Asmanex HFA) oxycodone 5 mg tablet 5 mg PO Q6H PRN pain #20 tabs 12/01/24 Rx potassium chloride 20 mEq 40 meq PO BID 12/01/24 12/01/24 History tablet,extended release(part/cryst) (Klor-Con M) spironolactone 25 mg tablet 12.5 mg PO DAILY 12/01/24 12/01/24 History tiotropium 2.5 mcg-olodaterol 2.5 2 puff inhalation DAILY 12/01/24 12/01/24 History mcg/actuation mist for inhalation (Stiolto Respimat) Hospital Stay Data Consultations 11/30/24 22:48 ED Decision to Admit Stat 12/01/24 08:00 Consult Orthopedic Spine Surgery Routine MPRESSION: 1. Multiple thoracic compression fractures with the most severe being at the T9, T10 and T11 levels. Age of these is uncertain and they could be acute related to the recent trauma. Further evaluation with MRI study of the thoracic spine would be useful. 2. Acute rib fractures of the left seventh eighth and ninth posterior lateral ribs without pneumothorax or pleural effusion. 3. Multiple old bilateral rib fractures with incomplete healing. 4. Enlarged multinodular thyroid which could be better evaluated with thyroid ultrasound. Review of CT scan of the chest along with review of abdominal CT scan from November 30, 2024, is my separate interpretation, reveals the patient to have prior healed vertebral body superior endplate fractures of T9, T10, T11 and also L3. These fractures do not have the appearance of acute findings. Impression: Multiple rib fractures along with evidence of prior healed lower thoracic and lumbar compression fractures. Plan: In talking with the patient, he clearly notes that he has had prior compression fractures in the past. Recommend mobilization with therapy and appropriate pain medications, follow-up regarding his spine if he has any continued axial symptomatology consistent with areas of injury. Diagnostic Imagining Performed Chest X-Ray 11/30/24 15:09 XR chest 1V portable CLINICAL HISTORY: Trauma COMPARISON STUDY: Chest radiograph September 07, 2024. FINDINGS: There is no pneumothorax or pleural effusion. There are acute displaced fractures of the posterior left seventh and eighth ribs. There is also an acute minimally displaced fracture the posterior right sixth rib. Additional old rib fractures are present. Bibasilar opacities are greater on the left. Cardiomediastinal silhouette is stable. IMPRESSION: 1. No pneumothorax. 2. Several acute bilateral rib fractures, as described above. 3. Bibasilar opacities, greater on the left. The findings may reflect atelecta sis although pulmonary contusions could appear similar. ACT 112: Negative or not required by law. Electronically signed by: Reece Sood M.D. 11/30/2024 3:52 PM Wrist X-Ray 11/30/24 15:09 XR wrist LT 2V CLINICAL HISTORY: Trauma COMPARISON: None FINDINGS: Alignment of the left wrist is anatomic. There is no acute fracture. Distal left radius and ulna are intact. IMPRESSION: No fracture or dislocation within the left wrist. ACT 112: Negative or not required by law. Electronically signed by: Reece Sood M.D. 11/30/2024 3:53 PM Abdomen/Pelvis CT 11/30/24 15:39 EXAM: CT Abdomen + Pelvis w/o Contrast HISTORY: Patient fell. Complaining of pain in the left ribs. No prior complaints COMPARISON: None TECHNIQUE: Helical CT imaging of the abdomen and pelvis was performed following uneventful administration of Omnipaque 300 IV. FINDINGS: Lung bases/inferior mediastinum:Unremarkable. Liver:Abnormally nodular and mildly enlarged suggesting hepatic cirrhosis. No definite focal liver lesion is seen. Gallbladder: Absent with surgical clips present Spleen: Unremarkable. Adrenal glands: Unremarkable. Pancreas: Unremarkable. Kidneys: Nephrograms appear symmetric. No focal cortical lesions. No hydronephrosis or hydroureter. Bowel:The stomach and duodenum appear unremarkable. Small bowel loops are normal in caliber. Normal caliber appendix identified. The colon is normal in caliber. Large amount of abdominal and pelvic ascites is present. Vasculature: Scattered vascular calcifications but no significant aneurysm seen. The inferior vena cava is unremarkable. Lymph nodes:No enlarged retroperitoneal, mesenteric, pelvic, or inguinal lymph nodes. Pelvis: Urinary bladder is unremarkable. . Large amount of pelvic ascites. Prostate mildly enlarged and inhomogeneous with calcifications. Soft tissues:Soft tissues of the abdominal wall are unremarkable. Bones:Compression fractures of L1, L3 and L4 of uncertain age. These could be more definitively characterized with MRI study. IMPRESSION: 1. Large amount of abdominal and pelvic ascites. 2. Liver has the appearance of chronic hepatic cirrhosis with a nodular contour and mild hepatomegaly. 3. Compression fractures of L1, L3 and L4 of uncertain age. These would be better characterized with MRI study if indicated. Electronically signed by Antonio Dhillon 11-30-2024 4:[address] 11/30/24 15:39 Exam: CT scan cervical spine: Reason for exam: Patient fell on ice 45 minutes ago. Pain in the left ribs and wrist. Previous studies: None FINDINGS: No acute fracture, dislocation or destructive bony process is seen at the examined levels. Mild degenerative spondylosis of the mid and lower cervical facet joints are present. Moderate carotid artery calcifications are present. IMPRESSION: 1. Negative for acute bony trauma. 2. Degenerative spondylosis at the mid and lower cervical levels. Electronically signed by Antonio Dhillon 11-30-2024 4:[address] 11/30/24 15:39 Exam: CT scan thorax with contrast: Reason for exam: Patient fell 45 minutes ago. Previous studies: None FINDINGS: Both lungs remain well expanded. No pneumothorax or pleural effusion is seen. No active lung infiltrate is seen. There are multiple compression fractures in the thoracic spine. Mild compression fracture T5 with moderate compression fractures of T9, T10 and T11 are present. Age of these is uncertain and could be better evaluated with MRI study. Acute fractures of the left seventh eighth and ninth posterior lateral ribs are seen. Multiple old bilateral rib fractures are seen with callus but incomplete bony union at this time. Again no pneumothorax or pleural effusion is seen. The thyroid gland is enlarged and multinodular with calcifications. No evidence of aortic aneurysm or dissection is seen. Coronary artery stents are present. IMPRESSION: 1. Multiple thoracic compression fractures with the most severe being at the T9, T10 and T11 levels. Age of these is uncertain and they could be acute related to the recent trauma. Further evaluation with MRI study of the thoracic spine would be useful. 2. Acute rib fractures of the left seventh eighth and ninth posterior lateral ribs without pneumothorax or pleural effusion. 3. Multiple old bilateral rib fractures with incomplete healing. 4. Enlarged multinodular thyroid which could be better evaluated with thyroid ultrasound. Electronically signed by Antonio Dhillon 11-30-2024 4:[address] 11/30/24 15:39 Exam: CT thorax with contrast Reason for exam: Patient fell. Complaining of left upper chest pain. Previous studies: None FINDINGS: Both lungs remain expanded. No significant pneumothorax or pleural effusion is identified. Thyroid is enlarged with calcifications and multiple nodules. No mediastinal mass or adenopathy is seen. Coronary artery stents are present. No evidence of aortic trauma, aneurysm or dissection is seen at the examined levels. Mild compression fracture of T3, T5 and moderate compression fracture of T9, T10, T11 and T12. Age of these is uncertain and could be acute distress associated with the recent trauma. Multiple bilateral rib fractures are seen with the talus indicating a chronic or subacute nature although the remaining completely. There is an acute fracture of the left posterior lateral eighth, ninth and 10th ribs. Again no pneumothorax is seen. IMPRESSION: 1. Multiple thoracic compression fractures of uncertain age with those at T9, T10, T11 and T12 being most severe. No definite retropulsed fragment seen at this time. These would be better evaluated with MRI study to evaluate the chronicity of these fractures. 2. Acute fractures left posterior lateral left eighth, ninth and 10th ribs. No pneumothorax or significant pleural effusion seen at this time. 3. Multiple subacute or chronic old bilateral rib fractures which remain incompletely united at this time. 4. Enlarged multinodular thyroid gland with calcifications. This would be better evaluated with thyroid ultrasound. Electronically signed by Antonio Dhillon 11-30-2024 4:37 PM Chest X-Ray 12/01/24 08:00 XR chest 1V portable CLINICAL HISTORY: rib fractures COMPARISON STUDY: Chest radiograph and chest CT November 30, 2024. FINDINGS: There is no pneumothorax or pleural effusion. Linear bibasilar densities favor atelectasis. Cardiomediastinal silhouette is stable. Multiple age-indeterminate bilateral rib fractures are again noted. IMPRESSION: 1. Redemonstration of multiple age indeterminate bilateral rib fractures. No pneumothorax. No pleural effusion. 2. Linear bibasilar densities suggestive of atelectasis. ACT 112: Negative or not required by law. Electronically signed by: Reece Sood M.D. 12/01/2024 12:29 PM Thyroid Ultrasound 12/01/24 08:00 THYROID ULTRASOUND CLINICAL HISTORY: enlarged thyroid COMPARISON STUDY: Chest CT November 30, 2024. TECHNIQUE: Sonography of the thyroid gland was performed. FINDINGS: The thyroid gland is markedly heterogeneous and moderately enlarged. Increased gland vascularity is present. No discrete nodules are identified. The right lobe measures 5.5 x 2.4 x 3 cm and the left lobe measures 4 x 2 x 2.4 cm. Isthmus measures 0.6 cm in AP dimension. The adjacent soft tissues are unremarkable. IMPRESSION: 1. Heterogeneous, moderately enlarged thyroid gland with increased vascularity. The findings may represent chronic thyroiditis. 2. No well-defined thyroid nodules. ACT 112: Negative or not required by law. Electronically signed by: Reece Sood M.D. 12/01/2024 10:09 AM Pending Results Patient Have Any Pending Studies at Discharge: No Discharge Instructions Given to Patient (Per Discharging Provider) MEDICATION CHANGES: Oxycodone 5mg every 6 hours as needed for severe pain due to rib fractures. It is recommended you take Tylenol 500mg three times daily. It is recommended you pharmacy picking tech over the counter lidocaine patches, 4%, and apply them to the L sided of your ribs. Please keep on for 12 hours and take off for 12 hours. Use this until your pain resolves. Please take all other medications as prescribed. SUMMARY OF TEST RESULTS: You were admitted to the hospital due to falling on ice and L sided rib pain. You were found to have multiple left sided rib fractures 8th,9th and 10th, old rib fractures, and multiple compression fractures of your thoracic spine. You were seen and evaluated by orthopedic spine regarding your thoracic compression fractures and it is recommended you participate in physical therapy and keep moving. If you develop specific back symptoms it is recommended you follow up with Dr. Rutledge in his office. PENDING TEST RESULTS: None RECOMMENDATIONS FOR FOLLOW-UP: Please follow up with your [facility] Primary care Provider to ensure close follow up. Your primary care provider can assist in your pain management. Please use the incentive spirometer provided at the hospital to help keep your airways inflated. If you do not consciously take deep breaths with rib fractures you can develop pneumonia. You underwent a thyroid ultrasound while in the hospital. It showed that you may have a chronic inflammation of your thyroid. Please follow up with your Primary Care Provider on this results and recommend referral to Endocrinology to determine the next step of treatment. Your TSH was elevated in the hospital at 17, but your T4 was normal. Please discuss these results with your primary care provider. Please do not lift more than 5 lbs due to rib fractures. It is recommended you do not return to work until you are cleared from your primary care provider due to rib fractures. Your cervical spine CT revealed your carotid arteries to have moderate calc ifications. It is recommended you have an outpatient US of your carotids. Your Primary Care Provider can arrange this. OTHER INSTRUCTIONS: Seek medical attention if you have: * temperature above 101 * chest pain or trouble breathing * abdominal pain, nausea, vomiting * diarrhea, dark stools or bloody stools * any unanswered questions or concerns Call 911 if symptoms are severe. Please take good care of yourself. It has been a pleasure taking care of you. Please take care of yourself. If you have any questions regarding your recent hospitalization please contact [facility] and request Brice Barragan @ [phone]. Total Time Total Time Spent Total Time Spent (In Minutes): 45 minutes Supervising Physician Co-Signing Physician Notes Patent seen and examined by me, care coordinated w/ B. Cecilio HOUSTON, pls refer to her note above for further detail. Patient was admitted after a fall, found to have rib fractures and vertebral compression fractures. Patient refuses to stay in the hospital despite multiple conversations (w/ myself separately from [place]). He is breathing without difficulty on RA. Heart sounds regular. Abdomen soft, nontender. Moves extremities. Difficulty w/ movement due to pain. Reports he has a neighbor who can help him and that he knows what to do as he had rib fx before. Advised not to lift any heavier objects, proper pain control, incentive spirometry and close [facility] MD Cecilia
[2024-12-01] MEDS: oxyCODONE IR HOME PACK PO ONE (14:57)
[2024-12-02] MEDS ORDERED: LACTULOSE SYRUP 20 GM/30 ML UDC PO SCH (09:00)
== END 2024-12-01 15:20 | disposition home or self-care (01) | DRG 184 ==
LOC: ED 14:35 → EDINP 12-01 01:02 → SUATTDRO 12-01 01:02 → EDINP 12-01 03:07

== ENCOUNTER 2025-05-13 10:58 | Inpatient (IN) ==
--- NOTE | 2025-05-13 11:10 | Emergency Department Note ---
Impression & Plan Intractable abdominal pain, Splenic infarct, Chest pain ED Provider Note Name: EDDIE RUGGIERO III Age: 64 Sex: Male Arrives Via: Ambulance Informant: Patient, EMS ED Provider: Vernon Wagoner MD Chief Complaint: Diffuse pain Impression: As per impressions above Medical Decision Makin-year-old gentleman who notes he was a previous alcoholic with cirrhosis of the liver, along with a history of ascites, PE, esophageal varices and on anticoagulant use. He arrives for evaluation worsening pain specifically throughout his abdomen. On examination patient is quite uncomfortable and is a bit disheveled and cachectic/dehydrated. He is given IV fluids and does appear a bit improved. He is not septic appearing. Laboratory workup initiated. X- ray of the chest is unremarkable KUB does show some mildly dilated bowel. CTs abdomen pelvis was obtained which does not show dissection or obstruction but does show some infarcts of the spleen which are new from her previous CT. His pain is not specifically in the left lower upper quadrant. He does have persistent pain requiring several rounds of IV narcotics. He does appear significantly better after fluids though. He is able to urinate and urinalysis is unremarkable. In the setting of persistent pain I do think hospitalization is indicated. Of note though patient admits that he was recently taken off a lot of his home pain medications and switched to buprenorphine patch. This may be part of the reason that he is having worsening pain. As per the patient's chest pain. This seems to be part of diffuse pain issue. There is no evidence of ischemia on EKG or by troponin and given ongoing symptoms I do not feel this is consistent with ACS, dissection or anisa/pericarditis. I am a bit further concerned given EMSs report of possible dilapidated conditions of his house and not caring for himself at home. I suspect he has not been eating well given his examination. Triage/Nursing Notes reviewed by Me Differential:Infection, dehydration, metabolic abnormality, hypo/hyperglycemia, electrolyte disturbance, anemia, hypoxia, cardiac sources, intracerebral event, toxicologic, neurologic, as well as other pathologies. Vital Signs: reviewed and remarkable for no significant abnormalities Interventions: Normal saline bolus IV, Dilaudid IV x 3 Labs:ED labs Reviewed by me and remarkable for no significant abnormality other than some mild liver elevation consistent with his cirrhosis Imaging:CT of the ab pelvis with IV contrast as per my informal interpretation reveals ascites and a thickened bladder wall without evidence of obstruction or free air. Radiologist also notes evidence of splenic infarct. 1 view chest x-ray as per my interpretation no infiltrate or effusion appreciated. KUB as per my interpretation mildly distended small bowel loops no overt obstruction. EKG:As per my interpretation. Indication weakness. Sinus at 68 bpm QTc of 442. There is no ectopy nor ischemia. When compared to EKG of November 30, 2024 there is no significant change. Cardiac/Tele Monitoring: Cardiac Monitoring: An Order was placed for continuous cardiac monitoring. The monitor shows a rate of 60 with a normal sinus rhythm. Consults:Discussed with hospital service who will further evaluate patient. Plan: Disposition:Hospitalization. Condition: Fair History of Present Illness: 64-year-old gentleman arrives for evaluation of diffuse pain. Said he was feeling well up until this morning. He has developed severe diffuse pain. Pain is primarily throughout the abdomen the anterior chest and throughout most of his back. He denies any falls, trauma, injuries. He denies any specific difficulty breathing though EMS noted he seemed tachypneic and he was placed on nasal cannula O2 with improvement in his tachypnea. Patient notes he has had previous abdominal drainages from a distention in his abdomen may be slightly more distended today. He does note that he has a history of liver cirrhosis secondary to alcohol use. States he no longer drinks alcohol. Believes he has been taking all his medications. Per EMS it appears he has not been eating or caring for himself for at least several days of not weeks. EMS believe that his house was infested with cockroaches though patient would not allow them into the house. Patient states that he had been on narcotics which his PCP took him off of and had placed him on a buprenorphine (5mcg/hr) patch. Past Medical History:See Below Home Medications:See Below Allergies:See Below Vitals:Blood Pressure: 111/69, Pulse 63, RR 16, T 36.8C, O2 100% on 3L NC Physical Exam: GENERAL: Patient is cachectic and unwell appearing and in moderate distress, crying RESPIRATORY: No dyspnea. Clear to auscultation and equal bilaterally. CARDIOVASCULAR: Regular rate and rhythm.No murmur appreciated. GASTROINTESTINAL: Minimally distended with slight fluid wave and noted diffuse nonspecific tenderness to palpation without peritonitis. EXTREMITIES: Normal motion all extremities, no cyanosis, no edema. NEUROLOGIC: Alert and oriented. No focal neurologic deficits appreciated SKIN: No rash, no jaundice, no diaphoresis. PSYCH: Appropriate GCS: 15 ED Course: Times/Reassessments: Multiple repeat evaluations patient is appearing improved however continues to have waxing waning pain requiring several rounds of IV narcotic Vernon Wagoner MD Past Med/Surg History Problem List (Updated 05/13/25 @ 17:14 by STACEY Nichols) COPD with exacerbation TSH elevation Splenic infarct Acute abdominal pain Acute pain of left wrist (Acute) Fall (Acute) Multiple fractures of ribs (Acute) Rib pain on left side (Acute) Dysphagia Alcoholic cirrhosis of liver Ascites Esophageal varices Single subsegmental thrombotic pulmonary embolism without acute cor pulmonale (Acute) Abdominal pain (Acute) Hyponatremia (Acute) Fluid overload (Acute) No significant past surgical history No significant past medical history Medical History (Updated 05/13/25 @ 17:14 by STACEY Nichols) Pulmonary embolism Hypothyroid Deep vein thrombosis (DVT) of tibial vein of right lower extremity Cirrhosis Social History (Updated 03/14/23 @ 19:10 by Merritt Ramey) Smoking Status: Current every day smoker Tobacco Type: Cigarettes Do You Dip or Chew Tobacco: No; Hx Alcohol Use: No Hx Substance Use: No Preferred Language: Turkish Communication Ability: Effective [employer] Required: No Beliefs That Will Affect Care: None marital status: Single Current Living Situation: Alone current occupational status: employed Feels Safe at Home: Yes Assistive Devices: None Allergies Allergies Allergy/AdvReac Type Severity Reaction Status Date / Time aspirin Allergy Severe Anaphylaxis Unverified 12/01/24 09:45 Sulfa (Sulfonamide Allergy Mild Rash Verified 09/05/24 15:13 Antibiotics) Home Meds Home Medications Medication Instructions Recorded Confirmed albuterol sulfate 90 mcg/actuation 2 puff inhalation QID PRN 12/01/24 05/13/25 aerosol inhaler Shortness Of Breath ##0 apixaban 5 mg tablet (Eliquis) 5 mg PO BID 12/01/24 05/13/25 gabapentin 300 mg capsule 300 mg PO BID 12/01/24 05/13/25 tiotropium 2.5 mcg-olodaterol 2.5 2 puff inhalation DAILY 12/01/24 05/13/25 mcg/actuation mist for inhalation (Stiolto Respimat) benzonatate 100 mg capsule 100 mg PO TID PRN Cough 05/13/25 05/13/25 food supplemt, lactose-reduced 1 ea PO DAILY 05/13/25 05/13/25 food supplemt, lactose-reduced 1 ea PO DAILY 05/13/25 05/13/25 furosemide 20 mg tablet 20 mg PO DAILY 05/13/25 05/13/25 lactulose 10 gram/15 mL oral 20 g PO BID 05/13/25 05/13/25 solution lanolin alcohols-mineral 1 applic topical BID Dry Skin 05/13/25 05/13/25 oil-w.petrolatum-ceresin topical cream (Eucerin topical cream) levothyroxine 125 mcg tablet 125 mcg PO DAILY 05/13/25 05/13/25 lidocaine 5 % topical patch 1 patch topical DAILY 05/13/25 05/13/25 magnesium oxide 420 mg tablet 420 mg PO DAILY 05/13/25 05/13/25 midodrine 5 mg tablet 5 mg PO TID 05/13/25 05/13/25 mometasone 100 mcg/actuation HFA 2 puff inhalation BID 05/13/25 05/13/25 aerosol inhaler naloxone 4 mg/actuation nasal spray 4 mg intranasal ONCE PRN Opioid 05/13/25 05/13/25 Overdose rifaximin 550 mg tablet (Xifaxan) 550 mg PO BID 05/13/25 05/13/25 sertraline 50 mg tablet 50 mg PO DAILY 05/13/25 05/13/25 spironolactone 50 mg tablet 150 mg PO DAILY 05/13/25 05/13/25 Results & Data (ED) Vital Signs Vital Signs - 24 hr 05/13/25 11:10 05/13/25 11:31 05/13/25 12:02 Temperature 36.5 C Temperature Source Oral Pulse Rate 67 63 64 Pulse Rate from SpO2 Sensor 64 Respiratory Rate 22 18 15 Respiratory Effort / Characteristics Non-Labored Spontaneous Respiratory Depth Normal Blood Pressure 111/69 118/71 120/69 Blood Pressure Mean 83 76 86 Pulse Oximetry 100 100 100 Oxygen Delivery Method Room Air Sepsis Recent Fever Within 48 Hours No Sepsis New/Unexplained Change in Mental Status N/A Sepsis Action Taken by Nursing No Action Required 05/13/25 12:15 05/13/25 12:26 05/13/25 12:53 Temperature Temperature Source Pulse Rate 65 60 63 Pulse Rate from SpO2 Sensor 60 63 Respiratory Rate 18 19 Respiratory Effort / Characteristics Respiratory Depth Blood Pressure 106/68 115/70 Blood Pressure Mean 80 85 Pulse Oximetry 99 100 Oxygen Delivery Method Sepsis Recent Fever Within 48 Hours Sepsis New/Unexplained Change in Mental Status Sepsis Action Taken by Nursing 05/13/25 13:02 05/13/25 13:42 05/13/25 14:06 Temperature Temperature Source Pulse Rate 65 65 64 Pulse Rate from SpO2 Sensor 65 Respiratory Rate 14 20 21 Respiratory Effort / Characteristics Respiratory Depth Blood Pressure 115/70 100/68 124/71 Blood Pressure Mean 85 78 88 Pulse Oximetry 100 Oxygen Delivery Method Sepsis Recent Fever Within 48 Hours Sepsis New/Unexplained Change in Mental Status Sepsis Action Taken by Nursing 05/13/25 14:18 05/13/25 14:30 05/13/25 14:30 Temperature Temperature Source Pulse Rate 83 Pulse Rate from SpO2 Sensor Respiratory Rate 15 Respiratory Effort / Characteristics Respiratory Depth Blood Pressure 110/63 110/63 Blood Pressure Mean 87 87 Pulse Oximetry Oxygen Delivery Method Sepsis Recent Fever Within 48 Hours Sepsis New/Unexplained Change in Mental Status Sepsis Action Taken by Nursing 05/13/25 14:30 05/13/25 14:30 05/13/25 14:39 Temperature Temperature Source Pulse Rate 62 Pulse Rate from SpO2 Sensor Respiratory Rate 15 Respiratory Effort / Characteristics Respiratory Depth Blood Pressure 110/63 110/63 Blood Pressure Mean 87 87 Pulse Oximetry Oxygen Delivery Method Sepsis Recent Fever Within 48 Hours Sepsis New/Unexplained Change in Mental Status Sepsis Action Taken by Nursing 05/13/25 14:54 05/13/25 15:00 05/13/25 15:00 Temperature Temperature Source Pulse Rate 59 L Pulse Rate from SpO2 Sensor Respiratory Rate 20 Respiratory Effort / Characteristics Respiratory Depth Blood Pressure 108/64 108/64 Blood Pressure Mean 96 96 Pulse Oximetry Oxygen Delivery Method Sepsis Recent Fever Within 48 Hours Sepsis New/Unexplained Change in Mental Status Sepsis Action Taken by Nursing 05/13/25 15:00 05/13/25 16:22 Temperature Temperature Source Pulse Rate 61 Pulse Rate from SpO2 Sensor Respiratory Rate Respiratory Effort / Characteristics Respiratory Depth Blood Pressure 108/64 Blood Pressure Mean 96 Pulse Oximetry Oxygen Delivery Method Sepsis Recent Fever Within 48 Hours Sepsis New/Unexplained Change in Mental Status Sepsis Action Taken by Nursing Laboratory Data 05/13/25 11:08 05/13/25 11:08 Lab Results 05/13/25 05/13/25 Range/Units 11:08 14:42 WBC 6.93 (4.8-10.8) K/ul RBC 3.72 L (4.70-6.10) M/uL Hgb 11.7 L (14.0-18.0) g/dl Hct 34.4 L (42.0-52.0) % MCV 92.5 (80.0-100.0) fL MCH 31.5 (25.0-34.0) pg MCHC 34.0 (32.0-36.0) g/dL RDW Std Deviation 51.8 H (36.4-46.3) fL RDW Coeff of Mimi 15.3 H (11.5-14.5) % Plt Count 190 (130-400) K/uL MPV 8.3 L (9.4-12.4) fL Immature Gran % (Auto) 0.4 % Neut % (Auto) 80.6 % Lymph % (Auto) 14.3 % Craig % (Auto) 3.2 % Eos % (Auto) 1.2 % Baso % (Auto) 0.3 % Neut # (Auto) 5.59 (1.40-6.50) K/uL Lymph # (Auto) 0.99 L (1.20-3.40) K/uL Craig # (Auto) 0.22 (0.11-0.59) K/uL Eos # (Auto) 0.08 (0.00-0.50) K/uL Baso # (Auto) 0.02 (0.00-0.20) K/uL Immature Gran # (Auto) 0.03 (0.01-0.20) K/uL PT 11.4 (9.0-12.0) Seconds INR 1.1 (0.9-1.1) Sodium 134 L (136-145) mmol/L Potassium 3.8 (3.5-5.1) mmol/L Chloride 102 (98-107) mmol/L Carbon Dioxide 25 (21-32) mmol/L Anion Gap 7 (3-11) BUN 16 (6-23) mg/dl Creatinine 0.83 (0.6-1.4) mg/dl Est Cr Clr Drug Dosing 67.0 ml/min eGFR 98.96 BUN/Creatinine Ratio 19.3 (10-20) Glucose 85 (70-99(Fasting)) mg/dl Lactate 1.6 (0.4-2.0) mmol/L Calcium 8.8 (8.6-10.3) mg/dl Magnesium 1.7 (1.7-2.4) mg/dl Total Bilirubin 1.1 H (0.2-1.0) mg/dl Direct Bilirubin 0.2 (0-0.2) mg/dl AST 26 (13-39) U/L ALT 9 (7-52) U/L Alkaline Phosphatase 135 H (34-104) U/L Ammonia 25.0 (18-72) umol/L Troponin I High Sens 16.7 (0-20) pg/ml Total Protein 5.7 L (6.0-8.3) gm/dl Albumin 2.9 L (3.4-5.0) gm/dl Lipase 29 (11-82) U/L TSH 49.425 H (0.300-4.500) uIu/ml Free T4 0.67 (0.61-1.60) ng/dl Urine Color Yellow Urine Appearance Clear (Clear) Urine pH >= 9.0 H (4.5-7.5) Ur Specific [place] > 1.045 H (1.000-1.030) Urine Protein Trace H (Negative) Urine Glucose (UA) Negative (Negative) Urine Ketones 1+ H (Negative) Urine Blood Negative (Negative) Urine Nitrite Negative (Negative) Urine Bilirubin Negative (Negative) Urine Urobilinogen Negative (Negative) Ur Leukocyte Esterase Negative (Negative) Urine WBC (Auto) 0-5 (0-5) /hpf Urine RBC (Auto) 0-2 (0-2) /hpf U Hyaline Cast (Auto) 0-2 (0-2) /lpf U Epithel Cells (Auto) 0-2 (0-2) /hpf Urine Bacteria (Auto) None Seen (None Seen) Urine Comment Administered Medications Discontinued Medications Hydromorphone HCl (Hydromorphone Inj 0.5 Mg/0.5 Ml Syr) 0.5 mg IV NOW STA Stop: 05/13/25 11:06 Last Admin: 05/13/25 11:17 Dose: 0.5 mg Documented By: KAREN Hydromorphone HCl (Hydromorphone Inj 1 Mg/Ml Syringe) 1 mg IV NOW STA Stop: 05/13/25 11:56 Last Admin: 05/13/25 12:01 Dose: 1 mg Documented By: SYED Hydromorphone HCl (Hydromorphone Inj 1 Mg/Ml Syringe) 1 mg IV NOW STA Stop: 05/13/25 14:50 Last Admin: 05/13/25 14:54 Dose: 1 mg Documented By: RYLAND Sodium Chloride (Nss) 1,000 mls @ 999 mls/hr IV .Q1H1M ONE Stop: 05/13/25 12:04 Last Infusion: 05/13/25 12:18 Dose: Infused Documented By: Admin: 05/13/25 12:01 Dose: 999 mls/hr Documented By: SYED Sodium Chloride (Nss) 500 mls @ 999 mls/hr IV .Q31M ONE Stop: 05/13/25 13:40 Last Infusion: 05/13/25 14:19 Dose: Infused Documented By: Admin: 05/13/25 13:40 Dose: 999 mls/hr Documented By: SYED Sodium Chloride (Nss) 1,000 mls @ 999 mls/hr IV .Q1H1M ONE Stop: 05/13/25 15:36 Last Infusion: 05/13/25 16:17 Dose: Infused Documented By: Admin: 05/13/25 14:42 Dose: 999 mls/hr Documented By: RYLAND Ioversol (Optiray 320 100ml) 94 ml IV ONCE ONE Stop: 05/13/25 12:40 Last Admin: 05/13/25 12:39 Dose: 94 ml Documented By: TORIE Imaging Data Radiologist's Impression: Chest X-Ray 05/13/25 11:05 XR chest 1V portable CLINICAL HISTORY: diffuse pain COMPARISON STUDY: 12/01/2024 FINDINGS: Heart size and pulmonary vasculature are normal. No consolidation or pleural effusion. No pneumothorax. There are multiple old bilateral rib fractures. IMPRESSION: No acute findings. ACT 112: Negative or not required by law. Electronically signed by: Antonio Bourgeois M.D. 05/13/2025 11:32 AM KUB X-Ray 05/13/25 11:05 KUB HISTORY: diffuse pain COMPARISON STUDY: 09/07/2024 FINDINGS: Vertical tubing overlies the right abdomen and pelvis right of midline and the lower chest, possibly external to the patient. Suggest clinical correlation. There are stable right upper quadrant surgical clips. There are a few mildly distended small bowel loops at the left abdomen and pelvis measuring up to 3 cm diameter. No other bowel distention seen. No gross free air. IMPRESSION: A few mildly distended small bowel loops of uncertain significance. No other acute findings seen. ACT 112: Negative or not required by law. The above report was generated using voice recognition software. It may contain grammatical, syntax or spelling errors. Electronically signed by: Antonio Bourgeois M.D. 05/13/2025 11:33 AM Abdomen/Pelvis CT 05/13/25 11:55 CT SCAN OF THE ABDOMEN AND PELVIS WITH IV CONTRAST CLINICAL HISTORY: Abdominal pain. Abnormal KUB. COMPARISON STUDY: CT of the abdomen and pelvis November 30, 2024 and KUB performed earlier today. TECHNIQUE: Following the IV administration of 94 cc of Optiray 320, CT scan of the abdomen and pelvis is performed from the lung bases to the proximal femora. Images are reviewed in the axial, sagittal, and coronal planes. IV contrast was administered without complication. A dose lowering technique was utilized adhering to the principles of ALARA. CT DOSE: 344.63 mGy.cm FINDINGS: Visualized lung bases are unremarkable. No pneumatosis, free air or portal venous gas is present. As before, the liver is cirrhotic. No hepatic lesions are identified on venous phase exam. Main, left and right portal veins are patent. There is no biliary ductal dilatation status post cholecystectomy. A small infarct within the anterior aspect of the spleen measuring 2 cm is new since CT of November 30, 2024. A few additional smaller splenic infarcts are new since prior exam as well. Abdominal varices are noted. A small amount of abdominal and pelvic ascites is present. Mesenteric edema is likely related to portal hypertension. The adrenal glands, kidneys and pancreas are unremarkable. There is no hydronephrosis. There is no evidence for a bowel obstruction. There is colonic diverticulosis without evidence for acute diverticulitis. Mild wall thickening of the ascending colon is noted. There is bladder wall thickening. Multiple old lower thoracic and lumbar spine compression fractures are unchanged since CT of November 30, 2024. A moderate L5 compression fracture involving the superior endplate with 40% loss of vertebral body height is new. IMPRESSION: 1. Cirrhotic liver with small amount of ascites and abdominal varices consistent with portal hypertension. 2. Interval development of several small splenic infarcts since CT of November 30, 2024. 3. Mild right colon wall thickening which is likely related to portal hypertension. A nonspecific colitis could appear similar. No bowel obstruction. 4. L5 compression fracture with which is age indeterminate but new since CT of November 30, 2024. Multiple old thoracolumbar spine compression fractures. 5. Bladder wall thickening which could be correlated with urinalysis to exclude cystitis. ACT 112: Negative or not required by law. Electronically signed by: Reece Sood M.D. 05/13/2025 1:10 PM Discharge Plan Visit Data Chief Complaint: Pain (Generalized) Stated Complaint: SOB, DISTENTED AB, PAIN ALL OVER ED Provider: Vernon Wagoner Discharge Problem: Intractable abdominal pain, Splenic infarct, Chest pain Patient Disposition: Admitted As Inpatient Condition: Fair Forms Stand Alone Forms: [facility] Prescriptions Prescriptions: No Action Eliquis 5 mg tablet 5 mg PO BID gabapentin 300 mg Capsule 300 mg PO BID albuterol sulfate 90 mcg/actuation Hfa Aerosol Inhaler 2 puff INHALATION QID PRN (Reason: Shortness Of Breath) Qty: 0 Stiolto Respimat 2.5-2.5 mcg/actuation Mist 2 puff INHALATION DAILY magnesium oxide 420 mg Tablet 420 mg PO DAILY benzonatate 100 mg Capsule 100 mg PO TID PRN (Reason: Cough) levothyroxine 125 mcg Tablet 125 mcg PO DAILY lidocaine 5 % Adhesive Patch,Medicated 1 patch TOPICAL DAILY Rx Instructions: leave on most painful area for up to 12 hrs furosemide 20 mg Tablet 20 mg PO DAILY spironolactone 50 mg tablet 150 mg PO DAILY Ensure Plus Liquid 1 ea PO DAILY Rx Instructions: Chocolate Ensure Plus Liquid 1 ea PO DAILY Rx Instructions: Vanilla Eucerin Cream 1 applic TOPICAL BID Xifaxan 550 mg tablet 550 mg PO BID mometasone 100 mcg/actuation Hfa Aerosol Inhaler 2 puff INHALATION BID naloxone 4 mg/actuation [place],Non-Aerosol 4 mg intranasal ONCE PRN (Reason: Opioid Overdose) midodrine 5 mg Tablet 5 mg PO TID Rx Instructions: do not give last dose of day after 6PM or within 4 hrs of bedtime sertraline 50 mg Tablet 50 mg PO DAILY lactulose 10 gram/15 mL solution 20 g PO BID [facility] - Discharge Problem: Chest pain Qualifiers: Chest pain type: other chest pain Qualified Code(s): R07.89 - Other chest pain
[2025-05-13] MEDS: HYDROmorphone INJ 0.5 MG/0.5 ML SYR IV STA (11:17)
[2025-05-13 11:24] LABS: Hematocrit (blood only) 34.4 % (42.0-52.0); Hemoglobin 11.7 g/dl (14.0-18.0); Immature Granulocytes # (auto) 0.03 K/uL (0.01-0.20); Immature Granulocytes % (auto) 0.4 %; Mean Corpuscular Hemoglobin 31.5 pg (25.0-34.0); Mean Corpuscular Volume 92.5 fL (80.0-100.0); Platelet Count 190 K/uL (130-400); RDW Standard Deviation 51.8 fL (36.4-46.3); Red Blood Count 3.72 M/uL (4.70-6.10); White Blood Count 6.93 K/ul (4.8-10.8)
--- NOTE | 2025-05-13 11:33 | XRay Report ---
XR chest 1V portable CLINICAL HISTORY: diffuse pain COMPARISON STUDY: 12/01/2024 FINDINGS: Heart size and pulmonary vasculature are normal. No consolidation or pleural effusion. No p neumothorax. There are multiple old bilateral rib fractures. IMPRESSION: No acute findings. ACT 112: Negative or not required by law. Electronically signed by: Antonio Bourgeois M.D. 05/13/2025 11:32 AM
--- NOTE | 2025-05-13 11:35 | XRay Report ---
KUB HISTORY: diffuse pain COMPARISON STUDY: 09/07/2024 FINDINGS: Vertical tubing overlies the right abdomen and pelvis right of midline and the lower chest, possibly external to the patient. Suggest clinical correlation. There are stable right upper quadran t surgical clips. There are a few mildly distended small bowel loops at the left abdomen and pelvis m easuring up to 3 cm diameter. No other bowel distention seen. No gross free air. IMPRESSION: A few mildly distended small bowel loops of uncertain significance. No other acute findin gs seen. ACT 112: Negative or not required by law. The above report was generated using voice recognition software. It may contain grammatical, syntax o r spelling errors. Electronically signed by: Antonio Bourgeois M.D. 05/13/2025 11:33 AM
[2025-05-13 11:43] LABS: Alanine Aminotransferase 9.0 U/L (7-52); Alkaline Phosphatase 135.0 U/L (34-104); Anion Gap 7.0 (3-11); Bilirubin,Total 1.1 mg/dl (0.2-1.0); Blood Urea Nitrogen 16.0 mg/dl (6-23); Calcium 8.8 mg/dl (8.6-10.3); Carbon Dioxide 25.0 mmol/L (21-32); Chloride 102.0 mmol/L (98-107); Creatinine Clr Calc Pharmacy 67.0 ml/min; Glucose 85.0 mg/dl (70-99(Fasting)); Lipase 29.0 U/L (11-82); Magnesium 1.7 mg/dl (1.7-2.4); Potassium 3.8 mmol/L (3.5-5.1); Sodium 134.0 mmol/L (136-145); Total Protein 5.7 gm/dl (6.0-8.3)
[2025-05-13 11:57] LABS: INR 1.1 (0.9-1.1); Prothrombin Time 11.4 Seconds (9.0-12.0)
[2025-05-13] MEDS: SODIUM CHLORIDE 0.9% 1,000 ML IV ONE ×2 (12:01→14:42)
[2025-05-13] MEDS: HYDROmorphone INJ 1 MG/ML SYRINGE IV STA ×2 (12:01→14:54)
[2025-05-13 12:32] LABS: Thyroid Stimulating Hormone 49.425 uIu/ml (0.300-4.500)
[2025-05-13] MEDS: OPTIRAY 320 100ml IV ONE (12:39)
--- NOTE | 2025-05-13 13:12 | CT Scan Report ---
CT SCAN OF THE ABDOMEN AND PELVIS WITH IV CONTRAST CLINICAL HISTORY: Abdominal pain. Abnormal KUB. COMPARISON STUDY: CT of the abdomen and pelvis November 30, 2024 and KUB performed earlier today. TECHNIQUE: Following the IV administration of 94 cc of Optiray 320, CT scan of the abdomen and pelvi s is performed from the lung bases to the proximal femora. Images are reviewed in the axial, sagittal , and coronal planes. IV contrast was administered without complication. A dose lowering technique wa s utilized adhering to the principles of ALARA. CT DOSE: 344.63 mGy.cm FINDINGS: Visualized lung bases are unremarkable. No pneumatosis, free air or portal venous gas is pr esent. As before, the liver is cirrhotic. No hepatic lesions are identified on venous phase exam. Kajal n, left and right portal veins are patent. There is no biliary ductal dilatation status post cholecys tectomy. A small infarct within the anterior aspect of the spleen measuring 2 cm is new since CT of [place]. A few additional smaller splenic infarcts are new since prior exam as well. Abdomin al varices are noted. A small amount of abdominal and pelvic ascites is present. Mesenteric edema is likely related to portal hypertension. The adrenal glands, kidneys and pancreas are unremarkable. The re is no hydronephrosis. There is no evidence for a bowel obstruction. There is colonic diverticulosi s without evidence for acute diverticulitis. Mild wall thickening of the ascending colon is noted. Th ere is bladder wall thickening. Multiple old lower thoracic and lumbar spine compression fractures ar e unchanged since CT of November 30, 2024. A moderate L5 compression fracture involving the superior endplate with 40% loss of vertebral body height is new. IMPRESSION: 1. Cirrhotic liver with small amount of ascites and abdominal varices consistent with portal hyperten minerva. 2. Interval development of several small splenic infarcts since CT of November 30, 2024. 3. Mild right colon wall thickening which is likely related to portal hypertension. A nonspecific col itis could appear similar. No bowel obstruction. 4. L5 compression fracture with which is age indeterminate but new since CT of November 30, 2024. Mul tiple old thoracolumbar spine compression fractures. 5. Bladder wall thickening which could be correlated with urinalysis to exclude cystitis. ACT 112: Negative or not required by law. Electronically signed by: Reece Sood M.D. 05/13/2025 1:10 PM
[2025-05-13] MEDS: SODIUM CHLORIDE 0.9% 500 ML IV ONE (13:40)
[2025-05-13 15:03] LABS: Appearance Urine Clear (Clear); Bacteria Urine Automated None Seen (None Seen); Cast Urine Automated 0-2 /lpf (0-2); Epithelial Cell Urine Auto 0-2 /hpf (0-2); Glucose Urine UA Negative (Negative); RBC Urine Automated 0-2 /hpf (0-2); WBC Urine Automated 0-5 /hpf (0-5)
--- NOTE | 2025-05-13 15:28 | History & Physical Report ---
Date of Service May 13, 2025 Assessment & Plan (1) Acute abdominal pain: Plan: Patient is a 64 year old M with a past medical history of alcoholic cirrhosis, COPD with current tobacco use, chronic LBP with long-standing opioid use, hypothyroidism, chronic hyponatremia presenting with acute abdominal pain. Patient was brought here via EMS, was found spraying his home for cockroaches and living in deplorable conditions. He required O2 via transport. Patient r eports having "hot and cold" periods and sweats x 1 week with no measurable temperature. Diarrhea x1 today. Also with short of breath and increased phlegm x few days- using nebs at home with some relief. Denies sick contacts. He has been on oxycodone off and on for an extended period of time and switched to Butrans patch 1 month ago by [place] PCP [place] [facility]. Reports having sleep disturbances and hallucinations since starting the Butrans patch. #Acute abdominal pain and splenic infarcts with r/o infectious etiology #Alcoholic Cirrhosis * Admit to Med Surg for further management * +RUQ/LUQ abdominal pain, + diarrhea x 1 today, decreased appetite, low po intake--> rule out infectious etiology * CT abdomen/pelvis with small splenic infarct 2 cm and few additional smaller splenic infarcts new since prior exam. +Abdominal varices are noted; small abdominal and pelvic ascites. * Blood cultures/Echo pending * H/O ETOH cirrhosis w/ routine paracentesis last done 6-10 weeks ago; Last ETOH intake reported Aug 2024--> UDS/ETOH pending; Bili 1.1 * Continue home lactulose and rifaximin * GI consult ordered for further recs #Dehydration #Malnourished * Clinically dry on exam w/o evidence MEAGAN * Holding home diuretics * 2.5 L NSS given in ED * UA w/o UTI, elevated pH >9, elev spec grav >1.045, + prot and ketones--> will recheck UA in the morning * Encourage po fluids * Albumin/protein low; BMI 16; minimal food intake at home; Nutrition consult ordered #COPD with mild exacerbation possible underlying bronchitis: * +SOB at home with increased sputum production * CXR without acute findings * Resp panel/sputum culture pending * Start Ceftriaxone and Doxy * Xopenex/Ipratrop nebs Q6H scheduled and Q4H as needed * Mucinex scheduled * Pulmonary toileting with flutter valve and IS #H/O DVT/ Pulmonary Embolism * Eliquis 5mg BID at home- reportedly adherent to home regimen * Continue Eliquis per home routine #Chronic Pain with opioid use * Chronic LBP with long-standing oxycodone use recently weaned by [place] [facility] and started on Buprenorphine patch 1 month ago * Has been experiencing sleep disturbances and hallucinations since transitioning to TD therapy * Remove patch now- start Oxy 5mg Q4H as needed, Hydromorphone 0.5 mg as needed * Pain consult when able pending discharge #TSH elevation * Subclinical hypothyroidism noted TSH 49.425 with normal T4 * Nonadherent to home levothyroxine for unknown reason * Continue home levothyroxine in the morning #Chronic Hyponatremia * Na+ 134; received 2.5 L NSS in the ED * Holding home diuretics * Trend with AM labs DVT Ppx: On Elqiuis Code status: Full PCP: [place] Dispo: Admit to Med Surg for further mgmt Patient seen in collaboration with Dr. Robledo. Please see addendum.I spent a total of 70 minutes coordinating, documenting and providing care for this patient excluding time spent in the performance of separately billed services or time spent by another provider/QHP. (2) Splenic infarct: (3) Alcoholic cirrhosis of liver: (4) COPD with exacerbation: (5) Pulmonary embolism: (6) TSH elevation: (7) Hyponatremia: (8) Dehydration: History of Present Illness Primary Care Provider: [facility] Patient is a 64 year old M with a past medical history of alcoholic cirrhosis, COPD with current tobacco use, chronic LBP with long-standing opioid use, hypothyroidism, chronic hyponatremia presenting with acute abdominal pain. Patient was brought here via EMS, was found spraying his home for cockroaches and living in deplorable conditions. He required O2 via transport. Patient reports having "hot and cold" periods and sweats x 1 week with no measurable temperature. Diarrhea x1 today. Also with short of breath and increased phlegm x few days- using nebs at home with some relief. Denies sick contacts. He has been on oxycodone off and on for an extended period of time and switched to Butr ans patch 1 month ago by his PCP [place]. Reports having sleep disturbances and hallucinations since starting the Butrans patch. Denies fever, weight loss, weakness, headaches, cognitive changes, vision/hearing changes, chest pain,swelling, urinary concerns, N/V, joint swelling/pain, ambulation difficulty, skin rashes, lesions, bleeding, bruising. In the emergency department, patient was hemodynamically stable with no signs of sepsis. Urine w/o evidence of UTI but with elevated pH >9, Spec Grav >1.045, trace protein and ketones. Clinically dry with no evidence of MEAGAN. Has been on dual-agent diuretics for chronic ascites. History of chronic hyponatremia Na+ 134. Fluid resuscitation with 2.5 L NSS given in the ED with + urine output following. Mild elevation of Bili 1.1 and Alk Phos 135 with stable AST/ALT. Abdominal pain mostly to RUQ and LUQ. Received hydromorphone in the ED with some relief. CT abdomen/pelvis showed new finding of small infarct within the anterior aspect of the spleen measuring 2 cm with a few additional smaller splenic infarcts. Abdominal varices are noted. A small amount of abdominal and pelvic ascites is present. Mesenteric edema is likely related to portal hypertension. The adrenal glands, kidneys and pancreas are unremarkable. Last paracentesis 6-10 weeks ago with <1L withdrawn. Follows GI here for routine paracentesis. EKG showing NRS with vent rate 68 bpm, QTc 442. Chest Xray w/o acute findings. KUB Xray showing few mildly distended small bowel loops of uncertain significance History of single subsegmental thrombotic pulmonary embolism without acute cor pulmonale in 2023 and has been managed on Eliquis, reportedly compliant. Has Alcoholic cirrhosis with ascites S/P abdominal paracentesis nearly monthly, last done 6-10 weeks ago. Managed with lactulose and rifaximin at home. History obtained primarily from the patient and via hospitalization record. Patient is a poor historian of medication use, specifically doses he takes and is also nonadherent with daily med regimen. Allergies Allergy/AdvReac Type Severity Reaction Status Date / Time aspirin Allergy Severe Anaphylaxis Unverified 12/01/24 09:45 Sulfa (Sulfonamide Allergy Mild Rash Verified 09/05/24 15:13 Antibiotics) Home Medications Medication Instructions Recorded Confirmed Type albuterol sulfate 90 mcg/actuation 2 puff inhalation QID PRN 12/01/24 05/13/25 History aerosol inhaler Shortness Of Breath ##0 apixaban 5 mg tablet (Eliquis) 5 mg PO BID 12/01/24 05/13/25 History gabapentin 300 mg capsule 300 mg PO BID 12/01/24 05/13/25 History tiotropium 2.5 mcg-olodaterol 2.5 2 puff inhalation DAILY 12/01/24 05/13/25 History mcg/actuation mist for inhalation (Stiolto Respimat) benzonatate 100 mg capsule 100 mg PO TID PRN Cough 05/13/25 05/13/25 History food supplemt, lactose-reduced 1 ea PO DAILY 05/13/25 05/13/25 History food supplemt, lactose-reduced 1 ea PO DAILY 05/13/25 05/13/25 History furosemide 20 mg tablet 20 mg PO DAILY 05/13/25 05/13/25 History lactulose 10 gram/15 mL oral 20 g PO BID 05/13/25 05/13/25 History solution lanolin alcohols-mineral 1 applic topical BID Dry Skin 05/13/25 05/13/25 History oil-w.petrolatum-ceresin topical cream (Eucerin topical cream) levothyroxine 125 mcg tablet 125 mcg PO DAILY 05/13/25 05/13/25 History lidocaine 5 % topical patch 1 patch topical DAILY 05/13/25 05/13/25 History magnesium oxide 420 mg tablet 420 mg PO DAILY 05/13/25 05/13/25 History midodrine 5 mg tablet 5 mg PO TID 05/13/25 05/13/25 History mometasone 100 mcg/actuation HFA 2 puff inhalation BID 05/13/25 05/13/25 History aerosol inhaler naloxone 4 mg/actuation nasal spray 4 mg intranasal ONCE PRN Opioid 05/13/25 05/13/25 History Overdose rifaximin 550 mg tablet (Xifaxan) 550 mg PO BID 05/13/25 05/13/25 History sertraline 50 mg tablet 50 mg PO DAILY 05/13/25 05/13/25 History spironolactone 50 mg tablet 150 mg PO DAILY 05/13/25 05/13/25 History Past Med/Surg History Problem List (Updated 05/13/25 @ 18:23 by STACEY Nichols) Dehydration COPD with exacerbation TSH elevation Splenic infarct Acute abdominal pain Acute pain of left wrist (Acute) Fall (Acute) Multiple fractures of ribs (Acute) Rib pain on left side (Acute) Dysphagia Alcoholic cirrhosis of liver Ascites Esophageal varices Single subsegmental thrombotic pulmonary embolism without acute cor pulmonale (Acute) Abdominal pain (Acute) Hyponatremia (Acute) Fluid overload (Acute) No significant past surgical history No significant past medical history Medical History (Updated 05/13/25 @ 18:23 by STACEY Nichols) Pulmonary embolism Hypothyroid Deep vein thrombosis (DVT) of tibial vein of right lower extremity Cirrhosis Social History (Updated 03/14/23 @ 19:10 by Merritt Ramey) Smoking Status: Current every day smoker Tobacco Type: Cigarettes Do You Dip or Chew Tobacco: No; Hx Alcohol Use: No Hx Substance Use: No Preferred Language: Greek Communication Ability: Effective Emergency Medical Technician Basic Required: No Beliefs That Will Affect Care: None marital status: Single Current Living Situation: Alone current occupational status: employed Feels Safe at Home: Yes Assistive Devices: None Review of Systems Review of Systems: All systems reviewed & are unremarkable except as noted in HPI & below Physical Exam Physical Exam: VITALS: Reviewed. WEIGHT/BMI reviewed. GEN: Malnourished, well-developed, NAD. PSYCH: Good Judgment. AOx3. Normal memory, mood, and affect. HEENT -Head: NC/AT; -Eyes: PERRL, EOMI. No discharge or redn ess; -Ears: External ears are normal. -Nose: Normal nares. -Mouth and throat: MMM. Normal gums, muc juancho, palate,. Good dentition. NECK: Supple, with no masses. CV: RRR, no m/r/g. LUNGS: + exp wheezing, + rhonchi, equal air exchange ABD: Soft, +scaphoid contour, exquisitely tender to RUQ and LUQ, hyperactive BS, no masses or organomegaly. : N/A SKIN: Warm, well perfused. No skin rashes or abnormal lesions. MSK: No deformities, Normal gait. EXT: No clubbing, cyanosis, or edema. NEURO: Ambulating with no limitations. Normal muscle strength and tone. No focal deficits. Results & Data Results & Data Vital Signs (Past 12 Hours) Vital Signs Temp Pulse Resp BP Pulse Ox O2 Del Method 05/13/25 15:00 108/64 05/13/25 15:00 108/64 05/13/25 15:00 108/64 05/13/25 14:54 59 L 20 05/13/25 14:39 62 15 05/13/25 14:30 110/63 05/13/25 14:30 110/63 05/13/25 14:30 110/63 05/13/25 14:30 110/63 05/13/25 14:18 83 15 05/13/25 14:06 64 21 124/71 05/13/25 13:42 65 20 100/68 100 05/13/25 13:02 65 14 115/70 05/13/25 12:53 63 19 115/70 100 05/13/25 12:26 60 18 106/68 99 05/13/25 12:15 65 05/13/25 12:02 64 15 120/69 100 05/13/25 11:31 63 18 118/71 100 05/13/25 11:10 36.5 C 67 22 111/69 100 Room Air Laboratory Results Short CBC 05/13/25 Range/Units 11:08 WBC 6.93 (4.8-10.8) K/ul Hgb 11.7 L (14.0-18.0) g/dl Hct 34.4 L (42.0-52.0) % Plt Count 190 (130-400) K/uL BMP 05/13/25 11:08 Sodium 134 L Potassium 3.8 Chloride 102 Carbon Dioxide 25 BUN 16 Creatinine 0.83 Glucose 85 Calcium 8.8 Liver Function 05/13/25 Range/Units 11:08 Total Bilirubin 1.1 H (0.2-1.0) mg/dl Direct Bilirubin 0.2 (0-0.2) mg/dl AST 26 (13-39) U/L ALT 9 (7-52) U/L Alkaline Phosphatase 135 H (34-104) U/L Albumin 2.9 L (3.4-5.0) gm/dl Urine 05/13/25 Range/Units 14:42 Urine Color Yellow Urine Appearance Clear (Clear) Urine pH >= 9.0 H (4.5-7.5) Ur Specific [place] > 1.045 H (1.000-1.030) Urine Protein Trace H (Negative) Urine Glucose (UA) Negative (Negative) Diagnostic Findings Chest X-Ray 05/13/25 11:05 XR chest 1V portable CLINICAL HISTORY: diffuse pain COMPARISON STUDY: 12/01/2024 FINDINGS: Heart size and pulmonary vasculature are normal. No consolidation or pleural effusion. No pneumothorax. There are multiple old bilateral rib fractures. IMPRESSION: No acute findings. ACT 112: Negative or not required by law. Electronically signed by: Antonio Bourgeois M.D. 05/13/2025 11:32 AM KUB X-Ray 05/13/25 11:05 KUB HISTORY: diffuse pain COMPARISON STUDY: 09/07/2024 FINDINGS: Vertical tubing overlies the right abdomen and pelvis right of midline and the lower chest, possibly external to the patient. Suggest clinical co rrelation. There are stable right upper quadrant surgical clips. There are a few mildly distended small bowel loops at the left abdomen and pelvis measuring up to 3 cm diameter. No other bowel distention seen. No gross free air. IMPRESSION: A few mildly distended small bowel loops of uncertain significance. No other acute findings seen. ACT 112: Negative or not required by law. The above report was generated using voice recognition software. It may contain grammatical, syntax or spelling errors. Electronically signed by: Antonio Bourgeois M.D. 05/13/2025 11:33 AM Abdomen/Pelvis CT 05/13/25 11:55 CT SCAN OF THE ABDOMEN AND PELVIS WITH IV CONTRAST CLINICAL HISTORY: Abdominal pain. Abnormal KUB. COMPARISON STUDY: CT of the abdomen and pelvis November 30, 2024 and KUB performed earlier today. TECHNIQUE: Following the IV administration of 94 cc of Optiray 320, CT scan of the abdomen and pelvis is performed from the lung bases to the proximal femora. Images are reviewed in the axial, sagittal, and coronal planes. IV contrast was administered without complication. A dose lowering technique was utilized adhering to the principles of ALARA. CT DOSE: 344.63 mGy.cm FINDINGS: Visualized lung bases are unremarkable. No pneumatosis, free air or portal venous gas is present. As before, the liver is cirrhotic. No hepatic lesions are identified on venous phase exam. Main, left and right portal veins are patent. There is no biliary ductal dilatation status post cholecystectomy. A small infarct within the anterior aspect of the spleen measuring 2 cm is new since CT of November 30, 2024. A few additional smaller splenic infarcts are new since prior exam as well. Abdominal varices are noted. A small amount of abdominal and pelvic ascites is present. Mesenteric edema is likely related to portal hypertension. The adrenal glands, kidneys and pancreas are unremarkable. There is no hydronephrosis. There is no evidence for a bowel obstruction. There is colonic diverticulosis without evidence for acute diverticulitis. Mild wall thickening of the ascending colon is noted. There is bladder wall thickening. Multiple old lower thoracic and lumbar spine compression fractures are unchanged since CT of November 30, 2024. A moderate L5 compression fracture involving the superior endplate with 40% loss of vertebral body height is new. IMPRESSION: 1. Cirrhotic liver with small amount of ascites and abdominal varices consistent with portal hypertension. 2. Interval development of several small splenic infarcts since CT of November 30, 2024. 3. Mild right colon wall thickening which is likely related to portal hypertension. A nonspecific colitis could appear similar. No bowel obstruction. 4. L5 compression fracture with which is age indeterminate but new since CT of November 30, 2024. Multiple old thoracolumbar spine compression fractures. 5. Bladder wall thickening which could be correlated with urinalysis to exclude cystitis. ACT 112: Negative or not required by law. Electronically signed by: Reece Sood M.D. 05/13/2025 1:10 PM
--- NOTE | 2025-05-13 17:29 | Communication Note ---
Date of Service: May 13, 2025 Attending Addendum: Case reviewed with the advanced practitioner. I have personally performed a history and physical examination on the patient. I have reviewed the advanced practitioner's documentation on the date of service referenced in note, and I agree with, and take responsibility for the plan of care. please refer to her notes for full details patient seen and examined, records reviewed by myself as well on exam, patient seen resting in bed, comfortable states Dilaudid seems to have helped with his abdominal, diffuse pain (+) diarrhea this morning reports dry cough, some shortness of breath, feeling hot/cold at home no other symptoms VS noted and reviewed oriented x3, not in distress, speaks in sentences with no effort nor accessory muscle use normal rate, regular rhythm, no murmurs (+) scattered moderate rhonchi, mild intermittent wheeze bilaterally, (+) good air entry non distended, soft, nontender no bipedal edema, erythema, warmth no neuro deficits all labs, imaging noted and reviewed ASSESSMENT AND PLAN> 64 year old male with Alcoholic Cirrhosis, Varices, COPD, History of PE on Eliquis, ABDOMINAL PAIN SECONDARY TO COLITIS SECONDARY TO SPLENIC INFARCT - stool panel, C diff - states he takes his Eliquis regularly blood cultures echo GI consult COPD EXACERBATION, MILD ACUTE BRONCHITIS - on room air CXR: no pneumonia - Ceftri + Doxy Nebs q6h Mucinex Incentive spirometry, flutter valve CHRONIC PAIN, ON SUBOXONE - reports diffuse body pain, abdominal pain on Suboxone, started last month, not adequately controlling pain as per patient PRN Oxycodone, Dilaudid for now, HOLD Suboxone other diagnoses and plan of care as per advanced practitioner's notes I spent a total of 60 minutes coordinating, documenting, and providing care for this patient, excluding time spent in the performance of separately billed services or time spent by another provider/QHP. Erwin Willams MD
[2025-05-13] MEDS ORDERED: ALUMINUM/MAGNESIUM SUSP 30 ML UDC PO PRN (18:12)
[2025-05-13] MEDS ORDERED: LEVALBUTEROL 1.25 MG/3 ML NEB NEB PRN (18:12)
[2025-05-13] MEDS ORDERED: ACETAMINOPHEN 325 MG TAB PO PRN (18:12)
[2025-05-13] MEDS ORDERED: ONDANSETRON INJ 2 MG/ML 2 ML VIAL IV PRN (18:12)
[2025-05-13] MEDS ORDERED: MAGNESIUM HYDROXIDE SUSP 30 ML UDC PO PRN (18:12)
[2025-05-13] MEDS ORDERED: IPRATROPIUM BROMIDE NEB SOLN 0.02% 0.5MG/2.5ML VIAL NEB PRN (18:12)
[2025-05-13 18:38] LABS: Chlamydia pneumoniae PCR Not Detected (NotDetected); Coronavirus 229E PCR Not Detected (NotDetected); Coronavirus CoV-2 (COVID19)PCR Not Detected (NotDetected); Coronavirus HKU1 PCR Not Detected (NotDetected); Coronavirus NL63 PCR Not Detected (NotDetected); Coronavirus OC43PCR Not Detected (NotDetected); Human Metapneumovirus PCR Not Detected (NotDetected); Parainfluenza Virus 1 PCR Not Detected (NotDetected); Parainfluenza Virus 2 PCR Not Detected (NotDetected); Parainfluenza Virus 3 PCR Not Detected (NotDetected); Parainfluenza Virus 4 PCR Not Detected (NotDetected); Respiratory Syncytial VirusPCR Not Detected (NotDetected); Rhinovirus/Enterovirus PCR Not Detected (NotDetected)
[2025-05-13] MEDS: cefTRIAXone SODIUM 2,000 MG/50 ML BAG IV SCH (18:41)
[2025-05-13] MEDS: REMOVE & WASTE BUTRANS PATCH 1 EA EA STA ×2 (18:45→21:48)
[2025-05-13] MEDS: IPRATROPIUM BROMIDE NEB SOLN 0.02% 0.5MG/2.5ML VIAL NEB SCH (19:13)
[2025-05-13] MEDS: LEVALBUTEROL 1.25 MG/3 ML NEB NEB SCH ×2 (19:14→19:15)
[2025-05-13 19:23] LABS: Amphetamines+Metham, Urine Neg (Neg); MDMA (Ecstacy), Urine Neg (Neg); Marijuana, Urine Pos (Neg)
[2025-05-13 20:35] VITALS: RESP 18; TEMP 98.1
[2025-05-13] MEDS: guaiFENesin 600 MG TABCR PO SCH (20:37)
[2025-05-13] MEDS: MIDODRINE HCL 2.5 MG TAB PO SCH (20:37)
[2025-05-13] MEDS: GABAPENTIN 300 MG CAP PO SCH (20:37)
[2025-05-13] MEDS: APIXABAN 5 MG TABLET PO SCH (20:37)
[2025-05-13] MEDS: DOXYCYCLINE HYCLATE 100 MG CAP PO SCH (20:37)
[2025-05-13] MEDS: LACTULOSE SYRUP 10 GM/15 ML BTL 960 ML PO SCH (20:43)
[2025-05-13] MEDS: HYDROmorphone INJ 0.5 MG/0.5 ML SYR IV PRN (20:46)
--- NOTE | 2025-05-13 22:05 | Electrocardiogram Report ---
Test Reason : Blood Pressure : */* mmHG Vent. Rate : 68 BPM Atrial Rate : 68 BPM P-R Int : 172 ms QRS Dur : 84 ms QT Int : 416 ms P-R-T Axes : 70 -43 43 degrees QTcB Int : 442 ms Sinus rhythm with Premature atrial complexes Left axis deviation Septal infarct , age undetermined Abnormal ECG When compared with ECG of 30-Nov-2024 16:26, Premature atrial complexes are now Present Nonspecific T wave abnormality no longer evident in Lateral leads Confirmed by Adrian Pate ([id number]) on 05/13/2025 10:04:48 PM Referred By: REFERRED SELF Confirmed By: Adrian Pate
[2025-05-13] MEDS: MELATONIN 3 MG TAB PO PRN (22:33)
[2025-05-13] MEDS: LIDOCAINE 5% 1 PATCH TD SCH (22:34)
[2025-05-14] MEDS: HYDROmorphone INJ 0.5 MG/0.5 ML SYR IV STA (06:10)
[2025-05-14] MEDS: LEVOTHYROXINE SODIUM 125 MCG TABLET PO SCH (06:40)
[2025-05-14 06:41] LABS: Hematocrit (blood only) 32.5 % (42.0-52.0); Hemoglobin 11.2 g/dl (14.0-18.0); Mean Corpuscular Hemoglobin 32.4 pg (25.0-34.0); Mean Corpuscular Volume 93.9 fL (80.0-100.0); Platelet Count 165 K/uL (130-400); RDW Standard Deviation 51.2 fL (36.4-46.3); Red Blood Count 3.46 M/uL (4.70-6.10); White Blood Count 13.33 K/ul (4.8-10.8)
[2025-05-14 07:08] VITALS: PULSE 66; O2SAT 98
[2025-05-14 07:15] LABS: Anion Gap 5.0 (3-11); Blood Urea Nitrogen 15.0 mg/dl (6-23); Calcium 8.3 mg/dl (8.6-10.3); Carbon Dioxide 24.0 mmol/L (21-32); Chloride 103.0 mmol/L (98-107); Creatinine Clr Calc Pharmacy 63.2 ml/min; Glucose 82.0 mg/dl (70-99(Fasting)); Magnesium 1.6 mg/dl (1.7-2.4); Potassium 4.0 mmol/L (3.5-5.1); Sodium 132.0 mmol/L (136-145)
[2025-05-14] MEDS: MAGNESIUM OXIDE 400 MG TAB PO SCH (08:08)
[2025-05-14] MEDS: SERTRALINE HCL 50 MG TABLET PO SCH (08:09)
--- NOTE | 2025-05-14 09:46 | Discharge Summary ---
Discharge Summary Date of Service May 14, 2025 Principal Dx & Hospital Course #1 = Principal Diagnosis (1) Failed back syndrome of lumbar spine: (2) Compression fracture of L5 vertebra: (3) Splenic infarct: (4) Adverse reaction to drug: Buprenorphine patch (5) Compression fracture of thoracic vertebra: (6) Chronic pain syndrome: (7) Narcotic dependence: (8) Alcoholic cirrhosis of liver: (9) Esophageal varices: (10) Hyponatremia: (11) Severe protein-calorie malnutrition: (12) Hypothyroid: (13) Chronic thromboembolic disease: (14) COPD (chronic obstructive pulmonary disease): Plan Patient is a 64-year-old gentleman with longstanding failed back syndrome and opioid use. Presents to the emergency room with complaints of abdominal pain some shortness of breath, sleep disturbance, hallucinations since starting the buprenorphine patch. In the emergency room gait show and was given some IV fluid resuscitation. Imaging revealed splenic infarcts. Patient was referred for further evaluation. Patient was admitted to the hospital. Due to the patient's perceived side effects to the buprenorphine patch this was discontinued. He continued some IV hydration. He was able to tolerate his regular diet. He was on room air. Called by nursing early's morning stating that the patient was wanting to leave the hospital. Was not interested in seeing gastroenterology that had been consulted. Evaluated patient at bedside. Prior to the Butrans patch he was on approximately 2-3 5 mg oxycodone per day. I reviewed the PDMP. Patient did not have a oxycodone prescription since February. This would confirm his history. Other vital signs are stable. Other laboratory studies are stable. Suspect splenic infarcts may be due to poor compliance with his Eliquis. Patient has had previous history of thromboembolic disease. Patient is really not having any significant GI symptoms at this time. He is really unwilling to stay for any further evaluation. This point I do believe that any additional treatments and evaluations can be performed as an outpatient. TSH is elevated due to noncompliance with the Synthroid. He states he has intermittent compliance with his medications. Patient will be discharged to outpatient care. [facility]. He [facility] he [facility]. Due to the fact that he seems to having symptoms with the Butrans patch we will discontinue that and continue oxycodone that he had been on previously. Did discuss with him whether he was having any withdrawal symptoms, perhaps a Butrans patch was not strong enough. He did not think that was the case and really feels a lot better now that the Butrans patch has been discontinued. Do the fact that he is feeling better off the patch than we is on it we will can to keep him off the patch and with instruction to follow-up with his outpatient providers. Reviewing his other medications we will try to increase his gabapentin to 3 times daily and increase his Zoloft to 100 mg daily Notes For Next Care Provider Continue to work with pain management for patient's chronic pain syndrome Medication Changes From Visit Butrans patch discontinued Gabapentin increased to 3 times daily Zoloft increased to 100 mg daily Oxycodone 5 mg every 6 hours as needed for pain, #14 dispensed Admission HPI Per Admitting Provider Patient is a 64 year old M with a past medical history of alcoholic cirrhosis, COPD with current tobacco use, chronic LBP with long-standing opioid use, hypothyroidism, chronic hyponatremia presenting with acute abdominal pain. Patient was brought here via EMS, was found spraying his home for cockroaches and living in deplorable conditions. He required O2 via transport. Patient reports having "hot and cold" periods and sweats x 1 week with no measurable temperature. Diarrhea x1 today. Also with short of breath and increased phlegm x few days- using nebs at home with some relief. Denies sick contacts. He has been on oxycodone off and on for an extended period of time and switched to Butrans patch 1 month ago [facility]. Reports having sleep disturbances and hallucinations since starting the Butrans patch. Denies fever, weight loss, weakness, headaches, cognitive changes, vision/hearing changes, chest pain,swelling, urinary concerns, N/V, joint swelling/pain, ambulation difficulty, skin rashes, lesions, bleeding, bruising. In the emergency department, patient was hemodynamically stable with no signs of sepsis. Urine w/o evidence of UTI but with elevated pH >9, Spec Grav >1.045, trace protein and ketones. Clinically dry with no evidence of MEAGAN. Has been on dual-agent diuretics for chronic ascites. History of chronic hyponatremia Na+ 134. Fluid resuscitation with 2.5 L NSS given in the ED with + urine output following. Mild elevation of Bili 1.1 and Alk Phos 135 with stable AST/ALT. Abdominal pain mostly to RUQ and LUQ. Received hydromorphone in the ED with some relief. CT abdomen/pelvis showed new finding of small infarct within the anterior aspect of the spleen measuring 2 cm with a few additional smaller splenic infarcts. Abdominal varices are noted. A small amount of abdominal and pelvic ascites is present. Mesenteric edema is likely related to portal hypertension. The adrenal glands, kidneys and pancreas are unremarkable. Last paracentesis 6-10 weeks ago with <1L withdrawn. Follows GI here for routine paracentesis. EKG showing NRS with vent rate 68 bpm, QTc 442. Chest Xray w/o acute findings. KUB Xray showing few mildly distended small bowel loops of uncertain signif icance History of single subsegmental thrombotic pulmonary embolism without acute cor pulmonale in 2023 and has been managed on Eliquis, reportedly compliant. Has Alcoholic cirrhosis with ascites S/P abdominal paracentesis nearly monthly, last done 6-10 weeks ago. Managed with lactulose and rifaximin at home. History obtained primarily from the patient and via hospitalization record. Patient is a poor historian of medication use, specifically doses he takes and is also nonadherent with daily med regimen. Admission Exam Per Admitting Provider See H&P Discharge Exam Constitutional: Alert, cachectic, malnourished HEENT: Mucous membranes moist. Lungs: Decreased breath sounds, no significant wheezing CV: S1-S2, regular Abdomen: Soft, nontender, nondistended, no ascites appreciated Extremities: No significant edema, muscle mass loss Neuro: No focal deficits Psych: Cooperative, normal mood Updated Medication List Medication Instructions Recorded Confirmed Type albuterol sulfate 90 mcg/actuation 2 puff inhalation QID PRN 12/01/24 05/13/25 History aerosol inhaler Shortness Of Breath ##0 apixaban 5 mg tablet (Eliquis) 5 mg PO BID 12/01/24 05/13/25 History tiotropium 2.5 mcg-olodaterol 2.5 2 puff inhalation DAILY 12/01/24 05/13/25 History mcg/actuation mist for inhalation (Stiolto Respimat) benzonatate 100 mg capsule 100 mg PO TID PRN Cough 05/13/25 05/13/25 History food supplemt, lactose-reduced 1 ea PO DAILY 05/13/25 05/13/25 History food supplemt, lactose-reduced 1 ea PO DAILY 05/13/25 05/13/25 History furosemide 20 mg tablet 20 mg PO DAILY 05/13/25 05/13/25 History lactulose 10 gram/15 mL oral 20 g PO BID 05/13/25 05/13/25 History solution lanolin alcohols-mineral 1 applic topical BID Dry Skin 05/13/25 05/13/25 History oil-w.petrolatum-ceresin topical cream (Eucerin topical cream) levothyroxine 125 mcg tablet 125 mcg PO DAILY 05/13/25 05/13/25 History lidocaine 5 % topical patch 1 patch topical DAILY 05/13/25 05/13/25 History magnesium oxide 420 mg tablet 420 mg PO DAILY 05/13/25 05/13/25 History midodrine 5 mg tablet 5 mg PO TID 05/13/25 05/13/25 History mometasone 100 mcg/actuation HFA 2 puff inhalation BID 05/13/25 05/13/25 History aerosol inhaler naloxone 4 mg/actuation nasal spray 4 mg intranasal ONCE PRN Opioid 05/13/25 05/13/25 History Overdose rifaximin 550 mg tablet (Xifaxan) 550 mg PO BID 05/13/25 05/13/25 History spironolactone 50 mg tablet 150 mg PO DAILY 05/13/25 05/13/25 History gabapentin 300 mg capsule 300 mg PO TID #90 caps 05/14/25 Rx oxycodone 5 mg tablet 5 mg PO Q6H PRN pain #14 tabs 05/14/25 Rx sertraline 50 mg tablet 100 mg (2 x 50 mg) PO DAILY #60 05/14/25 Rx tabs Hospital Stay Data Consultations 05/13/25 15:23 ED Decision to Admit Stat Diagnostic Imagining Performed 05/13/25 11:55 CT abd pelvis IV con only Stat Reviewed imaging, laboratory and diagnostic studies. Pertinent findings as below. WBCs 13.3 Hemoglobin Ezra 0.2 Platelets of 165 Sodium 132 Magnesium 1.6 Creatinine 0.83 LFTs stable TSH 49.4, suspect this is due to noncompliance with medication Free T40.67 Urinalysis unremarkable for signs of infection Urine drug screen positive for opioids Positive marijuana Respiratory viral panel negative CT of the abdomen pelvis showed cirrhotic liver with small amount of ascites and evidence of portal hypertension, some small splenic infarcts that has developed since November 2024, some right colon thickening most likely due to his portal hypertension, L5 compression fracture new since November 2024, multiple old thoracolumbar compression fractures Pending Results Patient Have Any Pending Studies at Discharge: Yes Discharge Instructions Given to Patient (Per Discharging Provider) Continue to work with your outpatient providers to control your chronic pain Total Time Total Time Spent Total Time Spent (In Minutes): 40
[2025-05-14 09:47] VITALS: BP 101/63
[2025-05-14] MEDS ORDERED: REMOVE LIDODERM PATCH SCH (21:00)
--- NOTE | 2025-05-17 07:39 | Coding Query ---
CODING QUERY To promote full compliance with coding requirements relating to patient care, provider participation is requested in all cases of radio frequency engineer uncertainty. Please assist us with the question(s) below: Coding Question(s): The patient was diagnosed with splenic infarct, could you please clarify the etiology by placing an 'x' in the parenthesis below? Splenic infarction unspecified ( ) Splenic infarction due to suspected embolism or thrombosis ( x ) Physician's Response(s): Thank you Dottie Sullivan Principal Diagnosis: "that condition established after study, to be chiefly responsible for occasioning the admission of the patient to the hospital for care." Co-Existing Principal Diagnosis: "when two or more diagnoses equally meet the criteria for principal diagnosis as determined by the circumstances of admission, diagnostic work up, and/or therapy provided, and the Alphabetic Index, Tabular List, or another coding guideline does not provide sequencing direction, any one of the diagnoses may be sequenced first." "When the physician has documented what appears to be a current diagnosis in the body of the record, but has not included the diagnosis in the final diagnostic statement, the physician should be asked whether the diagnosis should be added." (Source Coding [facility] 2 QTR90. p3-4) PETE
[2025-05-17 10:16] LABS: Hydrocodone Urine NEGATIVE ng/mL (<50); Hydromor Urine 457 ng/mL (<50); Marijuana Quant, GCMS Urine 1013 ng/mL (<5); Noroxycodone Urine NEGATIVE ng/mL (<50); Oxymorph Urine NEGATIVE ng/mL (<50)
== END 2025-05-14 10:05 | disposition home or self-care (01) | DRG 299 ==
LOC: ED 10:58 → 3N 16:40 → SUATTDRO 16:40 → 3N 18:03